=== PATIENT | female | born 1945 | race Caucasian/White ===

== ENCOUNTER 2019-05-01 22:08 | Inpatient (IN) | payer MEDICARE, BC ==
[2019-05-01 23:03] LABS: HEMATOCRIT 36.8 % (36.0-47.0); HEMOGLOBIN 11.8 g/dL (12.0-15.5); MEAN CORPUSCULAR HEMOGLOBIN 27.6 pg (27.0-33.4); MEAN CORPUSCULAR VOLUME 86 fl (80-97); RED BLOOD COUNT 4.27 10^6/uL (3.72-5.28); RED CELL DISTRIBUTION WIDTH 17.4 % (11.5-14.0)
[2019-05-01 23:06] LABS: ALBUMIN 3.7 g/dL (3.5-5.0); ALKALINE PHOSPHATASE 145 U/L (38-126); ASPARTATE AMINO TRANSFERASE 26 U/L (14-36); BILIRUBIN,DIRECT 0.4 mg/dL (0.0-0.4); BILIRUBIN,TOTAL 0.4 mg/dL (0.2-1.3); CALCIUM 9.8 mg/dL (8.4-10.2); GLUCOSE 205 mg/dL (75-110); POTASSIUM 5.2 mmol/L (3.6-5.0); TOTAL PROTEIN 7.2 g/dL (6.3-8.2)
[2019-05-01 23:11] LABS: CHLORIDE 89 mmol/L (98-107)
[2019-05-01 23:14] LABS: APPEARANCE,URINE SLIGHTLY-CLOUDY; BILIRUBIN,URINE NEGATIVE (NEGATIVE); COLOR,URINE YELLOW; GLUCOSE, URINE 50 mg/dL (NEGATIVE); KETONES,URINE TRACE mg/dL (NEGATIVE); LEUKOCYTE ESTERASE,URINE NEGATIVE (NEGATIVE); NITRITE,URINE NEGATIVE (NEGATIVE); PROTEIN,URINE 100 mg/dL (NEGATIVE); URINE SPECIFIC GRAVITY 1.012; UROBILINOGEN,URINE NEGATIVE mg/dL (<2.0)
[2019-05-01 23:21] LABS: ABSOLUTE LYMPHOCYTES# (MANUAL) 1.8 10^3/uL (0.5-4.7); ABSOLUTE MONOCYTES # (MANUAL) 1.8 10^3/uL (0.1-1.4); BAND NEUTROPHILS % (MANUAL) 8 % (3-5); BASOPHILS % (MANUAL) 0 % (0-2); BLOOD UREA NITROGEN 133 mg/dL (7-20); EOSINOPHILS % (MANUAL) 0 % (0-6); LYMPHOCYTES % (MANUAL) 5 % (13-45); MONOCYTES % (MANUAL) 5 % (3-13); SEGMENTED NEUTROPHILS % (MAN) 82 % (42-78); TOTAL CELLS COUNTED 100
[2019-05-01 23:22] LABS: ANION GAP 32 (5-19)
[2019-05-01 23:23] LABS: TOXIC GRANULATION 1+; TOXIC VACUOLATION PRESENT
[2019-05-01 23:24] LABS: ANISOCYTOSIS 1+; PLATELET COMMENT INCREASED; WHITE BLOOD COUNT 36.5 10^3/uL (4.0-10.5)
[2019-05-01 23:25] LABS: CARBON DIOXIDE 8 mmol/L (22-30)
[2019-05-01] MEDS ORDERED: NORMAL SALINE IV PRN (23:43)
[2019-05-02] MEDS ORDERED: PIPERACILLIN/TAZOBACTAM 4.5 GM VIAL IV ONE (00:05)
--- NOTE | 2019-05-02 00:40 | RADIOLOGY REPORT (SQ) ---
EXAM: CT abdomen and pelvis without intravenous contrast CLINICAL DATA: 74-year-old female with right lower quadrant abdominal pain TECHNICAL DATA: Axial CT imaging of the abdomen and pelvis was performed. Sagittal and coronal reconstructed images were then performed. The CT study is performed according to ALARA (as low as reasonably achievable) or ALARA/IMAGE GENTLY, with automatic adjustment of mA and/or kV according to patient size. Performed on: 05/02/2019 at 12:08 AM Comparison: None. FINDINGS: Lung bases: The lung bases are clear. Liver:The liver is normal in size and configuration. No focal hepatic abnormalities are appreciated on this unenhanced scan. Liver attenuation is within normal limits. Spleen:The spleen is normal is size, configuration and attenuation. No focal splenic abnormalities are appreciated on this unenhanced scan. Gallbladder and bile duct: The gallbladder is surgically absent. There is no biliary ductal dilatation. Pancreas: The pancreas is grossly normal in size and configuration. Adrenal Glands:The adrenal glands are normal in size and configuration. Kidneys:The kidneys are normal in size and configuration. There is no evidence of hydronephrosis. There is no evidence of nephrolithiasis. No focal renal abnormalities are identified. Stomach:The stomach is grossly normal. There is no definite hiatal hernia. Bowel:The bowel gas pattern is non specific and non obstructive. There is occasional colonic diverticulosis. Appendix: The appendix is normal. Free air:There is no evidence of free air. Free fluid: There is no evidence of free fluid. Vasculature: The aorta is normal in caliber and contour. The inferior vena cava is grossly unremarkable. Lymphadenopathy: No pathologic lymphadenopathy is identified. Bladder: The bladder is partially distended and smooth in contour. Reproductive: The uterus is retroflexed and there is a calcified fibroid in the fundus and the lower uterine body. Bones: No acute osseous abnormalities are identified. There is mild degenerative disc disease from L3-L4 through L5-S1. Soft tissues: No focal soft tissue abnormalities are identified. IMPRESSION: 1. Normal unenhanced CT scan of the abdomen and pelvis. There is no evidence of urinary tract calcification or urinary tract obstruction. There is no evidence of gallbladder pathology or acute appendicitis. 2. Occasional colonic diverticulosis. 3. Remote cholecystectomy. 4. Retroflexed myomatous uterus.
--- NOTE | 2019-05-02 00:41 | RADIOLOGY REPORT (SQ) ---
CLINICAL HISTORY: Cough COMPARISON: None. 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 There is minimal left basilar opacity. There is no pleural effusion. There is no pneumothorax. There are no acute osseous findings. IMPRESSION: Difficult to completely exclude minimal left basilar pneumonia.
[2019-05-02] MEDS: PIPERACILLIN SODIUM/TAZOBACTAM 4.5 GM in NORMAL SALINE 100 ML IV SCH ×2 (00:50→17:14)
[2019-05-02 01:18] LABS: ARTERIAL BLOOD BASE EXCESS -20.7 mmol/L; ARTERIAL BLOOD FIO2 ROOM AIR; ARTERIAL BLOOD H2CO3 0.65 mmol/L (1.05-1.35); ARTERIAL BLOOD HCO3 6.8 mmol/L (20-24); ARTERIAL BLOOD O2 SATURATION 95.6 % (94-98); ARTERIAL BLOOD PCO2 21.5 mmHg (35-45); ARTERIAL BLOOD PO2 100.4 mmHg (80-100); ARTERIAL BLOOD TOTAL CO2 7.5 mmol/L (21-25)
[2019-05-02 01:19] LABS: ARTERIAL BLOOD PH 7.12 (7.35-7.45)
[2019-05-02] MEDS ORDERED: SODIUM BICARBONATE 8.4% INJ 50 MEQ/50 ML DISP.SYRIN IV ONE ×2 (02:15→02:16)
--- NOTE | 2019-05-02 02:21 | ER Document Report ---
ED Dizziness/Weakness - General Chief Complaint: General Weakness Stated Complaint: WEAKNESS Information source: Patient, Relative - Son Notes: 34-year-old woman presents to the emergency department with family. States that she injured her right foot approximately 2 weeks ago. And over the past 2 days she has had a decrease in her intake, increased weakness and some confusion. Patient has a history of Alzheimer's disease, diabetes type 2, chronic renal failure stage III, hypertension, hyperlipidemia, and thrombocytosis. TRAVEL OUTSIDE OF THE [place] IN LAST 30 DAYS: No - Related Data Allergies/Adverse Reactions: atorvastatin Allergy (Verified 05/01/19 23:58) codeine Allergy (Verified 05/01/19 23:58) lisinopril Allergy (Verified 05/01/19 23:58) meloxicam Allergy (Verified 05/01/19 23:58) metformin Allergy (Verified 05/01/19 23:58) Sulfa (Sulfonamide Antibiotics) Allergy (Verified 05/01/19 23:58) Past Medical History - Social History Smoking Status: Never Smoker Chew tobacco use (# tins/day): No Frequency of alcohol use: None Drug Abuse: None Family History: Reviewed & Not Pertinent Patient has suicidal ideation: No Patient has homicidal ideation: No - Past Medical History Cardiac Medical History: Reports: Hx Atrial Fibrillation Endocrine Medical History: Reports: Hx Diabetes Mellitus Type 2 Renal/ Medical History: Reports: Hx End Stage Renal Disease - stage 3 Review of Systems - Review of Systems Notes: Constitutional: Generalized weakness, negative for fever, HENT: Negative for neck pain or stiffness Eyes: Negative for visual changes. Cardiovascular: Negative for chest pain. Respiratory: Negative for shortness of breath. Gastrointestinal: + Abdominal pain, + nausea, no vomiting or diarrhea. Genitourinary: Negative for dysuria. Musculoskeletal: Negative for back pain. Skin: Negative for rash. Neurological: + Increased confusion 10 point ROS negative except as marked above and in HPI. Physical Exam - Vital signs Vitals: Temp Pulse Resp BP Pulse Ox 97.6 F 97 14 148/55 H 100 05/01/19 22:13 05/01/19 22:13 05/01/19 22:13 05/01/19 22:13 05/01/19 22:13 - Notes Notes: PHYSICAL EXAMINATION: Physical Exam: General: Frail elderly female in no acute distress HEENT: NC/AT, pupils equal round and reactive to light, MM moist,nares clear, eyes are sunken Neck: supple, no adenopathy, no masses. Lungs: clear, no wheezing, no rales no rhonchi CVS: Regular rate and rhythm no murmur gallop or rub Abdomen: Soft, active, + tenderness lower abdominal region, no guarding, no rebound no masses, no hepatosplenomegaly Ext: No edema clubbing or cyanosis. Capillary refill greater than 2 seconds. Neuro: Alert and responsive, moving all 4 extremities on command, cranial nerves intact. Skin: Intact no open lesions, no rash Course - Re-evaluation Re-evalutation: 05/02/19 02:55 The latex foam worker contacted in the ICU, report given of critically ill 74-year-old with significant leukocytosis thrombocytosis, possible sepsis, and acute on chronic renal failure. Severe metabolic acidosis I doubt DKA given her other findings. IV fluids, Moreno catheter, sodium bicarb, blood cultures, IV antibiotics and the need for ICU and intensive scrutiny/care is needed. The latex foam worker will see the patient in the emergency department for further evaluation. - Vital Signs Vital signs: Temp Pulse Resp BP Pulse Ox 97.8 F 88 18 176/69 H 93 05/07/19 02:00 05/07/19 02:00 05/07/19 02:00 05/07/19 06:07 05/07/19 06:07 - Laboratory Result Diagrams: 05/07/19 03:33 05/07/19 03:33 Laboratory results interpreted by me: 05/01/19 05/01/19 05/01/19 21:38 21:38 22:46 WBC 36.5 H* Hgb 11.8 L RDW 17.4 H Plt Count 1387 H* Seg Neuts % (Manual) 82 H Band Neutrophils % 8 H Lymphocytes % (Manual) 5 L Abs Neuts (Manual) 32.9 H Abs Monocytes (Manual) 1.8 H Carbonic Acid ABG pH ABG pCO2 ABG pO2 ABG HCO3 ABG Total CO2 Sodium 128.8 L Potassium 5.2 H Chloride 89 L Carbon Dioxide 8 L* Anion Gap 32 H BUN 133 H Creatinine 5.00 H Est GFR ( Amer) 10 L Est GFR (MDRD) Non-Af 8 L Glucose 205 H POC Glucose 209 H Alkaline Phosphatase 145 H Urine Protein Urine Glucose (UA) Urine Ketones Urine Blood 05/01/19 05/02/19 23:00 01:06 WBC Hgb RDW Plt Count Seg Neuts % (Manual) Band Neutrophils % Lymphocytes % (Manual) Abs Neuts (Manual) Abs Monocytes (Manual) Carbonic Acid 0.65 L ABG pH 7.12 L* ABG pCO2 21.5 L ABG pO2 100.4 H ABG HCO3 6.8 L ABG Total CO2 7.5 L Sodium Potassium Chloride Carbon Dioxide Anion Gap BUN Creatinine Est GFR ( Amer) Est GFR (MDRD) Non-Af Glucose POC Glucose Alkaline Phosphatase Urine Protein 100 H Urine Glucose (UA) 50 H Urine Ketones TRACE H Urine Blood SMALL H I have reviewed laboratory data and used this information for the treatment decisions regarding the patient. - Diagnostic Test Radiology reviewed: Image reviewed, Reports reviewed - Chest x-ray portable: Unable to interpret today completely, no apparent obvious infiltrate. CT abdomen and pelvis: Noncontrast study no acute intra-abdominal findings. Critical Care Note - Critical Care Note Total time excluding time spent on procedures (mins): 60 - Critical care time spent obtaining history from patient or surrogate, discussions with consultants, development of treatment plan with patient or surrogate, evaluation of patient's response to treatment, examination of patient, ordering and performing treatments and interventions, ordering and review of laboratory studies, re- evaluation of patient's condition, ordering and review of radiographic studies and review of old charts Discharge - Discharge Clinical Impression: Metabolic acidosis, Renal failure (ARF), acute on chronic, Thrombocytosis Leukocytosis, unspecified Qualifiers: Leukocytosis type: unspecified Qualified Code(s): D72.829 - Elevated white blood cell count, unspecified Condition: Critical Disposition: ADMITTED INPATIENT Unit Admitted: ICU
[2019-05-02] MEDS ORDERED: OXYCODONE HCL IR 5 MG TABLET PO PRN (04:34)
[2019-05-02] MEDS ORDERED: DEXTROSE 40% GEL 15 GM TUBE PO PRN ×2 (04:51)
[2019-05-02] MEDS ORDERED: DEXTROSE 50%-WATER 25 GM/50 ML DISP.SYRIN IV PRN ×2 (04:51)
[2019-05-02] MEDS ORDERED: GLUCAGON,HUMAN RECOMB 1 MG INJ IM PRN (04:51)
[2019-05-02] MEDS: NORMAL SALINE 1000 ML 1,000 ML IV PRN ×2 (05:03→13:18)
[2019-05-02] MEDS: INSULIN REG, HUMAN 100 UNIT/ML 3 ML VIAL (PYX) SUBCUT SCH ×5 (05:07→19:25)
[2019-05-02] MEDS: HEPARIN SOD (PORCINE) 5,000 UNIT/ML 1 ML VIAL SUBCUT SCH ×3 (05:13→21:05)
[2019-05-02] MEDS ORDERED: INFLUENZA QUAD (6MOS+) 2019-20 VAC 0.5 ML SYR IM ONE (05:39)
[2019-05-02 06:12] LABS: VENOUS BLOOD BASE EXCESS -16.8 mmol/L; VENOUS BLOOD HCO3 10.7 mmol/L (20-32)
[2019-05-02 06:15] LABS: VENOUS BLOOD PH 7.15 (7.30-7.42)
[2019-05-02 06:20] LABS: URINE CREATININE 34.6 mg/dL (15-278)
[2019-05-02] MEDS ORDERED: HYDROMORPHONE HCL INJ/PF 2 MG/ML AMPULE IV ONE (06:24)
[2019-05-02] MEDS ORDERED: HYDROMORPHONE HCL INJ/PF 2 MG/ML AMPULE ONE ×2 (06:35→09:03)
[2019-05-02 06:38] LABS: NT PRO BNP 1640 pg/mL (<450)
[2019-05-02 06:46] LABS: TROPONIN I < 0.012 ng/mL
[2019-05-02] MEDS ORDERED: CLINDAMYCIN HCL 150 MG CAPSULE PO SCH (07:00)
--- NOTE | 2019-05-02 07:43 | EKG REPORT ---
SEVERITY:- ABNORMAL ECG - SINUS RHYTHM CONSIDER LEFT VENTRICULAR HYPERTROPHY BORDERLINE INFERIOR Q WAVES : Confirmed by: Cole Locke MD 02-May-2019 07:43:02
--- NOTE | 2019-05-02 08:24 | CRITICAL CARE ADMISSION REPORT ---
<AZAM WRIGHT - Last Filed: 05/02/19 08:24> HPI Date:: 05/02/19 Time:: 03:30 Reason for ICU Reason:: Metabolic acidosis, hypovolemia, leukocytosis, VALENTIN on CKD, multiple electrolyte abnormalities. HPI: Milli Trammell is a 74-year-old female with a past medical history significant for atrial fibrillation for which she is on ASA denying anticoagulation, type 2 diabetes for which she does not take any medication relying on diet, stage III CKD, HTN, HLD, asthma, and essential thrombocytosis who now presents with several days of decreased oral intake, weakness, and some confusion per the patient's son. Her son reports this all started since her recent injury to her right foot, which was injured while walking and hearing a popping noise approxi mately 2 weeks ago. She has reportedly had multiple x-rays of her right lower extremity demonstrating no fracture or dislocation for which she was diagnosed with a foot sprain. She has also been unable to walk which was her usual state of health prior to the injury, being mostly sedentary the past 2 weeks. She reports her pain is relieved with the oxycodone she has been taking at home, allowing her to actually get some rest. Notable labs from the ED are a leukocytosis of 36.5 with 8% bandemia, thrombocytosis of 1387, afebrile in combination with reports of myalgias and arthralgias over the past couple days. She denies chills or recent exposure to someone ill. She was also noted to have VALENTIN on CKD with a BUN of 133 and creatinine of 5, though non-oliguric. She was also found to have a sodium of 129, chloride of 89, serum bicarb of 8, and an anion gap of 32. Her pH is 7.12 with a base deficit of 21. Blood cultures and urinalysis were performed in the ED for which the UA is negative for UTI. The patient received 30 mL/kg of crystalloid for hydration as well. History obtained from:: Patient's son, ED physician, and medical record - Diagnosis/Plan (1) Metabolic acidosis Is this a current diagnosis for this admission?: Yes Plan: Multifactorial with suspected infection, hypovolemia, and VALENTIN. Repeat BMP and pH after fluid resuscitation. Add Mg+ & PO4 with next lab as wel l. Check lactic acid. (2) Necrotizing soft tissue infection Is this a current diagnosis for this admission?: Yes Plan: Presume NSTI to R foot; obtain non-con CT given VALENTIN. (3) Abscess of nose Is this a current diagnosis for this admission?: Yes Plan: Suspect left nare abscess given erythema, edema, tenderness. May need CT face if no other infectious source identified. (4) Acute kidney injury superimposed on chronic kidney disease Is this a current diagnosis for this admission?: Yes Plan: Trend BMP prn. Continue soriano catheter for Strict I&O in critically ill. Monitor for worsening electrolyte abnormalities. Avoid NSAID's and other nephrotoxic drugs as well as IV contrast as able. (5) Asthma Qualifiers: Asthma severity: unspecified severity Asthma persistence: intermittent Asthma complication type: uncomplicated Qualified Code(s): J45.20 - Mild intermittent asthma, uncomplicated Is this a current diagnosis for this admission?: Yes Plan: Xopenex prn SOB/wheezing and scheduled Symbicort. Zafirlukast not on formulary; clarify auto-sub with daytime clinical pharmD. Montelukast? (6) History of cardiac murmur Plan: Will obtain baseline CK, Troponin, BNP in setting of metabolic acidemia. (7) History of atrial fibrillation Is this a current diagnosis for this admission?: Yes Plan: In NSR during exam. Continue home Toprol for now, telemetry. (8) HTN (hypertension) Qualifiers: Hypertension type: essential hypertension Qualified Code(s): I10 - Essential (primary) hypertension Is this a current diagnosis for this admission?: Yes Plan: Hold Verapimil and Triamterene-HCTZ for now. Resume home Toprol more for Hx of atrial fibrillation; monitor BP/HR. (9) Type 2 DM with CKD and hypertension Is this a current diagnosis for this admission?: Yes Plan: Insulin sliding scale with correctional insulin AC/HS. Anticipate diet later today if no acute need for surgery, hence the AC/HS schedule. (10) Abdominal tenderness, RLQ (right lower quadrant) Qualifiers: Presence of rebound: absent Qualified Code(s): R10.813 - Right lower quadrant abdominal tenderness Is this a current diagnosis for this admission?: Yes Plan: Non-contrasted CT abd/pelvis performed with no acute significant findings explaining acidemia/infection. Continue to follow clinically. (11) Acute pain due to injury Is this a current diagnosis for this admission?: Yes Plan: Right foot pain with recent injury/sprain. Will order home Oxycodone dose that was relieving patient's pain at home. (12) Essential thrombocytosis Is this a current diagnosis for this admission?: Yes Plan: Hold ASA for now 2/2 VALENTIN on CKD. Monitor for further acute organ compromise from thrombocytosis. (13) Alzheimer's dementia without behavioral disturbance Qualifiers: Alzheimer's disease onset: early-onset Qualified Code(s): G30.0 - Alzheimer's disease with early onset; F02.80 - Dementia in other diseases classified elsewhere without behavioral disturbance Is this a current diagnosis for this admission?: Yes Plan: Hold Memantine home med for now given adverse effect possibilities similar to what pt experiencing in weakness, myalgias, arthralgias, intermittent headache. Assess daily for resuming. (14) Right foot sprain Qualifiers: Encounter type: initial encounter Qualified Code(s): S93.601A - Unspecified sprain of right foot, initial encounter Is this a current diagnosis for this admission?: Yes Plan: Obtain non-contrast CT RLE to R/O NSTI. Elevate RLE on pillows to reduce edema. RLE ultrasound to R/O DVT. POCUS performed 05/02/19 demonstrating adequate DP/PT arterial flow in R foot distal to edema combined with brisk capillary refill. Past Medical History Cardiac Medical History: Reports: Atrial Fibrillation, Hyperlipidema, Hypertension, Heart Murmur - Reportedly known since patient was a child. Denies: Congestive Heart Failure, Coronary Artery Disease, DVT, Myocardial Infarction, Peripheral Vascular Disease, Pulmonary Embolism Pulmonary Medical History: Reports: Asthma, Bronchitis, Pneumonia Denies: Chronic Obstructive Pulmonary Disease (COPD), Intubation, Respiratory Failure EENT Medical History: Reports: Cataracts Neurological Medical History: Reports: Other - early Alzheimer's dementia Denies: Hemorrhagic CVA, Ischemic CVA, Migraine Endocrine Medical History: Reports: Diabetes Mellitus Type 2 Denies: Hyperthyroidism, Hypothyroidism Renal/ Medical History: Reports: Other - Stage III chronic kidney disease sec ondary to diabetes per patient report Malignancy Medical History: Reports: Skin Cancer - Post resection from nasal bridge Denies: Bone Cancer, Cervical Cancer, Ovarian Cancer GI Medical History: Reports: Other - Diverticulosis Denies: Cirrhosis, Crohn's Disease, Diverticulitis, Gastroesophageal Reflux Disease Musculoskeltal Medical History: Denies: Arthritis Skin Medical History: Reports: Other - 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 Psychiatric Medical History: Reports: None Traumatic Medical History: Reports: None Past Surgical History Past Surgical History: Reports: Cholecystectomy, Knee Replacement, Other - Carpal tunnel surgery of right wrist Social/Family History - Social History Smoking Status: Never Smoker Frequency of Alcohol Use: None Hx Recreational Drug Use: No - Medication/Allergies Home Medications: Aspirin [Aspirin 325 mg Tablet] 325 mg PO DAILY 05/02/19 Budesonide/Formoterol Fumarate [Symbicort HFA 160-4.5 mcg Inhaler 6 gm] 2 puff IH BID 05/02/19 Calcium Carbonate/Vitamin D3 [Calcium 600-Vit D3 200 Tablet] 1 tab PO DAILY 05/02/19 Cholecalciferol (Vitamin D3) [Vitamin D3] 25 mcg PO DAILY 05/02/19 Ibuprofen [Motrin 800 mg Tablet] 800 mg PO Q8H PRN 05/02/19 Levalbuterol Tartrate [Xopenex Hfa] 2 puff IH Q4H PRN 05/02/19 Memantine HCl 5 mg PO BID 05/02/19 Metoprolol Succinate 100 mg PO DAILY 05/02/19 Sulindac 200 mg PO DAILY 05/02/19 Triamterene/Hydrochlorothiazid [Triamterene-Hctz 37.5-25 mg Cp] 1 tab PO DAILY 05/02/19 Verapamil HCl [Verapamil ER] 240 mg PO DAILY 05/02/19 Zafirlukast 20 mg PO BID 05/02/19 Allergies/Adverse Reactions: atorvastatin Allergy (Verified 05/01/19 23:58) codeine Allergy (Verified 05/01/19 23:58) lisinopril Allergy (Verified 05/01/19 23:58) meloxicam Allergy (Verified 05/01/19 23:58) metformin Allergy (Verified 05/01/19 23:58) Sulfa (Sulfonamide Antibiotics) Allergy (Verified 05/01/19 23:58) Review of Systems Constitutional: PRESENT: headache(s), weakness. ABSENT: chills, fever(s) Eyes: ABSENT: visual disturbances Ears: ABSENT: hearing changes Nose, Mouth, and Throat: ABSENT: mouth pain, sore throat, vertigo Cardiovascular: ABSENT: chest pain, dyspnea on exertion, edema, orthropnea, palpitations Respiratory: ABSENT: cough, dyspnea, hemoptysis, sputum Gastrointestinal: ABSENT: abdominal pain, coffee ground emesis, constipation, diarrhea, dysphagia, heartburn, hematemesis, melena, nausea, vomiting Genitourinary: ABSENT: difficulty urinating, dysuria, hematuria, nocturia Musculoskeletal: PRESENT: joint swelling - Right foot edema, other - Myalgias and arthralgias for a couple days. ABSENT: back pain, deformity Integumentary: PRESENT: erythema - to right foot, wounds - Has a scab to right calf area, which was reportedly a bite that the patient scratched.. ABSENT: diaphoresis, lesions, pruritus, rash Neurological: PRESENT: confusion - per patient's son, weakness. ABSENT: abnormal speech, dizziness, syncope Psychiatric: ABSENT: anxiety, depression, hallucinations, homidical ideation, suicidal ideation Endocrine: ABSENT: cold intolerance, heat intolerance, polydipsia, polyphagia, polyuria Hematologic/Lymphatic: ABSENT: easy bleeding, easy bruising, lymphadenopathy Allergic/Immunologic: PRESENT: other - sinus pressure with congestion and clear discharge which resolved a week before this admission Physical Exam Vital Signs: Temp Pulse Resp BP Pulse Ox 97.6 F 95 15 112/76 98 05/02/19 03:29 05/02/19 03:29 05/02/19 03:29 05/02/19 03:29 05/02/19 03:29 Intake & Output 04/30/19 05/01/19 05/02/19 06:59 06:59 06:59 Intake Total 1900 Balance 1900 Weight 60.9 kg Weight/Height Weight 60.9 kg Height 5 ft General appearance: PRESENT: no acute distress, cooperative, well-nourished. ABSENT: hard of hearing Head exam: PRESENT: atraumatic, normocephalic Eye exam: PRESENT: conjunctiva pink, EOMI, PERRLA. ABSENT: nystagmus, periorbital swelling, scleral icterus Ear exam: PRESENT: normal external ear exam. ABSENT: bleeding, drainage Mouth exam: PRESENT: dry mucosa, neck supple, tongue midline. ABSENT: laceration Teeth exam: ABSENT: poor dentation Throat exam: ABSENT: post pharyngeal erythema, tonsillar erythema, tonsillar exudate Neck exam: PRESENT: full ROM. ABSENT: carotid bruit, JVD, lymphadenopathy, tenderness, tracheal deviation Respiratory exam: PRESENT: clear to auscultation [place], symmetrical, unlabored. ABSENT: accessory muscle use, chest wall tenderness, rales, rhonchi, wheezes Cardiovascular exam: PRESENT: RRR - Normal sinus rhythm on bedside telemetry in ED with HR in 90's, systolic murmur - right 2nd intercostal space/sternal border, Grade III Pulses: PRESENT: normal carotid pulses, normal radial pulses, other - Left dorsalis pedis and posterior tibialis +2. Right posterior tibialis +2. Right dorsalis pedis +1. Capillary refill brisk in all 4 extremities. All ex tremities warm to touch. GI/Abdominal exam: PRESENT: normal bowel sounds, soft, tenderness - Mild tenderness to right lower quadrant. ABSENT: distended, firm, guarding, rigid Rectal exam: ABSENT: deferred Gentrourinary exam: PRESENT: indwelling catheter - Placed today in ED. ABSENT: ecchymosis, erythema, urethral discharge Extremities exam: PRESENT: calf tenderness - Right calf tenderness to palpation, though no edema/erythema/heat to calf noted., full ROM - With exception of right foot/ankle due to pain, joint swelling - Right foot/ankle, pedal edema - Right foot/ankle, tenderness - Right foot/ankle, +2 edema - To right foot/ankle. ABSENT: clubbing Musculoskeletal exam: PRESENT: ambulatory - Ambulatory prior to injury of right foot 2 weeks ago. Has been sedentary since the injury., tenderness - Palpation. ABSENT: deformity, dislocation Neurological exam: PRESENT: alert, awake, oriented to person, oriented to place, oriented to time, oriented to situation, CN II-XII grossly intact Psychiatric exam: PRESENT: appropriate affect. ABSENT: agitated, anxious, depressed, flat affect, homicidal ideation, suicidal ideation Skin exam: PRESENT: dry, normal color - With exception of right foot/ankle, warm. ABSENT: cyanosis, jaundice, mottled, rash Tubes/Lines: PRESENT: Other - Soriano catheter placed today in ED Laboratory/Radiographs Laboratory Results: 05/01/19 21:38 05/01/19 21:38 05/01/19 05/01/19 05/01/19 21:38 21:38 23:00 WBC 36.5 H* RBC 4.27 Hgb 11.8 L Hct 36.8 MCV 86 MCH 27.6 MCHC 32.0 RDW 17.4 H Plt Count 1387 H* Seg Neutrophils % Not Reportable Carbonic Acid HCO3/H2CO3 Ratio ABG pH ABG pCO2 ABG pO2 ABG HCO3 ABG O2 Saturation ABG Base Excess FiO2 Sodium 128.8 L Potassium 5.2 H Chloride 89 L Carbon Dioxide 8 L* Anion Gap 32 H BUN 133 H Creatinine 5.00 H Est GFR ( Amer) 10 L Glucose 205 H Calcium 9.8 Total Bilirubin 0.4 AST 26 Alkaline Phosphatase 145 H Total Protein 7.2 Albumin 3.7 Urine Color YELLOW Urine Appearance SLIGHTLY-CLOUDY Urine pH 5.0 Ur Specific [place] 1.012 Urine Protein 100 H Urine Glucose (UA) 50 H Urine Ketones TRACE H Urine Blood SMALL H Urine Nitrite NEGATIVE Ur Leukocyte Esterase NEGATIVE Urine WBC (Auto) 2 Urine RBC (Auto) 1 05/02/19 01:06 WBC RBC Hgb Hct MCV MCH MCHC RDW Plt Count Seg Neutrophils % Carbonic Acid 0.65 L HCO3/H2CO3 Ratio 10:1 ABG pH 7.12 L* ABG pCO2 21.5 L ABG pO2 100.4 H ABG HCO3 6.8 L ABG O2 Saturation 95.6 ABG Base Excess -20.7 FiO2 ROOM AIR Sodium Potassium Chloride Carbon Dioxide Anion Gap BUN Creatinine Est GFR ( Amer) Glucose Calcium Total Bilirubin AST Alkaline Phosphatase Total Protein Albumin Urine Color Urine Appearance Urine pH Ur Specific [place] Urine Protein Urine Glucose (UA) Urine Ketones Urine Blood Urine Nitrite Ur Leukocyte Esterase Urine WBC (Auto) Urine RBC (Auto) Impressions: Chest X-Ray 05/01/19 23:44 IMPRESSION: Difficult to completely exclude minimal left basilar pneumonia. Abdomen/Pelvis CT 05/01/19 23:49 IMPRESSION: 1. Normal unenhanced CT scan of the abdomen and pelvis. There is no evidence of urinary tract calcification or urinary tract obstruction. There is no evidence of gallbladder pathology or acute appendicitis. 2. Occasional colonic diverticulosis. 3. Remote cholecystectomy. 4. Retroflexed myomatous uterus. All labs, radiographs, diagnostic studies and EKGs were personally reviewed: Yes Critical Time Critical Time (minutes): 70 -: The care of a critically ill patient is dynamic. This note represents a static moment in the admission process. orders and treatments may be given simulataneously and urgentl, and time is not medical center representative of the treatment process. This patient requires Critical Care secondary to life threating organ or limb dysfunction. Without the need for Critical Care services, the patient is at risk for increasid mortality and morbidity. <ALEX MICHAUD - Last Filed: 05/02/19 09:45> HPI - . Plan Summary: Staff Addendum: Agree with above assessment with the following additions/changes. The patient reports an injury to the foot/ankle 2 weeks ago but all examination (x-rays at outside facility?) were reportedly normal per the son/patient. Examination of the right lower extremity reveals an edematous, erythematous/discolored forefoot and and ankle with a fluctuant area overlying the metatarsals. There is capillary refill is present but sluggish compared with the contralateral extremi ty. The foot is exquisitely tender, out of proportion to exam and there is pain with passive motion of the digits. Pulses are palpable using a doppler to locate through the edema but 1+. Review of the laboratory values reveals a LRINEC (Laboratory Risk Indicator for Necrotizing Fasciitis) score of 8 even without a CRP result and likely will be 12 after the return of the CRP. Data behind the score places her at 93.4% risk for an NSTI. This in combination with her CT showing fluid/edema and her worrisome exam necessitates surgical evaluation. Surgery has been consulted and the case discussed with Dr. Salcido who will evaluate her as soon as he is able. Will transition back to renal dose Zosyn IV, Clindamycin IV, aggressive hydration and glucose control while awaiting surgical consult. Alex Michaud, DO Physical Exam Vital Signs: Temp Pulse Resp BP Pulse Ox 97.5 F 92 16 112/39 L 99 05/02/19 08:00 05/02/19 09:21 05/02/19 09:21 05/02/19 08:00 05/02/19 09:21 Intake & Output 05/01/19 05/02/19 05/03/19 06:59 06:59 06:59 Intake Total 2020 Output Total 360 115 Balance 1660 -115 Weight 65.2 kg Weight/Height Weight 65.2 kg Height 5 ft Laboratory/Radiographs Laboratory Results: 05/01/19 05/01/19 05/01/19 21:38 21:38 23:00 WBC 36.5 H* RBC 4.27 Hgb 11.8 L Hct 36.8 MCV 86 MCH 27.6 MCHC 32.0 RDW 17.4 H Plt Count 1387 H* Seg Neutrophils % Not Reportable Carbonic Acid HCO3/H2CO3 Ratio ABG pH ABG pCO2 ABG pO2 ABG HCO3 ABG O2 Saturation ABG Base Excess VBG pH VBG pCO2 VBG HCO3 VBG Base Excess FiO2 Sodium 128.8 L Potassium 5.2 H Chloride 89 L Carbon Dioxide 8 L* Anion Gap 32 H BUN 133 H Creatinine 5.00 H Est GFR ( Amer) 10 L Glucose 205 H Calcium 9.8 Total Bilirubin 0.4 AST 26 Alkaline Phosphatase 145 H Total Protein 7.2 Albumin 3.7 Urine Color YELLOW Urine Appearance SLIGHTLY-CLOUDY Urine pH 5.0 Ur Specific [place] 1.012 Urine Protein 100 H Urine Glucose (UA) 50 H Urine Ketones TRACE H Urine Blood SMALL H Urine Nitrite NEGATIVE Ur Leukocyte Esterase NEGATIVE Urine WBC (Auto) 2 Urine RBC (Auto) 1 05/02/19 05/02/19 01:06 05:57 WBC RBC Hgb Hct MCV MCH MCHC RDW Plt Count Seg Neutrophils % Carbonic Acid 0.65 L HCO3/H2CO3 Ratio 10:1 ABG pH 7.12 L* ABG pCO2 21.5 L ABG pO2 100.4 H ABG HCO3 6.8 L ABG O2 Saturation 95.6 ABG Base Excess -20.7 VBG pH 7.15 L* VBG pCO2 31.0 L VBG HCO3 10.7 L VBG Base Excess -16.8 FiO2 ROOM AIR Sodium Potassium Chloride Carbon Dioxide Anion Gap BUN Creatinine Est GFR ( Amer) Glucose Calcium Total Bilirubin AST Alkaline Phosphatase Total Protein Albumin Urine Color Urine Appearance Urine pH Ur Specific [place] Urine Protein Urine Glucose (UA) Urine Ketones Urine Blood Urine Nitrite Ur Leukocyte Esterase Urine WBC (Auto) Urine RBC (Auto) 05/02/19 05:57 Troponin I < 0.012 NT-Pro-B Natriuret Pep 1640 H Impressions: Chest X-Ray 05/01/19 23:44 IMPRESSION: Difficult to completely exclude minimal left basilar pneumonia. Abdomen/Pelvis CT 05/01/19 23:49 IMPRESSION: 1. Normal unenhanced CT scan of the abdomen and pelvis. There is no evidence of urinary tract calcification or urinary tract obstruction. There is no evidence of gallbladder pathology or acute appendicitis. 2. Occasional colonic diverticulosis. 3. Remote cholecystectomy. 4. Retroflexed myomatous uterus. Lower Extremity CT 05/02/19 00:00 IMPRESSION: Soft tissue edema distally in the lower extremity. It has raises the possibility of cellulitis. No abscess or mass. No bone pathology. Critical Time -: The care of a critically ill patient is dynamic. This note represents a static moment in the admission process. orders and treatments may be given simulataneously and urgentl, and time is not medical center representative of the treatment process. This patient requires Critical Care secondary to life threating organ or limb dysfunction. Without the need for Critical Care services, the patient is at risk for increasid mortality and morbidity.
--- NOTE | 2019-05-02 08:49 | RADIOLOGY REPORT (SQ) ---
EXAM DESCRIPTION: CT RT LOWER EXTREMITY WITHOUT COMPLETED DATE/TIME: 05/02/2019 8:23 am REASON FOR STUDY: erythema/edema, pain out of proportion; R/O NSTI COMPARISON: None. TECHNIQUE: Axial imaging performed through the right leg with reformatted coronal and sagittal imagi ng windowed for bone and soft tissues. Images saved to PACS. 3D IMAGING: Were 3D images as MIP, SSD, or volume rendering performed at the work station? no LIMITATIONS: Knee arthroplasty artifact with associated beam hardening about the knee. Mild motion artifact. FINDINGS: Soft tissues: Mild soft tissue edema about the ankle and extending over the foot. Potent ially cellulitis. No drainable abscess or gross mass suggested. No radiopaque foreign body. Bony structures: No acute fracture. No dislocation. MINERALIZATION: Normal. OTHER: No other significant finding. IMPRESSION: Soft tissue edema distally in the lower extremity. It has raises the possibility of lazara lulitis. No abscess or mass. No bone pathology. TECHNICAL DOCUMENTATION: JOB ID: [id number] Reading location - IP/workstation name: [email or web address]
[2019-05-02] MEDS: HYDROMORPHONE HCL INJ/PF 2 MG/ML AMPULE IV PRN ×2 (09:04→13:15)
[2019-05-02 09:06] LABS: HEMATOCRIT 32.2 % (36.0-47.0); HEMOGLOBIN 10.6 g/dL (12.0-15.5); MEAN CORPUSCULAR HEMOGLOBIN 27.7 pg (27.0-33.4); MEAN CORPUSCULAR HGB CONC 32.9 g/dL (32.0-36.0); MEAN CORPUSCULAR VOLUME 84 fl (80-97); RED BLOOD COUNT 3.83 10^6/uL (3.72-5.28); RED CELL DISTRIBUTION WIDTH 16.4 % (11.5-14.0); WHITE BLOOD COUNT 27.4 10^3/uL (4.0-10.5)
[2019-05-02] MEDS: BUDESONIDE NEB 0.25 MG/2 ML AMPUL NEB SCH ×2 (09:21→19:54)
[2019-05-02 09:24] LABS: INTERNATIONAL RATION (INR) 1.44; PROTHROMBIN TIME 17.7 SEC (11.4-15.4)
[2019-05-02 09:25] LABS: PARTIAL THROMBOPLASTIN TIME 36.5 SEC (23.5-35.8)
[2019-05-02 09:27] LABS: CALCIUM 7.9 mg/dL (8.4-10.2); CHLORIDE 100 mmol/L (98-107); CREATINE KINASE 201 U/L (30-135); GLUCOSE 117 mg/dL (75-110); PHOSPHORUS 9.3 mg/dL (2.5-4.5)
[2019-05-02 09:34] LABS: PLATELET COUNT 1387 10^3/uL (150-450)
[2019-05-02 09:34] LABS: PLATELET COUNT 1147 10^3/uL (150-450)
[2019-05-02 09:39] LABS: ANION GAP 26 (5-19); BLOOD UREA NITROGEN 126 mg/dL (7-20); CARBON DIOXIDE 10 mmol/L (22-30)
[2019-05-02 09:44] LABS: FREE T3 2.5 pg/mL (2.77-5.27); FREE T4 (FREE THYROXINE) 1.67 ng/dL (0.78-2.19)
[2019-05-02 09:56] LABS: POTASSIUM 4.1 mmol/L (3.6-5.0)
[2019-05-02 09:58] LABS: THYROID STIMULATING HORMONE 0.39 uIU/mL (0.47-4.68)
[2019-05-02] MEDS ORDERED: METOPROLOL SUCCINATE 50 MG TAB.SR.24H PO SCH (10:00)
[2019-05-02] MEDS ORDERED: DOCUSATE SODIUM 100 MG CAPSULE PO SCH (10:00)
[2019-05-02] MEDS ORDERED: PIPERACILLIN/TAZOBACTAM 2.25 GM VIAL IV SCH (10:00)
[2019-05-02] MEDS ORDERED: NORMAL SALINE 1000 ML 1,000 ML IV ONE (10:05)
[2019-05-02] MEDS ORDERED: SUCCINYLCHOLINE CHLORIDE INJ 200 MG/10 ML VIAL ONE (10:07)
[2019-05-02] MEDS: CLINDAMYCIN 600 MG/D5W RTU 600 MG/50 ML RTUPB IV SCH ×3 (10:39→21:05)
--- NOTE | 2019-05-02 11:06 | PDOC CONSULTATION ---
Consultation Consult Date: 05/02/19 Attending physician:: OMAYRA ORTIZ Provider Consulted: ANMOL NUNES Consult reason:: Septic right foot History of Present Illness Admission Date/PCP: 05/02/19 03:12 TRISHA SPARKS MD Patient complains of: Pain swelling right foot History of Present Illness: MATTHEW TINAJERO is a 74 year old female Presents to the emergency department via ground rescue yesterday complaining of failure to thrive, mental status changes. Patient lives partial in [place] according to patient's son at bedside this morning. Patient was evaluated and found to be septic, with profound metabolic acidosis and leukocytosis. She was also in acute renal failure. Evaluation including chest x-ray, CT scan of the abdomen pelvis, and right lower extremity CT scan revealed no definitive source of sepsis. On physical exam however the patient had a swollen right foot, which was warm. Over the last several hours the right foot is become discolored, and the customer care assistant is concerned there is undrained infection and has consulted surgery. Patient has been evaluated and felt to require operative debridement soon as possible. Past Medical History Cardiac Medical History: Reports: Atrial Fibrillation, Hyperlipidema, Hypertension, Heart Murmur - Reportedly known since patient was a child. Denies: Congestive Heart Failure, Coronary Artery Disease, DVT, Myocardial Infarction, Peripheral Vascular Disease, Pulmonary Embolism Pulmonary Medical History: Reports: Asthma, Bronchitis, Pneumonia Denies: Chronic Obstructive Pulmonary Disease (COPD), Intubation, Respiratory Failure EENT Medical History: Reports: Cataracts Neurological Medical History: Reports: Other - early Alzheimer's dementia Denies: Hemorrhagic CVA, Ischemic CVA, Migraine Endocrine Medical History: Reports: Diabetes Mellitus Type 2 Denies: Hyperthyroidism, Hypothyroidism Renal/ Medical History: Reports: Chronic Kidney Disease, End Stage Renal Disease - stage 3, Other - Stage III chronic kidney disease secondary to diabetes per patient report Malignancy Medical History: Reports: Skin Cancer - Post resection from nasal bridge Denies: Bone Cancer, Cervical Cancer, Ovarian Cancer GI Medical History: Reports: Other - Diverticulosis Denies: Cirrhosis, Crohn's Disease, Diverticulitis, Gastroesophageal Reflux Disease Musculoskeltal Medical History: Denies: Arthritis Skin Medical History: Reports: Other - 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 Psychiatric Medical History: Reports: None Denies: Depression Traumatic Medical History: Reports: None Past Surgical History Past Surgical History: Reports: Cholecystectomy, Knee Replacement, Other - Carpal tunnel surgery of right wrist Social History Information Source: Relative - History obtained from patient's son at bedside due to altered mentation of the patient secondary to sepsis and pain medication Smoking Status: Never Smoker Electronic Cigarette use?: No Frequency of Alcohol Use: None Hx Recreational Drug Use: No Drugs: None Family History Family History: None Parental Family History Reviewed: No Children Family History Reviewed: No Sibling(s) Family History Reviewed.: No Medication/Allergy Home Medications: Aspirin [Aspirin 325 mg Tablet] 325 mg PO DAILY 05/02/19 Budesonide/Formoterol Fumarate [Symbicort HFA 160-4.5 mcg Inhaler 6 gm] 2 puff IH BID 05/02/19 Calcium Carbonate/Vitamin D3 [Calcium 600-Vit D3 200 Tablet] 1 tab PO DAILY 05/02/19 Cholecalciferol (Vitamin D3) [Vitamin D3] 25 mcg PO DAILY 05/02/19 Ibuprofen [Motrin 800 mg Tablet] 800 mg PO Q8H PRN 05/02/19 Levalbuterol Tartrate [Xopenex Hfa] 2 puff IH Q4H PRN 05/02/19 Memantine HCl 5 mg PO BID 05/02/19 Metoprolol Succinate 100 mg PO DAILY 05/02/19 Sulindac 200 mg PO DAILY 05/02/19 Triamterene/Hydrochlorothiazid [Triamterene-Hctz 37.5-25 mg Cp] 1 tab PO DAILY 05/02/19 Verapamil HCl [Verapamil ER] 240 mg PO DAILY 05/02/19 Zafirlukast 20 mg PO BID 05/02/19 Allergies/Adverse Reactions: atorvastatin Allergy (Verified 05/01/19 23:58) codeine Allergy (Verified 05/01/19 23:58) lisinopril Allergy (Verified 05/01/19 23:58) meloxicam Allergy (Verified 05/01/19 23:58) metformin Allergy (Verified 05/01/19 23:58) Sulfa (Sulfonamide Antibiotics) Allergy (Verified 05/01/19 23:58) Review of Systems ROS unobtainable: Due to mental status - And puffiness unable to obtain due to patient's altered mental status secondary to sepsis and pain medication. According to patient's son, she was in her usual state of acceptable health until 2 weeks ago when she fell and developed right foot pain, swelling, Physical Exam Vital Signs: Temp Pulse Resp BP Pulse Ox 97.1 F 94 11 L 132/56 H 98 05/02/19 10:00 05/02/19 10:00 05/02/19 10:00 05/02/19 10:00 05/02/19 10:00 Intake & Output 05/01/19 05/02/19 05/03/19 06:59 06:59 06:59 Intake Total 2020 Output Total 360 315 Balance 1660 -315 Weight 65.2 kg General appearance: PRESENT: other - In the ICU, upward gaze, follows only simple commands inconsistently Head exam: PRESENT: normocephalic Mouth exam: PRESENT: dry mucosa Neck exam: PRESENT: other - Restricted Respiratory exam: PRESENT: rhonchi Cardiovascular exam: PRESENT: RRR Pulses: PRESENT: normal carotid pulses, normal radial pulses, normal femoral pulses - Patient has bilateral palpable 2 pulses. The right foot is too swollen to palpate pulses, however Doppler detectable GI/Abdominal exam: PRESENT: soft Rectal exam: PRESENT: deferred Musculoskeletal exam: PRESENT: other - evidence of previous right total knee replacement with scar. The right foot is discolored, splotchy erythematous and violaceous areas. Poor hygiene with dirt under the toenails. The foot is tender, with generalized swelling and pain on passive range of motion Psychiatric exam: PRESENT: other - Pharmacologically altered due to medications Skin exam: PRESENT: dry Results Laboratory Results: 05/02/19 08:47 05/02/19 08:47 05/01/19 05/01/19 05/01/19 21:38 21:38 23:00 WBC 36.5 H* RBC 4.27 Hgb 11.8 L Hct 36.8 MCV 86 MCH 27.6 MCHC 32.0 RDW 17.4 H Plt Count 1387 H* Seg Neutrophils % Not Reportable Carbonic Acid HCO3/H2CO3 Ratio ABG pH ABG pCO2 ABG pO2 ABG HCO3 ABG O2 Saturation ABG Base Excess VBG pH VBG pCO2 VBG HCO3 VBG Base Excess FiO2 Sodium 128.8 L Potassium 5.2 H Chloride 89 L Carbon Dioxide 8 L* Anion Gap 32 H BUN 133 H Creatinine 5.00 H Est GFR ( Amer) 10 L Glucose 205 H Lactic Acid Calcium 9.8 Phosphorus Magnesium Total Bilirubin 0.4 AST 26 Alkaline Phosphatase 145 H C-Reactive Protein Total Protein 7.2 Albumin 3.7 TSH Free T4 Free T3 pg/mL Urine Color YELLOW Urine Appearance SLIGHTLY-CLOUDY Urine pH 5.0 Ur Specific [place] 1.012 Urine Protein 100 H Urine Glucose (UA) 50 H Urine Ketones TRACE H Urine Blood SMALL H Urine Nitrite NEGATIVE Ur Leukocyte Esterase NEGATIVE Urine WBC (Auto) 2 Urine RBC (Auto) 1 05/02/19 05/02/19 05/02/19 01:06 05:57 08:47 WBC RBC Hgb Hct MCV MCH MCHC RDW Plt Count Seg Neutrophils % Carbonic Acid 0.65 L HCO3/H2CO3 Ratio 10:1 ABG pH 7.12 L* ABG pCO2 21.5 L ABG pO2 100.4 H ABG HCO3 6.8 L ABG O2 Saturation 95.6 ABG Base Excess -20.7 VBG pH 7.15 L* VBG pCO2 31.0 L VBG HCO3 10.7 L VBG Base Excess -16.8 FiO2 ROOM AIR Sodium 135.5 L Potassium 4.1 D Chloride 100 Carbon Dioxide 10 L* Anion Gap 26 H BUN 126 H Creatinine 4.31 H Est GFR ( Amer) 12 L Glucose 117 H Lactic Acid Calcium 7.9 L Phosphorus 9.3 H Magnesium 2.3 Total Bilirubin AST Alkaline Phosphatase C-Reactive Protein Total Protein Albumin TSH Free T4 Free T3 pg/mL Urine Color Urine Appearance Urine pH Ur Specific [place] Urine Protein Urine Glucose (UA) Urine Ketones Urine Blood Urine Nitrite Ur Leukocyte Esterase Urine WBC (Auto) Urine RBC (Auto) 05/02/19 05/02/19 05/02/19 08:47 08:47 08:47 WBC 27.4 H RBC 3.83 Hgb 10.6 L Hct 32.2 L MCV 84 MCH 27.7 MCHC 32.9 RDW 16.4 H Plt Count 1147 H* Seg Neutrophils % Carbonic Acid HCO3/H2CO3 Ratio ABG pH ABG pCO2 ABG pO2 ABG HCO3 ABG O2 Saturation ABG Base Excess VBG pH VBG pCO2 VBG HCO3 VBG Base Excess FiO2 Sodium Potassium Chloride Carbon Dioxide Anion Gap BUN Creatinine Est GFR ( Amer) Glucose Lactic Acid Calcium Phosphorus Magnesium Total Bilirubin AST Alkaline Phosphatase C-Reactive Protein 348.0 H Total Protein Albumin TSH 0.39 L Free T4 1.67 Free T3 pg/mL 2.50 L Urine Color Urine Appearance Urine pH Ur Specific [place] Urine Protein Urine Glucose (UA) Urine Ketones Urine Blood Urine Nitrite Ur Leukocyte Esterase Urine WBC (Auto) Urine RBC (Auto) 05/02/19 09:11 WBC RBC Hgb Hct MCV MCH MCHC RDW Plt Count Seg Neutrophils % Carbonic Acid HCO3/H2CO3 Ratio ABG pH ABG pCO2 ABG pO2 ABG HCO3 ABG O2 Saturation ABG Base Excess VBG pH VBG pCO2 VBG HCO3 VBG Base Excess FiO2 Sodium Potassium Chloride Carbon Dioxide Anion Gap BUN Creatinine Est GFR ( Amer) Glucose Lactic Acid 1.0 Calcium Phosphorus Magnesium Total Bilirubin AST Alkaline Phosphatase C-Reactive Protein Total Protein Albumin TSH Free T4 Free T3 pg/mL Urine Color Urine Appearance Urine pH Ur Specific [place] Urine Protein Urine Glucose (UA) Urine Ketones Urine Blood Urine Nitrite Ur Leukocyte Esterase Urine WBC (Auto) Urine RBC (Auto) 05/02/19 05/02/19 05:57 08:47 Creatine Kinase 201 H Troponin I < 0.012 NT-Pro-B Natriuret Pep 1640 H Impressions: Chest X-Ray 05/01/19 23:44 IMPRESSION: Difficult to completely exclude minimal left basilar pneumonia. Abdomen/Pelvis CT 05/01/19 23:49 IMPRESSION: 1. Normal unenhanced CT scan of the abdomen and pelvis. There is no evidence of urinary tract calcification or urinary tract obstruction. There is no evidence of gallbladder pathology or acute appendicitis. 2. Occasional colonic diverticulosis. 3. Remote cholecystectomy. 4. Retroflexed myomatous uterus. Lower Extremity CT 05/02/19 00:00 IMPRESSION: Soft tissue edema distally in the lower extremity. It has raises the possibility of cellulitis. No abscess or mass. No bone pathology. Assessment & Plan - Diagnosis (1) Necrotizing soft tissue infection Is this a current diagnosis for this admission?: Yes Plan: Impression: Septic right foot, etiology unclear, with uncontrolled source likely soft tissue, causing profound metabolic acidosis Recommendations: 1. Patient needs to be taken to the operating room as soon as possible to have a right foot filleted open. This was explained to the patient, and her son. I also explained to them that patient may require multiple operations, including right foot amputation. Also explained patient will come back to the intensive care unit, likely intubated, and possibly even sicker than she is now. Patient's life is in jeopardy and this was explained to them as well. 2. We will proceed as planned. Patient is at risk for bleeding, septic shock, cardiovascular collapse and even . Without surgery however, patient will not survive. (2) Acute kidney injury superimposed on chronic kidney disease Is this a current diagnosis for this admission?: Yes (3) Alzheimer's dementia without behavioral disturbance Qualifiers: Alzheimer's disease onset: early-onset Qualified Code(s): G30.0 - Alzheimer's disease with early onset; F02.80 - Dementia in other diseases classified elsewhere without behavioral disturbance Is this a current diagnosis for this admission?: Yes (4) History of atrial fibrillation Is this a current diagnosis for this admission?: Yes (5) Metabolic acidosis Is this a current diagnosis for this admission?: Yes - Time Time Spent: 30 to 50 Minutes Smoking Cessation Education: over 10 minutes Medications reviewed and adjusted accordingly: Yes
[2019-05-02] MEDS ORDERED: MIDAZOLAM 2 MG/2 ML INJ ONE (11:31)
[2019-05-02] MEDS ORDERED: FENTANYL CITRATE INJ/PF 100 MCG/2 ML AMPUL ONE ×2 (11:31→21:33)
[2019-05-02] MEDS ORDERED: PROPOFOL INJ 200 MG/20 ML VIAL IV ONE (11:31)
[2019-05-02] MEDS ORDERED: LIDOCAINE 0.5% INJ-PF (5 MG/ML) 50 ML SDV ONE (11:47)
[2019-05-02] MEDS ORDERED: BUPIVACAINE HCL 0.25 % INJ/PF (2.5 MG/1 ML) 30 ML VIAL ONE (11:47)
[2019-05-02] MEDS ORDERED: CALCIUM GLUCONATE 1000 MG/10 ML INJ IV ONE (12:02)
[2019-05-02] MEDS ORDERED: SODIUM BICARBONATE 8.4% INJ 50 MEQ/50 ML DISP.SYRIN ONE (12:03)
[2019-05-02] MEDS ORDERED: MIDAZOLAM HCL 50 MG/100 ML RTUINJ ONE (12:48)
[2019-05-02] MEDS: MIDAZOLAM HCL 50 MG/100 ML RTUINJ IV PRN ×2 (12:50→21:05)
--- NOTE | 2019-05-02 12:51 | Operative Report ---
Operative Report DATE OF SURGERY: 05/02/19 PREOPERATIVE DIAGNOSIS: 1. Septic foot. 2. Metabolic acidosis POSTOPERATIVE DIAGNOSIS: Same with pus filled right foot covering the dorsum, plantar surface, skin, subcutaneous tissue, fascia OPERATION: Right foot debridement including skin, subcutaneous tissue and fascia, with a total of 6 incisions and placement of 4 loop drains, 3 on the dorsal and lateral aspects, and one on the plantar side, wound irrigation and packing SURGEON: ANMOL NUNES ANESTHESIA: GA TISSUE REMOVED OR ALTERED: Necrotic skin, subcutaneous tissue and fascia COMPLICATIONS: None ESTIMATED BLOOD LOSS: 40 cc INTRAOPERATIVE FINDINGS: See below PROCEDURE: The patient was taken to the operating room where general anesthesia was induced. Right foot was isolated, prepped and draped with Betadine Surgical plan surgical timeout were conducted. There were multiple sites of markedly discolored purple to pink areas of skin the largest on the mid dorsal foot. A full-thickness excision of skin subcutaneous tissue and superficial fascia was removed from the dorsum of the foot approximately 3 and half centimeters in diameter. Tissue sent for Gram stain culture and sensitivity. We immediately got into thick purulent pus. Counterincisions were made on the more proximal foot including the lateral and medial sides of the ankle, just anterior and distal to the medial and lateral malleoli. A minimal amount of pus was encountered on the medial side and virtually no pus on the lateral side. Effie clamps were used to open the subcutaneous tissues between these 2 counterincisions, and large [place] drains were placed into position. They were tied in knots. A fourth incision was made on the distal dorsum of the foot overlying the third metatarsal head. More pus was evacuated and a Cornel loop drain was placed from the target incision to this third counterincision, and tied in a knot. 2 incisions were made on the plantar surface of the foot. 1 distally and 1 more proximally. The proximal incision got into a large pocket of pus. Effie clamp was used as well as the index finger to break up loculations. There was not a definitive communication with the dorsum of the foot, however the clinical situation was certainly suspicious for purulent infection involving the entire proximal section of the midfoot. A fourth Cornel loop drain was placed between these 2 incisions on the plantar surface. We now irrigated all wounds with 4 L of pulse lavage saline. Of note even after all of this vigorous mechanical and debridement, there was still pus rolling out of the stool surface of the foot. We felt this damage control, initial tempted source control was sufficient for today, and wound packed with a gauze, foot wrapped with Kerlix, and elevated. Patient tolerated the procedure reasonably well, and taken to the intensive care unit intubated.
[2019-05-02] MEDS: LINEZOLID 600 MG/300 ML RTUPB IV SCH (13:14)
[2019-05-02] MEDS ORDERED: PHARMACY COMMUNICATION ORDER MC NR (14:30)
--- NOTE | 2019-05-02 15:44 | RADIOLOGY REPORT (SQ) ---
EXAM DESCRIPTION: CHEST SINGLE VIEW COMPLETED DATE/TIME: 05/02/2019 3:15 pm REASON FOR STUDY: verify ETT placement post op COMPARISON: 05/02/2019. FINDINGS: Single-view chest AP portable semi-upright. Endotracheal and nasogastric tubes look appropriate. Low lung volumes. Lungs are clear. Normal cardiomediastinal silhouette. TECHNICAL DOCUMENTATION: JOB ID: [id number] Reading location - IP/workstation name: [email or web address]
[2019-05-02] MEDS: PIPERACILLIN SODIUM/TAZOBACTAM 2.25 GM in NORMAL SALINE 50 ML IV SCH ×2 (17:06→21:05)
[2019-05-02] MEDS: FENTANYL CITRATE/PF 600 MCG/60 ML BAG IV PRN (17:39)
[2019-05-02 20:51] LABS: ARTERIAL BLOOD BASE EXCESS -14.6 mmol/L; ARTERIAL BLOOD H2CO3 0.79 mmol/L (1.05-1.35); ARTERIAL BLOOD HCO3 11.1 mmol/L (20-24); ARTERIAL BLOOD O2 SATURATION 98.2 % (94-98); ARTERIAL BLOOD PCO2 26.1 mmHg (35-45); ARTERIAL BLOOD PH 7.25 (7.35-7.45); ARTERIAL BLOOD PO2 129.3 mmHg (80-100); ARTERIAL BLOOD TOTAL CO2 11.9 mmol/L (21-25)
[2019-05-02 20:56] LABS: ARTERIAL BLOOD FIO2 30%
[2019-05-02] MEDS ORDERED: NORMAL SALINE INJ/PF 0.9% 10 ML SDV IV PRN (22:41)
[2019-05-02 23:01] LABS: GLUCOSE 133 mg/dL (75-110); PHOSPHORUS 8.7 mg/dL (2.5-4.5); POTASSIUM 3.5 mmol/L (3.6-5.0)
--- NOTE | 2019-05-02 23:01 | Operative Report ---
Bedside Procedure - History of Present Illness Indication for Procedure: Difficult IV access for phlebotomy, need for add itional access with meds Provider: AZAM WRIGHT - Central Line Right Internal jugular Consent obtained: Yes Central line pre-insertion: Sterile PPE donned, Chloraprep applied, Sterile drapes applied Central line size (Fr.): 7 Central line lumen type: Triple Anesthetic type: 1% Lidocaine mL's of anesthesia: 3 Ultrasound guided: Yes CM at insertion site: 17 Line secured with sutures: Yes Central line post-insertion: Blood return from lumens, Biopatch applied, Sutured, Sterile dressing applied, Position confirmed w/ CXR Number of attempts: 1 Complications: No Notes: 05/02/19 22:45 Indication: Need for additional IV access to obtain lab work and administer many medications. Airbrush Artist Technical and RN have had very difficult time obtaining labs throughout the day, delaying patient care. Diagnosis: Necrotizing fasciitis, sepsis, hypovolemia After donning sterile PPE, patient was placed in appropriate procedural position followed by prepping and draping in usual sterile fashion. Using ultrasound guidance, the right internal jugular vein was assessed from the angle of the mandible down to the clavicle for which no thrombus was identified. 3 mL of 1% lidocaine was infiltrated into the dermis and subcutaneous tissue to anesthetize for the procedure. Next, a 20-gauge introducer needle was inserted with negative pressure applied to attached syringe visualizing the needle tip going into the right internal jugular vein with brisk return of blood. The syringe was detached noting a slow passive dripping of non-pulsatile blood from the needle and a guide wire was subsequently advanced through the needle into the right internal jugular vein. The needle was then removed over the wire, a small skin stab incision was made and a dilator was passed over the wire to prepare the subcutaneous tissue for the catheter. The dilator was removed and a 7 [place] 20 cm catheter was loaded onto the wire and advanced over the wire into the right internal jugular vein. The wire was removed, again noting a slow dripping of non-pulsatile blood from the distal lumen of the catheter. All lumens aspirated and flushed easily so long as performed slowly. During the procedure it was noted that the patient appears to be hypovolemic with spontaneous collapsibility of the internal jugular vein with respirations as well as aspirating with moderate force the blood was sluggish to return noting vibrations coming from the catheter (indicating the vessel was collapsing around the catheter). The catheter was secured at 17 cm at the skin and sutured into place, Biopatch in place, transparent sterile occlusive dressing applied. Patient tolerated procedure well.
[2019-05-02 23:12] LABS: CARBON DIOXIDE 11 mmol/L (22-30); CHLORIDE 101 mmol/L (98-107)
[2019-05-02 23:25] LABS: ANION GAP 24 (5-19); BLOOD UREA NITROGEN 128 mg/dL (7-20); CALCIUM 7.1 mg/dL (8.4-10.2)
[2019-05-02] MEDS ORDERED: FENTANYL CITRATE INJ/PF 100 MCG/2 ML AMPUL IV ONE (23:30)
--- NOTE | 2019-05-02 23:31 | RADIOLOGY REPORT (SQ) ---
EXAM DESCRIPTION: X-RAY CHEST- One View CLINICAL HISTORY: Evaluate line placement. COMPARISON: May 02, 2019 at 3:10 PM TECHNIQUE: Single view of the chest. Study submitted at 10:41 PM FINDINGS: There are overlying EKG leads. Patient is status post placement of right internal jugular central line with distal tip at the expected location of the cavoatrial junction. Endotracheal tube is located in close proximity to the mayra, with an approximately 6 mm. Retraction is recommended for more optimal placement. Enteric tube is seen coursing below the diaphragm, beyond the imaged portion of the abdomen. There are no discrete air space infiltrates, pneumothoraces or pleural effusions. The pulmonary vascularity is normal. The cardiomediastinal silhouette is normal in size. Osseous structures are stable in appearance. IMPRESSION: 1. Endotracheal tube is located in close proximity to the mayra. Retraction is recommended for more optimal placement. 2. Status post placement of right internal jugular central line with distal tip in the expected location of the cavoatrial junction. Enteric tube is also again noted.
[2019-05-03] MEDS: LINEZOLID 600 MG/300 ML RTUPB IV SCH ×3 (00:15→23:40)
[2019-05-03] MEDS: INSULIN REG, HUMAN 100 UNIT/ML 3 ML VIAL (PYX) SUBCUT SCH ×5 (00:29→23:39)
[2019-05-03] MEDS ORDERED: NORMAL SALINE 1000 ML 1,000 ML IV ONE (00:30)
[2019-05-03] MEDS: NORMAL SALINE 1000 ML 1,000 ML IV PRN ×3 (02:45→22:17)
[2019-05-03 04:36] LABS: ARTERIAL BLOOD BASE EXCESS -16.1 mmol/L; ARTERIAL BLOOD H2CO3 0.69 mmol/L (1.05-1.35); ARTERIAL BLOOD HCO3 9.7 mmol/L (20-24); ARTERIAL BLOOD O2 SATURATION 98.2 % (94-98); ARTERIAL BLOOD PH 7.24 (7.35-7.45); ARTERIAL BLOOD PO2 130.1 mmHg (80-100); ARTERIAL BLOOD TOTAL CO2 10.4 mmol/L (21-25)
[2019-05-03 04:37] LABS: ARTERIAL BLOOD FIO2 30%
[2019-05-03 04:41] LABS: HEMATOCRIT 26.2 % (36.0-47.0); HEMOGLOBIN 8.6 g/dL (12.0-15.5); MEAN CORPUSCULAR HEMOGLOBIN 27.6 pg (27.0-33.4); MEAN CORPUSCULAR HGB CONC 32.8 g/dL (32.0-36.0); MEAN CORPUSCULAR VOLUME 84 fl (80-97); PLATELET COUNT 911 10^3/uL (150-450); RED BLOOD COUNT 3.12 10^6/uL (3.72-5.28); RED CELL DISTRIBUTION WIDTH 16.2 % (11.5-14.0); WHITE BLOOD COUNT 19.1 10^3/uL (4.0-10.5)
[2019-05-03 04:58] LABS: ABSOLUTE LYMPHOCYTES# (MANUAL) 0.4 10^3/uL (0.5-4.7); ABSOLUTE MONOCYTES # (MANUAL) 0.8 10^3/uL (0.1-1.4); ANISOCYTOSIS 1+; BAND NEUTROPHILS % (MANUAL) 9 % (3-5); BASOPHILS % (MANUAL) 0 % (0-2); EOSINOPHILS % (MANUAL) 0 % (0-6); LYMPHOCYTES % (MANUAL) 2 % (13-45); MONOCYTES % (MANUAL) 4 % (3-13); SEGMENTED NEUTROPHILS % (MAN) 85 % (42-78); TOTAL CELLS COUNTED 100
[2019-05-03 04:59] LABS: PLATELET COMMENT INCREASED
[2019-05-03 05:14] LABS: BLOOD UREA NITROGEN 117 mg/dL (7-20); GLUCOSE 147 mg/dL (75-110); POTASSIUM 3.3 mmol/L (3.6-5.0)
[2019-05-03] MEDS: PIPERACILLIN SODIUM/TAZOBACTAM 2.25 GM in NORMAL SALINE 50 ML IV SCH ×3 (05:18→22:03)
[2019-05-03 05:19] LABS: CARBON DIOXIDE 11 mmol/L (22-30); CHLORIDE 105 mmol/L (98-107)
[2019-05-03 05:40] LABS: ANION GAP 21 (5-19)
[2019-05-03] MEDS: HEPARIN SOD (PORCINE) 5,000 UNIT/ML 1 ML VIAL SUBCUT SCH ×3 (05:40→22:02)
[2019-05-03] MEDS: CLINDAMYCIN 600 MG/D5W RTU 600 MG/50 ML RTUPB IV SCH ×3 (05:40→22:02)
[2019-05-03 05:42] LABS: CALCIUM 6.4 mg/dL (8.4-10.2)
[2019-05-03] MEDS ORDERED: POTASSI CL 20 MEQ/50 ML RIDER 20 MEQ/50 ML RTUPB IV ONE (06:00)
[2019-05-03] MEDS: BUDESONIDE NEB 0.25 MG/2 ML AMPUL NEB SCH ×2 (08:38→20:35)
[2019-05-03] MEDS ORDERED: METOPROLOL TARTRATE PF/INJ 5 MG/5 ML SDV IV SCH (08:45)
[2019-05-03] MEDS ORDERED: CALCIUM GLUCONATE 1000 MG/10 ML INJ IV ONE (08:45)
[2019-05-03 09:41] LABS: GLUCOSE 128 mg/dL (75-110); POTASSIUM 3.4 mmol/L (3.6-5.0)
[2019-05-03] MEDS: FENTANYL CITRATE INJ/PF 100 MCG/2 ML AMPUL ONE ×2 (09:50→13:50)
[2019-05-03 09:58] LABS: CARBON DIOXIDE 12 mmol/L (22-30); CHLORIDE 106 mmol/L (98-107)
[2019-05-03 09:59] LABS: ANION GAP 20 (5-19); BLOOD UREA NITROGEN 122 mg/dL (7-20)
[2019-05-03] MEDS ORDERED: CALCIUM GLUCONATE 2,000 MG in DEXTROSE 5%-WATER 100 ML IV ONE (10:00)
[2019-05-03 10:01] LABS: CALCIUM 6.3 mg/dL (8.4-10.2)
[2019-05-03] MEDS ORDERED: SODIUM BICARBONATE 4.2% INJ (2.5 MEQ/5 ML) VIAL ONE (10:34)
[2019-05-03 11:05] LABS: ARTERIAL BLOOD BASE EXCESS -17.2 mmol/L; ARTERIAL BLOOD H2CO3 0.71 mmol/L (1.05-1.35); ARTERIAL BLOOD HCO3 9.1 mmol/L (20-24); ARTERIAL BLOOD O2 SATURATION 97.5 % (94-98); ARTERIAL BLOOD PCO2 23.7 mmHg (35-45); ARTERIAL BLOOD PO2 116.4 mmHg (80-100); ARTERIAL BLOOD TOTAL CO2 9.9 mmol/L (21-25)
[2019-05-03 11:06] LABS: ARTERIAL BLOOD FIO2 30%
[2019-05-03] MEDS ORDERED: SODIUM BICARBONATE 8.4% INJ 50 MEQ/50 ML DISP.SYRIN ONE (11:14)
--- NOTE | 2019-05-03 11:48 | PDOC CRITICAL CARE PROG REPORT ---
General Date:: 05/03/19 ICU Day:: 2 Resuscitation Status: Full Code Reason for ICU Addmission:: Metabolic acidosis, hypovolemia, leukocytosis, VALENTIN on CKD, multiple electrolyte abnormalities. - Medications: Medications reviewed and adjusted accordingly: Yes Physical Exam Vital Signs: Temp Pulse Resp BP Pulse Ox 99.5 F 108 H 22 H 92/69 L 98 05/03/19 10:00 05/03/19 10:00 05/03/19 10:00 05/03/19 10:00 05/03/19 10:00 Intake & Output 05/02/19 05/03/19 05/04/19 06:59 06:59 06:59 Intake Total 2020 4627 Output Total 360 3970 290 Balance 1660 657 -290 Weight 65.2 kg 68.5 kg Weight/Height Weight 68.5 kg Height 5 ft General appearance: PRESENT: well-developed, well-nourished, other - Intubated and sedated Head exam: PRESENT: atraumatic, normocephalic Eye exam: PRESENT: conjunctiva pink, EOMI, PERRLA. ABSENT: scleral icterus Ear exam: PRESENT: normal external ear exam Mouth exam: PRESENT: moist, tongue midline Neck exam: ABSENT: carotid bruit, JVD, lymphadenopathy, thyromegaly Respiratory exam: PRESENT: clear to auscultation edenilson, tachypnea. ABSENT: accessory muscle use, crackles, rales, rhonchi, wheezes Cardiovascular exam: PRESENT: RRR. ABSENT: diastolic murmur, rubs, systolic murmur Pulses: PRESENT: normal dorsalis pedis pul GI/Abdominal exam: PRESENT: normal bowel sounds, soft. ABSENT: ascites, tenderness Rectal exam: PRESENT: deferred Extremities exam: PRESENT: calf tenderness - Tender on right with compression, pedal edema - Right foot edematous and erythematous, other - Right foot wrapped in surgical dressing. Toes dusky and edematous with sluggish cap refill. After dressing removed with surgical team there is still purulence in the wound tracking from deep within the muscle of the forefoot below the fascia.. ABSENT: clubbing Neurological exam: PRESENT: CN II-XII grossly intact, other - Intubated and sedated Skin exam: PRESENT: other - See extremity exam for description of foot. Small scabbing lesion on right upper calf but no other notable skin lesions. Laboratory/Radiographs Laboratory Results: 05/03/19 04:05 05/03/19 09:09 05/02/19 05/02/19 05/02/19 20:10 22:20 22:20 WBC RBC Hgb Hct MCV MCH MCHC RDW Plt Count Seg Neutrophils % Carbonic Acid 0.79 L HCO3/H2CO3 Ratio 14:1 ABG pH 7.25 L ABG pCO2 26.1 L ABG pO2 129.3 H ABG HCO3 11.1 L ABG O2 Saturation 98.2 H ABG Base Excess -14.6 FiO2 30% Sodium 135.7 L Potassium 3.5 L Chloride 101 Carbon Dioxide 11 L Anion Gap 24 H BUN 128 H Creatinine 4.06 H Est GFR ( Amer) 13 L Glucose 133 H Lactic Acid 0.8 Calcium 7.1 L Ionized Calcium Ebony Phosphorus 8.7 H Magnesium 05/03/19 05/03/19 05/03/19 04:05 04:05 04:05 WBC 19.1 H RBC 3.12 L Hgb 8.6 L Hct 26.2 L MCV 84 MCH 27.6 MCHC 32.8 RDW 16.2 H Plt Count 911 H Seg Neutrophils % Not Reportable Carbonic Acid 0.69 L HCO3/H2CO3 Ratio 14:1 ABG pH 7.24 L ABG pCO2 23.0 L ABG pO2 130.1 H ABG HCO3 9.7 L ABG O2 Saturation 98.2 H ABG Base Excess -16.1 FiO2 30% Sodium 136.5 L Potassium 3.3 L Chloride 105 Carbon Dioxide 11 L Anion Gap 21 H BUN 117 H Creatinine 4.20 H Est GFR ( Amer) 12 L Glucose 147 H Lactic Acid Calcium 6.4 L* Ionized Calcium Ebony Phosphorus Magnesium 2.1 05/03/19 05/03/19 05/03/19 09:09 09:09 09:09 WBC RBC Hgb Hct MCV MCH MCHC RDW Plt Count Seg Neutrophils % Carbonic Acid HCO3/H2CO3 Ratio ABG pH ABG pCO2 ABG pO2 ABG HCO3 ABG O2 Saturation ABG Base Excess FiO2 Sodium 137.5 Potassium 3.4 L Chloride 106 Carbon Dioxide 12 L Anion Gap 20 H BUN 122 H Creatinine 4.20 H Est GFR ( Amer) 12 L Glucose 128 H Lactic Acid 0.6 L Calcium 6.3 L* Ionized Calcium Ebony 0.92 L Phosphorus Magnesium 05/03/19 10:56 WBC RBC Hgb Hct MCV MCH MCHC RDW Plt Count Seg Neutrophils % Carbonic Acid 0.71 L HCO3/H2CO3 Ratio 12:1 ABG pH 7.20 L* ABG pCO2 23.7 L ABG pO2 116.4 H ABG HCO3 9.1 L ABG O2 Saturation 97.5 ABG Base Excess -17.2 FiO2 30% Sodium Potassium Chloride Carbon Dioxide Anion Gap BUN Creatinine Est GFR ( Amer) Glucose Lactic Acid Calcium Ionized Calcium Ebony Phosphorus Magnesium 05/02/19 00:35 Blood Blood Culture (PCR) - Final Staphylococcus Aureus 05/02/19 00:58 Blood Blood Culture (PCR) - Final Staphylococcus Aureus 05/02/19 05/02/19 05:57 08:47 Creatine Kinase 201 H Troponin I < 0.012 NT-Pro-B Natriuret Pep 1640 H Impressions: Abdomen/Pelvis CT 05/01/19 23:49 IMPRESSION: 1. Normal unenhanced CT scan of the abdomen and pelvis. There is no evidence of urinary tract calcification or urinary tract obstruction. There is no evidence of gallbladder pathology or acute appendicitis. 2. Occasional colonic diverticulosis. 3. Remote cholecystectomy. 4. Retroflexed myomatous uterus. Chest X-Ray 05/02/19 00:00 IMPRESSION: 1. Endotracheal tube is located in close proximity to the mayra. Retraction is recommended for more optimal placement. 2. Status post placement of right internal jugular central line with distal tip in the expected location of the cavoatrial junction. Enteric tube is also again noted. Lower Extremity CT 05/02/19 00:00 IMPRESSION: Soft tissue edema distally in the lower extremity. It has raises the possibility of cellulitis. No abscess or mass. No bone pathology. All labs, radiographs, diagnostic studies and EKGs were personally reviewed: Yes In addition, reports of radiographic and diagnostic studies were read: Yes Assessment and Plan - Diagnosis (1) Necrotizing soft tissue infection Is this a current diagnosis for this admission?: Yes Plan: Patient has not improved drastically from yesterday. Although her leukocytosis is decreased, she remains acidotic and I fear source control is still an issue. Examination of the foot with surgical team confirmed that the infection is still present. Will go to OR today for guillotine amputation with future washouts prior to formalization. (2) Reactive thrombocytosis Is this a current diagnosis for this admission?: Yes Plan: Improved. As infection is controlled and inflammatory state decreases expect thrombocytosis to resolve. (3) Acute kidney injury superimposed on chronic kidney disease Is this a current diagnosis for this admission?: Yes Plan: Creatinine not drastically improved today despite aggressive hydration and ocoha rgical intervention. Patient making adequate urine but her metabolic acidosis remains. Would benefit from supplemental bicarbonate administration as she has metabolic acidosis superimposed on chronic renal disease. (4) Alzheimer's dementia without behavioral disturbance Qualifiers: Alzheimer's disease onset: early-onset Qualified Code(s): G30.0 - Alzheimer's disease with early onset; F02.80 - Dementia in other diseases clas sified elsewhere without behavioral disturbance Is this a current diagnosis for this admission?: Yes Plan: Resume meds once extubated and taking oral diet (5) Leukocytosis, unspecified Qualifiers: Leukocytosis type: unspecified Is this a current diagnosis for this admission?: Yes Plan: Decreased from 36 to 27 to 19 but left shift higher. Anticipate improvement after amputation today/source control. (6) Metabolic acidosis Is this a current diagnosis for this admission?: Yes Plan: As discussed above. Despite hydration, surgical intervention and hyperventilation the patient still has a moderate to severe metabolic acidosis with respiratory compensation. She has not drastically improved from yesterday and in the setting of chronic renal disease she would likely benefit from sodium bicarbonate administration. (7) Type 2 DM with CKD and hypertension Is this a current diagnosis for this admission?: Yes Plan: Glucose within limits. Continue accuchecks. Critical Time Critical Time (minutes): 90 Level of Care: ICU -: 1. The care of a critical patient is a dynamic process. This note is a financial services sales representative synopsis but static in nature. The timeframe for treatments given in order is not necessary the actual time these treatments may have been done. 2. This patient requires critical care secondary to ongoing requirements for therapy not offered or safe outside the critical care environment. Transfer to a lower level of care with altered life or limb morbidity and mortality. 3. Multidisciplinary rounds completed. 4. ABCDE bundle addressed.
--- NOTE | 2019-05-03 13:03 | Operative Report ---
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 Salcido. Noted to have evidence of severe acidosis due to persistent right foot infection. After informed consent obtained with the son patient brought to the OR from the ICU intubated. The right foot was covered with a sterile wrap and the whole right leg from above the knee down distal to the wrap was then prepped and draped in the usual sterile fashion. Appropriate timeout was then called. A circumferential transverse incision was made just above the ankle and the extended deep to the fascia. There was some bleeders on the subcutaneous area that were clamped and subsequently clipped with hemoclips. The fascia fascia was then divided circumferentially and posterior tibial artery and vein were then identified and isolated clamped on each side and divided between the clamp and suture ligated with 2-0 Vicryl suture on the proximal side on the distal side clipped with hemoclips. The anterior tibial artery was then identified between the tibia and fibula and subsequently clamped on each side and divided between the clamps and again suture ligated with 2-0 Vicryl suture in the proximal and distal and clipped with hemoclips. Next the posterior tibial muscle was then partially divided with the #10 blade and tibial bone isolated with right angle clamp. Anterior periosteum was elevated proximally and subsequently divided transversely with portable saw. Same was done with fibula. The rest of the posterior muscles and tendons were then divided sharply to complete the guillotine amputation. Further hemostasis obtained with cautery and smaller vessels clamped and clipped with hemoclips. There was some bleeding on the surface of the tibia and it was controlled with bone wax. Distal segment of the amputation versus secondary brought out of the table and sent for pathology. The stump was subsequently irrigated with saline solution and after adequate hemostasis noted a single layer of Xeroform gauze was then placed over the stump which appears to be viable and sterile 4 x 4 ABD and wrapped with Kerlix and Jim bandage. Patient tolerated procedure well. Patient brought back to intensive care unit in guarded condition. Patient will eventually need revision and closure of the amputation in the next few days once hemodynamically stable.
[2019-05-03] MEDS: FENTANYL CITRATE/PF 600 MCG/60 ML BAG IV PRN (13:50)
[2019-05-03 18:03] LABS: HEMATOCRIT 22.6 % (36.0-47.0); MEAN CORPUSCULAR HEMOGLOBIN 27.7 pg (27.0-33.4); MEAN CORPUSCULAR HGB CONC 33.3 g/dL (32.0-36.0); MEAN CORPUSCULAR VOLUME 83 fl (80-97); PLATELET COUNT 864 10^3/uL (150-450); RED BLOOD COUNT 2.73 10^6/uL (3.72-5.28); RED CELL DISTRIBUTION WIDTH 16.5 % (11.5-14.0)
[2019-05-03 18:08] LABS: HEMOGLOBIN 7.5 g/dL (12.0-15.5)
[2019-05-03 18:13] LABS: ALKALINE PHOSPHATASE 72 U/L (38-126); ANION GAP 19 (5-19); ASPARTATE AMINO TRANSFERASE 65 U/L (14-36); BILIRUBIN,DIRECT 0.1 mg/dL (0.0-0.4); BILIRUBIN,TOTAL 0.1 mg/dL (0.2-1.3); BLOOD UREA NITROGEN 118 mg/dL (7-20); CARBON DIOXIDE 13 mmol/L (22-30); CHLORIDE 108 mmol/L (98-107); GLUCOSE 112 mg/dL (75-110); TOTAL PROTEIN 4.3 g/dL (6.3-8.2)
[2019-05-03 18:21] LABS: ABSOLUTE LYMPHOCYTES# (MANUAL) 0.8 10^3/uL (0.5-4.7); ABSOLUTE MONOCYTES # (MANUAL) 0.3 10^3/uL (0.1-1.4); BASOPHILS % (MANUAL) 0 % (0-2); EOSINOPHILS % (MANUAL) 0 % (0-6); LYMPHOCYTES % (MANUAL) 5 % (13-45); MONOCYTES % (MANUAL) 2 % (3-13); SEGMENTED NEUTROPHILS % (MAN) 93 % (42-78); TOTAL CELLS COUNTED 100
[2019-05-03 18:22] LABS: ANISOCYTOSIS 1+; OVALOCYTES SLIGHT; PLATELET COMMENT INCREASED; POIKILOCYTOSIS SLIGHT
[2019-05-03 18:28] LABS: POTASSIUM 2.8 mmol/L (3.6-5.0)
[2019-05-03 18:29] LABS: CALCIUM 6.2 mg/dL (8.4-10.2); PHOSPHORUS 6.5 mg/dL (2.5-4.5)
[2019-05-03 20:55] LABS: ARTERIAL BLOOD BASE EXCESS -12.5 mmol/L; ARTERIAL BLOOD H2CO3 0.72 mmol/L (1.05-1.35); ARTERIAL BLOOD HCO3 12.2 mmol/L (20-24); ARTERIAL BLOOD O2 SATURATION 99.5 % (94-98); ARTERIAL BLOOD PCO2 23.8 mmHg (35-45); ARTERIAL BLOOD PH 7.33 (7.35-7.45); ARTERIAL BLOOD PO2 230.5 mmHg (80-100); ARTERIAL BLOOD TOTAL CO2 12.9 mmol/L (21-25)
[2019-05-03 20:56] LABS: ARTERIAL BLOOD FIO2 40%
[2019-05-03] MEDS ORDERED: CALCIUM CHLORIDE 10% PF/INJ 1000 MG/10 ML SDV IV SCH (21:00)
[2019-05-03] MEDS ORDERED: SODIUM BICARBONATE 8.4% INJ 50 MEQ/50 ML DISP.SYRIN IV ONE (21:00)
[2019-05-03] MEDS: POTASSI CL 20 MEQ/50 ML RIDER 20 MEQ/50 ML RTUPB IV SCH ×2 (21:51→23:33)
[2019-05-03] MEDS: MIDAZOLAM HCL 50 MG/100 ML RTUINJ IV PRN (22:16)
[2019-05-04] MEDS: FENTANYL CITRATE/PF 600 MCG/60 ML BAG IV PRN (00:30)
[2019-05-04] MEDS: POTASSI CL 20 MEQ/50 ML RIDER 20 MEQ/50 ML RTUPB IV SCH ×2 (00:53→03:24)
[2019-05-04] MEDS ORDERED: CALCIUM CHLORIDE 10% PF/INJ 1000 MG/10 ML SDV IV ONE (01:00)
[2019-05-04] MEDS ORDERED: CALCIUM GLUCONATE 1000 MG/10 ML INJ IV ONE ×3 (01:30→03:30)
[2019-05-04] MEDS: NORMAL SALINE 1000 ML 1,000 ML IV PRN (03:57)
[2019-05-04] MEDS: HEPARIN SOD (PORCINE) 5,000 UNIT/ML 1 ML VIAL SUBCUT SCH ×3 (05:09→21:09)
[2019-05-04] MEDS: CLINDAMYCIN 600 MG/D5W RTU 600 MG/50 ML RTUPB IV SCH (05:10)
[2019-05-04] MEDS: INSULIN REG, HUMAN 100 UNIT/ML 3 ML VIAL (PYX) SUBCUT SCH ×4 (05:35→23:27)
[2019-05-04 05:40] LABS: ARTERIAL BLOOD BASE EXCESS -9.1 mmol/L; ARTERIAL BLOOD H2CO3 0.79 mmol/L (1.05-1.35); ARTERIAL BLOOD O2 SATURATION 99.1 % (94-98); ARTERIAL BLOOD PCO2 26.2 mmHg (35-45); ARTERIAL BLOOD PH 7.38 (7.35-7.45); ARTERIAL BLOOD PO2 167.8 mmHg (80-100); ARTERIAL BLOOD TOTAL CO2 15.8 mmol/L (21-25)
[2019-05-04 05:41] LABS: ARTERIAL BLOOD FIO2 40%
[2019-05-04 05:49] LABS: ABSOLUTE EOSINOPHILS # (AUTO) 0.1 10^3/uL (0.0-0.6); ABSOLUTE LYMPHOCYTES (AUTO) 0.9 10^3/uL (0.5-4.7); ABSOLUTE MONOCYTES (AUTO) 0.9 10^3/uL (0.1-1.4); BASOPHILS % (AUTO) 0.3 % (0-2); EOSINOPHILS % (AUTO) 0.9 % (0-6); HEMATOCRIT 22.8 % (36.0-47.0); LYMPHOCYTES % (AUTO) 6.3 % (13-45); MEAN CORPUSCULAR HEMOGLOBIN 27.7 pg (27.0-33.4); MEAN CORPUSCULAR HGB CONC 33.6 g/dL (32.0-36.0); MEAN CORPUSCULAR VOLUME 82 fl (80-97); MONOCYTES % (AUTO) 5.8 % (3-13); PLATELET COUNT 886 10^3/uL (150-450); RED BLOOD COUNT 2.77 10^6/uL (3.72-5.28); RED CELL DISTRIBUTION WIDTH 16.4 % (11.5-14.0); SEGMENTED NEUTROPHILS % (AUTO) 86.7 % (42-78); TOTAL CELLS COUNTED % (AUTO) 100 %
[2019-05-04 05:59] LABS: HEMOGLOBIN 7.7 g/dL (12.0-15.5)
[2019-05-04 06:03] LABS: ALBUMIN 2.1 g/dL (3.5-5.0); ALKALINE PHOSPHATASE 80 U/L (38-126); ANION GAP 14 (5-19); ASPARTATE AMINO TRANSFERASE 82 U/L (14-36); BILIRUBIN,DIRECT 0.1 mg/dL (0.0-0.4); BILIRUBIN,TOTAL 0.1 mg/dL (0.2-1.3); BLOOD UREA NITROGEN 109 mg/dL (7-20); CALCIUM 7.8 mg/dL (8.4-10.2); CARBON DIOXIDE 17 mmol/L (22-30); CHLORIDE 113 mmol/L (98-107); GLUCOSE 102 mg/dL (75-110); PHOSPHORUS 4.7 mg/dL (2.5-4.5); TOTAL PROTEIN 4.5 g/dL (6.3-8.2)
[2019-05-04 06:16] LABS: POTASSIUM 3.9 mmol/L (3.6-5.0)
[2019-05-04] MEDS: PIPERACILLIN SODIUM/TAZOBACTAM 2.25 GM in NORMAL SALINE 50 ML IV SCH (06:22)
[2019-05-04] MEDS: METOPROLOL TARTRATE PF/INJ 5 MG/5 ML SDV IV SCH ×4 (06:22→23:28)
[2019-05-04] MEDS: HYDROMORPHONE HCL INJ/PF 2 MG/ML AMPULE IV PRN ×4 (07:33→21:24)
[2019-05-04] MEDS: BUDESONIDE NEB 0.25 MG/2 ML AMPUL NEB SCH ×2 (09:11→19:52)
[2019-05-04] MEDS ORDERED: FAMOTIDINE 20 MG TABLET PO SCH (10:00)
--- NOTE | 2019-05-04 10:05 | PDOC PROGRESS REPORT ---
Subjective Progress Note for:: 05/04/19 Subjective:: Hemodynamically stable overnight; remains on the ventilator. Metabolic acidosis improving. Reason For Visit: METABOLIC ACIDOSIS Physical Exam Vital Signs: Temp Pulse Resp BP Pulse Ox 97.5 F 71 12 117/53 L 100 05/04/19 08:00 05/04/19 09:30 05/04/19 09:30 05/04/19 08:00 05/04/19 09:30 Intake & Output 05/03/19 05/04/19 05/05/19 06:59 06:59 06:59 Intake Total 5027 2814 37 Output Total 3970 1910 225 Balance 1057 904 -188 Weight 68.5 kg 69.4 kg General appearance: PRESENT: no acute distress, other - Patient sedated on fentanyl and Versed Musculoskeletal exam: PRESENT: other - Dressing removed; no foul smell, drainage; skin warm; no pus expressed. Deep tissue viable Results Laboratory Results: 05/04/19 05:20 05/04/19 05:20 05/03/19 05/03/19 05/03/19 09:09 10:56 17:30 WBC 16.0 H RBC 2.73 L Hgb 7.5 L Hct 22.6 L MCV 83 MCH 27.7 MCHC 33.3 RDW 16.5 H Plt Count 864 H Seg Neutrophils % Not Reportable Carbonic Acid 0.71 L HCO3/H2CO3 Ratio 12:1 ABG pH 7.20 L* ABG pCO2 23.7 L ABG pO2 116.4 H ABG HCO3 9.1 L ABG O2 Saturation 97.5 ABG Base Excess -17.2 FiO2 30% Sodium 137.5 Potassium 3.4 L Chloride 106 Carbon Dioxide 12 L Anion Gap 20 H BUN 122 H Creatinine 4.20 H Est GFR ( Amer) 12 L Glucose 128 H Calcium 6.3 L* Ionized Calcium Ebony Phosphorus Magnesium Total Bilirubin AST Alkaline Phosphatase Total Protein Albumin 05/03/19 05/03/19 05/03/19 17:30 17:30 20:40 WBC RBC Hgb Hct MCV MCH MCHC RDW Plt Count Seg Neutrophils % Carbonic Acid 0.72 L HCO3/H2CO3 Ratio 16:1 ABG pH 7.33 L ABG pCO2 23.8 L ABG pO2 230.5 H ABG HCO3 12.2 L ABG O2 Saturation 99.5 H ABG Base Excess -12.5 FiO2 40% Sodium 139.5 Potassium 2.8 L* Chloride 108 H Carbon Dioxide 13 L Anion Gap 19 BUN 118 H Creatinine 4.06 H Est GFR ( Amer) 13 L Glucose 112 H Calcium 6.2 L* Ionized Calcium Ebony 0.92 L Phosphorus 6.5 H D Magnesium 2.1 Total Bilirubin 0.1 L AST 65 H Alkaline Phosphatase 72 Total Protein 4.3 L Albumin 2.0 L 05/04/19 05/04/19 05/04/19 05:20 05:20 05:20 WBC 15.0 H RBC 2.77 L Hgb 7.7 L Hct 22.8 L MCV 82 MCH 27.7 MCHC 33.6 RDW 16.4 H Plt Count 886 H Seg Neutrophils % 86.7 H Carbonic Acid 0.79 L HCO3/H2CO3 Ratio 18:1 ABG pH 7.38 ABG pCO2 26.2 L ABG pO2 167.8 H ABG HCO3 15.0 L ABG O2 Saturation 99.1 H ABG Base Excess -9.1 FiO2 40% Sodium Potassium Chloride Carbon Dioxide Anion Gap BUN Creatinine Est GFR ( Amer) Glucose Calcium Ionized Calcium Ebony 1.08 L Phosphorus Magnesium Total Bilirubin AST Alkaline Phosphatase Total Protein Albumin 05/04/19 05:20 WBC RBC Hgb Hct MCV MCH MCHC RDW Plt Count Seg Neutrophils % Carbonic Acid HCO3/H2CO3 Ratio ABG pH ABG pCO2 ABG pO2 ABG HCO3 ABG O2 Saturation ABG Base Excess FiO2 Sodium 143.7 Potassium 3.9 D Chloride 113 H Carbon Dioxide 17 L Anion Gap 14 BUN 109 H Creatinine 3.54 H Est GFR ( Amer) 15 L Glucose 102 Calcium 7.8 L Ionized Calcium Ebony Phosphorus 4.7 H Magnesium 2.2 Total Bilirubin 0.1 L AST 82 H Alkaline Phosphatase 80 Total Protein 4.5 L Albumin 2.1 L 05/02/19 00:58 Blood Blood Culture (PCR) - Final Staphylococcus Aureus 05/02/19 00:35 Blood Blood Culture (PCR) - Final Staphylococcus Aureus 05/02/19 05/02/19 05:57 08:47 Creatine Kinase 201 H Troponin I < 0.012 NT-Pro-B Natriuret Pep 1640 H Impressions: Abdomen/Pelvis CT 05/01/19 23:49 IMPRESSION: 1. Normal unenhanced CT scan of the abdomen and pelvis. There is no evidence of urinary tract calcification or urinary tract obstruction. There is no evidence of gallbladder pathology or acute appendicitis. 2. Occasional colonic diverticulosis. 3. Remote cholecystectomy. 4. Retroflexed myomatous uterus. Chest X-Ray 05/02/19 00:00 IMPRESSION: 1. Endotracheal tube is located in close proximity to the mayra. Retraction is recommended for more optimal placement. 2. Status post placement of right internal jugular central line with distal tip in the expected location of the cavoatrial junction. Enteric tube is also again noted. Lower Extremity CT 05/02/19 00:00 IMPRESSION: Soft tissue edema distally in the lower extremity. It has raises the possibility of cellulitis. No abscess or mass. No bone pathology. Assessment & Plan - Diagnosis (1) Necrotizing soft tissue infection Is this a current diagnosis for this admission?: Yes Plan: Impression: Sepsis coming under control following guillotine amputation of right foot, with satisfactory appearance of open wound Recommendations 1. Continue aggressive support as the critical care team is doing 2. Follow-up on cultures 3. Change dressing tomorrow; anticipate definitive right below the knee closure in 24 to 48 hours. (2) Acute kidney injury superimposed on chronic kidney disease Is this a current diagnosis for this admission?: Yes (3) Alzheimer's dementia without behavioral disturbance Qualifiers: Alzheimer's disease onset: early-onset Qualified Code(s): G30.0 - Alzheimer's disease with early onset; F02.80 - Dementia in other diseases classified elsewhere without behavioral disturbance Is this a current diagnosis for this admission?: Yes (4) History of atrial fibrillation Is this a current diagnosis for this admission?: Yes (5) Metabolic acidosis Is this a current diagnosis for this admission?: Yes - Time Time Spent with patient: 15-24 minutes Medications reviewed and adjusted accordingly: Yes
--- NOTE | 2019-05-04 11:10 | RADIOLOGY REPORT (SQ) ---
EXAM DESCRIPTION: CHEST SINGLE VIEW COMPLETED DATE/TIME: 05/04/2019 10:25 am REASON FOR STUDY: respiratory failure COMPARISON: 05/02/2019 EXAM PARAMETERS: NUMBER OF VIEWS: One view TECHNIQUE: Single frontal radiograph of the chest. RADIATION DOSE: N/A LIMITATIONS: None. FINDINGS: TEMPORARY SUPPORT DEVICES:ETT in expected location. NG tube courses below the catrachita-diaphr agm in to the stomach. Central venous access catheter tip is in expected location. LUNGS AND PLEURA: Persistent left midzone atelectasis. No effusions. No masses. No pneumothorax. MEDIASTINUM AND HILAR STRUCTURES: No masses. Contour normal. HEART AND VASCULAR STRUCTURES: Heart normal in size. normal vascularity. Aorta normal for age. BONES: No acute findings. OTHER: No other significant finding. IMPRESSION: Persistent left midzone linear atelectasis. SUPPORT DEVICE(S) IN EXPECTED LOCATIONS. TECHNICAL DOCUMENTATION: JOB ID: [id number] [employer]- All Rights Reserved Reading location - IP/workstation name: [email or web address]
[2019-05-04 11:38] LABS: ARTERIAL BLOOD BASE EXCESS -9.2 mmol/L; ARTERIAL BLOOD FIO2 40%; ARTERIAL BLOOD H2CO3 0.88 mmol/L (1.05-1.35); ARTERIAL BLOOD HCO3 15.6 mmol/L (20-24); ARTERIAL BLOOD O2 SATURATION 98.9 % (94-98); ARTERIAL BLOOD PCO2 29.4 mmHg (35-45); ARTERIAL BLOOD PH 7.34 (7.35-7.45); ARTERIAL BLOOD PO2 156.6 mmHg (80-100); ARTERIAL BLOOD TOTAL CO2 16.5 mmol/L (21-25)
[2019-05-04] MEDS ORDERED: SODIUM BICARBONATE 8.4% INJ 50 MEQ/50 ML DISP.SYRIN IV ONE (12:06)
--- NOTE | 2019-05-04 12:59 | PDOC CRITICAL CARE PROG REPORT ---
General Date:: 05/04/19 ICU Day:: 3 Ventilator Day:: 3 Hospital Day:: 3 Resuscitation Status: Full Code Medical Power of Clinical Technician: Son: Dann Bowman Events in the past 12 to 24 Hours:: 05.04.19: Patient's overall clinical status continues to improve with the removal of the right lower leg/foot. Her pH has improved and she was placed on an SBT this morning. 05.02.19: Milli Trammell is a 74-year-old female with a past medical history significant for atrial fibrillation for which she is on ASA denying anticoagulation, type 2 diabetes for which she does not take any medication relying on diet, stage III CKD, HTN, HLD, asthma, and essential thrombocytosis who now presents with several days of decreased oral intake, weakness, and some confusion per the patient's son. Her son reports this all started since her recent injury to her right foot, which was injured while walking and hearing a popping noise approximately 2 weeks ago. She has reportedly had multiple x-rays of her right lower extremity demonstrating no fracture or dislocation for which she was diagnosed with a foot sprain. She has also been unable to walk which was her usual state of health prior to the injury, being mostly sedentary the past 2 weeks. She reports her pain is relieved with the oxycodone she has been taking at home, allowing her to actually get some rest. Notable labs from the ED are a leukocytosis of 36.5 with 8% bandemia, thrombocytosis of 1387, afebrile in combination with reports of myalgias and arthralgias over the past couple days. She denies chills or recent exposure to someone ill. She was also noted to have VALENTIN on CKD with a BUN of 133 and creatinine of 5, though non-oliguric. She was also found to have a sodium of 129, chloride of 89, serum bicarb of 8, and an anion gap of 32. Her pH is 7.12 with a base deficit of 21. Blood cultures and urinalysis were performed in the ED for which the UA is negative for UTI. The patient received 30 mL/kg of crystalloid for hydration as well. Review of systems relevant to events:: We were notified by microbiology regarding persistent bacteremia which is notable for MSSA. She has remained hemodynamically non-labile Reason for ICU Addmission:: Metabolic acidosis, hypovolemia, leukocytosis, VALENTIN on CKD, multiple electrolyte abnormalities. - Medications: Medications reviewed and adjusted accordingly: Yes Vasopressors:: None Sedation:: Versed, Fentanyl Physical Exam Vital Signs: Temp Pulse Resp BP Pulse Ox 97.5 F 78 13 130/46 H 100 05/04/19 08:00 05/04/19 10:00 05/04/19 11:10 05/04/19 11:10 05/04/19 11:10 Intake & Output 05/03/19 05/04/19 05/05/19 06:59 06:59 06:59 Intake Total 5027 2814 762 Output Total 3970 1910 375 Balance 1057 904 387 Weight 68.5 kg 69.4 kg Weight/Height Weight 69.4 kg Height 5 ft General appearance: PRESENT: no acute distress, cooperative, well-developed, well-nourished Exam: Intubated nontoxic ill 74-year-old white female no active distress responsive Head exam: PRESENT: atraumatic, normocephalic Eye exam: PRESENT: conjunctiva pink, PERRLA. ABSENT: conjunctival injection, nystagmus Mouth exam: PRESENT: neck supple Neck exam: PRESENT: other - Right internal jugular central venous catheter clean dry intact no hematoma. ABSENT: carotid bruit, JVD, lymphadenopathy, thyromegaly Respiratory exam: PRESENT: clear to auscultation edenilson, unlabored, other - Ve ntilator mechanics examined at bedside. No excessive secretions. Placed on pressure support CPAP. Adequate tidal volume and minute ventilation. ABSENT: rales, rhonchi, tachypnea, wheezes Cardiovascular exam: PRESENT: RRR. ABSENT: diastolic murmur, rubs, systolic murmur Pulses: ABSENT: normal dorsalis pedis pul Vascular exam: PRESENT: normal capillary refill. ABSENT: pallor GI/Abdominal exam: PRESENT: normal bowel sounds, soft. ABSENT: ascites, distended, guarding, mass, organolmegaly, rebound, tenderness Rectal exam: PRESENT: deferred Gentrourinary exam: PRESENT: indwelling catheter Extremities exam: PRESENT: tenderness - Right BKA., other - Right BKA, resting intact no excessive bleeding. ABSENT: pedal edema Neurological exam: PRESENT: altered - Sedated on Versed. Terra Coma Scale is 1-1T-5 Focused psych exam: ABSENT: psychomotor agitation, restlessness Skin exam: PRESENT: normal color. ABSENT: cyanosis, jaundice, mottled, pallor, petechiae Tubes/Lines: PRESENT: Endotracheal Tube, Central Line, Nasogastic Tube, Other - [place] Laboratory/Radiographs Laboratory Results: 05/04/19 05:20 05/04/19 05:20 05/03/19 05/03/19 05/03/19 17:30 17:30 17:30 WBC 16.0 H RBC 2.73 L Hgb 7.5 L Hct 22.6 L MCV 83 MCH 27.7 MCHC 33.3 RDW 16.5 H Plt Count 864 H Seg Neutrophils % Not Reportable Carbonic Acid HCO3/H2CO3 Ratio ABG pH ABG pCO2 ABG pO2 ABG HCO3 ABG O2 Saturation ABG Base Excess FiO2 Sodium 139.5 Potassium 2.8 L* Chloride 108 H Carbon Dioxide 13 L Anion Gap 19 BUN 118 H Creatinine 4.06 H Est GFR ( Amer) 13 L Glucose 112 H Calcium 6.2 L* Ionized Calcium Ebony 0.92 L Phosphorus 6.5 H D Magnesium 2.1 Total Bilirubin 0.1 L AST 65 H Alkaline Phosphatase 72 Total Protein 4.3 L Albumin 2.0 L 05/03/19 05/04/19 05/04/19 20:40 05:20 05:20 WBC RBC Hgb Hct MCV MCH MCHC RDW Plt Count Seg Neutrophils % Carbonic Acid 0.72 L 0.79 L HCO3/H2CO3 Ratio 16:1 18:1 ABG pH 7.33 L 7.38 ABG pCO2 23.8 L 26.2 L ABG pO2 230.5 H 167.8 H ABG HCO3 12.2 L 15.0 L ABG O2 Saturation 99.5 H 99.1 H ABG Base Excess -12.5 -9.1 FiO2 40% 40% Sodium Potassium Chloride Carbon Dioxide Anion Gap BUN Creatinine Est GFR ( Amer) Glucose Calcium Ionized Calcium Ebony 1.08 L Phosphorus Magnesium Total Bilirubin AST Alkaline Phosphatase Total Protein Albumin 05/04/19 05/04/19 05/04/19 05:20 05:20 11:30 WBC 15.0 H RBC 2.77 L Hgb 7.7 L Hct 22.8 L MCV 82 MCH 27.7 MCHC 33.6 RDW 16.4 H Plt Count 886 H Seg Neutrophils % 86.7 H Carbonic Acid 0.88 L HCO3/H2CO3 Ratio 17:1 ABG pH 7.34 L ABG pCO2 29.4 L ABG pO2 156.6 H ABG HCO3 15.6 L ABG O2 Saturation 98.9 H ABG Base Excess -9.2 FiO2 40% Sodium 143.7 Potassium 3.9 D Chloride 113 H Carbon Dioxide 17 L Anion Gap 14 BUN 109 H Creatinine 3.54 H Est GFR ( Amer) 15 L Glucose 102 Calcium 7.8 L Ionized Calcium Ebony Phosphorus 4.7 H Magnesium 2.2 Total Bilirubin 0.1 L AST 82 H Alkaline Phosphatase 80 Total Protein 4.5 L Albumin 2.1 L 05/02/19 00:58 Blood Blood Culture (PCR) - Final Staphylococcus Aureus 05/02/19 00:58 Blood Blood Culture - Final Staphylococcus Aureus 05/02/19 00:35 Blood Blood Culture (PCR) - Final Staphylococcus Aureus 05/02/19 00:35 Blood Blood Culture - Final Staphylococcus Aureus 05/02/19 05/02/19 05:57 08:47 Creatine Kinase 201 H Troponin I < 0.012 NT-Pro-B Natriuret Pep 1640 H Impressions: Abdomen/Pelvis CT 05/01/19 23:49 IMPRESSION: 1. Normal unenhanced CT scan of the abdomen and pelvis. There is no evidence of urinary tract calcification or urinary tract obstruction. There is no evidence of gallbladder pathology or acute appendicitis. 2. Occasional colonic diverticulosis. 3. Remote cholecystectomy. 4. Retroflexed myomatous uterus. Lower Extremity CT 05/02/19 00:00 IMPRESSION: Soft tissue edema distally in the lower extremity. It has raises the possibility of cellulitis. No abscess or mass. No bone pathology. Chest X-Ray 05/04/19 00:00 IMPRESSION: Persistent left midzone linear atelectasis. SUPPORT DEVICE(S) IN EXPECTED LOCATIONS. All labs, radiographs, diagnostic studies and EKGs were personally reviewed: Yes In addition, reports of radiographic and diagnostic studies were read: Yes Assessment and Plan - Diagnosis (1) Shock, septic Is this a current diagnosis for this admission?: Yes Plan: Resolving (2) Necrotizing soft tissue infection Is this a current diagnosis for this admission?: Yes Plan: 05.04.19: Patient has improved since removal of the source. Continue supportive care and follow wound. : Patient has not improved drastically from yesterday. Although her leukocytosis is decreased, she remains acidotic and I fear source control is still an issue. Examination of the foot with surgical team confirmed that the infection is still present. Will go to OR today for guillotine amputation with future washouts prior to formalization. (3) Bacteremia due to methicillin susceptible Staphylococcus aureus (MSSA) Is this a current diagnosis for this admission?: Yes Plan: Johnston-sensitive. Change to Nafcillin. ID consult (4) Acute kidney injury superimposed on chronic kidney disease Is this a current diagnosis for this admission?: Yes Plan: Was on NSAIDS prior to admission (5) Necrotizing fasciitis of ankle and foot Is this a current diagnosis for this admission?: Yes (6) Metabolic acidosis Is this a current diagnosis for this admission?: Yes Plan: Improved. Suspect RTA. 2 amps of bicarbonate ordered (7) History of atrial fibrillation Is this a current diagnosis for this admission?: Yes Plan: Will need to discuss anticoagulation with family and risks. Currently in NSR (8) Essential thrombocytosis Is this a current diagnosis for this admission?: Yes Plan: Will need Hematology. Start ASA. Check for Gene JAK2 Plan Summary: 05.04.19: Patient's overall clinical condition is improving. Begun ventilator weaning protocol. Awaiting awakening from her Versed drip. Versed drip has been discontinued. Her ABG shows a pH of 7.34 which is improved. Because she has an RTA with renal failure I have added 100 mEq of bicarb which is indicated in this situation. Patient has MSSA bacteremia. We feel that the source was her foot and this bacteremia should clear now that the etiology has been removed. That being said a transthoracic echocardiogram has been ordered. If vegetation is seen this will require longer antibiotic time. Have also asked infectious disease to factor in as well given the improved mortality when infectious disease specialists are involved. Have transitioned her to nafcillin and have discontinued clindamycin, linezolid, and Zosyn. Even her overall improvement have discontinued every 6 hours laboratory. She is still quite ill and will need to continue to monitor her in the ICU especially during the ventilator weaning phase. Patient has acute on chronic renal failure and appeared to have been on NSAID therapy prior to admission. Continue to monitor her response to therapy. She has gained approximately 4 to 5 kg since admission. She does have edema peripherally and have discontinued IV fluids. She does have essential thrombocytosis has improved from her initial evaluation. Standard treatment for this if severely elevated it is often cytoreduction therapy (hydroxyurea) of course aspirin. According to the surgeons her infected foot did not appear to be ischemic related. There is no bleeding or excessive bleeding after her surgery. Will speak with son to determine if she has been evaluated by hematology. Have sent perfunctory JAK2 and VWF studies. Critical Time Critical Time (minutes): 60 Level of Care: ICU Anticipated discharge: Acute Rehab Within: within 48 hours -: 1. The care of a critical patient is a dynamic process. This note is a r epresentative synopsis but static in nature. The timeframe for treatments given in order is not necessary the actual time these treatments may have been done. 2. This patient requires critical care secondary to ongoing requirements for therapy not offered or safe outside the critical care environment. Transfer to a lower level of care with altered life or limb morbidity and mortality. 3. Multidisciplinary rounds completed. 4. ABCDE bundle addressed.
[2019-05-04 13:59] LABS: PATH REVIEW PATHOLOGIST REVIEWED
[2019-05-04] MEDS: ASPIRIN 81 MG TABLET, CHEWABLE PO SCH (14:16)
[2019-05-04] MEDS: NAFCILLIN SODIUM 2 GM in DEXTROSE 5%-WATER 100 ML IV SCH ×3 (14:17→21:09)
[2019-05-04] MEDS ORDERED: ZAFIRLUKAST 20 MG PO SCH (18:00)
--- NOTE | 2019-05-04 21:15 | XCELERA REPORT ---
[address] [address] Transthoracic Echocardiogram Report Name: MATTHEW TINAJERO Age: 74 yrs Gender: Female : 1945 Patient Status: Inpatient Patient Location: ICU^601^A Study Date: 05/04/2019 02:49 PM Height: 60 in Weight: 153 lb BSA: 1.7 m2 Procedure: A two-dimensional transthoracic echocardiogram with color flow and Doppler was performed. The study was technically difficult with many images being suboptimal in quality. Study Quality: Technically suboptimal. Reason For Study: MSSA bacteremia History: MSSA bacteremia / Endocarditis. Ordering Physician: NEGRO POLLARD Performed By: Sandy Estevez Interpretation Summary The left ventricle is normal in size. There is normal left ventricular wall thickness. LV EF is 70% Left ventricular systolic function is normal. Doppler measurements suggest impaired left ventricular relaxation, which is associated with grade I/IV or mild diastolic dysfunction The left ventricular wall motion is normal. There is no thrombus. Probably no ASD ,VSD,or PFO seen. The right ventricle is normal in size and function. The right ventricle is not well visualized secondary to technical limitations The right atrium is normal. The left atrial size is normal. There is no evidence of mitral valve prolapse. There is no vegetation seen on the mitral valve. There is no mitral valve stenosis. There is no mitral regurgitation noted. There is no aortic valvular vegetation. There is mild aortic stenosis There is a peak gradient of 15 mm of Hg. No hemodynamically significant valvular aortic stenosis. There is no LVOT obstruction. No aortic regurgitation is present. There is no tricuspid valve vegetation. There is no tricuspid stenosis. There is a trace amount of tricuspid regurgitation There is mild pulmonary hypertension by echo RVSP id 38 to 43 mm of Hg , with RA mean of 10 to 15. There is no pulmonic valvular stenosis. There is no pulmonic valvular regurgitation. The aortic root is normal size. The inferior vena cava appeared normal and decreased < 50% with respiration (RAP 10-15 mmHg) There is no pericardial effusion. MMode/2D Measurements & Calculations RVDd: 3.0 cm LVIDd: 4.0 cm FS: 40.4 % Ao root diam: 2.8 cm IVSd: 1.0 cm LVIDs: 2.4 cm EDV(Teich): 68.9 ml Ao root area: 6.2 cm2 LVPWd: 0.92 cm ESV(Teich): 19.5 ml EF(Teich): 71.8 % Doppler Measurements & Calculations MV E max amina: MV dec slope: Ao V2 max: LV V1 max P.1 cm/sec 594.9 cm/sec2 197.4 cm/sec 6.8 mmHg MV A max amina: MV dec time: 0.18 secAo max PG: LV V1 max: 137.2 cm/sec 15.6 mmHg 130.3 cm/sec MV E/A: 0.79 PA V2 max: TR max amina: 117.9 cm/sec 262.4 cm/sec PA max P.6 mmHg TR max P.5 mmHg Left Ventricle The left ventricle is normal in size. There is normal left ventricular wall thickness. LV EF is 70%. Left ventricular systolic function is normal. Doppler measurements suggest impaired left ventricular relaxation, which is associated with grade I/IV or mild diastolic dysfunction. The left ventricular wall motion is normal. There is no thrombus. Probably no ASD ,VSD,or PFO seen. Right Ventricle The right ventricle is normal in size and function. The right ventricle is not well visualized secondary to technical limitations. Atria The right atrium is normal. The left atrial size is normal. Mitral Valve There is no evidence of mitral valve prolapse. There is no vegetation seen on the mitral valve. There is no mitral valve stenosis. There is no mitral regurgitation noted. Aortic Valve There is no aortic valvular vegetation. There is mild aortic stenosis. There is a peak gradient of 15 mm of Hg. No hemodynamically significant valvular aortic stenosis. There is no LVOT obstruction. No aortic regurgitation is present. Tricuspid Valve There is no tricuspid valve vegetation. There is no tricuspid stenosis. There is a trace amount of tricuspid regurgitation. There is mild pulmonary hypertension by echo. RVSP id 38 to 43 mm of Hg , with RA mean of 10 to 15. Pulmonic Valve There is no pulmonic valvular stenosis. There is no pulmonic valvular regurgitation. Great Vessels The aortic root is normal size. The inferior vena cava appeared normal and decreased < 50% with respiration (RAP 10-15 mmHg). Effusions There is no pericardial effusion. : NEGRO POLLARD Lakshmi
[2019-05-04] MEDS ORDERED: DEXMEDETOMIDINE IN 0.9 % NACL 400 MCG/100 ML RTUPB IV ONE (23:12)
[2019-05-04] MEDS: DEXMEDETOMIDINE IN 0.9 % NACL 400 MCG/100 ML RTUPB IV PRN (23:14)
[2019-05-05] MEDS: NAFCILLIN SODIUM 2 GM in DEXTROSE 5%-WATER 100 ML IV SCH ×3 (01:09→12:32)
[2019-05-05 03:51] LABS: ARTERIAL BLOOD BASE EXCESS -4.3 mmol/L; ARTERIAL BLOOD H2CO3 1.01 mmol/L (1.05-1.35); ARTERIAL BLOOD HCO3 20.1 mmol/L (20-24); ARTERIAL BLOOD O2 SATURATION 98.6 % (94-98); ARTERIAL BLOOD PCO2 33.7 mmHg (35-45); ARTERIAL BLOOD PH 7.39 (7.35-7.45); ARTERIAL BLOOD TOTAL CO2 21.1 mmol/L (21-25)
[2019-05-05 03:52] LABS: ARTERIAL BLOOD FIO2 35%
[2019-05-05 04:08] LABS: HEMATOCRIT 22.6 % (36.0-47.0); MEAN CORPUSCULAR HGB CONC 34.1 g/dL (32.0-36.0); MEAN CORPUSCULAR VOLUME 82 fl (80-97); PLATELET COUNT 831 10^3/uL (150-450); RED BLOOD COUNT 2.76 10^6/uL (3.72-5.28); RED CELL DISTRIBUTION WIDTH 16.3 % (11.5-14.0); WHITE BLOOD COUNT 10.5 10^3/uL (4.0-10.5)
[2019-05-05 04:15] LABS: ANION GAP 14 (5-19); BLOOD UREA NITROGEN 100 mg/dL (7-20); CALCIUM 7.1 mg/dL (8.4-10.2); CARBON DIOXIDE 21 mmol/L (22-30); CHLORIDE 114 mmol/L (98-107); GLUCOSE 164 mg/dL (75-110); PHOSPHORUS 4.4 mg/dL (2.5-4.5)
[2019-05-05 04:22] LABS: POTASSIUM 2.9 mmol/L (3.6-5.0)
[2019-05-05 04:48] LABS: HEMOGLOBIN 7.7 g/dL (12.0-15.5)
[2019-05-05 04:54] LABS: ABSOLUTE LYMPHOCYTES# (MANUAL) 1.6 10^3/uL (0.5-4.7); ABSOLUTE MONOCYTES # (MANUAL) 0.5 10^3/uL (0.1-1.4); BASOPHILS % (MANUAL) 0 % (0-2); EOSINOPHILS % (MANUAL) 0 % (0-6); LYMPHOCYTES % (MANUAL) 15 % (13-45); MONOCYTES % (MANUAL) 5 % (3-13); SEGMENTED NEUTROPHILS % (MAN) 80 % (42-78); TOTAL CELLS COUNTED 100
[2019-05-05 05:00] LABS: PLATELET COMMENT INCREASED
[2019-05-05 05:04] LABS: TEAR DROP CELLS SLIGHT
[2019-05-05 05:05] LABS: OVALOCYTES 1+
[2019-05-05] MEDS: INSULIN REG, HUMAN 100 UNIT/ML 3 ML VIAL (PYX) SUBCUT SCH ×3 (05:19→18:19)
[2019-05-05] MEDS: METOPROLOL TARTRATE PF/INJ 5 MG/5 ML SDV IV SCH ×3 (05:20→18:41)
[2019-05-05] MEDS: HEPARIN SOD (PORCINE) 5,000 UNIT/ML 1 ML VIAL SUBCUT SCH ×3 (05:20→21:57)
[2019-05-05] MEDS: POTASSI CL 20 MEQ/50 ML RIDER 20 MEQ/50 ML RTUPB IV SCH ×4 (05:22→21:56)
--- NOTE | 2019-05-05 05:23 | RADIOLOGY REPORT (SQ) ---
EXAM DESCRIPTION: CT MAXILLOFACIAL WITHOUT IV CONTRAST COMPLETED DATE/TME: 05/05/2019 00:00 CLINICAL HISTORY: 74 years Female, Nasal swelling, bacteremia Comparison: None. Technique: No contrast. Coronal and sagittal reformat. This exam was performed according to our departmental dose-optimization program, which includes automated exposure control, adjustment of the mA and/or kV according to patient size and/or use of iterative reconstruction technique.[facility]: Dose Right [facility]: CareDose [facility]: Dose Right [facility]: Teradose 4D [facility]: [employer] LIMITATIONS: No contrast. Findings: 2.8 x 1.3 x 2.1 cm lesion of the subcutaneous left paracentral nasal tissues may indicate a phlegmon or chronic hematoma. Differential etiologies include infectious, inflammatory, and neoplastic processes. Endotracheal and enteric tubes partially imaged. Likely right central line partially imaged. Mild cerebral volume loss. Facial bones including orbits, nasal bone, paranasal sinuses, and pterygoid plates appear otherwise intact. Unremarkable partially visualized inferior cranium, temporal bone, and upper neck. IMPRESSION: 2.8 -cm lesion of the subcutaneous left paracentral nasal tissues may indicate a phlegmon or chronic hematoma. Differential etiologies include infectious, inflammatory, and neoplastic processes.
[2019-05-05] MEDS: LEVALBUTEROL HCL NEB 0.63 MG/3 ML AMPUL NEB PRN (08:18)
[2019-05-05] MEDS: BUDESONIDE NEB 0.25 MG/2 ML AMPUL NEB SCH ×2 (08:18→21:02)
--- NOTE | 2019-05-05 08:28 | RADIOLOGY REPORT (SQ) ---
EXAM DESCRIPTION: CHEST SINGLE VIEW COMPLETED DATE/TIME: 05/05/2019 6:18 am REASON FOR STUDY: respiratory failure COMPARISON: 05/04/2019 NUMBER OF VIEWS: One view. TECHNIQUE: Single frontal radiographic image of the chest acquired. LIMITATIONS: None. FINDINGS: LUNGS AND PLEURA: Stable appearance. MEDIASTINUM AND HILAR STRUCTURES: Stable heart size and mediastinal structures. HEART AND VASCULAR STRUCTURES: Stable appearance. SUPPORT DEVICES: Appropriate location without change. BONES: No acute findings. OTHER: No other significant finding. IMPRESSION: STABLE APPEARANCE OF THE CHEST. SUPPORT DEVICES UNCHANGED. TECHNICAL DOCUMENTATION: JOB ID: [id number] [employer]- All Rights Reserved Reading location - IP/workstation name: [email or web address]
[2019-05-05] MEDS ORDERED: CLINDAMYCIN PHOSPHATE 600 MG in DEXTROSE 5%-WATER 100 ML IV SCH (09:00)
--- NOTE | 2019-05-05 09:21 | PDOC CONSULTATION ---
Consultation Consult Date: 05/05/19 Provider Consulted: ZAINA MENON Consult reason:: Hematology/Oncology consultation was requested for thrombocytosis. History of Present Illness Admission Date/PCP: 05/02/19 03:12 TRISHA SPARKS MD History of Present Illness: MATTHEW TINAJERO is a 74 year old female with a past medical history significant for atrial fibrillation for which she is on ASA denying anticoagulation, type 2 diabetes for which she does not take any medication relying on diet, stage III CKD, HTN, HLD, asthma, and essential thrombocytosis who now presents with several days of decreased oral intake, weakness, and some confusion per the patient's son. Her son reported this all started since her recent injury to her right foot, which was injured while walking and hearing a popping noise approximately 2 weeks ago. She had reportedly had multiple x-rays of her right lower extremity demonstrating no fracture or dislocation for which she was diagnosed with a foot sprain. She had also been unable to walk which was her usual state of health prior to the injury, being mostly sedentary the past 2 weeks. 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 Today, patient remains sedated, on ventilator in ICU. She is able to hear me and shakes her head Y-N appropriately to questions. She is not known to our practice, and I have no record of her baseline CBC prior to this admission. She reports no dyspnea. No hunger. She does not answer when I ask her if she is having pain. Past Medical History Past Medical History: Was provided by prior medical record. Patient unable to answer. Cardiac Medical History: Reports: Atrial Fibrillation, Hyperlipidema, Hypertension, Heart Murmur - Reportedly known since patient was a child. Denies: Congestive Heart Failure, Coronary Artery Disease, DVT, Myocardial Infarction, Peripheral Vascular Disease, Pulmonary Embolism Pulmonary Medical History: Reports: Asthma, Bronchitis, Pneumonia Denies: Chronic Obstructive Pulmonary Disease (COPD), Intubation, Respiratory Failure EENT Medical History: Reports: Cataracts Neurological Medical History: Reports: Other - early Alzheimer's dementia Denies: Hemorrhagic CVA, Ischemic CVA, Migraine Endocrine Medical History: Reports: Diabetes Mellitus Type 2 Denies: Hyperthyroidism, Hypothyroidism Renal/ Medical History: Reports: Chronic Kidney Disease, End Stage Renal Disease - stage 3, Other - Stage III chronic kidney disease secondary to diabetes per patient report Malignancy Medical History: Reports: Skin Cancer - Post resection from nasal bridge Denies: Bone Cancer, Cervical Cancer, Ovarian Cancer GI Medical History: Reports: Other - Diverticulosis Denies: Cirrhosis, Crohn's Disease, Diverticulitis, Gastroesophageal Reflux Disease Musculoskeltal Medical History: Denies: Arthritis Skin Medical History: Reports: Other - 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 This is per medical records. - Advance Directive Resuscitation Status: Full Code Family History Family History: None Family History: Unable to determine family history at this time. Parental Family History Reviewed: No Children Family History Reviewed: No Sibling(s) Family History Reviewed.: No Medication/Allergy Home Medications: Budesonide [Pulmicort 180 mcg Flexhaler] 1 puff IH Q12 05/03/19 Budesonide/Formoterol Fumarate [Symbicort HFA 160-4.5 mcg Inhaler 6 gm] 2 puff IH Q12 05/03/19 Donepezil HCl 10 mg PO DAILY 05/03/19 Ibuprofen [Ibu] 800 mg PO TID 05/03/19 Metoprolol Succinate 100 mg PO DAILY 05/03/19 Sulindac 200 mg PO DAILY 05/03/19 Verapamil HCl [Verapamil ER] 240 mg PO DAILY 05/03/19 Zafirlukast [Accolate 20 mg Tablet] 20 mg PO BID 05/03/19 Allergies/Adverse Reactions: atorvastatin Allergy (Verified 05/01/19 23:58) codeine Allergy (Verified 05/01/19 23:58) lisinopril Allergy (Verified 05/01/19 23:58) meloxicam Allergy (Verified 05/01/19 23:58) metformin Allergy (Verified 05/01/19 23:58) Sulfa (Sulfonamide Antibiotics) Allergy (Verified 05/01/19 23:58) Review of Systems ROS unobtainable: Due to endotracheal tube Physical Exam Vital Signs: Temp Pulse Resp BP Pulse Ox 99.0 F 85 14 100/79 99 05/05/19 08:00 05/05/19 08:24 05/05/19 08:24 05/05/19 08:00 05/05/19 08:24 Intake & Output 05/04/19 05/05/19 05/06/19 06:59 06:59 06:59 Intake Total 2814 839 Output Total 1241 4008 300 Balance 901 -1894 -300 Weight 69.4 kg 70.5 kg General appearance: PRESENT: no acute distress, obese Head exam: PRESENT: normocephalic Mouth exam: PRESENT: moist Throat exam: PRESENT: other - ET tube in place. Neck exam: ABSENT: lymphadenopathy, tenderness Respiratory exam: PRESENT: clear to auscultation edenilson Cardiovascular exam: PRESENT: other - Heart sound obscured. GI/Abdominal exam: PRESENT: soft. ABSENT: tenderness Extremities exam: PRESENT: other - Right BKA, area bandaged. Musculoskeletal exam: PRESENT: other - Moves all 4 extremities. Neurological exam: PRESENT: other - As per HPI Focused psych exam: PRESENT: restlessness Skin exam: PRESENT: normal color Results Laboratory Results: 05/05/19 03:39 05/05/19 03:39 05/04/19 05/05/19 05/05/19 11:30 03:39 03:39 WBC RBC Hgb Hct MCV MCH MCHC RDW Plt Count Seg Neutrophils % Carbonic Acid 0.88 L 1.01 L HCO3/H2CO3 Ratio 17:1 19:1 ABG pH 7.34 L 7.39 ABG pCO2 29.4 L 33.7 L ABG pO2 156.6 H 130.0 H ABG HCO3 15.6 L 20.1 ABG O2 Saturation 98.9 H 98.6 H ABG Base Excess -9.2 -4.3 FiO2 40% 35% Sodium Potassium Chloride Carbon Dioxide Anion Gap BUN Creatinine Est GFR ( Amer) Glucose Calcium Phosphorus Magnesium Ammonia < 8.7 L 05/05/19 05/05/19 03:39 03:39 WBC 10.5 RBC 2.76 L Hgb 7.7 L Hct 22.6 L MCV 82 MCH 28.0 MCHC 34.1 RDW 16.3 H Plt Count 831 H Seg Neutrophils % Not Reportable Carbonic Acid HCO3/H2CO3 Ratio ABG pH ABG pCO2 ABG pO2 ABG HCO3 ABG O2 Saturation ABG Base Excess FiO2 Sodium 148.5 H Potassium 2.9 L* D Chloride 114 H Carbon Dioxide 21 L Anion Gap 14 BUN 100 H Creatinine 2.36 H Est GFR ( Amer) 24 L Glucose 164 H Calcium 7.1 L Phosphorus 4.4 Magnesium 2.5 H Ammonia 05/02/19 12:09 Foot - Right Gram Stain - Final 05/02/19 12:09 Foot - Right Wound Culture - Final Staphylococcus Aureus No Anaerobic Organisms 05/02/19 00:58 Blood Blood Culture (PCR) - Final Staphylococcus Aureus 05/02/19 00:58 Blood Blood Culture - Final Staphylococcus Aureus 05/02/19 00:35 Blood Blood Culture (PCR) - Final Staphylococcus Aureus 05/02/19 00:35 Blood Blood Culture - Final Staphylococcus Aureus 05/02/19 05/02/19 05:57 08:47 Creatine Kinase 201 H Troponin I < 0.012 NT-Pro-B Natriuret Pep 1640 H Impressions: Abdomen/Pelvis CT 05/01/19 23:49 IMPRESSION: 1. Normal unenhanced CT scan of the abdomen and pelvis. There is no evidence of urinary tract calcification or urinary tract obstruction. There is no evidence of gallbladder pathology or acute appendicitis. 2. Occasional colonic diverticulosis. 3. Remote cholecystectomy. 4. Retroflexed myomatous uterus. Lower Extremity CT 05/02/19 00:00 IMPRESSION: Soft tissue edema distally in the lower extremity. It has raises the possibility of cellulitis. No abscess or mass. No bone pathology. Facial Bones CT 05/05/19 00:00 IMPRESSION: 2.8 -cm lesion of the subcutaneous left paracentral nasal tissues may indicate a phlegmon or chronic hematoma. Differential etiologies include infectious, inflammatory, and neoplastic processes. Chest X-Ray 05/05/19 06:00 IMPRESSION: STABLE APPEARANCE OF THE CHEST. SUPPORT DEVICES UNCHANGED. Status: Image reviewed by me Assessment & Plan - Diagnosis (1) Leukocytosis, unspecified Qualifiers: Leukocytosis type: unspecified Qualified Code(s): D72.829 - Elevated white blood cell count, unspecified Is this a current diagnosis for this admission?: Yes Plan: Most likely reactive to underlying inflammatory process. This has been improving and should continue to improve after BKA. (2) Reactive thrombocytosis Is this a current diagnosis for this admission?: Yes Plan: I am unclear if she has a true history of essential thrombocythemia. This is most likely reactive. PLT has been decreasing over the past few days. This may be due to underlying inflammatory process. Iron deficiency can also give a similar picture. I will check iron studies. Agree with the baby aspirin, however, some studies also indicate increased risk of bleeding in this situation. Therefore, will also watch for bleeding. (3) Anemia Qualifiers: Other causes of anemia: chronic disease, other Is this a current diagnosis for this admission?: Yes Plan: Her anemia has been progressive during this admission and is most likely multifactoral. I will check anemia studies. Consider blood transfusion, as HGB is < 8. - Plan Summary Plan Summary: Patient was discussed with primary ICU attending. I will be happy to continue to follow her with you. Please call with any other concerns.
[2019-05-05 10:29] LABS: ABSOLUTE RETICS # 0.028 10^6/uL (0.028-0.122); RETICULOCYTE COUNT (AUTO) 1.04 % (0.66-2.85)
[2019-05-05 10:59] LABS: IRON(TIBC) 80.8 ug/dL (37-170)
[2019-05-05 12:16] LABS: FOLATE 8.43 ng/mL (>2.76)
[2019-05-05] MEDS: CLINDAMYCIN 600 MG/D5W RTU 600 MG/50 ML RTUPB IV SCH ×2 (12:32→18:07)
[2019-05-05] MEDS: ASPIRIN 81 MG TABLET, CHEWABLE PO SCH (13:53)
[2019-05-05] MEDS: MONTELUKAST SODIUM 10 MG TABLET PO SCH (13:53)
[2019-05-05] MEDS: RINGERS SOLUTION,LACTATED 1,000 ML IV PRN (13:54)
[2019-05-05] MEDS ORDERED: CEFAZOLIN SODIUM 1 GM in DEXTROSE 5%-WATER 100 ML IV SCH (15:00)
[2019-05-05] MEDS: DEXMEDETOMIDINE IN 0.9 % NACL 400 MCG/100 ML RTUPB IV PRN (15:03)
[2019-05-05 15:09] LABS: ANION GAP 13 (5-19); BLOOD UREA NITROGEN 90 mg/dL (7-20); CALCIUM 7.7 mg/dL (8.4-10.2); CARBON DIOXIDE 21 mmol/L (22-30); CHLORIDE 116 mmol/L (98-107); GLUCOSE 157 mg/dL (75-110); POTASSIUM 3.2 mmol/L (3.6-5.0)
[2019-05-05] MEDS ORDERED: FENTANYL CITRATE INJ/PF 100 MCG/2 ML AMPUL IV ONE (15:17)
[2019-05-05] MEDS ORDERED: FENTANYL CITRATE INJ/PF 100 MCG/2 ML AMPUL ONE (15:18)
--- NOTE | 2019-05-05 16:10 | RADIOLOGY REPORT (SQ) ---
EXAM DESCRIPTION: VENOUS BILATERAL LOWER COMPLETED DATE/TIME: 05/05/2019 3:52 pm REASON FOR STUDY: swelling with thrombocytosis COMPARISON: None. TECHNIQUE: Dynamic and static meadows scale and color images acquired of both lower extremity venous sy stems. Selected spectral images acquired with additional compression and augmentation maneuvers. Imag es stored on PACS. LIMITATIONS: None. FINDINGS: RIGHT LEG COMMON FEMORAL AND FEMORAL: Normal phasicity, compression and augmentation. No visualized echogenic m aterial on meadows scale. No defects on color images. POPLITEAL: Normal compression and augmentation. No visualized echogenic material on meadows scale. No de fects on color images. CALF VESSELS: Prior below the knee amputation. LEFT LEG COMMON FEMORAL AND FEMORAL: Normal phasicity, compression and augmentation. No visualized echogenic m aterial on meadows scale. No defects on color images. POPLITEAL: Normal compression and augmentation. No visualized echogenic material on meadows scale. No de fects on color images. CALF VESSELS: Normal compression and augmentation. No visualized echogenic material on meadows scale. No defects on color images. GSV AND SSV: Normal compression. No visualized echogenic material on meadows scale. No defects on color images. ANY DEEP VENOUS INSUFFICIENCY: Not evaluated. ANY EVIDENCE POPLITEAL CYST: No. OTHER: No other significant finding. IMPRESSION: NO EVIDENCE DVT OR SVT IN EITHER LEG. TECHNICAL DOCUMENTATION: JOB ID: [id number] [employer]- All Rights Reserved Reading location - IP/workstation name: [email or web address]
--- NOTE | 2019-05-05 16:27 | PDOC PROGRESS REPORT ---
Subjective Progress Note for:: 05/05/19 Subjective:: Postop day #2 post guillotine amputation right ankle level done for persistent infection of the right foot with starting multiorgan failure. Today she appears to be turning around for the better with decrease in the white count and improving in her kidney function tests. For possible extubation today. Tentative definitive amputation below knee in the next 48 hours. Reason For Visit: METABOLIC ACIDOSIS Physical Exam Vital Signs: Temp Pulse Resp BP Pulse Ox 99.0 F 85 16 145/55 H 92 05/05/19 12:00 05/05/19 14:00 05/05/19 15:31 05/05/19 15:31 05/05/19 15:31 Intake & Output 05/04/19 05/05/19 05/06/19 06:59 06:59 06:59 Intake Total 2814 839 55 Output Total 3550 4575 1120 Balance 681 -1843 -4432 Weight 69.4 kg 70.5 kg Exam: Rt BKA Guillotine amp stump dressing intact and dry Results Laboratory Results: 05/05/19 03:39 05/05/19 14:45 05/05/19 05/05/19 05/05/19 03:39 03:39 03:39 WBC RBC Hgb Hct MCV MCH MCHC RDW Plt Count Seg Neutrophils % Retic Count (auto) Carbonic Acid 1.01 L HCO3/H2CO3 Ratio 19:1 ABG pH 7.39 ABG pCO2 33.7 L ABG pO2 130.0 H ABG HCO3 20.1 ABG O2 Saturation 98.6 H ABG Base Excess -4.3 FiO2 35% Sodium 148.5 H Potassium 2.9 L* D Chloride 114 H Carbon Dioxide 21 L Anion Gap 14 BUN 100 H Creatinine 2.36 H Est GFR ( Amer) 24 L Glucose 164 H Calcium 7.1 L Phosphorus 4.4 Magnesium 2.5 H Iron TIBC % Saturation Ferritin Ammonia < 8.7 L Vitamin B12 Folate 05/05/19 05/05/19 05/05/19 03:39 03:39 03:39 WBC 10.5 RBC 2.76 L Hgb 7.7 L Hct 22.6 L MCV 82 MCH 28.0 MCHC 34.1 RDW 16.3 H Plt Count 831 H Seg Neutrophils % Not Reportable Retic Count (auto) 1.04 Carbonic Acid HCO3/H2CO3 Ratio ABG pH ABG pCO2 ABG pO2 ABG HCO3 ABG O2 Saturation ABG Base Excess FiO2 Sodium Potassium Chloride Carbon Dioxide Anion Gap BUN Creatinine Est GFR ( Amer) Glucose Calcium Phosphorus Magnesium Iron 80.8 TIBC 155 L % Saturation 52 Ferritin 235.00 Ammonia Vitamin B12 882.0 Folate 8.43 05/05/19 14:45 WBC RBC Hgb Hct MCV MCH MCHC RDW Plt Count Seg Neutrophils % Retic Count (auto) Carbonic Acid HCO3/H2CO3 Ratio ABG pH ABG pCO2 ABG pO2 ABG HCO3 ABG O2 Saturation ABG Base Excess FiO2 Sodium 149.8 H Potassium 3.2 L Chloride 116 H Carbon Dioxide 21 L Anion Gap 13 BUN 90 H Creatinine 1.79 H Est GFR ( Amer) 33 L Glucose 157 H Calcium 7.7 L Phosphorus Magnesium Iron TIBC % Saturation Ferritin Ammonia Vitamin B12 Folate 05/02/19 12:09 Foot - Right Gram Stain - Final 05/02/19 12:09 Foot - Right Wound Culture - Final Staphylococcus Aureus No Anaerobic Organisms 05/02/19 00:58 Blood Blood Culture (PCR) - Final Staphylococcus Aureus 05/02/19 00:58 Blood Blood Culture - Final Staphylococcus Aureus 05/02/19 00:35 Blood Blood Culture (PCR) - Final Staphylococcus Aureus 05/02/19 00:35 Blood Blood Culture - Final Staphylococcus Aureus 05/02/19 05/02/19 05:57 08:47 Creatine Kinase 201 H Troponin I < 0.012 NT-Pro-B Natriuret Pep 1640 H Impressions: Abdomen/Pelvis CT 05/01/19 23:49 IMPRESSION: 1. Normal unenhanced CT scan of the abdomen and pelvis. There is no evidence of urinary tract calcification or urinary tract obstruction. There is no evidence of gallbladder pathology or acute appendicitis. 2. Occasional colonic diverticulosis. 3. Remote cholecystectomy. 4. Retroflexed myomatous uterus. Lower Extremity CT 05/02/19 00:00 IMPRESSION: Soft tissue edema distally in the lower extremity. It has raises the possibility of cellulitis. No abscess or mass. No bone pathology. Facial Bones CT 05/05/19 00:00 IMPRESSION: 2.8 -cm lesion of the subcutaneous left paracentral nasal tissues may indicate a phlegmon or chronic hematoma. Differential etiologies include infectious, inflammatory, and neoplastic processes. Venous Doppler Study 05/05/19 00:00 IMPRESSION: NO EVIDENCE DVT OR SVT IN EITHER LEG. Chest X-Ray 05/05/19 06:00 IMPRESSION: STABLE APPEARANCE OF THE CHEST. SUPPORT DEVICES UNCHANGED. Assessment & Plan - Diagnosis (1) Necrotizing fasciitis of ankle and foot Is this a current diagnosis for this admission?: Yes (2) Shock, septic Is this a current diagnosis for this admission?: Yes (3) Type 2 DM with CKD and hypertension Is this a current diagnosis for this admission?: Yes - Time Time Spent with patient: 15-24 minutes - Inpatient Certification Medical Necessity: Need Close Monitoring Due to Risk of Patient Decompensation, Need For Continuous Telemetry Monitoring, Need for IV Antibiotics - Plan Summary Plan Summary: Tentative formal Rt BKA in 48 hrs
[2019-05-05] MEDS: PIPERACILLIN SODIUM/TAZOBACTAM 2.25 GM in NORMAL SALINE 50 ML IV SCH (18:41)
--- NOTE | 2019-05-05 18:42 | PDOC CRITICAL CARE PROG REPORT ---
General Date:: 05/05/19 ICU Day:: 4 Ventilator Day:: 3 Hospital Day:: 4 Resuscitation Status: Full Code Medical Power of Dado Operator: Son: Dann Bowman Events in the past 12 to 24 Hours:: 05.05.19: Patient has continued to wean and is currently on SBT. No hypotension overnight. Had CT of soft-tissues of face showing subcutaneous swelling without abscess. 05.04.19 Patient's overall clinical status continues to improve with the removal of the right lower leg/foot. Her pH has improved and she was placed on an SBT this morning. 05.02.19: Milli Trammell is a 74-year-old female with a past medical history significant for atrial fibrillation for which she is on ASA denying anticoagulation, type 2 diabetes for which she does not take any medication relying on diet, stage III CKD, HTN, HLD, asthma, and essential thrombocytosis who now presents with several days of decreased oral intake, weakness, and some confusion per the patient's son. Her son reports this all started since her recent injury to her right foot, which was injured while walking and hearing a popping noise approximately 2 weeks ago. She has reportedly had multiple x-rays of her right lower extremity demonstrating no fracture or dislocation for which she was diagnosed with a foot sprain. She has also been unable to walk which was her usual state of health prior to the injury, being mostly sedentary the past 2 weeks. She reports her pain is relieved with the oxycodone she has been taking at home, allowing her to actually get some rest. Notable labs from the ED are a leukocytosis of 36.5 with 8% bandemia, thrombocytosis of 1387, afebrile in combination with reports of myalgias and arthralgias over the past couple days. She denies chills or recent exposure to someone ill. She was also noted to have VALNETIN on CKD with a BUN of 133 and creatinine of 5, though non-oliguric. She was also found to have a sodium of 129, chloride of 89, serum bicarb of 8, and an anion gap of 32. Her pH is 7.12 with a base deficit of 21. Blood cultures and urinalysis were performed in the ED for which the UA is negative for UTI. The patient received 30 mL/kg of crystalloid for hydration as well. Review of systems relevant to events:: Started on Precedex for ventilator agitation. No bleeding or thrombotic events. Hematology evaluation for Essential thrombocytosis. Reason for ICU Addmission:: Metabolic acidosis, hypovolemia, leukocytosis, VALENTIN on CKD, multiple electrolyte abnormalities. - Medications: Medications reviewed and adjusted accordingly: Yes Vasopressors:: Precedex Sedation:: Versed, Fentanyl Physical Exam Vital Signs: Temp Pulse Resp BP Pulse Ox 99.0 F 85 14 100/79 99 05/05/19 08:00 05/05/19 08:24 05/05/19 08:24 05/05/19 08:00 05/05/19 08:24 Intake & Output 05/04/19 05/05/19 05/06/19 06:59 06:59 06:59 Intake Total 2814 839 Output Total 1910 4835 300 Balance 904 -1436 -300 Weight 69.4 kg 70.5 kg Weight/Height Weight 70.5 kg Height 5 ft General appearance: PRESENT: no acute distress, obese, well-developed, well- nourished Exam: Intubated, non-toxic, ill, obese, nad. Responsive to voice and following commands. Eye exam: PRESENT: conjunctiva pink, PERRLA. ABSENT: conjunctival injection, nystagmus, scleral icterus Mouth exam: PRESENT: moist, neck supple Neck exam: PRESENT: other - Right IJ CVC clean, dry and intact. ABSENT: carotid bruit, JVD, lymphadenopathy, thyromegaly Respiratory exam: PRESENT: clear to auscultation edenilson, unlabored. ABSENT: accessory muscle use, rales, rhonchi, tachypnea, wheezes Cardiovascular exam: PRESENT: RRR, +S1, +S2. ABSENT: irregular rhythm Pulses: PRESENT: +1 pedal pulses bilateral Vascular exam: PRESENT: normal capillary refill. ABSENT: pallor GI/Abdominal exam: PRESENT: normal bowel sounds, soft. ABSENT: ascites, distended, guarding, mass, organolmegaly, rebound, tenderness Gentrourinary exam: PRESENT: indwelling catheter Extremities exam: PRESENT: other - Right BKA. ABSENT: pedal edema Musculoskeletal exam: PRESENT: deformity - R BKA Neurological exam: PRESENT: altered - Responsive. Follows commands. No focal motor deficits. Psychiatric exam: PRESENT: appropriate affect. ABSENT: agitated Focused psych exam: ABSENT: psychomotor agitation, restlessness Skin exam: PRESENT: dry, intact, warm. ABSENT: cyanosis, rash Tubes/Lines: PRESENT: Endotracheal Tube, Central Line, Other - Moreno catheter Laboratory/Radiographs Laboratory Results: 05/05/19 03:39 05/05/19 03:39 05/04/19 05/05/19 05/05/19 11:30 03:39 03:39 WBC RBC Hgb Hct MCV MCH MCHC RDW Plt Count Seg Neutrophils % Carbonic Acid 0.88 L 1.01 L HCO3/H2CO3 Ratio 17:1 19:1 ABG pH 7.34 L 7.39 ABG pCO2 29.4 L 33.7 L ABG pO2 156.6 H 130.0 H ABG HCO3 15.6 L 20.1 ABG O2 Saturation 98.9 H 98.6 H ABG Base Excess -9.2 -4.3 FiO2 40% 35% Sodium Potassium Chloride Carbon Dioxide Anion Gap BUN Creatinine Est GFR ( Amer) Glucose Calcium Phosphorus Magnesium Ammonia < 8.7 L 05/05/19 05/05/19 03:39 03:39 WBC 10.5 RBC 2.76 L Hgb 7.7 L Hct 22.6 L MCV 82 MCH 28.0 MCHC 34.1 RDW 16.3 H Plt Count 831 H Seg Neutrophils % Not Reportable Carbonic Acid HCO3/H2CO3 Ratio ABG pH ABG pCO2 ABG pO2 ABG HCO3 ABG O2 Saturation ABG Base Excess FiO2 Sodium 148.5 H Potassium 2.9 L* D Chloride 114 H Carbon Dioxide 21 L Anion Gap 14 BUN 100 H Creatinine 2.36 H Est GFR ( Amer) 24 L Glucose 164 H Calcium 7.1 L Phosphorus 4.4 Magnesium 2.5 H Ammonia 05/02/19 12:09 Foot - Right Gram Stain - Final 05/02/19 12:09 Foot - Right Wound Culture - Final Staphylococcus Aureus No Anaerobic Organisms 05/02/19 00:58 Blood Blood Culture (PCR) - Final Staphylococcus Aureus 05/02/19 00:58 Blood Blood Culture - Final Staphylococcus Aureus 05/02/19 00:35 Blood Blood Culture (PCR) - Final Staphylococcus Aureus 05/02/19 00:35 Blood Blood Culture - Final Staphylococcus Aureus 05/02/19 05/02/19 05:57 08:47 Creatine Kinase 201 H Troponin I < 0.012 NT-Pro-B Natriuret Pep 1640 H Impressions: Abdomen/Pelvis CT 12/13/19 23:49 IMPRESSION: 1. Normal unenhanced CT scan of the abdomen and pelvis. There is no evidence of urinary tract calcification or urinary tract obstruction. There is no evidence of gallbladder pathology or acute appendicitis. 2. Occasional colonic diverticulosis. 3. Remote cholecystectomy. 4. Retroflexed myomatous uterus. Lower Extremity CT 05/02/19 00:00 IMPRESSION: Soft tissue edema distally in the lower extremity. It has raises the possibility of cellulitis. No abscess or mass. No bone pathology. Facial Bones CT 05/05/19 00:00 IMPRESSION: 2.8 -cm lesion of the subcutaneous left paracentral nasal tissues may indicate a phlegmon or chronic hematoma. Differential etiologies include infectious, inflammatory, and neoplastic processes. Chest X-Ray 05/05/19 06:00 IMPRESSION: STABLE APPEARANCE OF THE CHEST. SUPPORT DEVICES UNCHANGED. All labs, radiographs, diagnostic studies and EKGs were personally reviewed: Yes In addition, reports of radiographic and diagnostic studies were read: Yes Assessment and Plan - Diagnosis (1) Shock, septic Is this a current diagnosis for this admission?: Yes Plan: Resolved (2) Necrotizing soft tissue infection Is this a current diagnosis for this admission?: Yes Plan: 05.05.19: Continues to improve. Resolved septic crisis 05.04.19: Patient has improved since removal of the source. Continue supportive care and follow wound. 05.02-: Patient has not improved drastically from yesterday. Although her leukocytosis is decreased, she remains acidotic and I fear source control is still an issue. Examination of the foot with surgical team confirmed that the infection is still present. Will go to OR today for guillotine amputation with future washouts prior to formalization. (3) Bacteremia due to methicillin susceptible Staphylococcus aureus (MSSA) Is this a current diagnosis for this admission?: Yes Plan: 05.05.19: Q48 hour blood culture. Echo negative 05.04.19:Johnston-sensitive. Change to Nafcillin. ID consult (4) Acute kidney injury superimposed on chronic kidney disease Is this a current diagnosis for this admission?: Yes Plan: Was on NSAIDS prior to admission. Improving. Continue supportive care (5) Necrotizing fasciitis of ankle and foot Is this a current diagnosis for this admission?: Yes (6) Metabolic acidosis Is this a current diagnosis for this admission?: Yes Plan: Improving. Had 2 amps of bicarbonate 05.04.19 (7) History of atrial fibrillation Is this a current diagnosis for this admission?: Yes Plan: Discussed anticoagulation with family. She has only been on heparin (8) Essential thrombocytosis Is this a current diagnosis for this admission?: Yes Plan: Appreciate Hematology assistance. May not need ASA. Awaiting vWf and JAK2 studies (9) Soft tissue infection Is this a current diagnosis for this admission?: Yes Plan: Of left aspect of nose. Will obtain ENT consult. Plan Summary: 05.05.19: Patient has tolerated SBT and was successfully liberated from the ventilator t fernanda without difficulty. Had mild encephalopathy related to medication but not significant. Had lengthy discussion with ENT regarding patient's nasal changes. We are concerned about abscess. She underwent an incision and drainage and was found to have a large exudative process requiring I&D and placement of drain. We will follow blood cultures to determine if bacteremia is persistent. Have placed her on broad-spectrum antibiotics until the abscess cultures have returned. I am concerned that the nasal infection may represent a deeper process and will evaluate neuro status to determine if there is an infectious SPINDLE SETTER process given her encephalopathy. Continue supportive care. Plan for closure of the right BKA in 2 to 3 days. Renal failure continues to improve and will prudent to watch for post failure diuresis. She has persistent hypokalemia and currently being replaced and followed. Spoke with infectious disease who are in agreement with our plan. She originally was to be placed on Ancef however given the nasal abscess we have changed her to Zosyn. Once cultures have returned we will adjust and de- escalate medications. Clindamycin has been added for antitoxin treatment. We appreciate the assistance of the hematology service. We have maintained the patient on aspirin given her atrial fibrillation which has been accessible and certainly not active in the last 2 days. Balance between bleeding associated with essential thrombocytosis and thrombosis associated with atrial fibrillation with high platelet count is adjudicated. 05.04.19: Patient's overall clinical condition is improving. Begun ventilator weaning protocol. Awaiting awakening from her Versed drip. Versed drip has been discontinued. Her ABG shows a pH of 7.34 which is improved. Because she has an RTA with renal failure I have added 100 mEq of bicarb which is indicated in this situation. Patient has MSSA bacteremia. We feel that the source was her foot and this bacteremia should clear now that the etiology has been removed. That being said a transthoracic echocardiogram has been ordered. If vegetation is seen this will require longer antibiotic time. Have also asked infectious disease to factor in as well given the improved mortality when infectious disease specialists are involved. Have transitioned her to nafcillin and have discontinued clindamycin, linezolid, and Zosyn. Even her overall improvement have discontinued every 6 hours laboratory. She is still quite ill and will need to continue to monitor her in the ICU especially during the ventilator weaning phase. Patient has acute on chronic renal failure and appeared to have been on NSAID therapy prior to admission. Continue to monitor her response to therapy. She has gained approximately 4 to 5 kg since admission. She does have edema peripherally and have discontinued IV fluids. She does have essential thrombocytosis has improved from her initial evaluation. Standard treatment for this if severely elevated it is often cytoreduction therapy (hydroxyurea) of course aspirin. According to the surgeons her infected foot did not appear to be ischemic related. There is no bleeding or excessive bleeding after her surgery. Will speak with son to determine if she has been evaluated by hematology. Have sent perfunctory JAK2 and VWF studies. Critical Time Critical Time (minutes): 52 Level of Care: ICU Anticipated discharge: Acute Rehab -: 1. The care of a critical patient is a dynamic process. This note is a lead customer service representative synopsis but static in nature. The timeframe for treatments gi beena in order is not necessary the actual time these treatments may have been done. 2. This patient requires critical care secondary to ongoing requirements for therapy not offered or safe outside the critical care environment. Transfer to a lower level of care with altered life or limb morbidity and mortality. 3. Multidisciplinary rounds completed. 4. ABCDE bundle addressed.
[2019-05-05] MEDS: HYDROMORPHONE HCL INJ/PF 2 MG/ML AMPULE IV PRN (20:50)
[2019-05-06] MEDS: PIPERACILLIN SODIUM/TAZOBACTAM 2.25 GM in NORMAL SALINE 50 ML IV SCH ×4 (00:30→17:23)
[2019-05-06] MEDS: METOPROLOL TARTRATE PF/INJ 5 MG/5 ML SDV IV SCH ×4 (00:34→17:23)
[2019-05-06] MEDS: INSULIN REG, HUMAN 100 UNIT/ML 3 ML VIAL (PYX) SUBCUT SCH ×4 (00:48→20:30)
[2019-05-06] MEDS: HYDROMORPHONE HCL INJ/PF 2 MG/ML AMPULE IV PRN ×5 (01:44→20:32)
[2019-05-06] MEDS: CLINDAMYCIN 600 MG/D5W RTU 600 MG/50 ML RTUPB IV SCH ×3 (02:45→17:23)
[2019-05-06] MEDS: HEPARIN SOD (PORCINE) 5,000 UNIT/ML 1 ML VIAL SUBCUT SCH ×3 (06:13→22:30)
[2019-05-06 06:20] LABS: HEMOGLOBIN 8.1 g/dL (12.0-15.5); MEAN CORPUSCULAR HEMOGLOBIN 28.1 pg (27.0-33.4); MEAN CORPUSCULAR HGB CONC 33.8 g/dL (32.0-36.0); MEAN CORPUSCULAR VOLUME 83 fl (80-97); RED BLOOD COUNT 2.89 10^6/uL (3.72-5.28); RED CELL DISTRIBUTION WIDTH 16.8 % (11.5-14.0); WHITE BLOOD COUNT 14.6 10^3/uL (4.0-10.5)
[2019-05-06 06:40] LABS: ANION GAP 12 (5-19); BLOOD UREA NITROGEN 73 mg/dL (7-20); CALCIUM 7.9 mg/dL (8.4-10.2); CARBON DIOXIDE 22 mmol/L (22-30); CHLORIDE 121 mmol/L (98-107); GLUCOSE 154 mg/dL (75-110); PHOSPHORUS 3.7 mg/dL (2.5-4.5); POTASSIUM 3.1 mmol/L (3.6-5.0)
[2019-05-06 06:43] LABS: ABSOLUTE LYMPHOCYTES# (MANUAL) 1.3 10^3/uL (0.5-4.7); BAND NEUTROPHILS % (MANUAL) 1 % (3-5); BASOPHILS % (MANUAL) 0 % (0-2); EOSINOPHILS % (MANUAL) 1 % (0-6); LYMPHOCYTES % (MANUAL) 9 % (13-45); MONOCYTES % (MANUAL) 7 % (3-13); SEGMENTED NEUTROPHILS % (MAN) 82 % (42-78); TOTAL CELLS COUNTED 100
[2019-05-06 06:45] LABS: ANISOCYTOSIS 1+; OVALOCYTES 1+; PLATELET COMMENT INCREASED; POIKILOCYTOSIS 1+; POLYCHROMASIA SLIGHT; TARGET CELLS SLIGHT
[2019-05-06 06:47] LABS: PLATELET COUNT 1057 10^3/uL (150-450)
--- NOTE | 2019-05-06 07:29 | Progress Note ---
Provider Note Provider Note: [facility] Telephone Advice Chart reviewed and discussed with ICU attending. Patient is a 74-year-old woman with atrial fibrillation on aspirin, DM2 controlled with diet, CKD 3, hypertension, hypercholesterolemia, asthma and essential thrombocytosis who was admitted to the hospital on 05/02 due to altered mental status and decreased appetite. She also complained of right foot pain and swelling. Her foot pain started 2 weeks prior to admission when she sustained an injury while walking. Since then, she was not able to walk, multiple x rays didn't show a fracture nor dislocation. She continued getting ill, no appetite, and started to become confused. In the ED she was found septic with WBC 36k with 8% bands, platelets above 1 million, creatinine of 5, sodium of 129, severe metabolic acidosis. Blood cultures with both sets positive for MSSA, TTE negative for vegetations, CT scan of the foot suggestive of cellulitis. Surgery service was consulted and patient was taken to the OR for source control. She was found with necrotizing fasciitis. Extensive amount of pus was observed during the surgery. Next day on 05/03 she had amputation of the foot at the level of the ankle for better source control. There was improvement in WBC and acidosis, renal function as well. Antibiotic therapy was narrowed to nafcillin. Patient was found with an abscess in the nose for which clindamycin was started to cover for MRSA awaiting for nasal swab/PCR. She had a CT scan that demonstrated a lesion measuring 2.8 cm that could represent a hematoma or phlegmon. She continues clinically improving. BKA expected in the next day or so. ENT consult pending. New blood cultures from 05/05 are in process. She still has a CVL. PMH: A fib Hypertension ET DM2 CKD3 Asthma Allergies atorvastatin Allergy (Verified 05/01/19 23:58) codeine Allergy (Verified 05/01/19 23:58) lisinopril Allergy (Verified 05/01/19 23:58) meloxicam Allergy (Verified 05/01/19 23:58) metformin Allergy (Verified 05/01/19 23:58) Sulfa (Sulfonamide Antibiotics) Allergy (Verified 05/01/19 23:58) Medications: Budesonide [Pulmicort 180 mcg Flexhaler] 1 puff IH Q12 05/03/19 Budesonide/Formoterol Fumarate [Symbicort HFA 160-4.5 mcg Inhaler 6 gm] 2 puff IH Q12 05/03/19 Donepezil HCl 10 mg PO DAILY 05/03/19 Ibuprofen [Ibu] 800 mg PO TID 05/03/19 Metoprolol Succinate 100 mg PO DAILY 05/03/19 Sulindac 200 mg PO DAILY 05/03/19 Verapamil HCl [Verapamil ER] 240 mg PO DAILY 05/03/19 Zafirlukast [Accolate 20 mg Tablet] 20 mg PO BID 05/03/19 Vital Signs: Temp Pulse Resp BP Pulse Ox 98.6 F 76 14 145/65 H 94 05/06/19 06:00 05/06/19 06:00 05/06/19 06:00 05/06/19 06:00 05/06/19 06:00 Intake & Output 05/05/19 05/06/19 05/07/19 06:59 06:59 06:59 Intake Total 839 365 Output Total 2275 8400 Balance -1436 -2925 Weight 70.5 kg 68.1 kg Weight/Height Weight 68.1 kg Height 5 ft Laboratories: 05/06/19 06:00 05/06/19 06:00 MCV 83 fl (80-97) 05/06/19 06:00 MCH 28.1 pg (27.0-33.4) 05/06/19 06:00 MCHC 33.8 g/dL (32.0-36.0) 05/06/19 06:00 RDW 16.8 % (11.5-14.0) H 05/06/19 06:00 Seg Neutrophils % Not Reportable 05/06/19 06:00 Retic Count (auto) 1.04 % (0.66-2.85) 05/05/19 03:39 Carbonic Acid 1.01 mmol/L (1.05-1.35) L 05/05/19 03:39 HCO3/H2CO3 Ratio 19:1 05/05/19 03:39 ABG pH 7.39 (7.35-7.45) 05/05/19 03:39 ABG pCO2 33.7 mmHg (35-45) L 05/05/19 03:39 ABG pO2 130.0 mmHg (80-100) H 05/05/19 03:39 ABG HCO3 20.1 mmol/L (20-24) 05/05/19 03:39 ABG O2 Saturation 98.6 % (94-98) H 05/05/19 03:39 ABG Base Excess -4.3 mmol/L 05/05/19 03:39 VBG pH 7.15 (7.30-7.42) L* 05/02/19 05:57 VBG pCO2 31.0 mmHg (35-63) L 05/02/19 05:57 VBG HCO3 10.7 mmol/L (20-32) L 05/02/19 05:57 VBG Base Excess -16.8 mmol/L 05/02/19 05:57 FiO2 35% 05/05/19 03:39 Chloride 121 mmol/L (98-107) H 05/06/19 06:00 Carbon Dioxide 22 mmol/L (22-30) 05/06/19 06:00 Anion Gap 12 (5-19) 05/06/19 06:00 Est GFR ( Amer) 44 (>60) L 05/06/19 06:00 Glucose 154 mg/dL (75-110) H 05/06/19 06:00 Lactic Acid 0.6 mmol/L (0.7-2.1) L 05/03/19 09:09 Calcium 7.9 mg/dL (8.4-10.2) L 05/06/19 06:00 Ionized Calcium Ebony 1.08 mmol/L (1.14-1.30) L 05/04/19 05:20 Phosphorus 3.7 mg/dL (2.5-4.5) 05/06/19 06:00 Magnesium 2.6 mg/dL (1.6-2.3) H 05/06/19 06:00 Iron 80.8 ug/dL (37-170) 05/05/19 03:39 TIBC 155 ug/dL (250-450) L 05/05/19 03:39 % Saturation 52 % 05/05/19 03:39 Ferritin 235.00 ng/mL (11.1-264.0) 05/05/19 03:39 Total Bilirubin 0.1 mg/dL (0.2-1.3) L 05/04/19 05:20 AST 82 U/L (14-36) H 05/04/19 05:20 Alkaline Phosphatase 80 U/L (38-126) 05/04/19 05:20 Ammonia < 8.7 umol/L (9-33) L 05/05/19 03:39 C-Reactive Protein 348.0 mg/L (<10.0) H 05/02/19 08:47 Total Protein 4.5 g/dL (6.3-8.2) L 05/04/19 05:20 Albumin 2.1 g/dL (3.5-5.0) L 05/04/19 05:20 Vitamin B12 882.0 pg/mL (239-931) 05/05/19 03:39 Folate 8.43 ng/mL (>2.76) 05/05/19 03:39 TSH 0.39 uIU/mL (0.47-4.68) L 05/02/19 08:47 Free T4 1.67 ng/dL (0.78-2.19) 05/02/19 08:47 Free T3 pg/mL 2.50 pg/mL (2.77-5.27) L 05/02/19 08:47 Urine Color YELLOW 05/01/19 23:00 Urine Appearance SLIGHTLY-CLOUDY 05/01/19 23:00 Urine pH 5.0 (5.0-9.0) 05/01/19 23:00 Ur Specific Mullens 1.012 05/01/19 23:00 Urine Protein 100 mg/dL (NEGATIVE) H 05/01/19 23:00 Urine Glucose (UA) 50 mg/dL (NEGATIVE) H 05/01/19 23:00 Urine Ketones TRACE mg/dL (NEGATIVE) H 05/01/19 23:00 Urine Blood SMALL (NEGATIVE) H 05/01/19 23:00 Urine Nitrite NEGATIVE (NEGATIVE) 05/01/19 23:00 Ur Leukocyte Esterase NEGATIVE (NEGATIVE) 05/01/19 23:00 Urine WBC (Auto) 2 /HPF 05/01/19 23:00 Urine RBC (Auto) 1 /HPF 05/01/19 23:00 05/02/19 12:09 Foot - Right Gram Stain - Final 05/02/19 12:09 Foot - Right Wound Culture - Final Staphylococcus Aureus No Anaerobic Organisms 05/02/19 Blood - MRSA 05/05/19 Blood - In process 05/05 Nares - Pending 05/02/19 05/02/19 05:57 08:47 Creatine Kinase 201 H Troponin I < 0.012 NT-Pro-B Natriuret Pep 1640 H Radiology: Abdomen/Pelvis CT 05/01/19 23:49 IMPRESSION: 1. Normal unenhanced CT scan of the abdomen and pelvis. There is no evidence of urinary tract calcification or urinary tract obstruction. There is no evidence of gallbladder pathology or acute appendicitis. 2. Occasional colonic diverticulosis. 3. Remote cholecystectomy. 4. Retroflexed myomatous uterus. Lower Extremity CT 05/02/19 00:00 IMPRESSION: Soft tissue edema distally in the lower extremity. It has raises the possibility of cellulitis. No abscess or mass. No bone pathology. Facial Bones CT 05/05/19 00:00 IMPRESSION: 2.8 -cm lesion of the subcutaneous left paracentral nasal tissues may indicate a phlegmon or chronic hematoma. Differential etiologies include infectious, inflammatory, and neoplastic processes. Venous Doppler Study 05/05/19 00:00 IMPRESSION: NO EVIDENCE DVT OR SVT IN EITHER LEG. Chest X-Ray 05/05/19 06:00 IMPRESSION: STABLE APPEARANCE OF THE CHEST. SUPPORT DEVICES UNCHANGED. Assessment and Recommendations: Patient evaluated for complicated MSSA bacteremia from right foot necrotizing fasciitis. She has clinically improved after source control/amputation. WBC improved, renal function and acidosis as well. She will still get bKA later this week when more stable. There is a CVL that was placed while she was bacteremic, consider to discontinue when feasible. Antibiotic therapy recommended: cefazolin 2g laura 8 hr, GFR continues to improve. Nafcillin is also first line, but higher risk of interstitial nephritis. The benefit of clindamycin for toxin inhibition is usually for 72 hr, it is reasonable to continue if suspecting nasal abscess can be MRSA. She has had source control in terms of the foot and blood cultures in process. No other organisms have been isolated to date. Duration of therapy will probably be 4 weeks as this was a a complicated MSSA bacteremia, even after good source control. Please call if updates or questions. Radha Trent MD [facility] Infectious Disease [phone]
[2019-05-06] MEDS: BUDESONIDE NEB 0.25 MG/2 ML AMPUL NEB SCH ×2 (08:27→19:59)
--- NOTE | 2019-05-06 09:30 | PDOC CONSULTATION ---
Consultation Consult Date: 05/05/19 Provider Consulted: OMAR GUZMAN Consult reason:: Possible nasal abscess History of Present Illness Admission Date/PCP: 05/02/19 03:12 TRISHA SPARKS MD History of Present Illness: MATTHEW TINAJERO is a 74 year old female who is currently in the intensive care u [facility]. This patient had a necrotizing fasciitis which required a partial amputation of the lower extremity. The patient had a CT scan of the face which revealed a possible abscess of the dorsum of the nose. ENT was consulted for further evaluation. We did speak with patient's sons who stated that they noted that the left side of her nasal dorsum was red for the past several days but had decreased in intensity. Past Medical History Cardiac Medical History: Reports: Atrial Fibrillation, Hyperlipidema, Hypertension, Heart Murmur - Reportedly known since patient was a child. Denies: Congestive Heart Failure, Coronary Artery Disease, DVT, Myocardial Infarction, Peripheral Vascular Disease, Pulmonary Embolism Pulmonary Medical History: Reports: Asthma, Bronchitis, Pneumonia Denies: Chronic Obstructive Pulmonary Disease (COPD), Intubation, Respiratory Failure EENT Medical History: Reports: Cataracts Neurological Medical History: Reports: Other - early Alzheimer's dementia Denies: Hemorrhagic CVA, Ischemic CVA, Migraine Endocrine Medical History: Reports: Diabetes Mellitus Type 2 Denies: Hyperthyroidism, Hypothyroidism Renal/ Medical History: Reports: Chronic Kidney Disease, End Stage Renal Disease - stage 3, Other - Stage III chronic kidney disease secondary to diabetes per patient report Malignancy Medical History: Reports: Skin Cancer - Post resection from nasal bridge Denies: Bone Cancer, Cervical Cancer, Ovarian Cancer GI Medical History: Reports: Other - Diverticulosis Denies: Cirrhosis, Crohn's Disease, Diverticulitis, Gastroesophageal Reflux Disease Musculoskeltal Medical History: Denies: Arthritis Skin Medical History: Reports: Other - 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 Psychiatric Medical History: Reports: None Denies: Depression Traumatic Medical History: Reports: None Past Surgical History Past Surgical History: Reports: Cholecystectomy, Knee Replacement, Other - Carpal tunnel surgery of right wrist Social History Smoking Status: Never Smoker Electronic Cigarette use?: No Frequency of Alcohol Use: None Hx Recreational Drug Use: No Drugs: None - Advance Directive Resuscitation Status: Full Code Family History Family History: None Parental Family History Reviewed: Yes Children Family History Reviewed: Yes Sibling(s) Family History Reviewed.: Yes Medication/Allergy Home Medications: Budesonide [Pulmicort 180 mcg Flexhaler] 1 puff IH Q12 05/03/19 Budesonide/Formoterol Fumarate [Symbicort HFA 160-4.5 mcg Inhaler 6 gm] 2 puff IH Q12 05/03/19 Donepezil HCl 10 mg PO DAILY 05/03/19 Ibuprofen [Ibu] 800 mg PO TID 05/03/19 Metoprolol Succinate 100 mg PO DAILY 05/03/19 Sulindac 200 mg PO DAILY 05/03/19 Verapamil HCl [Verapamil ER] 240 mg PO DAILY 05/03/19 Zafirlukast [Accolate 20 mg Tablet] 20 mg PO BID 05/03/19 Allergies/Adverse Reactions: atorvastatin Allergy (Verified 05/01/19 23:58) codeine Allergy (Verified 05/01/19 23:58) lisinopril Allergy (Verified 05/01/19 23:58) meloxicam Allergy (Verified 05/01/19 23:58) metformin Allergy (Verified 05/01/19 23:58) Sulfa (Sulfonamide Antibiotics) Allergy (Verified 05/01/19 23:58) Review of Systems Constitutional: PRESENT: as per HPI Eyes: PRESENT: as per HPI Ears: PRESENT: as per HPI Nose, Mouth, and Throat: PRESENT: as per HPI Breasts: PRESENT: as per HPI Cardiovascular: PRESENT: as per HPI Respiratory: PRESENT: as per HPI, other - Recently extubated and tolerating room air. Physical Exam Vital Signs: Temp Pulse Resp BP Pulse Ox 97.9 F 67 15 173/66 H 100 05/06/19 08:00 05/06/19 08:34 05/06/19 08:34 05/06/19 08:00 05/06/19 08:34 Intake & Output 05/05/19 05/06/19 05/07/19 06:59 06:59 06:59 Intake Total 839 365 Output Total 3526 6745 012 [facility] -[id number] [id number] -225 Weight 70.5 kg 68.1 kg General appearance: PRESENT: other - Patient not oriented and responds only to painful stimuli. Patient is noncommunicative Head exam: PRESENT: atraumatic, normocephalic Ear exam: PRESENT: normal external ear exam Mouth exam: PRESENT: moist, tongue midline Throat exam: PRESENT: other - Nasal exam: Ballotable area is palpated over lying the left lateral nasal sidewall located over the upper lateral cartilages and lateral nasal bones. Nasal exam reveals erythema and edema in the intercartilaginous area of the left nostril. Septum appears midline without evidence of abscess or hematoma. Procedure: After receiving informed consent from the patient's children, the left intercartilaginous area was infiltrated with 2% lidocaine with 100,000 epinephrine. A 15 blade was used to make an incision in the intercartilaginous area. Copious amounts of purulent material was expressed from this incision. Blunt dissection was then carried over the upper lateral cartilage and bony dorsum to fully explore the abscess cavity. The purulent material was sent for culture and sensitivity. The area was then irrigated with normal saline. Half-inch iodoform gauze packing was placed into the abscess cavity. The patient tolerated the procedure well. Neck exam: PRESENT: other - A right internal jugular central line is in place Respiratory exam: PRESENT: clear to auscultation edenilson. ABSENT: rales, rhonchi, wheezes Cardiovascular exam: PRESENT: RRR. ABSENT: diastolic murmur, rubs, systolic murmur Results Laboratory Results: 05/06/19 06:00 05/06/19 06:00 05/05/19 05/05/19 05/05/19 03:39 03:39 14:45 WBC RBC Hgb Hct MCV MCH MCHC RDW Plt Count Seg Neutrophils % Retic Count (auto) 1.04 Sodium 149.8 H Potassium 3.2 L Chloride 116 H Carbon Dioxide 21 L Anion Gap 13 BUN 90 H Creatinine 1.79 H Est GFR ( Amer) 33 L Glucose 157 H Calcium 7.7 L Phosphorus Magnesium Iron 80.8 TIBC 155 L % Saturation 52 Ferritin 235.00 Vitamin B12 882.0 Folate 8.43 05/06/19 05/06/19 06:00 06:00 WBC 14.6 H RBC 2.89 L Hgb 8.1 L Hct 24.0 L MCV 83 MCH 28.1 MCHC 33.8 RDW 16.8 H Plt Count 1057 H* Seg Neutrophils % Not Reportable Retic Count (auto) Sodium 154.8 H Potassium 3.1 L Chloride 121 H Carbon Dioxide 22 Anion Gap 12 BUN 73 H Creatinine 1.41 H Est GFR ( Amer) 44 L Glucose 154 H Calcium 7.9 L Phosphorus 3.7 Magnesium 2.6 H Iron TIBC % Saturation Ferritin Vitamin B12 Folate 05/02/19 12:09 Foot - Right Gram Stain - Final 05/02/19 12:09 Foot - Right Wound Culture - Final Staphylococcus Aureus No Anaerobic Organisms 05/02/19 05/02/19 05:57 08:47 Creatine Kinase 201 H Troponin I < 0.012 NT-Pro-B Natriuret Pep 1640 H Impressions: Abdomen/Pelvis CT 05/01/19 23:49 IMPRESSION: 1. Normal unenhanced CT scan of the abdomen and pelvis. There is no evidence of urinary tract calcification or urinary tract obstruction. There is no evidence of gallbladder pathology or acute appendicitis. 2. Occasional colonic diverticulosis. 3. Remote cholecystectomy. 4. Retroflexed myomatous uterus. Lower Extremity CT 05/02/19 00:00 IMPRESSION: Soft tissue edema distally in the lower extremity. It has raises the possibility of cellulitis. No abscess or mass. No bone pathology. Facial Bones CT 05/05/19 00:00 IMPRESSION: 2.8 -cm lesion of the subcutaneous left paracentral nasal tissues may indicate a phlegmon or chronic hematoma. Differential etiologies include infectious, inflammatory, and neoplastic processes. Venous Doppler Study 05/05/19 00:00 IMPRESSION: NO EVIDENCE DVT OR SVT IN EITHER LEG. Chest X-Ray 05/05/19 06:00 IMPRESSION: STABLE APPEARANCE OF THE CHEST. SUPPORT DEVICES UNCHANGED. CT scan of the face: The CT scan is personally reviewed by myself. The scan reveals a abscess involving the left side of the dorsum of the nose. Assessment & Plan - Diagnosis (1) Abscess of nose Plan: 1. The diagnosis and treatment were discussed with Dr. Maurice, ICU attending. 2. Recommend increasing antibiotic coverage to include gram negatives, gram positives and anaerobes. 3. We will slowly withdraw the packing over the next several days. We will continue to follow in the ICU. - Plan Summary Plan Summary: 1. The diagnosis and treatment plan was discussed with Dr. Bennett who is the ICU attending. 2. Recommend increasing antibiotic coverage to broad spectrum coverage to include gram-negative's, gram-positive and anaerobes. 3. Will slowly withdraw the packing over the next several days. 4. We will follow while in the ICU.
[2019-05-06] MEDS ORDERED: ZINC SULF/CUSO4 P-HYD/MANG/CR INJ 1 ML SDV IV SCH (10:00)
[2019-05-06 10:15] LABS: PATH REVIEW PATHOLOGIST REVIEWED
[2019-05-06] MEDS: ASPIRIN 81 MG TABLET, CHEWABLE PO SCH (11:53)
[2019-05-06] MEDS: POTASSIUM CHLORIDE 20 MEQ/50 ML RTU IV SCH ×2 (11:56→13:49)
[2019-05-06] MEDS: MONTELUKAST SODIUM 10 MG TABLET PO SCH (11:56)
[2019-05-06] MEDS: RINGERS SOLUTION,LACTATED 1,000 ML IV PRN ×2 (12:04→15:42)
[2019-05-06] MEDS: METHOCARBAMOL 500 MG in DEXTROSE 5%-WATER 50 ML IV SCH ×2 (13:48→20:33)
--- NOTE | 2019-05-06 15:47 | PDOC CRITICAL CARE PROG REPORT ---
General Date:: 05/06/19 ICU Day:: 5 Hospital Day:: 5 Resuscitation Status: Full Code Medical Power of Water Tanker Driver: Son: Dann Bowman Events in the past 12 to 24 Hours:: 05.05.19: The patient was successfully extubated yesterday and has had no respiratory difficulty since then. She was seen by ENT and had I&D of abscess. He has become more awake but agitated secondary to pain. Afebrile 05.04.19 Patient's overall clinical status continues to improve with the removal of the right lower leg/foot. Her pH has improved and she was placed on an SBT this morning. 05.02.19: Milli Trammell is a 74-year-old female with a past medical history significant for atrial fibrillation for which she is on ASA denying anticoagulation, type 2 diabetes for which she does not take any medication relying on diet, stage III CKD, HTN, HLD, asthma, and essential thrombocytosis who now presents with several days of decreased oral intake, weakness, and some confusion per the patient's son. Her son reports this all started since her recent injury to her right foot, which was injured while walking and hearing a popping noise approximately 2 weeks ago. She has reportedly had multiple x-rays of her right lower extremity demonstrating no fracture or dislocation for which she was diagnosed with a foot sprain. She has also been unable to walk which was her usual state of health prior to the injury, being mostly sedentary the past 2 we eks. She reports her pain is relieved with the oxycodone she has been taking at home, allowing her to actually get some rest. Notable labs from the ED are a leukocytosis of 36.5 with 8% bandemia, thrombocytosis of 1387, afebrile in combination with reports of myalgias and arthralgias over the past couple days. She denies chills or recent exposure to someone ill. She was also noted to have VALENTIN on CKD with a BUN of 133 and creatinine of 5, though non-oliguric. She was also found to have a sodium of 129, chloride of 89, serum bicarb of 8, and an anion gap of 32. Her pH is 7.12 with a base deficit of 21. Blood cultures and urinalysis were performed in the ED for which the UA is negative for UTI. The patient received 30 mL/kg of crystalloid for hydration as well. Review of systems relevant to events:: Gram stain of abscess is showing gram-positive organisms. Pressure has been elevated and reintroduction of antihypertensives will be done today. No bleeding noted. Reason for ICU Addmission:: Metabolic acidosis, hypovolemia, leukocytosis, VALENTIN on CKD, multiple electrolyte abnormalities. - Medications: Vasopressors:: None Sedation:: none Physical Exam Vital Signs: Temp Pulse Resp BP Pulse Ox 98.1 F 83 24 H 185/80 H 95 05/06/19 12:00 05/06/19 14:00 05/06/19 14:00 05/06/19 14:00 05/06/19 14:00 Intake & Output 05/05/19 05/06/19 05/07/19 06:59 06:59 06:59 Intake Total 197 351 6844 Output Total 2275 3290 725 Balance -1436 -2925 322 Weight 70.5 kg 68.1 kg Weight/Height Weight 68.1 kg Height 5 ft General appearance: PRESENT: obese Exam: Extubated nontoxic ill appearing 74-year-old female no respiratory distress answers questions but lethargic Head exam: PRESENT: atraumatic, normocephalic Eye exam: PRESENT: conjunctiva pink, EOMI, PERRLA. ABSENT: conjunctival injection, nystagmus, scleral icterus Ear exam: PRESENT: normal external ear exam Mouth exam: PRESENT: moist, neck supple, other - Nose: Packing had been removed by patient. Erythema is much improved no discharge Neck exam: ABSENT: carotid bruit, JVD, lymphadenopathy, thyromegaly Respiratory exam: PRESENT: clear to auscultation [place], unlabored. ABSENT: accessory muscle use, rales, rhonchi, tachypnea, wheezes Cardiovascular exam: PRESENT: RRR, +S1, +S2 Pulses: PRESENT: other - Pulse in left foot strong 2/2/ GI/Abdominal exam: PRESENT: normal bowel sounds, soft. ABSENT: distended, guarding, mass, organolmegaly, rebound, tenderness Rectal exam: PRESENT: deferred Gentrourinary exam: PRESENT: indwelling catheter Extremities exam: PRESENT: tenderness - Right BKA. No active bleeding. ABSENT: pedal edema Musculoskeletal exam: PRESENT: deformity - Right BKA Neurological exam: PRESENT: altered, awake, oriented to person, CN II-XII grossly intact. ABSENT: oriented to time, oriented to situation, motor sensory deficit Psychiatric exam: PRESENT: agitated Focused psych exam: PRESENT: restlessness Skin exam: PRESENT: intact, normal color. ABSENT: erythema, jaundice, mottled Tubes/Lines: PRESENT: Central Line, Other - soriano. Laboratory/Radiographs Laboratory Results: 05/06/19 06:00 05/06/19 06:00 05/06/19 05/06/19 06:00 06:00 WBC 14.6 H RBC 2.89 L Hgb 8.1 L Hct 24.0 L MCV 83 MCH 28.1 MCHC 33.8 RDW 16.8 H Plt Count 1057 H* Seg Neutrophils % Not Reportable Sodium 154.8 H Potassium 3.1 L Chloride 121 H Carbon Dioxide 22 Anion Gap 12 BUN 73 H Creatinine 1.41 H Est GFR ( Amer) 44 L Glucose 154 H Calcium 7.9 L Phosphorus 3.7 Magnesium 2.6 H 05/02/19 05/02/19 05:57 08:47 Creatine Kinase 201 H Troponin I < 0.012 NT-Pro-B Natriuret Pep 1640 H Impressions: Abdomen/Pelvis CT 05/01/19 23:49 IMPRESSION: 1. Normal unenhanced CT scan of the abdomen and pelvis. There is no evidence of urinary tract calcification or urinary tract obstruction. There is no evidence of gallbladder pathology or acute appendicitis. 2. Occasional colonic diverticulosis. 3. Remote cholecystectomy. 4. Retroflexed myomatous uterus. Lower Extremity CT 05/02/19 00:00 IMPRESSION: Soft tissue edema distally in the lower extremity. It has raises the possibility of cellulitis. No abscess or mass. No bone pathology. Facial Bones CT 05/05/19 00:00 IMPRESSION: 2.8 -cm lesion of the subcutaneous left paracentral nasal tissues may indicate a phlegmon or chronic hematoma. Differential etiologies include infectious, inflammatory, and neoplastic processes. Venous Doppler Study 05/05/19 00:00 IMPRESSION: NO EVIDENCE DVT OR SVT IN EITHER LEG. Chest X-Ray 05/05/19 06:00 IMPRESSION: STABLE APPEARANCE OF THE CHEST. SUPPORT DEVICES UNCHANGED. All labs, radiographs, diagnostic studies and EKGs were personally reviewed: Yes In addition, reports of radiographic and diagnostic studies were read: Yes Assessment and Plan - Diagnosis (1) Shock, septic Is this a current diagnosis for this admission?: Yes Plan: Resolved. Supportive care (2) Necrotizing soft tissue infection Is this a current diagnosis for this admission?: Yes Plan: 05.06.19: Will need closure of BKA. Spoke with surgery--plan for today or tomorrow 05.05.19: Continues to improve. Resolved septic crisis 05.04.19: Patient has improved since removal of the source. Continue supportive care and follow wound. 05.02-: Patient has not improved drastically from yesterday. Although her leukocytosis is decreased, she remains acidotic and I fear source control is still an issue. Examination of the foot with surgical team confirmed that the infection is still present. Will go to OR today for guillotine amputation with future washouts prior to formalization. (3) Bacteremia due to methicillin susceptible Staphylococcus aureus (MSSA) Is this a current diagnosis for this admission?: Yes Plan: 05.06.19: Cultures remain negative 05.05.19: Q48 hour blood culture. Echo negative 05.04.19:[place]ston-sensitive. Change to Nafcillin. ID consult (4) Encephalopathy due to metabolic factor or toxin Is this a current diagnosis for this admission?: Yes (5) Acute kidney injury superimposed on chronic kidney disease Is this a current diagnosis for this admission?: Yes Plan: Much improved. Was on NSAIDS prior to admission. Improving. Continue supportive care (6) Necrotizing fasciitis of ankle and foot Is this a current diagnosis for this admission?: Yes (7) Metabolic acidosis Is this a current diagnosis for this admission?: Yes Plan: Improved. (8) History of atrial fibrillation Is this a current diagnosis for this admission?: Yes Plan: No active issues. Sinus rhythm Discussed anticoagulation with family. She has only been on heparin (9) Essential thrombocytosis Is this a current diagnosis for this admission?: Yes Plan: Appreciate Hematology assistance. Continue ASA. Awaiting vWf and JAK2 studies (10) Soft tissue infection Is this a current diagnosis for this admission?: Yes Plan: 05.06.19: S/P I&D. Improved. Packing removed by patient. Preliminary gram stain G+ bacteria 05.05.19:Of left aspect of nose. Will obtain ENT consult. Plan Summary: 05.06.19: Patient's overall status has improved however she is encephalopathic. This has improved and does not appear to be related to infection. We are assuming this is from sedation and narcotic pain medications required because of her BKA and nasal I&D The plan is for closure of the right BKA. Patient pulled out her own wick from the nose I&D. We will continue to monitor and follow this. This does not appear to be an infectious etiology for encephalopathy however should her situation worsen will need definitive study including but not limited to LP and or MRI. Her blood pressures are now more elevated and it is difficult to know whether this is pain, essential hypertension or synergistic addition of both. To control both without compromising her mental status. Her renal failure has remarkably improved and we will continue supportive care. Will adjust medications as her GFR improves. She was changed to Zosyn until her culture from nose is completed. Once completed we will discuss with ID whether they would prefer Ancef or nafcillin in the face of a markedly improving GFR. Had a lengthy discussion with infectious disease yesterday and they preferred Ancef over the nafcillin because of her reduced GFR. We will attempt speech and swallow eval and monitor her neurologic encephalopathic state. Is moving all extremities there does not appear to be any motor deficits. 19: Patient has tolerated SBT and was successfully liberated from the ventilator today without difficulty. Had mild encephalopathy related to medication but not significant. Had lengthy discussion with ENT regarding patient's nasal changes. We are concerned about abscess. She underwent an incision and drainage and was found to have a large exudative process requiring I&D and placement of drain. We will follow blood cultures to determine if bacteremia is persistent. Have placed her on broad-spectrum antibiotics until the abscess cultures have returned. I am concerned that the nasal infection may represent a deeper process and will evaluate neuro status to determine if there is an infectious VENEER STACKER process given her encephalopathy. Continue supportive care. Plan for closure of the right BKA in 2 to 3 days. Renal failure continues to improve and will prudent to watch for post failure diuresis. She has persistent hypokalemia and currently being replaced and fol lowed. Spoke with infectious disease who are in agreement with our plan. She originally was to be placed on Ancef however given the nasal abscess we have changed her to Zosyn. Once cultures have returned we will adjust and de- escalate medications. Clindamycin has been added for antitoxin treatment. We appreciate the assistance of the hematology service. We have maintained the patient on aspirin given her atrial fibrillation which has been accessible and certainly not active in the last 2 days. Balance between bleeding associated with essential thrombocytosis and thrombosis associated with atrial fibrillation with high platelet count is adjudicated. 19: Patient's overall clinical condition is improving. Begun ventilator weaning protocol. Awaiting awakening from her Versed drip. Versed drip has been discontinued. Her ABG shows a pH of 7.34 which is improved. Because she has an RTA with renal failure I have added 100 mEq of bicarb which is indicated in this situation. Patient has MSSA bacteremia. We feel that the source was her foot and this ba cteremia should clear now that the etiology has been removed. That being said a transthoracic echocardiogram has been ordered. If vegetation is seen this will require longer antibiotic time. Have also asked infectious disease to factor in as well given the improved mortality when infectious disease specialists are involved. Have transitioned her to nafcillin and have discontinued clindamycin, linezolid, and Zosyn. Even her overall improvement have discontinued every 6 hours laboratory. She is still quite ill and will need to continue to monitor her in the ICU especially during the ventilator weaning phase. Patient has acute on chronic renal failure and appeared to have been on NSAID therapy prior to admission. Continue to monitor her response to therapy. She has gained approximately 4 to 5 kg since admission. She does have edema peripherally and have discontinued IV fluids. She does have essential thrombocytosis has improved from her initial evaluation. Standard treatment for this if severely elevated it is often cytoreduction therapy (hydroxyurea) of course aspirin. According to the surgeons her infected foot did not appear to be ischemic related. There is no bleeding or excessive bleeding after her surgery. Will speak with son to determine if she has been evaluated by hematology. Have sent perfunctory JAK2 and VWF studies. Critical Time Critical Time (minutes): 42 Level of Care: ICU -: 1. The care of a critical patient is a dynamic process. This note is a event representative synopsis but static in nature. The timeframe for treatments given in order is not necessary the actual time these treatments may have been done. 2. This patient requires critical care secondary to ongoing requirements for therapy not offered or safe outside the critical care environment. Transfer to a lower level of care with altered life or limb morbidity and mortality. 3. Multidisciplinary rounds completed. 4. ABCDE bundle addressed.
--- NOTE | 2019-05-06 16:05 | PDOC PROGRESS REPORT ---
Subjective Progress Note for:: 05/06/19 Subjective:: Apparently the patient pulled the nasal packing this morning. Patient is on broad-spectrum antibiotics. Reason For Visit: Nasal abscess Physical Exam Vital Signs: Temp Pulse Resp BP Pulse Ox 98.1 F 83 13 178/81 H 94 05/06/19 12:00 05/06/19 14:00 05/06/19 15:00 05/06/19 15:23 05/06/19 15:23 Intake & Output 05/05/19 05/06/19 05/07/19 06:59 06:59 06:59 Intake Total 002 652 8796 Output Total 2275 3290 725 Balance -1436 -2925 504 Weight 70.5 kg 68.1 kg Mouth exam: PRESENT: other - Nose: External nose appears much better. Lateral nasal wall is flat. No accumulation of fluid. No erythema. Very minimal tenderness. Overall much much improved. Throat exam: PRESENT: other Results Laboratory Results: 05/06/19 06:00 05/06/19 06:00 05/06/19 05/06/19 06:00 06:00 WBC 14.6 H RBC 2.89 L Hgb 8.1 L Hct 24.0 L MCV 83 MCH 28.1 MCHC 33.8 RDW 16.8 H Plt Count 1057 H* Seg Neutrophils % Not Reportable Sodium 154.8 H Potassium 3.1 L Chloride 121 H Carbon Dioxide 22 Anion Gap 12 BUN 73 H Creatinine 1.41 H Est GFR ( Amer) 44 L Glucose 154 H Calcium 7.9 L Phosphorus 3.7 Magnesium 2.6 H 05/02/19 05/02/19 05:57 08:47 Creatine Kinase 201 H Troponin I < 0.012 NT-Pro-B Natriuret Pep 1640 H Impressions: Abdomen/Pelvis CT 05/01/19 23:49 IMPRESSION: 1. Normal unenhanced CT scan of the abdomen and pelvis. There is no evidence of urinary tract calcification or urinary tract obstruction. There is no evidence of gallbladder pathology or acute appendicitis. 2. Occasional colonic diverticulosis. 3. Remote cholecystectomy. 4. Retroflexed myomatous uterus. Lower Extremity CT 05/02/19 00:00 IMPRESSION: Soft tissue edema distally in the lower extremity. It has raises the possibility of cellulitis. No abscess or mass. No bone pathology. Facial Bones CT 05/05/19 00:00 IMPRESSION: 2.8 -cm lesion of the subcutaneous left paracentral nasal tissues may indicate a phlegmon or chronic hematoma. Differential etiologies include infectious, inflammatory, and neoplastic processes. Venous Doppler Study 05/05/19 00:00 IMPRESSION: NO EVIDENCE DVT OR SVT IN EITHER LEG. Chest X-Ray 05/05/19 06:00 IMPRESSION: STABLE APPEARANCE OF THE CHEST. SUPPORT DEVICES UNCHANGED. Assessment & Plan - Diagnosis (1) Abscess of nose Is this a current diagnosis for this admission?: Yes - Time Time Spent with patient: 15-24 minutes Level of Care: ICU Medications reviewed and adjusted accordingly: No - Plan Summary Plan Summary: 1. The diagnosis and treatment plan were discussed with the ICU staff. 2. Since the patient is exam is greatly improved, no need to repeat place the packing. 3. Continue with IV antibiotics.
[2019-05-06] MEDS ORDERED: HYDRALAZINE HCL INJ/PF 20 MG/1 ML SDV IV PRN (18:58)
[2019-05-06] MEDS: LEVALBUTEROL HCL NEB 0.63 MG/3 ML AMPUL NEB PRN (19:59)
[2019-05-06] MEDS: AMLODIPINE BESYLATE 5 MG TABLET PO SCH (20:37)
[2019-05-06 23:41] LABS: ANION GAP 9 (5-19); BLOOD UREA NITROGEN 58 mg/dL (7-20); CALCIUM 8.5 mg/dL (8.4-10.2); CARBON DIOXIDE 23 mmol/L (22-30); CHLORIDE 123 mmol/L (98-107); GLUCOSE 155 mg/dL (75-110); POTASSIUM 3.1 mmol/L (3.6-5.0)
--- NOTE | 2019-05-07 00:10 | PDOC PROGRESS REPORT ---
Subjective Progress Note for:: 05/07/19 Reason For Visit: METABOLIC ACIDOSIS Physical Exam Vital Signs: Temp Pulse Resp BP Pulse Ox 97.4 F 68 18 168/60 H 100 05/06/19 20:00 05/06/19 20:00 05/06/19 19:59 05/06/19 22:27 05/06/19 22:00 Intake & Output 05/05/19 05/06/19 05/07/19 06:59 06:59 06:59 Intake Total 784 101 4293 Output Total 2275 0280 1700 Balance -0226 -1635 -171 Weight 70.5 kg 68.1 kg Results Laboratory Results: 05/06/19 06:00 05/06/19 05/06/19 06:00 06:00 WBC 14.6 H RBC 2.89 L Hgb 8.1 L Hct 24.0 L MCV 83 MCH 28.1 MCHC 33.8 RDW 16.8 H Plt Count 1057 H* Seg Neutrophils % Not Reportable Sodium 154.8 H Potassium 3.1 L Chloride 121 H Carbon Dioxide 22 Anion Gap 12 BUN 73 H Creatinine 1.41 H Est GFR ( Amer) 44 L Glucose 154 H Calcium 7.9 L Phosphorus 3.7 Magnesium 2.6 H 05/02/19 05/02/19 05:57 08:47 Creatine Kinase 201 H Troponin I < 0.012 NT-Pro-B Natriuret Pep 1640 H Impressions: Abdomen/Pelvis CT 05/01/19 23:49 IMPRESSION: 1. Normal unenhanced CT scan of the abdomen and pelvis. There is no evidence of urinary tract calcification or urinary tract obstruction. There is no evidence of gallbladder pathology or acute appendicitis. 2. Occasional colonic diverticulosis. 3. Remote cholecystectomy. 4. Retroflexed myomatous uterus. Lower Extremity CT 05/02/19 00:00 IMPRESSION: Soft tissue edema distally in the lower extremity. It has raises the possibility of cellulitis. No abscess or mass. No bone pathology. Facial Bones CT 05/05/19 00:00 IMPRESSION: 2.8 -cm lesion of the subcutaneous left paracentral nasal tissues may indicate a phlegmon or chronic hematoma. Differential etiologies include infectious, inflammatory, and neoplastic processes. Venous Doppler Study 05/05/19 00:00 IMPRESSION: NO EVIDENCE DVT OR SVT IN EITHER LEG. Chest X-Ray 05/05/19 06:00 IMPRESSION: STABLE APPEARANCE OF THE CHEST. SUPPORT DEVICES UNCHANGED. Assessment & Plan - Time Time Spent with patient: Less than 15 minutes - Plan Summary Plan Summary: This is a 74-year-old female status post guillotine amputation of the foot, as source control for her sepsis. 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 I have discussed the case with Dr. Bennett today. He is confident that the patient is ready to undergo surgery. She is extubated and breathing without difficulty. Plan for formalization of BKA tomorrow.
[2019-05-07] MEDS: METOPROLOL TARTRATE PF/INJ 5 MG/5 ML SDV IV SCH ×5 (00:52→18:00)
[2019-05-07] MEDS: METHOCARBAMOL 500 MG in DEXTROSE 5%-WATER 50 ML IV SCH ×3 (00:53→11:37)
[2019-05-07] MEDS: PIPERACILLIN SODIUM/TAZOBACTAM 2.25 GM in NORMAL SALINE 50 ML IV SCH ×2 (00:53→06:40)
[2019-05-07] MEDS: INSULIN REG, HUMAN 100 UNIT/ML 3 ML VIAL (PYX) SUBCUT SCH ×4 (01:06→18:00)
[2019-05-07] MEDS: POTASSIUM CHLORIDE 20 MEQ/50 ML RTU IV SCH ×2 (01:26→03:30)
[2019-05-07] MEDS: CLINDAMYCIN 600 MG/D5W RTU 600 MG/50 ML RTUPB IV SCH ×3 (01:27→18:00)
[2019-05-07] MEDS: HYDROMORPHONE HCL INJ/PF 2 MG/ML AMPULE IV PRN ×5 (03:15→19:22)
[2019-05-07 04:53] LABS: HEMATOCRIT 24.9 % (36.0-47.0); HEMOGLOBIN 8.4 g/dL (12.0-15.5); MEAN CORPUSCULAR HEMOGLOBIN 28.2 pg (27.0-33.4); MEAN CORPUSCULAR HGB CONC 33.8 g/dL (32.0-36.0); MEAN CORPUSCULAR VOLUME 83 fl (80-97); RED BLOOD COUNT 2.99 10^6/uL (3.72-5.28); RED CELL DISTRIBUTION WIDTH 17.2 % (11.5-14.0); WHITE BLOOD COUNT 21.9 10^3/uL (4.0-10.5)
[2019-05-07 05:11] LABS: ANION GAP 9 (5-19); BLOOD UREA NITROGEN 52 mg/dL (7-20); CALCIUM 8.5 mg/dL (8.4-10.2); CARBON DIOXIDE 24 mmol/L (22-30); CHLORIDE 125 mmol/L (98-107); GLUCOSE 146 mg/dL (75-110); PHOSPHORUS 2.7 mg/dL (2.5-4.5); POTASSIUM 3.4 mmol/L (3.6-5.0)
[2019-05-07 05:13] LABS: ABSOLUTE MONOCYTES # (MANUAL) 1.3 10^3/uL (0.1-1.4); BAND NEUTROPHILS % (MANUAL) 4 % (3-5); BASOPHILS % (MANUAL) 0 % (0-2); EOSINOPHILS % (MANUAL) 1 % (0-6); LYMPHOCYTES % (MANUAL) 9 % (13-45); METAMYELOCYTES % (MANUAL) 1 % (0-1); MONOCYTES % (MANUAL) 6 % (3-13); SEGMENTED NEUTROPHILS % (MAN) 79 % (42-78); TOTAL CELLS COUNTED 100
[2019-05-07 05:14] LABS: TOXIC GRANULATION SLIGHT; TOXIC VACUOLATION PRESENT
[2019-05-07 05:15] LABS: ANISOCYTOSIS 1+; OVALOCYTES SLIGHT; PLATELET COMMENT INCREASED; POIKILOCYTOSIS SLIGHT; POLYCHROMASIA SLIGHT
[2019-05-07 05:18] LABS: PLATELET COUNT 1086 10^3/uL (150-450)
[2019-05-07] MEDS: HEPARIN SOD (PORCINE) 5,000 UNIT/ML 1 ML VIAL SUBCUT SCH (06:36)
[2019-05-07 06:37] LABS: VON WILLEBRAND FACTOR ACTIVITY 271 % (50-200)
[2019-05-07 06:59] LABS: VON WILLEBRAND FACTOR ANTIGEN 425 % (50-200)
--- NOTE | 2019-05-07 07:46 | PDOC PROGRESS REPORT ---
Subjective Progress Note for:: 05/07/19 Subjective:: Patient awake and moaning, but does not speak. Surgeons state that she will go back for further surgery today. Nurses report no new issues. No active bleeding. Reason For Visit: METABOLIC ACIDOSIS Physical Exam Vital Signs: Temp Pulse Resp BP Pulse Ox 97.8 F 88 18 176/69 H 93 05/07/19 02:00 05/07/19 02:00 05/07/19 02:00 05/07/19 06:07 05/07/19 06:07 Intake & Output 05/06/19 05/07/19 05/08/19 06:59 06:59 06:59 Intake Total 365 1629 Output Total 3290 2700 Balance -4429 -3975 Weight 68.1 kg 66.8 kg General appearance: PRESENT: well-developed, well-nourished Head exam: PRESENT: normocephalic Respiratory exam: PRESENT: clear to auscultation edenilson, unlabored Cardiovascular exam: PRESENT: RRR, tachycardia Neurological exam: PRESENT: alert, awake. ABSENT: oriented to person, oriented to place, oriented to time, oriented to situation Skin exam: PRESENT: normal color Results Laboratory Results: 05/07/19 03:33 05/07/19 03:33 05/06/19 05/07/19 05/07/19 22:40 03:33 03:33 WBC 21.9 H RBC 2.99 L Hgb 8.4 L Hct 24.9 L MCV 83 MCH 28.2 MCHC 33.8 RDW 17.2 H Plt Count 1086 H* Seg Neutrophils % Not Reportable Sodium 155.2 H 158.1 H Potassium 3.1 L 3.4 L Chloride 123 H 125 H Carbon Dioxide 23 24 Anion Gap 9 9 BUN 58 H 52 H Creatinine 1.16 1.06 Est GFR ( Amer) 55 L > 60 Glucose 155 H 146 H Calcium 8.5 8.5 Phosphorus 2.7 Magnesium 2.3 05/02/19 05/02/19 05:57 08:47 Creatine Kinase 201 H Troponin I < 0.012 NT-Pro-B Natriuret Pep 1640 H Impressions: Abdomen/Pelvis CT 05/01/19 23:49 IMPRESSION: 1. Normal unenhanced CT scan of the abdomen and pelvis. There is no evidence of urinary tract calcification or urinary tract obstruction. There is no evidence of gallbladder pathology or acute appendicitis. 2. Occasional colonic diverticulosis. 3. Remote cholecystectomy. 4. Retroflexed myomatous uterus. Lower Extremity CT 05/02/19 00:00 IMPRESSION: Soft tissue edema distally in the lower extremity. It has raises the possibility of cellulitis. No abscess or mass. No bone pathology. Facial Bones CT 05/05/19 00:00 IMPRESSION: 2.8 -cm lesion of the subcutaneous left paracentral nasal tissues may indicate a phlegmon or chronic hematoma. Differential etiologies include infectious, inflammatory, and neoplastic processes. Venous Doppler Study 05/05/19 00:00 IMPRESSION: NO EVIDENCE DVT OR SVT IN EITHER LEG. Chest X-Ray 05/05/19 06:00 IMPRESSION: STABLE APPEARANCE OF THE CHEST. SUPPORT DEVICES UNCHANGED. Assessment & Plan - Diagnosis (1) Leukocytosis, unspecified Qualifiers: Leukocytosis type: unspecified Qualified Code(s): D72.829 - Elevated white blood cell count, unspecified Is this a current diagnosis for this admission?: Yes Plan: Most likely reactive. Await further surgery and continued antibiotics to clear underlying infection. (2) Reactive thrombocytosis Is this a current diagnosis for this admission?: Yes Plan: Again increasing, and most likely reactive. Continue Heparin prophylaxis. No ASA due to upcoming surgeries. Equal risk, I believe of bleeding and thrombosis in this situation. Hydrea is contraindicated due to anemia, but may be cons idered in the future. (3) Anemia Qualifiers: Other causes of anemia: chronic disease, other Is this a current diagnosis for this admission?: Yes Plan: This appears stable. She has not yet required blood transfusion, but may consider this. - Time Time Spent with patient: 15-24 minutes - Plan Summary Plan Summary: I will continue to follow. Please call with any concerns.
[2019-05-07] MEDS: BUDESONIDE NEB 0.25 MG/2 ML AMPUL NEB SCH ×2 (08:03→19:59)
[2019-05-07] MEDS ORDERED: DEXTROSE 5%-WATER 1000 ML 1,000 ML IV PRN (08:13)
[2019-05-07] MEDS ORDERED: DEXTROSE 5%-WATER 1000 ML 500 ML IV ONE (08:13)
--- NOTE | 2019-05-07 08:45 | PDOC CRITICAL CARE PROG REPORT ---
General Date:: 05/07/19 ICU Day:: 6 Hospital Day:: 6 Resuscitation Status: Full Code Medical Power of Check Grader: Son: Dann Bowman Events in the past 12 to 24 Hours:: 05.07.19: The patient's blood pressure has improved with antihypertensives. She is still confused at times taking off her oxygen has not shown any signs of hypoxia. 05.05.19: The patient was successfully extubated yesterday and has had no respiratory difficulty since then. She was seen by ENT and had I&D of abscess. He has become more awake but agitated secondary to pain. Afebrile 05.04.19 Patient's overall clinical status continues to improve with the removal of the right lower leg/foot. Her pH has improved and she was placed on an SBT this morning. 05.02.19: Milli Trammell is a 74-year-old female with a past medical history significant for atrial fibrillation for which she is on ASA denying anticoagulation, type 2 diabetes for which she does not take any medication relying on diet, stage III CKD, HTN, HLD, asthma, and essential thrombocytosis who now presents with several days of decreased oral intake, weakness, and some confusion per the patient's son. Her son reports this all started since her recent injury to her right foot, which was injured while walking and hearing a popping noise approximately 2 weeks ago. She has reportedly had multiple x-rays of her right lower extremity demonstrating no fracture or dislocation for which she was diagnosed with a foot sprain. She has also been unable to walk which was her usual state of health prior to the injury, being mostly sedentary the past 2 weeks. She reports her pain is relieved with the oxycodone she has been taking at home, allowing her to actually get some rest. Notable labs from the ED are a leukocytosis of 36.5 with 8% bandemia, thrombocytosis of 1387, afebrile in combination with reports of myalgias and arthralgias over the past couple days. She denies chills or recent exposure to someone ill. She was also noted to have VALENTIN on CKD with a BUN of 133 and creatinine of 5, though non-oliguric. She was also found to have a sodium of 129, chloride of 89, serum bicarb of 8, and an anion gap of 32. Her pH is 7.12 with a base deficit of 21. Blood cultures and urinalysis were performed in the ED for which the UA is negative for UTI. The patient received 30 mL/kg of crystalloid for hydration as well. Review of systems relevant to events:: Patient is scheduled for the OR today for completion and closure of her BKA. Her sodium levels have risen and she has been started on D5 and a bolus has been given. Her white count is elevated as well. Her hemoglobin is at 8 this morning. Reason for ICU Addmission:: Metabolic acidosis, hypovolemia, leukocytosis, VALENTIN on CKD, multiple electrolyte abnormalities. Physical Exam Vital Signs: Temp Pulse Resp BP Pulse Ox 98.7 F 88 18 179/82 H 93 05/07/19 08:00 05/07/19 08:06 05/07/19 08:06 05/07/19 08:00 05/07/19 08:06 Intake & Output 05/06/19 05/07/19 05/08/19 06:59 06:59 06:59 Intake Total 365 1629 100 Output Total 3290 2700 580 Balance -2925 -1071 -480 Weight 68.1 kg 66.8 kg Weight/Height Weight 66.8 kg Height 5 ft General appearance: PRESENT: disheveled, obese Exam: Elderly, agitated nontoxic but ill-appearing 74-year-old female, moderate distress from pain Head exam: PRESENT: atraumatic, normocephalic Eye exam: PRESENT: conjunctiva pink, PERRLA. ABSENT: conjunctival injection, nystagmus Mouth exam: PRESENT: dry mucosa, neck supple Teeth exam: PRESENT: poor dentation Neck exam: ABSENT: carotid bruit, JVD, lymphadenopathy, meningismus, thyromegaly Respiratory exam: PRESENT: clear to auscultation edenilson. ABSENT: accessory muscle use, rales, rhonchi, wheezes Cardiovascular exam: PRESENT: RRR, +S1, +S2 Vascular exam: PRESENT: normal capillary refill. ABSENT: pallor GI/Abdominal exam: PRESENT: normal bowel sounds, soft. ABSENT: ascites, distended, guarding, mass, organolmegaly, rebound, tenderness Gentrourinary exam: PRESENT: indwelling catheter Extremities exam: PRESENT: tenderness - Right bka Musculoskeletal exam: PRESENT: deformity - Right BKA, tenderness Neurological exam: PRESENT: altered, awake, other - Answers questions but confused. Psychiatric exam: PRESENT: agitated Focused psych exam: PRESENT: psychomotor agitation, restlessness Skin exam: PRESENT: dry, intact, warm. ABSENT: cyanosis, mottled, rash Tubes/Lines: PRESENT: Other - [place] Laboratory/Radiographs Laboratory Results: 05/07/19 03:33 05/07/19 03:33 05/06/19 05/07/19 05/07/19 22:40 03:33 03:33 WBC 21.9 H RBC 2.99 L Hgb 8.4 L Hct 24.9 L MCV 83 MCH 28.2 MCHC 33.8 RDW 17.2 H Plt Count 1086 H* Seg Neutrophils % Not Reportable Sodium 155.2 H 158.1 H Potassium 3.1 L 3.4 L Chloride 123 H 125 H Carbon Dioxide 23 24 Anion Gap 9 9 BUN 58 H 52 H Creatinine 1.16 1.06 Est GFR ( Amer) 55 L > 60 Glucose 155 H 146 H Calcium 8.5 8.5 Phosphorus 2.7 Magnesium 2.3 05/05/19 13:45 Nasal Wound - Abscess Gram Stain - Final 05/05/19 13:45 Nasal Wound - Abscess Wound Culture - Final Staphylococcus Aureus 05/02/19 05/02/19 05:57 08:47 Creatine Kinase 201 H Troponin I < 0.012 NT-Pro-B Natriuret Pep 1640 H Impressions: Abdomen/Pelvis CT 05/01/19 23:49 IMPRESSION: 1. Normal unenhanced CT scan of the abdomen and pelvis. There is no evidence of urinary tract calcification or urinary tract obstruction. There is no evidence of gallbladder pathology or acute appendicitis. 2. Occasional colonic diverticulosis. 3. Remote cholecystectomy. 4. Retroflexed myomatous uterus. Lower Extremity CT 05/02/19 00:00 IMPRESSION: Soft tissue edema distally in the lower extremity. It has raises the possibility of cellulitis. No abscess or mass. No bone pathology. Facial Bones CT 05/05/19 00:00 IMPRESSION: 2.8 -cm lesion of the subcutaneous left paracentral nasal tissues may indicate a phlegmon or chronic hematoma. Differential etiologies include infectious, inflammatory, and neoplastic processes. Venous Doppler Study 05/05/19 00:00 IMPRESSION: NO EVIDENCE DVT OR SVT IN EITHER LEG. Chest X-Ray 05/05/19 06:00 IMPRESSION: STABLE APPEARANCE OF THE CHEST. SUPPORT DEVICES UNCHANGED. All labs, radiographs, diagnostic studies and EKGs were personally reviewed: Yes In addition, reports of radiographic and diagnostic studies were read: Yes Assessment and Plan - Diagnosis (1) Shock, septic Is this a current diagnosis for this admission?: Yes Plan: White blood cell count slightly elevated may represent volume depletion; continue to monitor; no active shock (2) Necrotizing soft tissue infection Is this a current diagnosis for this admission?: Yes Plan: 05.07.19: Closure scheduled for today. I have asked surgery to evaluate the wound deeply to assure that no active infection exist. 05.06.19: Will need closure of BKA. Spoke with surgery--plan for today or tomorrow 05.05.19: Continues to improve. Resolved septic crisis 05.04.19: Patient has improved since removal of the source. Continue supportive care and follow wound. 05.02-: Patient has not improved drastically from yesterday. Although her leukocytosis is decreased, she remains acidotic and I fear source control is still an issue. Examination of the foot with surgical team confirmed that the infection is still present. Will go to OR today for guillotine amputation with future washouts prior to formalization. (3) Bacteremia due to methicillin susceptible Staphylococcus aureus (MSSA) Is this a current diagnosis for this admission?: Yes Plan: 05.07.19: Cultures negative for blood. 05.06.19: Cultures remain negative 05.05.19: Q48 hour blood culture. Echo negative 05.04.19:[place]-sensitive. Change to Nafcillin. ID consult (4) Encephalopathy due to metabolic factor or toxin Is this a current diagnosis for this admission?: Yes (5) Acute kidney injury superimposed on chronic kidney disease Is this a current diagnosis for this admission?: Yes Plan: Much improved. I am suspicious for post ATN diuresis given her elevation in sodium. Placing free water deficits and monitoring urine output. I's and O's were evaluated and she is in a fluid deficit Was on NSAIDS prior to admission. Improving. Continue supportive care (6) Necrotizing fasciitis of ankle and foot Is this a current diagnosis for this admission?: Yes (7) Acute hypernatremia Is this a current diagnosis for this admission?: Yes (8) Acute metabolic encephalopathy Is this a current diagnosis for this admission?: Yes (9) Metabolic acidosis Is this a current diagnosis for this admission?: Yes Plan: Resolved (10) Soft tissue infection Is this a current diagnosis for this admission?: Yes Plan: 05.07.19: Nasal I&D culture shows MSSA 05.06.19: S/P I&D. Improved. Packing removed by patient. Preliminary gram stain G+ bacteria 05.05.19:Of left aspect of nose. Will obtain ENT consult. (11) Essential thrombocytosis Is this a current diagnosis for this admission?: Yes Plan: Counts still elevated and may represent dehydration. Continue ASA. Awaiting vWf and JAK2 studies (12) History of atrial fibrillation Is this a current diagnosis for this admission?: Yes Plan: Quiescent. No active issues. Sinus rhythm Discussed anticoagulation with family. She has only been on Aspirin Plan Summary: We will begin to replace free water deficits this morning. Follow frequent BMPs . Sodium increase may be a combination of post ATN diuresis with dehydration and possibly Zosyn Patient is extremely agitated this morning and in pain in the right BKA region. He is scheduled to go to the OR today for formal revision and completion. I have asked surgery to evaluate the deep tissues to assure that no infection exist. Her white count is elevated as well her platelets and this may be a reflection of dehydration. On examination she has dry mucous membranes also suggestive clinically of dehydration. Hypernatremia may contribute to her agitation encephalopathy as well and will correct this. She is required pain medications and has a history of dementia and has been on sedation. We are vigilant to assure that this encephalopathy is related to metabolic and toxic effects of her condition and not a [employer] OPERATOR infection. She has no evidence of meningitis at this point and she does follow commands and discloses and endorses leg pain. Will need to be prudent about control of pain and reduction of delirium. Continue to monitor closely in the ICU. Hold heparin in anticipation for surgery. Critical Time Critical Time (minutes): 60 Level of Care: ICU Anticipated discharge: Acute Rehab Within: within 72 hours -: 1. The care of a critical patient is a dynamic process. This note is a marketing representative synopsis but static in nature. The timeframe for treatments given in order is not necessary the actual time these treatments may have been done. 2. This patient requires critical care secondary to ongoing requirements for therapy not offered or safe outside the critical care environment. Transfer to a lower level of care with altered life or limb morbidity and mortality. 3. Multidisciplinary rounds completed. 4. ABCDE bundle addressed.
[2019-05-07] MEDS ORDERED: ROCURONIUM BROMIDE INJ 50 MG/5 ML VIAL IV ONE (09:03)
[2019-05-07] MEDS: DEXTROSE 5%-WATER 1000 ML 1,000 ML IV PRN ×2 (10:15→15:18)
[2019-05-07] MEDS ORDERED: NORMAL SALINE 250 ML IV PRN ×4 (10:42→12:48)
[2019-05-07] MEDS: AMLODIPINE BESYLATE 5 MG TABLET PO SCH (11:24)
[2019-05-07] MEDS: ASPIRIN 81 MG TABLET, CHEWABLE PO SCH (11:24)
[2019-05-07] MEDS: MONTELUKAST SODIUM 10 MG TABLET PO SCH (11:25)
[2019-05-07 11:35] LABS: ANION GAP 9 (5-19); BLOOD UREA NITROGEN 45 mg/dL (7-20); CALCIUM 8.7 mg/dL (8.4-10.2); CARBON DIOXIDE 25 mmol/L (22-30); CHLORIDE 123 mmol/L (98-107); GLUCOSE 196 mg/dL (75-110); POTASSIUM 3.4 mmol/L (3.6-5.0)
[2019-05-07 11:45] LABS: APPEARANCE,URINE CLEAR; BILIRUBIN,URINE NEGATIVE (NEGATIVE); COLOR,URINE STRAW; GLUCOSE, URINE 150 mg/dL (NEGATIVE); KETONES,URINE NEGATIVE (NEGATIVE); LEUKOCYTE ESTERASE,URINE NEGATIVE (NEGATIVE); NITRITE,URINE NEGATIVE (NEGATIVE); PROTEIN,URINE NEGATIVE (NEGATIVE); URINE SPECIFIC GRAVITY 1.014; UROBILINOGEN,URINE NEGATIVE mg/dL (<2.0)
[2019-05-07] MEDS ORDERED: CEFAZOLIN 1 GM/D5W RTU 1 GM/50 ML RTUPB IV SCH (14:00)
[2019-05-07] MEDS: CEFAZOLIN SODIUM 1 GM in DEXTROSE 5%-WATER 50 ML IV SCH ×2 (15:18→22:12)
[2019-05-07] MEDS ORDERED: MIDAZOLAM 2 MG/2 ML INJ ONE (16:36)
[2019-05-07] MEDS ORDERED: PROPOFOL INJ 200 MG/20 ML VIAL IV ONE (16:36)
[2019-05-07] MEDS ORDERED: FENTANYL CITRATE INJ/PF 100 MCG/2 ML AMPUL ONE (16:36)
[2019-05-07] MEDS: DEXMEDETOMIDINE IN 0.9 % NACL 400 MCG/100 ML RTUPB IV PRN (19:25)
--- NOTE | 2019-05-07 20:54 | RADIOLOGY REPORT (SQ) ---
EXAM DESCRIPTION: XR CHEST 1 VIEW COMPLETED DATE/TME: 05/07/2019 00:00 CLINICAL HISTORY: 74 years, Female, intubation COMPARISON: Prior study from 05/05/2019 NUMBER OF VIEWS: One TECHNIQUE: Single frontal view of the chest was obtained portably LIMITATIONS: None. FINDINGS: Endotracheal tube tip is located within the trachea, approximately 3.8 cm above the mayra. Right IJ approach central venous catheter tip is located within the SVC. Cardiac and mediastinal contours are stable. Patchy multifocal bilateral airspace disease appears new from the previous examination dated 05/05/2019. This is most confluent within the right upper lung zone. No pneumothorax or large pleural effusion. IMPRESSION: Interval development in multifocal bilateral airspace disease. Considerations include developing multifocal pneumonia and/or edema. copyright 2010 [employer]- All Rights Reserved
--- NOTE | 2019-05-07 21:40 | Operative Report ---
Operative Report DATE OF SURGERY: 05/07/19 PREOPERATIVE DIAGNOSIS: Post guillotine amputation right below-knee POSTOPERATIVE DIAGNOSIS: Same OPERATION: Right below-knee amputation with closure SURGEON: ALISA ISSA ANESTHESIA: GA TISSUE REMOVED OR ALTERED: Distal right lower leg COMPLICATIONS: None ESTIMATED BLOOD LOSS: 50 cc QUANTITATIVE BLOOD LOSS: 50 INTRAOPERATIVE FINDINGS: Viable tissues were right below-knee with no gross evidence of infection PROCEDURE: After adequate general anesthesia the patient was placed in supine position and the right leg prepped and draped in the usual sterile fashion. Appropriate timeout was then called. Next a anterior circumferential incision made about 10 cm below the right anterior tubercle extending from the medial side to the lateral side just below the fibula. Posterior incision to the skin was made from both sides and tapering in the middle about 15 cm from the transverse incision. The incision was then deepened through the subcu with the use of cautery. Fascia also divided anteriorly and towards the periosteum of the tibia. The anterior compartment muscles between the tibia and fibula were then transected with the use of cautery. The anterior tibial artery and vein were then identified, isolated and clamp on each side with a hemostat and divided between the hemostats. The proximal end was then suture ligated with 2-0 Vicryl suture on the distal and clipped with hemoclips. Part of the medial muscle from the tibia was then divided also transversely. Posterior tibial artery and vein also identified and subsequently clamp divided and suture ligated with 2-0 Vicryl suture proximally and distal and clipped with hemoclips. The anterior tibia was bone was then divided with saw in a transverse fashion and anterior part also partially divided anteriorly and the edges were filed to smoothness to palpation. Next attention was then directed to the fibula which was then divided about 1 cm above the tibia with the use of a saw. The posterior muscles were then shaved just underneath the tibia and fibula up to the end of the distal skin incisions. Hemostasis was controlled with cautery and and clamping with a hemostat and ligation with 3-0 Vicryl ties. The muscle was further trimmed in preparation for closure. The operative site was then irrigated with saline solution and further hemostasis obtained with cautery and also further clamping and ligating again with 3-0 Vicryl ties. The fascia of the gastrocnemius was then was sutured to the fascia just above the tibia with interrupted 2-0 Vicryl ties. This was serially's closed with the 2-0 Vicryl suture interrupted manner all through the anterior part of the incision approximating the gastrocnemius muscle primarily to the anterior fascia. No drain was placed since there appeared to be good hemostasis. The skin was then reapproximated with osman. A posterior splint with plaster was used to place underneath the knee keeping the knee in straight position and this was then wrapped with Kerlix and Jim bandage. A layer of Xeroform gauze was placed on top of the incision and also layered with sterile 4 x 4 and ABD pad. Patient tolerated procedure well and brought back to the intensive care unit still intubated.
[2019-05-07 21:59] LABS: ARTERIAL BLOOD BASE EXCESS 0.4 mmol/L; ARTERIAL BLOOD H2CO3 1.05 mmol/L (1.05-1.35); ARTERIAL BLOOD HCO3 24.2 mmol/L (20-24); ARTERIAL BLOOD O2 SATURATION 92.5 % (94-98); ARTERIAL BLOOD PCO2 34.8 mmHg (35-45); ARTERIAL BLOOD PH 7.46 (7.35-7.45); ARTERIAL BLOOD PO2 60.1 mmHg (80-100); ARTERIAL BLOOD TOTAL CO2 25.3 mmol/L (21-25)
[2019-05-07 22:00] LABS: ARTERIAL BLOOD FIO2 40%
[2019-05-07 22:17] LABS: ANION GAP 6 (5-19); BLOOD UREA NITROGEN 36 mg/dL (7-20); CALCIUM 7.9 mg/dL (8.4-10.2); CARBON DIOXIDE 27 mmol/L (22-30); CHLORIDE 122 mmol/L (98-107); GLUCOSE 141 mg/dL (75-110); POTASSIUM 3.1 mmol/L (3.6-5.0)
[2019-05-07] MEDS ORDERED: POTASSI CL 20 MEQ/50 ML RIDER 20 MEQ/50 ML RTUPB IV ONE (23:52)
[2019-05-08] MEDS: DEXTROSE 5%-WATER 1000 ML 1,000 ML IV PRN ×2 (00:42→07:30)
[2019-05-08] MEDS: METOPROLOL TARTRATE PF/INJ 5 MG/5 ML SDV IV SCH ×4 (00:59→18:22)
[2019-05-08] MEDS: INSULIN REG, HUMAN 100 UNIT/ML 3 ML VIAL (PYX) SUBCUT SCH ×4 (01:05→17:23)
[2019-05-08] MEDS: DEXMEDETOMIDINE IN 0.9 % NACL 400 MCG/100 ML RTUPB IV PRN ×5 (02:01→22:46)
[2019-05-08] MEDS: CLINDAMYCIN 600 MG/D5W RTU 600 MG/50 ML RTUPB IV SCH (03:40)
[2019-05-08] MEDS: CEFAZOLIN SODIUM 1 GM in DEXTROSE 5%-WATER 50 ML IV SCH ×3 (06:35→21:28)
--- NOTE | 2019-05-08 06:53 | PDOC PROGRESS REPORT ---
Subjective Progress Note for:: 05/08/19 Subjective:: Still intubated Reason For Visit: METABOLIC ACIDOSIS Physical Exam Vital Signs: Temp Pulse Resp BP Pulse Ox 96.8 F L 71 18 140/56 H 98 05/07/19 16:00 05/07/19 20:00 05/07/19 19:59 05/08/19 03:58 05/08/19 05:38 Intake & Output 05/06/19 05/07/19 05/08/19 06:59 06:59 06:59 Intake Total 365 1679 2075 Output Total 3290 1268 6853 Balance -2925 -1021 -260 Weight 68.1 kg 66.8 kg 66.8 kg Exam: Patient uncooperative and restless last night and therefore not extubated. This morning appears calmer. Dressing along the right BKA stump looks dry. Results Laboratory Results: 05/07/19 03:33 05/07/19 21:30 05/07/19 05/07/19 05/07/19 08:39 10:58 11:16 Carbonic Acid HCO3/H2CO3 Ratio ABG pH ABG pCO2 ABG pO2 ABG HCO3 ABG O2 Saturation ABG Base Excess FiO2 Sodium 157.4 H Potassium 3.6 3.4 L Chloride 123 H Carbon Dioxide 25 Anion Gap 9 BUN 45 H Creatinine 1.01 Est GFR ( Amer) > 60 Glucose 196 H Calcium 8.7 Phosphorus Urine Color STRAW Urine Appearance CLEAR Urine pH 5.0 Ur Specific [place] 1.014 Urine Protein NEGATIVE Urine Glucose (UA) 150 H Urine Ketones NEGATIVE Urine Blood SMALL H Urine Nitrite NEGATIVE Ur Leukocyte Esterase NEGATIVE Urine WBC (Auto) 4 Urine RBC (Auto) 8 Blood Type Antibody Screen 05/07/19 05/07/19 05/07/19 11:27 21:30 21:30 Carbonic Acid 1.05 HCO3/H2CO3 Ratio 23:1 ABG pH 7.46 H ABG pCO2 34.8 L ABG pO2 60.1 L ABG HCO3 24.2 H ABG O2 Saturation 92.5 L ABG Base Excess 0.4 FiO2 40% Sodium 154.6 H Potassium 3.1 L Chloride 122 H Carbon Dioxide 27 Anion Gap 6 BUN 36 H Creatinine 1.07 Est GFR ( Amer) > 60 Glucose 141 H Calcium 7.9 L Phosphorus 3.0 Urine Color Urine Appearance Urine pH Ur Specific [place] Urine Protein Urine Glucose (UA) Urine Ketones Urine Blood Urine Nitrite Ur Leukocyte Esterase Urine WBC (Auto) Urine RBC (Auto) Blood Type A POSITIVE Antibody Screen NEGATIVE 05/05/19 13:45 Nasal Wound - Abscess Gram Stain - Final 05/05/19 13:45 Nasal Wound - Abscess Wound Culture - Final Staphylococcus Aureus 05/02/19 05/02/19 05:57 08:47 Creatine Kinase 201 H Troponin I < 0.012 NT-Pro-B Natriuret Pep 1640 H Impressions: Abdomen/Pelvis CT 05/01/19 23:49 IMPRESSION: 1. Normal unenhanced CT scan of the abdomen and pelvis. There is no evidence of urinary tract calcification or urinary tract obstruction. There is no evidence of gallbladder pathology or acute appendicitis. 2. Occasional colonic diverticulosis. 3. Remote cholecystectomy. 4. Retroflexed myomatous uterus. Lower Extremity CT 05/02/19 00:00 IMPRESSION: Soft tissue edema distally in the lower extremity. It has raises the possibility of cellulitis. No abscess or mass. No bone pathology. Facial Bones CT 05/05/19 00:00 IMPRESSION: 2.8 -cm lesion of the subcutaneous left paracentral nasal tissues may indicate a phlegmon or chronic hematoma. Differential etiologies include infectious, inflammatory, and neoplastic processes. Venous Doppler Study 05/05/19 00:00 IMPRESSION: NO EVIDENCE DVT OR SVT IN EITHER LEG. Chest X-Ray 05/07/19 00:00 IMPRESSION: Interval development in multifocal bilateral airspace disease. Considerations include developing multifocal pneumonia and/or edema. copyright 2010 [employer]- All Rights Reserved Assessment & Plan - Diagnosis (1) Necrotizing fasciitis of ankle and foot Is this a current diagnosis for this admission?: Yes (2) Shock, septic Is this a current diagnosis for this admission?: Yes (3) Type 2 DM with CKD and hypertension Is this a current diagnosis for this admission?: Yes - Time Time Spent with patient: 15-24 minutes - Inpatient Certification Medical Necessity: Need Close Monitoring Due to Risk of Patient Decompensation, Need For IV Fluids, Need for IV Antibiotics - Plan Summary Plan Summary: Postop day #1 post formal right below-knee amputation. Plans: For possible extubation today Continue IV antibiotics For change of dressing tomorrow and examination of stump
[2019-05-08 07:52] LABS: HEMATOCRIT 19.3 % (36.0-47.0); MEAN CORPUSCULAR HEMOGLOBIN 27.5 pg (27.0-33.4); MEAN CORPUSCULAR HGB CONC 32.6 g/dL (32.0-36.0); MEAN CORPUSCULAR VOLUME 85 fl (80-97); PLATELET COUNT 540 10^3/uL (150-450); RED BLOOD COUNT 2.28 10^6/uL (3.72-5.28); RED CELL DISTRIBUTION WIDTH 16.9 % (11.5-14.0); WHITE BLOOD COUNT 13.2 10^3/uL (4.0-10.5)
[2019-05-08 07:59] LABS: HEMOGLOBIN 6.3 g/dL (12.0-15.5)
[2019-05-08] MEDS: LEVALBUTEROL HCL NEB 0.63 MG/3 ML AMPUL NEB PRN (08:09)
[2019-05-08] MEDS: BUDESONIDE NEB 0.25 MG/2 ML AMPUL NEB SCH ×2 (08:10→20:11)
[2019-05-08 08:19] LABS: ABSOLUTE LYMPHOCYTES# (MANUAL) 1.6 10^3/uL (0.5-4.7); ABSOLUTE MONOCYTES # (MANUAL) 0.9 10^3/uL (0.1-1.4); ANISOCYTOSIS 1+; BAND NEUTROPHILS % (MANUAL) 1 % (3-5); BASOPHILS % (MANUAL) 0 % (0-2); EOSINOPHILS % (MANUAL) 1 % (0-6); HYPOCHROMASIA 1+; LYMPHOCYTES % (MANUAL) 12 % (13-45); METAMYELOCYTES % (MANUAL) 1 % (0-1); MONOCYTES % (MANUAL) 7 % (3-13); PLATELET COMMENT INCREASED; SEGMENTED NEUTROPHILS % (MAN) 78 % (42-78); TOTAL CELLS COUNTED 100
--- NOTE | 2019-05-08 08:30 | RADIOLOGY REPORT (SQ) ---
EXAM DESCRIPTION: CHEST SINGLE VIEW COMPLETED DATE/TIME: 05/08/2019 8:15 am REASON FOR STUDY: Hypoxia COMPARISON: Chest films 05/02/2019, 05/05/2019 EXAM PARAMETERS: NUMBER OF VIEWS: One view. TECHNIQUE: Single frontal radiographic view of the chest acquired. RADIATION DOSE: NA LIMITATIONS: None. FINDINGS: LUNGS AND PLEURA: Bilateral airspace disease seen 05/07/2019, 1957 hours has near complete ly cleared. No pleural effusion. No pneumothorax. No significant pulmonary vascular congestion MEDIASTINUM AND HILAR STRUCTURES: No masses. Contour normal. HEART AND VASCULAR STRUCTURES: No cardiomegaly BONES: No acute findings. HARDWARE: Endotracheal tube tip 4 cm above the mayra. Right jugular central line tip superior vena cava OTHER: No other significant finding. IMPRESSION: Endotracheal tube, right jugular line in good positioning. Bilateral airspace disease seen 05/07/20191957 hours has near completely cleared TECHNICAL DOCUMENTATION: JOB ID: [id number] [employer]- All Rights Reserved Reading location - IP/workstation name: [email or web address]
[2019-05-08 08:33] LABS: ARTERIAL BLOOD BASE EXCESS -0.5 mmol/L; ARTERIAL BLOOD H2CO3 0.82 mmol/L (1.05-1.35); ARTERIAL BLOOD HCO3 21.8 mmol/L (20-24); ARTERIAL BLOOD O2 SATURATION 99.2 % (94-98); ARTERIAL BLOOD PCO2 27.4 mmHg (35-45); ARTERIAL BLOOD PH 7.52 (7.35-7.45); ARTERIAL BLOOD PO2 150.1 mmHg (80-100); ARTERIAL BLOOD TOTAL CO2 22.6 mmol/L (21-25)
[2019-05-08 08:34] LABS: ARTERIAL BLOOD FIO2 40%
--- NOTE | 2019-05-08 09:41 | PDOC PROGRESS REPORT ---
Subjective Progress Note for:: 05/08/19 Subjective:: Patient underwent definitive amputation of her right leg yesterday. No complications found. Today, she is sedated, on vent, but is able to shake head that she can hear me. However, does not answer any further questions. Nurses report no active bleeding. Not able to wean from vent last night, but will try again today. Reason For Visit: METABOLIC ACIDOSIS Physical Exam Vital Signs: Temp Pulse Resp BP Pulse Ox 98.6 F 56 L 18 152/56 H 100 05/08/19 08:00 05/08/19 08:00 05/07/19 19:59 05/08/19 08:00 05/08/19 08:00 Intake & Output 05/07/19 05/08/19 05/09/19 06:59 06:59 06:59 Intake Total 1679 2174 3 Output Total 2700 0765 10 Balance -1021 -311 -7 Weight 66.8 kg 67.9 kg General appearance: PRESENT: no acute distress, well-developed, well-nourished Head exam: PRESENT: normocephalic Mouth exam: PRESENT: other - ET tube in place. Respiratory exam: PRESENT: clear to auscultation edenilson, unlabored Cardiovascular exam: PRESENT: RRR GI/Abdominal exam: PRESENT: soft. ABSENT: tenderness Extremities exam: PRESENT: other - Right BKA with VIOLETTE bandage. Neurological exam: PRESENT: other - sedated on vent. Skin exam: PRESENT: normal color Results Laboratory Results: 05/08/19 07:38 05/07/19 21:30 05/07/19 05/07/19 05/07/19 10:58 11:16 11:27 WBC RBC Hgb Hct MCV MCH MCHC RDW Plt Count Seg Neutrophils % Carbonic Acid HCO3/H2CO3 Ratio ABG pH ABG pCO2 ABG pO2 ABG HCO3 ABG O2 Saturation ABG Base Excess FiO2 Sodium 157.4 H Potassium 3.4 L Chloride 123 H Carbon Dioxide 25 Anion Gap 9 BUN 45 H Creatinine 1.01 Est GFR ( Amer) > 60 Glucose 196 H Calcium 8.7 Phosphorus Urine Color STRAW Urine Appearance CLEAR Urine pH 5.0 Ur Specific [place] 1.014 Urine Protein NEGATIVE Urine Glucose (UA) 150 H Urine Ketones NEGATIVE Urine Blood SMALL H Urine Nitrite NEGATIVE Ur Leukocyte Esterase NEGATIVE Urine WBC (Auto) 4 Urine RBC (Auto) 8 Blood Type A POSITIVE Antibody Screen NEGATIVE 05/07/19 05/07/19 05/08/19 21:30 21:30 07:38 WBC 13.2 H RBC 2.28 L Hgb 6.3 L D Hct 19.3 L MCV 85 MCH 27.5 MCHC 32.6 RDW 16.9 H Plt Count 540 H Seg Neutrophils % Not Reportable Carbonic Acid 1.05 HCO3/H2CO3 Ratio 23:1 ABG pH 7.46 H ABG pCO2 34.8 L ABG pO2 60.1 L ABG HCO3 24.2 H ABG O2 Saturation 92.5 L ABG Base Excess 0.4 FiO2 40% Sodium 154.6 H Potassium 3.1 L Chloride 122 H Carbon Dioxide 27 Anion Gap 6 BUN 36 H Creatinine 1.07 Est GFR ( Amer) > 60 Glucose 141 H Calcium 7.9 L Phosphorus 3.0 Urine Color Urine Appearance Urine pH Ur Specific [place] Urine Protein Urine Glucose (UA) Urine Ketones Urine Blood Urine Nitrite Ur Leukocyte Esterase Urine WBC (Auto) Urine RBC (Auto) Blood Type Antibody Screen 05/08/19 08:20 WBC RBC Hgb Hct MCV MCH MCHC RDW Plt Count Seg Neutrophils % Carbonic Acid 0.82 L HCO3/H2CO3 Ratio 26:1 ABG pH 7.52 H ABG pCO2 27.4 L ABG pO2 150.1 H ABG HCO3 21.8 ABG O2 Saturation 99.2 H ABG Base Excess -0.5 FiO2 40% Sodium Potassium Chloride Carbon Dioxide Anion Gap BUN Creatinine Est GFR ( Amer) Glucose Calcium Phosphorus Urine Color Urine Appearance Urine pH Ur Specific [place] Urine Protein Urine Glucose (UA) Urine Ketones Urine Blood Urine Nitrite Ur Leukocyte Esterase Urine WBC (Auto) Urine RBC (Auto) Blood Type Antibody Screen 05/05/19 13:45 Nasal Wound - Abscess Gram Stain - Final 05/05/19 13:45 Nasal Wound - Abscess Wound Culture - Final Staphylococcus Aureus 05/02/19 05/02/19 05:57 08:47 Creatine Kinase 201 H Troponin I < 0.012 NT-Pro-B Natriuret Pep 1640 H Impressions: Abdomen/Pelvis CT 05/01/19 23:49 IMPRESSION: 1. Normal unenhanced CT scan of the abdomen and pelvis. There is no evidence of urinary tract calcification or urinary tract obstruction. There is no evidence of gallbladder pathology or acute appendicitis. 2. Occasional colonic diverticulosis. 3. Remote cholecystectomy. 4. Retroflexed myomatous uterus. Lower Extremity CT 05/02/19 00:00 IMPRESSION: Soft tissue edema distally in the lower extremity. It has raises the possibility of cellulitis. No abscess or mass. No bone pathology. Facial Bones CT 05/05/19 00:00 IMPRESSION: 2.8 -cm lesion of the subcutaneous left paracentral nasal tissues may indicate a phlegmon or chronic hematoma. Differential etiologies include infectious, inflammatory, and neoplastic processes. Venous Doppler Study 05/05/19 00:00 IMPRESSION: NO EVIDENCE DVT OR SVT IN EITHER LEG. Chest X-Ray 05/08/19 00:00 IMPRESSION: Endotracheal tube, right jugular line in good positioning. Bilateral airspace disease seen 05/07/2019 1958 hours has near completely cleared Assessment & Plan - Diagnosis (1) Leukocytosis, unspecified Qualifiers: Leukocytosis type: unspecified Qualified Code(s): D72.829 - Elevated white blood cell count, unspecified Is this a current diagnosis for this admission?: Yes Plan: All 3 cell lines on CBC today are much lower. I suspect this is dilutional. Hopefully, surgery will greatly improve the overall situation. (2) Reactive thrombocytosis Is this a current diagnosis for this admission?: Yes Plan: Currently with no evidence of bleeding. I would continue regular DVT prophylaxis, as appropriate. Long-term ASA if this continues. (3) Anemia Qualifiers: Other causes of anemia: chronic disease, other Is this a current diagnosis for this admission?: Yes Plan: I will repeat CBC today, but if HGB remains <8, then transfuse pRBCs. - Time Time Spent with patient: 15-24 minutes - Plan Summary Plan Summary: Dr. Capone will be available by phone over the weekend and will see patient again on Saturday. Please call with any concerns.
[2019-05-08] MEDS: ASPIRIN 81 MG TABLET, CHEWABLE PO SCH (10:46)
[2019-05-08] MEDS: AMLODIPINE BESYLATE 5 MG TABLET PO SCH (10:46)
[2019-05-08] MEDS: MONTELUKAST SODIUM 10 MG TABLET PO SCH (10:46)
[2019-05-08 10:59] LABS: HEMATOCRIT 20.4 % (36.0-47.0); MEAN CORPUSCULAR HEMOGLOBIN 27.5 pg (27.0-33.4); MEAN CORPUSCULAR HGB CONC 32.3 g/dL (32.0-36.0); MEAN CORPUSCULAR VOLUME 85 fl (80-97); PLATELET COUNT 544 10^3/uL (150-450); RED BLOOD COUNT 2.41 10^6/uL (3.72-5.28); RED CELL DISTRIBUTION WIDTH 17.3 % (11.5-14.0); WHITE BLOOD COUNT 14.8 10^3/uL (4.0-10.5)
[2019-05-08 11:07] LABS: HEMOGLOBIN 6.6 g/dL (12.0-15.5)
[2019-05-08] MEDS ORDERED: NORMAL SALINE 250 ML IV PRN ×2 (11:46)
[2019-05-08] MEDS: ACETAMINOPHEN 1,000 MG/100 ML RTUPB IV SCH ×2 (11:56→17:22)
--- NOTE | 2019-05-08 12:37 | PDOC PROGRESS REPORT ---
Subjective Progress Note for:: 05/08/19 Reason For Visit: METABOLIC ACIDOSIS Physical Exam Vital Signs: Temp Pulse Resp BP Pulse Ox 98.6 F 69 20 154/54 H 100 05/08/19 08:00 05/08/19 11:15 05/08/19 11:15 05/08/19 11:15 05/08/19 11:15 Intake & Output 05/07/19 05/08/19 05/09/19 06:59 06:59 06:59 Intake Total 1679 2174 1079 Output Total 2700 2485 85 Balance -1021 -311 994 Weight 66.8 kg 67.9 kg General appearance: PRESENT: no acute distress Eye exam: PRESENT: EOMI Ear exam: PRESENT: normal external ear exam Mouth exam: PRESENT: moist Neck exam: PRESENT: full ROM Respiratory exam: PRESENT: clear to auscultation edenilson Cardiovascular exam: PRESENT: RRR Pulses: PRESENT: normal femoral pulses GI/Abdominal exam: PRESENT: soft Rectal exam: PRESENT: deferred Extremities exam: PRESENT: full ROM, other - s/p right bka, dressing dry, intact . Skin exam: PRESENT: dry Results Laboratory Results: 05/08/19 10:27 05/07/19 05/07/19 05/07/19 11:27 21:30 21:30 WBC RBC Hgb Hct MCV MCH MCHC RDW Plt Count Seg Neutrophils % Carbonic Acid 1.05 HCO3/H2CO3 Ratio 23:1 ABG pH 7.46 H ABG pCO2 34.8 L ABG pO2 60.1 L ABG HCO3 24.2 H ABG O2 Saturation 92.5 L ABG Base Excess 0.4 FiO2 40% Sodium 154.6 H Potassium 3.1 L Chloride 122 H Carbon Dioxide 27 Anion Gap 6 BUN 36 H Creatinine 1.07 Est GFR ( Amer) > 60 Glucose 141 H Calcium 7.9 L Phosphorus 3.0 Blood Type A POSITIVE Antibody Screen NEGATIVE 05/08/19 05/08/19 05/08/19 07:38 08:20 10:27 WBC 13.2 H 14.8 H RBC 2.28 L 2.41 L Hgb 6.3 L D 6.6 L Hct 19.3 L 20.4 L MCV 85 85 MCH 27.5 27.5 MCHC 32.6 32.3 RDW 16.9 H 17.3 H Plt Count 540 H 544 H Seg Neutrophils % Not Reportable Carbonic Acid 0.82 L HCO3/H2CO3 Ratio 26:1 ABG pH 7.52 H ABG pCO2 27.4 L ABG pO2 150.1 H ABG HCO3 21.8 ABG O2 Saturation 99.2 H ABG Base Excess -0.5 FiO2 40% Sodium Potassium Chloride Carbon Dioxide Anion Gap BUN Creatinine Est GFR ( Amer) Glucose Calcium Phosphorus Blood Type Antibody Screen 05/05/19 13:45 Nasal Wound - Abscess Gram Stain - Final 05/05/19 13:45 Nasal Wound - Abscess Wound Culture - Final Staphylococcus Aureus 05/02/19 05/02/19 05:57 08:47 Creatine Kinase 201 H Troponin I < 0.012 NT-Pro-B Natriuret Pep 1640 H Impressions: Abdomen/Pelvis CT 05/01/19 23:49 IMPRESSION: 1. Normal unenhanced CT scan of the abdomen and pelvis. There is no evidence of urinary tract calcification or urinary tract obstruction. There is no evidence of gallbladder pathology or acute appendicitis. 2. Occasional colonic diverticulosis. 3. Remote cholecystectomy. 4. Retroflexed myomatous uterus. Lower Extremity CT 05/02/19 00:00 IMPRESSION: Soft tissue edema distally in the lower extremity. It has raises the possibility of cellulitis. No abscess or mass. No bone pathology. Facial Bones CT 05/05/19 00:00 IMPRESSION: 2.8 -cm lesion of the subcutaneous left paracentral nasal tissues may indicate a phlegmon or chronic hematoma. Differential etiologies include infectious, inflammatory, and neoplastic processes. Venous Doppler Study 05/05/19 00:00 IMPRESSION: NO EVIDENCE DVT OR SVT IN EITHER LEG. Chest X-Ray 05/08/19 00:00 IMPRESSION: Endotracheal tube, right jugular line in good positioning. Bilateral airspace disease seen 05/07/2019 1958 hours has near completely cleared Assessment & Plan - Time Time Spent with patient: 15-24 minutes - Plan Summary Plan Summary: s/p rt bka for necrotizing fasitis dresing change tomorrow
[2019-05-08 12:46] LABS: ABSOLUTE RETICS # 0.025 10^6/uL (0.028-0.122); RETICULOCYTE COUNT (AUTO) 1.06 % (0.66-2.85)
[2019-05-08 12:58] LABS: ANION GAP 8 (5-19); BLOOD UREA NITROGEN 29 mg/dL (7-20); CALCIUM 7.7 mg/dL (8.4-10.2); CARBON DIOXIDE 25 mmol/L (22-30); CHLORIDE 116 mmol/L (98-107); GLUCOSE 144 mg/dL (75-110); POTASSIUM 3.3 mmol/L (3.6-5.0)
--- NOTE | 2019-05-08 14:53 | PDOC CRITICAL CARE PROG REPORT ---
General Date:: 05/08/19 ICU Day:: 7 Ventilator Day:: 2 Hospital Day:: 7 Resuscitation Status: Full Code Medical Power of Transmission Inspector: Son: Dann Bowman Events in the past 12 to 24 Hours:: Patient had revision and closure of right BKA. No intra-operative issues. Attempts to wean were thwarted by hypoxia and pain control. CXR is clear. Secretions have not been an issue Review of systems relevant to events:: Patient was unable to be liberated from the ventilator post surgery. Hemoglobin and hematocrit are noted to be lower in a repeat specimen drawn peripherally is being done Reason for ICU Addmission:: Metabolic acidosis, hypovolemia, leukocytosis, VALENTIN on CKD, multiple electrolyte abnormalities. - Medications: Vasopressors:: None Sedation:: Precedex Physical Exam Vital Signs: Temp Pulse Resp BP Pulse Ox 98.6 F 56 L 18 152/56 H 100 05/08/19 08:00 05/08/19 08:00 05/07/19 19:59 05/08/19 08:00 05/08/19 08:00 Intake & Output 05/07/19 05/08/19 05/09/19 06:59 06:59 06:59 Intake Total 1679 2174 3 Output Total 2700 2485 10 Balance -1021 -311 -7 Weight 66.8 kg 67.9 kg Weight/Height Weight 67.9 kg Height 5 ft General appearance: PRESENT: no acute distress, obese, well-developed, well- nourished Exam: Intubated elderly ill appearing but nontoxic 74-year-old female no active distress moves in response to voice and stimulus Eye exam: PRESENT: conjunctiva pink, PERRLA. ABSENT: conjunctival injection, nystagmus, scleral icterus Mouth exam: PRESENT: dry mucosa, neck supple Neck exam: PRESENT: other - Nose shows no erythema swelling is significantly reduced there is no nares swelling.. ABSENT: carotid bruit, JVD, ly mphadenopathy, thyromegaly Respiratory exam: PRESENT: clear to auscultation [place], unlabored. ABSENT: accessory muscle use, rales, rhonchi, tachypnea, wheezes Cardiovascular exam: PRESENT: RRR. ABSENT: diastolic murmur, rubs, systolic murmur Pulses: PRESENT: other - Dorsalis pedis pulse 1+/2+ Vascular exam: PRESENT: normal capillary refill. ABSENT: pallor GI/Abdominal exam: PRESENT: normal bowel sounds, soft. ABSENT: ascites, distended, guarding, mass, organolmegaly, rebound, tenderness Gentrourinary exam: PRESENT: indwelling catheter Extremities exam: PRESENT: tenderness - At right BKA region. Dressing clean dry and intact.. ABSENT: pedal edema Musculoskeletal exam: PRESENT: deformity - Right BKA Neurological exam: PRESENT: altered Psychiatric exam: PRESENT: agitated Focused psych exam: PRESENT: restlessness Skin exam: PRESENT: dry, intact, warm. ABSENT: cyanosis, rash Tubes/Lines: PRESENT: Endotracheal Tube, Central Line, Arterial Catheter, Other - [place] Laboratory/Radiographs Laboratory Results: 05/08/19 07:38 05/07/19 21:30 05/07/19 05/07/19 05/07/19 08:39 10:58 11:16 WBC RBC Hgb Hct MCV MCH MCHC RDW Plt Count Seg Neutrophils % Carbonic Acid HCO3/H2CO3 Ratio ABG pH ABG pCO2 ABG pO2 ABG HCO3 ABG O2 Saturation ABG Base Excess FiO2 Sodium 157.4 H Potassium 3.6 3.4 L Chloride 123 H Carbon Dioxide 25 Anion Gap 9 BUN 45 H Creatinine 1.01 Est GFR ( Amer) > 60 Glucose 196 H Calcium 8.7 Phosphorus Urine Color STRAW Urine Appearance CLEAR Urine pH 5.0 Ur Specific [place] 1.014 Urine Protein NEGATIVE Urine Glucose (UA) 150 H Urine Ketones NEGATIVE Urine Blood SMALL H Urine Nitrite NEGATIVE Ur Leukocyte Esterase NEGATIVE Urine WBC (Auto) 4 Urine RBC (Auto) 8 Blood Type Antibody Screen 05/07/19 05/07/19 05/07/19 11:27 21:30 21:30 WBC RBC Hgb Hct MCV MCH MCHC RDW Plt Count Seg Neutrophils % Carbonic Acid 1.05 HCO3/H2CO3 Ratio 23:1 ABG pH 7.46 H ABG pCO2 34.8 L ABG pO2 60.1 L ABG HCO3 24.2 H ABG O2 Saturation 92.5 L ABG Base Excess 0.4 FiO2 40% Sodium 154.6 H Potassium 3.1 L Chloride 122 H Carbon Dioxide 27 Anion Gap 6 BUN 36 H Creatinine 1.07 Est GFR ( Amer) > 60 Glucose 141 H Calcium 7.9 L Phosphorus 3.0 Urine Color Urine Appearance Urine pH Ur Specific [place] Urine Protein Urine Glucose (UA) Urine Ketones Urine Blood Urine Nitrite Ur Leukocyte Esterase Urine WBC (Auto) Urine RBC (Auto) Blood Type A POSITIVE Antibody Screen NEGATIVE 05/08/19 07:38 WBC 13.2 H RBC 2.28 L Hgb 6.3 L D Hct 19.3 L MCV 85 MCH 27.5 MCHC 32.6 RDW 16.9 H Plt Count 540 H Seg Neutrophils % Not Reportable Carbonic Acid HCO3/H2CO3 Ratio ABG pH ABG pCO2 ABG pO2 ABG HCO3 ABG O2 Saturation ABG Base Excess FiO2 Sodium Potassium Chloride Carbon Dioxide Anion Gap BUN Creatinine Est GFR ( Amer) Glucose Calcium Phosphorus Urine Color Urine Appearance Urine pH Ur Specific [place] Urine Protein Urine Glucose (UA) Urine Ketones Urine Blood Urine Nitrite Ur Leukocyte Esterase Urine WBC (Auto) Urine RBC (Auto) Blood Type Antibody Screen 05/05/19 13:45 Nasal Wound - Abscess Gram Stain - Final 05/05/19 13:45 Nasal Wound - Abscess Wound Culture - Final Staphylococcus Aureus 05/02/19 05/02/19 05:57 08:47 Creatine Kinase 201 H Troponin I < 0.012 NT-Pro-B Natriuret Pep 1640 H Impressions: Abdomen/Pelvis CT 05/01/19 23:49 IMPRESSION: 1. Normal unenhanced CT scan of the abdomen and pelvis. There is no evidence of urinary tract calcification or urinary tract obstruction. There is no evidence of gallbladder pathology or acute appendicitis. 2. Occasional colonic diverticulosis. 3. Remote cholecystectomy. 4. Retroflexed myomatous uterus. Lower Extremity CT 05/02/19 00:00 IMPRESSION: Soft tissue edema distally in the lower extremity. It has raises the possibility of cellulitis. No abscess or mass. No bone pathology. Facial Bones CT 05/05/19 00:00 IMPRESSION: 2.8 -cm lesion of the subcutaneous left paracentral nasal tissues may indicate a phlegmon or chronic hematoma. Differential etiologies include infectious, inflammatory, and neoplastic processes. Venous Doppler Study 05/05/19 00:00 IMPRESSION: NO EVIDENCE DVT OR SVT IN EITHER LEG. Chest X-Ray 05/01/19 23:44 IMPRESSION: Difficult to completely exclude minimal left basilar pneumonia. Abdomen/Pelvis CT 05/01/19 23:49 IMPRESSION: 1. Normal unenhanced CT scan of the abdomen and pelvis. There is no evidence of urinary tract calcification or urinary tract obstruction. There is no evidence of gallbladder pathology or acute appendicitis. 2. Occasional colonic diverticulosis. 3. Remote cholecystectomy. 4. Retroflexed myomatous uterus. Chest X-Ray 05/02/19 00:00 IMPRESSION: 1. Endotracheal tube is located in close proximity to the mayra. Retraction is recommended for more optimal placement. 2. Status post placement of right internal jugular central line with distal tip in the expected location of the cavoatrial junction. Enteric tube is also again noted. Lower Extremity CT 05/02/19 00:00 IMPRESSION: Soft tissue edema distally in the lower extremity. It has raises the possibility of cellulitis. No abscess or mass. No bone pathology. Chest X-Ray 05/04/19 00:00 IMPRESSION: Persistent left midzone linear atelectasis. SUPPORT DEVICE(S) IN EXPECTED LOCATIONS. Facial Bones CT 05/05/19 00:00 IMPRESSION: 2.8 -cm lesion of the subcutaneous left paracentral nasal tissues may indicate a phlegmon or chronic hematoma. Differential etiologies include infectious, inflammatory, and neoplastic processes. Venous Doppler Study 05/05/19 00:00 IMPRESSION: NO EVIDENCE DVT OR SVT IN EITHER LEG. Chest X-Ray 05/05/19 06:00 IMPRESSION: STABLE APPEARANCE OF THE CHEST. SUPPORT DEVICES UNCHANGED. Chest X-Ray 05/07/19 00:00 IMPRESSION: Interval development in multifocal bilateral airspace disease. Considerations include developing multifocal pneumonia and/or edema. copyright 2010 [employer]- All Rights Reserved Chest X-Ray 05/08/19 00:00 IMPRESSION: Endotracheal tube, right jugular line in good positioning. Bilateral airspace disease seen 05/07/2019 1958 hours has near completely cleared All labs, radiographs, diagnostic studies and EKGs were personally reviewed: Yes In addition, reports of radiographic and diagnostic studies were read: Yes Assessment and Plan - Diagnosis (1) Shock, septic Is this a current diagnosis for this admission?: Yes Plan: White blood cell count higher this morning. May represent post-operative state. If this does not improve, will need to look for other sources (2) Necrotizing soft tissue infection Is this a current diagnosis for this admission?: Yes Plan: 05.08.19: Revision and closure of Right bka completed. Surgery relates that tissue was healthy and no further signs of infection 05.07.19: Closure scheduled for today. I have asked surgery to evaluate the wound deeply to assure that no active infection exist. 05.06.19: Will need closure of BKA. Spoke with surgery--plan for today or tomorrow 05.05.19: Continues to improve. Resolved septic crisis 05.04.19: Patient has improved since removal of the source. Continue supportive care and follow wound. 05.02-: Patient has not improved drastically from yesterday. Although her leukocytosis is decreased, she remains acidotic and I fear source control is still an issue. Examination of the foot with surgical team confirmed that the infection is still present. Will go to OR today for guillotine amputation with future washouts prior to formalization. (3) Bacteremia due to methicillin susceptible Staphylococcus aureus (MSSA) Is this a current diagnosis for this admission?: Yes Plan: 05.08.19: Repeat cultures pending. Changed antibiotics to Ancef. D/C clindamycin today. 05.07.19: Cultures negative for blood. 05.06.19: Cultures remain negative 05.05.19: Q48 hour blood culture. Echo negative 05.04.19:[place]-sensitive. Change to Nafcillin. ID consult (4) Encephalopathy due to metabolic factor or toxin Is this a current diagnosis for this admission?: Yes (5) Acute kidney injury superimposed on chronic kidney disease Is this a current diagnosis for this admission?: Yes Plan: 05.08.19:Continues to improve. Replace electrolytes and will continue IV fluids to lower sodium. Unable to place NGT secondary to recent infection 05.07.19:Much improved. I am suspicious for post ATN diuresis given her elevation in sodium. Placing free water deficits and monitoring urine output. I's and O's were evaluated and she is in a fluid deficit Was on NSAIDS prior to admission. Improving. Continue supportive care (6) Necrotizing fasciitis of ankle and foot Is this a current diagnosis for this admission?: Yes (7) Acute hypernatremia Is this a current diagnosis for this admission?: Yes Plan: 05.08.19: Improving. continue IV fluids (8) Acute metabolic encephalopathy Is this a current diagnosis for this admission?: Yes (9) Metabolic acidosis Is this a current diagnosis for this admission?: Yes Plan: Resolved (10) Soft tissue infection Is this a current diagnosis for this admission?: Yes Plan: 05.08.19: Improving. No NGT for now. Changed to Ancef for MSSA 05.07.19: Nasal I&D culture shows MSSA 05.06.19: S/P I&D. Improved. Packing removed by patient. Preliminary gram stain G+ bacteria 05.05.19:Of left aspect of nose. Will obtain ENT consult. (11) Essential thrombocytosis Is this a current diagnosis for this admission?: Yes Plan: 05.08.19: Still elevated. On ASA, no bleeding. May need to consider Hydroxyurea? vWF and JAK2 still pending 05.07.20:Counts still elevated and may represent dehydration. Continue ASA. Aw aiting vWf and JAK2 studies (12) History of atrial fibrillation Is this a current diagnosis for this admission?: Yes Plan: Remains Quiescent. No active issues. Sinus rhythm Discussed anticoagulation with family. She has only been on Aspirin Plan Summary: 05.08.19: Patient has remained on the ventilator and we will begin SBT to liberate this morning. Her hemoglobin was unexpectedly low and have sent repeat from peripheral blood. We will has thrombocytosis will speak with hematology about the possible need for hydroxyurea. Her white count is still elevated and this may represent postsurgical changes however will need to be prudent to watch for other sources of infection. Fortunately I do not have procalcitonin available to determine degree of improvement or worsening. Will order CRP as an indirect measurement. White count remains elevated will need to continue to search for alternative areas of infection. She did have a TTE but she may require a NATALIYA. Repeat blood cultures have been sent. Central lines all appear clean dry there is no erythema and were recently placed. Wait repeat blood cultures to determine clearance. Have DC'd clindamycin 05.07.19: We will begin to replace free water deficits this morning. Follow frequent BMPs. Sodium increase may be a combination of post ATN diuresis with dehydration and possibly Zosyn Patient is extremely agitated this morning and in pain in the right BKA region. He is scheduled to go to the OR today for formal revision and completion. I have asked surgery to evaluate the deep tissues to assure that no infection exist. Her white count is elevated as well her platelets and this may be a reflection of dehydration. On examination she has dry mucous membranes also suggestive clinically of dehydration. Hypernatremia may contribute to her agitation encephalopathy as well and will correct this. She is required pain medications and has a history of dementia and has been on sedation. We are vigilant to assure that this encephalopathy is related to metabolic and toxic effects of her condition and not a [employer] infection. She has no evidence of meningitis at this point and she does follow commands and discloses and endorses leg pain. Will need to be prudent about control of pain and reduction of delirium. Continue to monitor closely in the ICU. Hold heparin in anticipation for surgery. Critical Time Critical Time (minutes): 60 Level of Care: ICU -: 1. The care of a critical patient is a dynamic process. This note is a field representatives director synopsis but static in nature. The timeframe for treatments given in order is not necessary the actual time these treatments may have been done. 2. This patient requires critical care secondary to ongoing requirements for therapy not offered or safe outside the critical care environment. Transfer to a lower level of care will result in altered life or limb morbidity and mortality. 3. Multidisciplinary rounds completed. 4. ABCDE bundle addressed.
[2019-05-08] MEDS: HEPARIN SOD (PORCINE) 5,000 UNIT/ML 1 ML VIAL SUBCUT SCH ×2 (17:23→21:28)
[2019-05-08 18:10] LABS: HEMATOCRIT 23.7 % (36.0-47.0); MEAN CORPUSCULAR HEMOGLOBIN 27.8 pg (27.0-33.4); MEAN CORPUSCULAR HGB CONC 33.1 g/dL (32.0-36.0); MEAN CORPUSCULAR VOLUME 84 fl (80-97); PLATELET COUNT 482 10^3/uL (150-450); RED BLOOD COUNT 2.82 10^6/uL (3.72-5.28); RED CELL DISTRIBUTION WIDTH 16.5 % (11.5-14.0); WHITE BLOOD COUNT 15.7 10^3/uL (4.0-10.5)
[2019-05-08 18:12] LABS: HEMOGLOBIN 7.8 g/dL (12.0-15.5)
[2019-05-08 18:19] LABS: ANION GAP 6 (5-19); BLOOD UREA NITROGEN 26 mg/dL (7-20); CALCIUM 7.5 mg/dL (8.4-10.2); CARBON DIOXIDE 24 mmol/L (22-30); CHLORIDE 115 mmol/L (98-107); GLUCOSE 161 mg/dL (75-110); POTASSIUM 3.1 mmol/L (3.6-5.0)
[2019-05-08] MEDS: HYDROMORPHONE HCL INJ/PF 2 MG/ML AMPULE IV PRN (18:30)
[2019-05-08] MEDS: PREGABALIN 50 MG CAPSULE PO SCH (19:24)
[2019-05-08] MEDS ORDERED: DEXTROSE 5%-WATER 1000 ML 1,000 ML IV PRN (20:07)
[2019-05-08] MEDS ORDERED: POTASSIUM CHLORIDE 20 MEQ/50 ML RTU IV SCH (20:45)
[2019-05-08] MEDS: POTASSIUM CHLORIDE 10 MEQ TABLET.ER PO SCH (21:28)
[2019-05-08] MEDS ORDERED: HYDROMORPHONE HCL INJ/PF 2 MG/ML AMPULE IV ONE (22:15)
[2019-05-08 22:57] LABS: ANION GAP 8 (5-19); BLOOD UREA NITROGEN 25 mg/dL (7-20); CALCIUM 7.3 mg/dL (8.4-10.2); CARBON DIOXIDE 24 mmol/L (22-30); CHLORIDE 109 mmol/L (98-107); GLUCOSE 171 mg/dL (75-110)
[2019-05-08 23:03] LABS: POTASSIUM 2.8 mmol/L (3.6-5.0)
[2019-05-08] MEDS ORDERED: MAGNESIUM SULFATE 4 GM/100 ML RTUPB IV ONE (23:50)
[2019-05-09] MEDS: METOPROLOL TARTRATE PF/INJ 5 MG/5 ML SDV IV SCH ×2 (00:41→06:08)
[2019-05-09] MEDS: INSULIN REG, HUMAN 100 UNIT/ML 3 ML VIAL (PYX) SUBCUT SCH ×2 (00:50→06:07)
[2019-05-09] MEDS ORDERED: MAGNESIUM SULFATE 4 GM/100 ML RTUPB IV ONE (00:58)
[2019-05-09 03:29] LABS: ANION GAP 5 (5-19); BLOOD UREA NITROGEN 22 mg/dL (7-20); CALCIUM 7.3 mg/dL (8.4-10.2); CARBON DIOXIDE 25 mmol/L (22-30); CHLORIDE 115 mmol/L (98-107); GLUCOSE 127 mg/dL (75-110); POTASSIUM 3.3 mmol/L (3.6-5.0)
[2019-05-09] MEDS: POTASSIUM CHLORIDE 10 MEQ TABLET.ER PO SCH (03:33)
[2019-05-09 05:30] LABS: ARTERIAL BLOOD BASE EXCESS 0.2 mmol/L; ARTERIAL BLOOD H2CO3 0.95 mmol/L (1.05-1.35); ARTERIAL BLOOD HCO3 23.3 mmol/L (20-24); ARTERIAL BLOOD O2 SATURATION 94.4 % (94-98); ARTERIAL BLOOD PCO2 31.6 mmHg (35-45); ARTERIAL BLOOD PH 7.49 (7.35-7.45); ARTERIAL BLOOD PO2 64.9 mmHg (80-100); ARTERIAL BLOOD TOTAL CO2 24.3 mmol/L (21-25)
[2019-05-09 05:37] LABS: ARTERIAL BLOOD FIO2 ROOM
[2019-05-09] MEDS: DEXMEDETOMIDINE IN 0.9 % NACL 400 MCG/100 ML RTUPB IV PRN (06:02)
[2019-05-09 06:05] LABS: HEMATOCRIT 23.6 % (36.0-47.0); MEAN CORPUSCULAR HEMOGLOBIN 28.1 pg (27.0-33.4); MEAN CORPUSCULAR HGB CONC 33.1 g/dL (32.0-36.0); MEAN CORPUSCULAR VOLUME 85 fl (80-97); PLATELET COUNT 440 10^3/uL (150-450); RED BLOOD COUNT 2.78 10^6/uL (3.72-5.28); RED CELL DISTRIBUTION WIDTH 16.6 % (11.5-14.0); WHITE BLOOD COUNT 15.3 10^3/uL (4.0-10.5)
[2019-05-09] MEDS: CEFAZOLIN SODIUM 1 GM in DEXTROSE 5%-WATER 50 ML IV SCH ×3 (06:07→23:26)
[2019-05-09] MEDS: HEPARIN SOD (PORCINE) 5,000 UNIT/ML 1 ML VIAL SUBCUT SCH ×3 (06:08→22:31)
[2019-05-09 06:25] LABS: ANION GAP 7 (5-19); BLOOD UREA NITROGEN 21 mg/dL (7-20); CALCIUM 7.6 mg/dL (8.4-10.2); CARBON DIOXIDE 25 mmol/L (22-30); CHLORIDE 113 mmol/L (98-107); GLUCOSE 129 mg/dL (75-110); POTASSIUM 3.4 mmol/L (3.6-5.0)
[2019-05-09 07:02] LABS: HEMOGLOBIN 7.8 g/dL (12.0-15.5)
[2019-05-09 07:06] LABS: ABSOLUTE MONOCYTES # (MANUAL) 0.3 10^3/uL (0.1-1.4); BASOPHILS % (MANUAL) 0 % (0-2); EOSINOPHILS % (MANUAL) 3 % (0-6); LYMPHOCYTES % (MANUAL) 11 % (13-45); METAMYELOCYTES % (MANUAL) 1 % (0-1); MONOCYTES % (MANUAL) 2 % (3-13); SEGMENTED NEUTROPHILS % (MAN) 81 % (42-78); TOTAL CELLS COUNTED 100
[2019-05-09 07:09] LABS: ANISOCYTOSIS 1+; BURR CELLS SLIGHT; OVALOCYTES 2+; PLATELET COMMENT ADEQUATE; POIKILOCYTOSIS 1+; TEAR DROP CELLS 1+; TOXIC GRANULATION 1+
[2019-05-09] MEDS: BUDESONIDE NEB 0.25 MG/2 ML AMPUL NEB SCH (08:23)
[2019-05-09] MEDS: HYDROMORPHONE HCL INJ/PF 2 MG/ML AMPULE IV PRN ×3 (08:29→14:51)
--- NOTE | 2019-05-09 09:13 | PDOC CRITICAL CARE PROG REPORT ---
General Date:: 05/09/19 ICU Day:: 8 Hospital Day:: 8 Resuscitation Status: Full Code Medical Power of [employer] Agent: Son: Dann Bowman Events in the past 12 to 24 Hours:: 05.09.19: Patient's mental status has improved and she is now more aware. We have discussed the loss of her right foot and part of her leg. At night her pain and confusion appear to be slightly worse and she had to be restarted on Precedex. We also started her on Lyrica for stump pain. She has remained hemodynamically non-labile. 05.08.19:Patient had revision and closure of right BKA. No intra-operative issues. Attempts to wean were thwarted by hypoxia and pain control. CXR is clear. Secretions have not been an issue Review of systems relevant to events:: 05.09.19: Patient was successfully liberated from the ventilator yesterday without any respiratory compromise. Sodium levels have decreased appropriately except for 1 which may be a spurious finding. She was able to swallow and is taking p.o. now. Her pain is better controlled and endorsed by the patient. 05.08.19: Patient was unable to be liberated from the ventilator post surgery. Hemoglobin and hematocrit are noted to be lower in a repeat specimen drawn peripherally is being done Reason for ICU Addmission:: Metabolic acidosis, hypovolemia, leukocytosis, VALENTIN on CKD, multiple electrolyte abnormalities. - Medications: Medications reviewed and adjusted accordingly: Yes Vasopressors:: None Sedation:: Precedex and lyrica Physical Exam Vital Signs: Temp Pulse Resp BP Pulse Ox 98.6 F 67 18 140/56 H 97 05/09/19 03:42 05/09/19 08:25 05/09/19 08:25 05/09/19 06:00 05/09/19 08:25 Intake & Output 05/08/19 05/09/19 05/10/19 06:59 06:59 06:59 Intake Total 2174 3030 Output Total 2485 1355 Balance -311 1675 Weight 67.9 kg 73.4 kg Weight/Height Weight 73.4 kg Height 5 ft General appearance: PRESENT: no acute distress, cooperative, obese, well- developed, well-nourished Eye exam: PRESENT: conjunctiva pink, EOMI, PERRLA. ABSENT: scleral icterus Mouth exam: PRESENT: moist, neck supple Neck exam: PRESENT: other - Right internal jugular central venous catheter clean dry and intact. ABSENT: carotid bruit, JVD, lymphadenopathy, thyromegaly Respiratory exam: PRESENT: clear to auscultation edenilson, unlabored. ABSENT: accessory muscle use, rales, rhonchi, tachypnea, wheezes Cardiovascular exam: PRESENT: RRR. ABSENT: diastolic murmur, irregular rhythm, rubs, systolic murmur Pulses: PRESENT: other - left dorsalis pedis 1+/2+ Vascular exam: PRESENT: normal capillary refill. ABSENT: pallor GI/Abdominal exam: PRESENT: normal bowel sounds, soft. ABSENT: ascites, distended, guarding, mass, organolmegaly, rebound, tenderness Rectal exam: PRESENT: deferred Gentrourinary exam: PRESENT: indwelling catheter Extremities exam: PRESENT: tenderness - Over right bka stump.. ABSENT: pedal edema Musculoskeletal exam: PRESENT: deformity - Right BKA. No bleeding. Neurological exam: PRESENT: awake, oriented to person, oriented to situation, CN II-XII grossly intact. ABSENT: oriented to time, motor sensory deficit Psychiatric exam: PRESENT: appropriate affect Focused psych exam: ABSENT: pressured speech, psychomotor agitation, restlessness Skin exam: PRESENT: dry, intact, warm. ABSENT: cyanosis, mottled, rash Tubes/Lines: PRESENT: Central Line, Other - More[place] Laboratory/Radiographs Laboratory Results: 05/09/19 05:55 05/09/19 05:55 05/07/19 05/08/19 05/08/19 11:27 10:27 12:10 WBC 14.8 H RBC 2.41 L Hgb 6.6 L Hct 20.4 L MCV 85 MCH 27.5 MCHC 32.3 RDW 17.3 H Plt Count 544 H Seg Neutrophils % Retic Count (auto) Carbonic Acid HCO3/H2CO3 Ratio ABG pH ABG pCO2 ABG pO2 ABG HCO3 ABG O2 Saturation ABG Base Excess FiO2 Sodium 148.9 H Potassium 3.3 L Chloride 116 H Carbon Dioxide 25 Anion Gap 8 BUN 29 H Creatinine 0.93 Est GFR ( Amer) > 60 Glucose 144 H Calcium 7.7 L Magnesium Blood Type A POSITIVE Antibody Screen NEGATIVE 05/08/19 05/08/19 05/08/19 12:10 17:44 17:44 WBC 15.7 H RBC 2.82 L Hgb 7.8 L Hct 23.7 L MCV 84 MCH 27.8 MCHC 33.1 RDW 16.5 H Plt Count 482 H Seg Neutrophils % Retic Count (auto) 1.06 Carbonic Acid HCO3/H2CO3 Ratio ABG pH ABG pCO2 ABG pO2 ABG HCO3 ABG O2 Saturation ABG Base Excess FiO2 Sodium 145.3 H Potassium 3.1 L Chloride 115 H Carbon Dioxide 24 Anion Gap 6 BUN 26 H Creatinine 0.89 Est GFR ( Amer) > 60 Glucose 161 H Calcium 7.5 L Magnesium Blood Type Antibody Screen 05/08/19 05/09/19 05/09/19 22:08 02:23 05:03 WBC RBC Hgb Hct MCV MCH MCHC RDW Plt Count Seg Neutrophils % Retic Count (auto) Carbonic Acid 0.95 L HCO3/H2CO3 Ratio 24:1 ABG pH 7.49 H ABG pCO2 31.6 L ABG pO2 64.9 L ABG HCO3 23.3 ABG O2 Saturation 94.4 ABG Base Excess 0.2 FiO2 ROOM Sodium 141.2 144.9 Potassium 2.8 L* 3.3 L Chloride 109 H 115 H Carbon Dioxide 24 25 Anion Gap 8 5 BUN 25 H 22 H Creatinine 0.94 0.91 Est GFR ( Amer) > 60 > 60 Glucose 171 H 127 H Calcium 7.3 L 7.3 L Magnesium 1.5 L Blood Type Antibody Screen 05/09/19 05/09/19 05:55 05:55 WBC 15.3 H RBC 2.78 L Hgb 7.8 L Hct 23.6 L MCV 85 MCH 28.1 MCHC 33.1 RDW 16.6 H Plt Count 440 Seg Neutrophils % Not Reportable Retic Count (auto) Carbonic Acid HCO3/H2CO3 Ratio ABG pH ABG pCO2 ABG pO2 ABG HCO3 ABG O2 Saturation ABG Base Excess FiO2 Sodium 144.9 Potassium 3.4 L Chloride 113 H Carbon Dioxide 25 Anion Gap 7 BUN 21 H Creatinine 0.89 Est GFR ( Amer) > 60 Glucose 129 H Calcium 7.6 L Magnesium Blood Type Antibody Screen 05/02/19 05/02/19 05:57 08:47 Creatine Kinase 201 H Troponin I < 0.012 NT-Pro-B Natriuret Pep 1640 H Impressions: Abdomen/Pelvis CT 05/01/19 23:49 IMPRESSION: 1. Normal unenhanced CT scan of the abdomen and pelvis. There is no evidence of urinary tract calcification or urinary tract obstruction. There is no evidence of gallbladder pathology or acute appendicitis. 2. Occasional colonic diverticulosis. 3. Remote cholecystectomy. 4. Retroflexed myomatous uterus. Lower Extremity CT 05/02/19 00:00 IMPRESSION: Soft tissue edema distally in the lower extremity. It has raises the possibility of cellulitis. No abscess or mass. No bone pathology. Facial Bones CT 05/05/19 00:00 IMPRESSION: 2.8 -cm lesion of the subcutaneous left paracentral nasal tissues may indicate a phlegmon or chronic hematoma. Differential etiologies include infectious, inflammatory, and neoplastic processes. Venous Doppler Study 05/05/19 00:00 IMPRESSION: NO EVIDENCE DVT OR SVT IN EITHER LEG. Chest X-Ray 05/08/19 00:00 IMPRESSION: Endotracheal tube, right jugular line in good positioning. Bilateral airspace disease seen 05/07/2019 1958 hours has near completely clear ed All labs, radiographs, diagnostic studies and EKGs were personally reviewed: Yes In addition, reports of radiographic and diagnostic studies were read: Yes Assessment and Plan - Diagnosis (1) Shock, septic Is this a current diagnosis for this admission?: Yes Plan: White blood cell count lower and improved this morning. Continue to monitor (2) Necrotizing soft tissue infection Is this a current diagnosis for this admission?: Yes Plan: 05.09.19: Will evaluate stump today with surgeon. Infection resolved at site 05.08.19: Revision and closure of Right bka completed. Surgery relates that tissue was healthy and no further signs of infection 05.07.19: Closure scheduled for today. I have asked surgery to evaluate the wound deeply to assure that no active infection exist. 19: Will need closure of BKA. Spoke with surgery--plan for today or tomorrow 19: Continues to improve. Resolved septic crisis 05.04.19: Patient has improved since removal of the source. Continue supportive care and follow wound. 05.02-19: Patient has not improved drastically from yesterday. Although her leukocytosis is decreased, she remains acidotic and I fear source control is still an issue. Examination of the foot with surgical team confirmed that the infection is still present. Will go to OR today for guillotine amputation with future washouts prior to formalization. (3) Bacteremia due to methicillin susceptible Staphylococcus aureus (MSSA) Is this a current diagnosis for this admission?: Yes Plan: 05.09.19: Cultures negative X 2 (blood). Repeat only if recent cultures are negative 05.08.19: Repeat cultures pending. Changed antibiotics to Ancef. D/C clindamycin today. 05.07.19: Cultures negative for blood. 05.06.19: Cultures remain negative 05.05.19: Q48 hour blood culture. Echo negative 05.04.19:[place]ston-sensitive. Change to Nafcillin. ID consult (4) Encephalopathy due to metabolic factor or toxin Is this a current diagnosis for this admission?: Yes Plan: Improving. Has delerium at night and suspect related to baseline dementia and "owning". (5) Acute kidney injury superimposed on chronic kidney disease Is this a current diagnosis for this admission?: Yes Plan: Resolved. Has post-ATN diuresis. Na improved 05.08.19:Continues to improve. Replace electrolytes and will continue IV fluids to lower sodium. Unable to place NGT secondary to recent infection 05.07.19:Much improved. I am suspicious for post ATN diuresis given her elev ation in sodium. Placing free water deficits and monitoring urine output. I's and O's were evaluated and she is in a fluid deficit Was on NSAIDS prior to admission. Improving. Continue supportive care (6) Necrotizing fasciitis of ankle and foot Is this a current diagnosis for this admission?: Yes (7) Acute hypernatremia Is this a current diagnosis for this admission?: Yes Plan: 05.09.19: continues to improve. Will d/c IVF, encourage po intake 05.08.19: Improving. continue IV fluids (8) Acute metabolic encephalopathy Is this a current diagnosis for this admission?: Yes (9) Metabolic acidosis Is this a current diagnosis for this admission?: Yes Plan: Resolved (10) Soft tissue infection Is this a current diagnosis for this admission?: Yes Plan: 05.09.19: Nose is much improved. On ancef for bacteremia and MSSA abscess of nose. Supportive care 05.08.19: Improving. No NGT for now. Changed to Ancef for MSSA 05.07.19: Nasal I&D culture shows MSSA 05.06.19: S/P I&D. Improved. Packing removed by patient. Preliminary gram stain G+ bacteria 05.05.19:Of left aspect of nose. Will obtain ENT consult. (11) Essential thrombocytosis Is this a current diagnosis for this admission?: Yes Plan: 05.09.19: Much improved. vWf level and antigen are elevated but were drawn during acute phase. Will need to follow. Continue ASA and prophylactic heparin. 05.08.19: Still elevated. On ASA, no bleeding. May need to consider Hydroxyurea? vWF and JAK2 still pending 05.07.20:Counts still elevated and may represent dehydration. Continue ASA. Awaiting vWf and JAK2 studies (12) History of atrial fibrillation Is this a current diagnosis for this admission?: Yes Plan: 05.09.19: Remains Quiescent. No active issues. Sinus rhythm (13) Anemia Qualifiers: Anemia type: other cause Other causes of anemia: other cause, not classified Qualified Code(s): D64.89 - Other specified anemias Is this a current diagnosis for this admission?: Yes Plan: Suspect critical illness and dilutional effect. Stable (14) Hypokalemia due to excessive renal loss of potassium Is this a current diagnosis for this admission?: Yes Plan: Replacement on-going. Will add daily supplementation Plan Summary: 05.09.19: Patient continues to show continued improvement. Have started Lyrica for stump pain and potential phantom pain. Has significant sundowning at night and we will need to be vigilant for this process when she is transferred from the ICU. Her hypernatremia and leukocytosis have dramatically improved. In addition her thrombocytopenia has improved dramatically. Will encourage oral p.o. intake, discontinue IVs, discontinue Moreno and central line. Continue physical therapy and Occupational Therapy. Patient suitable for downgrade. Will transition to oral antihypertensive medications. She had been on verapamil but has done quite well with just beta-akbar. Will hold verapamil at this point. 05.08.19: Patient has remained on the ventilator and we will begin SBT to liberate this morning. Her hemoglobin was unexpectedly low and have sent repeat from peripheral blood. We will has thrombocytosis will speak with hematology about the possible need for hydroxyurea. Her white count is still elevated and this may represent postsurgical changes however will need to be prudent to watch for other sources of infection. Fortunately I do not have procalcitonin available to determine degree of improvement or worsening. Will order CRP as an indirect measurement. White count remains elevated will need to continue to search for alternative areas of infection. She did have a TTE but she may require a NATALIYA. Repeat blood cultures have been sent. Central lines all appear clean dry there is no erythema and were recently placed. Wait repeat blood cultures to determine clearance. Have DC'd clindamycin 19: We will begin to replace free water deficits this morning. Follow frequent BMPs. Sodium increase may be a combination of post ATN diuresis with dehydration and possibly Zosyn Patient is extremely agitated this morning and in pain in the right BKA region. He is scheduled to go to the OR today for formal revision and completion. I have asked surgery to evaluate the deep tissues to assure that no infection exist. Her white count is elevated as well her platelets and this may be a reflection of dehydration. On examination she has dry mucous membranes also suggestive clinically of dehydration. Hypernatremia may contribute to her agitation encephalopathy as well and will correct this. She is required pain medications and has a history of dementia and has been on s edation. We are vigilant to assure that this encephalopathy is related to metabolic and toxic effects of her condition and not a AUTOM[employer]BILE APPR[employer]ISER infection. She has no evidence of meningitis at this point and she does follow commands and discloses and endorses leg pain. Will need to be prudent about control of pain and reduction of delirium. Continue to monitor closely in the ICU. Hold heparin in anticipation for surgery. Critical Time Critical Time (minutes): 0 - [id number] Level of Care: MEDICAL Anticipated discharge: Acute Rehab Within: within 48 hours -: 1. The care of a critical patient is a dynamic process. This note is a human resources hr representative synopsis but static in nature. The timeframe for treatments given in order is not necessarily the actual time these treatments may have been done. 2. This patient requires critical care secondary to ongoing requirements for therapy not offered or safe outside the critical care environment. Transfer to a lower level of care will result in altered life or limb morbidity and mortality. 3. Multidisciplinary rounds completed. 4. ABCDE bundle addressed.
[2019-05-09] MEDS: AMLODIPINE BESYLATE 5 MG TABLET PO SCH (10:17)
[2019-05-09] MEDS: MONTELUKAST SODIUM 10 MG TABLET PO SCH (10:17)
[2019-05-09] MEDS: METOPROLOL TARTRATE 50 MG TABLET PO SCH ×2 (10:17→22:30)
[2019-05-09] MEDS: OXYCODONE-ACETAMINOPHEN 5-325 MG TABLET PO PRN ×3 (10:17→20:02)
[2019-05-09] MEDS: PREGABALIN 50 MG CAPSULE PO SCH (10:18)
[2019-05-09 11:13] LABS: ANION GAP 6 (5-19); BLOOD UREA NITROGEN 20 mg/dL (7-20); CALCIUM 8.1 mg/dL (8.4-10.2); CARBON DIOXIDE 23 mmol/L (22-30); CHLORIDE 114 mmol/L (98-107); GLUCOSE 165 mg/dL (75-110); POTASSIUM 3.9 mmol/L (3.6-5.0)
[2019-05-09] MEDS: FLUTICASONE/VILANTEROL 200-25 MCG/DOSE IH SCH (17:50)
--- NOTE | 2019-05-09 20:28 | PDOC PROGRESS REPORT ---
Subjective Progress Note for:: 05/09/19 Reason For Visit: METABOLIC ACIDOSIS Physical Exam Vital Signs: Temp Pulse Resp BP Pulse Ox 98.6 F 67 18 147/59 H 77 L 05/09/19 03:42 05/09/19 08:25 05/09/19 08:25 05/09/19 11:59 05/09/19 14:02 Intake & Output 05/08/19 05/09/19 05/10/19 06:59 06:59 06:59 Intake Total 2174 3080 150 Output Total 2485 1355 140 Balance -311 1725 10 Weight 67.9 kg 73.4 kg 73.4 kg Results Laboratory Results: 05/09/19 05:55 05/09/19 10:27 05/08/19 05/09/19 05/09/19 22:08 02:23 05:03 WBC RBC Hgb Hct MCV MCH MCHC RDW Plt Count Seg Neutrophils % Carbonic Acid 0.95 L HCO3/H2CO3 Ratio 24:1 ABG pH 7.49 H ABG pCO2 31.6 L ABG pO2 64.9 L ABG HCO3 23.3 ABG O2 Saturation 94.4 ABG Base Excess 0.2 FiO2 ROOM Sodium 141.2 144.9 Potassium 2.8 L* 3.3 L Chloride 109 H 115 H Carbon Dioxide 24 25 Anion Gap 8 5 BUN 25 H 22 H Creatinine 0.94 0.91 Est GFR ( Amer) > 60 > 60 Glucose 171 H 127 H Calcium 7.3 L 7.3 L Magnesium 1.5 L 05/09/19 05/09/19 05/09/19 05:55 05:55 10:27 WBC 15.3 H RBC 2.78 L Hgb 7.8 L Hct 23.6 L MCV 85 MCH 28.1 MCHC 33.1 RDW 16.6 H Plt Count 440 Seg Neutrophils % Not Reportable Carbonic Acid HCO3/H2CO3 Ratio ABG pH ABG pCO2 ABG pO2 ABG HCO3 ABG O2 Saturation ABG Base Excess FiO2 Sodium 144.9 143.3 Potassium 3.4 L 3.9 Chloride 113 H 114 H Carbon Dioxide 25 23 Anion Gap 7 6 BUN 21 H 20 Creatinine 0.89 0.91 Est GFR ( Amer) > 60 > 60 Glucose 129 H 165 H Calcium 7.6 L 8.1 L Magnesium 05/02/19 05/02/19 05:57 08:47 Creatine Kinase 201 H Troponin I < 0.012 NT-Pro-B Natriuret Pep 1640 H Impressions: Abdomen/Pelvis CT 05/01/19 23:49 IMPRESSION: 1. Normal unenhanced CT scan of the abdomen and pelvis. There is no evidence of urinary tract calcification or urinary tract obstruction. There is no evidence of gallbladder pathology or acute appendicitis. 2. Occasional colonic diverticulosis. 3. Remote cholecystectomy. 4. Retroflexed myomatous uterus. Lower Extremity CT 05/02/19 00:00 IMPRESSION: Soft tissue edema distally in the lower extremity. It has raises the possibility of cellulitis. No abscess or mass. No bone pathology. Facial Bones CT 05/05/19 00:00 IMPRESSION: 2.8 -cm lesion of the subcutaneous left paracentral nasal tissues may indicate a phlegmon or chronic hematoma. Differential etiologies include infectious, inflammatory, and neoplastic processes. Venous Doppler Study 05/05/19 00:00 IMPRESSION: NO EVIDENCE DVT OR SVT IN EITHER LEG. Chest X-Ray 05/08/19 00:00 IMPRESSION: Endotracheal tube, right jugular line in good positioning. Bilateral airspace disease seen 05/07/2019 1958 hours has near completely cleared Assessment & Plan - Diagnosis (1) Necrotizing fasciitis of ankle and foot Is this a current diagnosis for this admission?: Yes - Time Time Spent with patient: Less than 15 minutes - Plan Summary Plan Summary: This is a 74-year-old female with a severe right foot infection, requiring below-knee amputation. I have removed her dressing today. Her amputation site looks good. There is no sign of hematoma, erythema, induration, or ongoing infection. I have removed her hard splint. I have wrapped the amputation stump and an Jim bandage, and placed a soft knee immobilizer. The patient may begin working with physical therapy. Will follow.
[2019-05-09] MEDS ORDERED: CEFAZOLIN 1 GM/D5W RTU 2 GM/100 ML RTUPB IV ONE (23:01)
[2019-05-10] MEDS: HYDROMORPHONE HCL INJ/PF 2 MG/ML AMPULE IV PRN (01:03)
[2019-05-10] MEDS: OXYCODONE-ACETAMINOPHEN 5-325 MG TABLET PO PRN ×3 (04:52→17:11)
[2019-05-10] MEDS: CEFAZOLIN SODIUM 1 GM in DEXTROSE 5%-WATER 50 ML IV SCH ×3 (05:34→22:31)
[2019-05-10] MEDS: HEPARIN SOD (PORCINE) 5,000 UNIT/ML 1 ML VIAL SUBCUT SCH ×3 (05:34→22:25)
[2019-05-10] MEDS: METOPROLOL TARTRATE 50 MG TABLET PO SCH ×2 (09:12→22:25)
[2019-05-10] MEDS: AMLODIPINE BESYLATE 5 MG TABLET PO SCH (09:12)
[2019-05-10] MEDS: PREGABALIN 50 MG CAPSULE PO SCH (09:12)
[2019-05-10] MEDS: MONTELUKAST SODIUM 10 MG TABLET PO SCH (09:12)
--- NOTE | 2019-05-10 10:15 | PDOC PROGRESS REPORT ---
Subjective Progress Note for:: 05/10/19 Reason For Visit: METABOLIC ACIDOSIS Physical Exam Vital Signs: Temp Pulse Resp BP Pulse Ox 98.7 F 76 18 181/73 H 98 05/10/19 08:00 05/10/19 08:00 05/10/19 08:00 05/10/19 08:00 05/10/19 08:00 Intake & Output 05/09/19 05/10/19 05/11/19 06:59 06:59 06:59 Intake Total 3080 460 Output Total 1355 1140 Balance 1725 -680 Weight 73.4 kg 73.4 kg Results Laboratory Results: 05/09/19 05:55 05/09/19 10:27 05/09/19 10:27 Sodium 143.3 Potassium 3.9 Chloride 114 H Carbon Dioxide 23 Anion Gap 6 BUN 20 Creatinine 0.91 Est GFR ( Amer) > 60 Glucose 165 H Calcium 8.1 L 05/02/19 05/02/19 05:57 08:47 Creatine Kinase 201 H Troponin I < 0.012 NT-Pro-B Natriuret Pep 1640 H Impressions: Abdomen/Pelvis CT 05/01/19 23:49 IMPRESSION: 1. Normal unenhanced CT scan of the abdomen and pelvis. There is no evidence of urinary tract calcification or urinary tract obstruction. There is no evidence of gallbladder pathology or acute appendicitis. 2. Occasional colonic diverticulosis. 3. Remote cholecystectomy. 4. Retroflexed myomatous uterus. Lower Extremity CT 05/02/19 00:00 IMPRESSION: Soft tissue edema distally in the lower extremity. It has raises the possibility of cellulitis. No abscess or mass. No bone pathology. Facial Bones CT 05/05/19 00:00 IMPRESSION: 2.8 -cm lesion of the subcutaneous left paracentral nasal tissues may indicate a phlegmon or chronic hematoma. Differential etiologies include infectious, inflammatory, and neoplastic processes. Venous Doppler Study 05/05/19 00:00 IMPRESSION: NO EVIDENCE DVT OR SVT IN EITHER LEG. Chest X-Ray 05/08/19 00:00 IMPRESSION: Endotracheal tube, right jugular line in good positioning. Bilateral airspace disease seen 05/07/2019 1958 hours has near completely cleared Assessment & Plan - Diagnosis (1) Necrotizing fasciitis of ankle and foot Is this a current diagnosis for this admission?: Yes - Time Time Spent with patient: Less than 15 minutes - Plan Summary Plan Summary: This is a 74-year-old female with a severe right foot infection, requiring below-knee amputation. Her amputation site looks good. The Jim wrap is intact. She is wearing her knee immobilizer. The patient may begin working with physical therapy. Will follow.
[2019-05-10] MEDS ORDERED: HYDRALAZINE HCL INJ/PF 20 MG/1 ML SDV IV PRN (11:08)
[2019-05-10] MEDS ORDERED: ONDANSETRON HCL INJ/PF 4 MG/2 ML SDV IV PRN (13:32)
[2019-05-10 14:50] LABS: HEMATOCRIT 30.8 % (36.0-47.0); MEAN CORPUSCULAR HGB CONC 33.1 g/dL (32.0-36.0); MEAN CORPUSCULAR VOLUME 85 fl (80-97); RED BLOOD COUNT 3.64 10^6/uL (3.72-5.28); RED CELL DISTRIBUTION WIDTH 16.6 % (11.5-14.0); WHITE BLOOD COUNT 21.9 10^3/uL (4.0-10.5)
[2019-05-10 15:14] LABS: HEMOGLOBIN 10.2 g/dL (12.0-15.5); PLATELET COUNT 411 10^3/uL (150-450)
--- NOTE | 2019-05-10 15:28 | PDOC PROGRESS REPORT ---
Subjective Progress Note for:: 05/10/19 Subjective:: No adverse events overnight. No new complaints. She has been breathing well since she was extubated. Her appetite is good. She still little depressed about losing her leg but she knows that she would have if she had not had it surgically removed. Her central line was removed today. Reason For Visit: METABOLIC ACIDOSIS Physical Exam Vital Signs: Temp Pulse Resp BP Pulse Ox 98.7 F 70 16 186/84 H 98 05/10/19 11:15 05/10/19 14:29 05/10/19 14:29 05/10/19 11:15 05/10/19 14:29 Intake & Output 05/09/19 05/10/19 05/11/19 06:59 06:59 06:59 Intake Total 3080 460 170 Output Total 1355 1140 500 Balance 1725 -680 -330 Weight 73.4 kg 73.4 kg General appearance: PRESENT: no acute distress, cooperative, disheveled Respiratory exam: PRESENT: clear to auscultation edenilson, symmetrical, unlabored. ABSENT: accessory muscle use, chest wall tenderness, crackles, prolonged expiratory phas, rhonchi, tachypnea, wheezes Cardiovascular exam: PRESENT: RRR, +S1, +S2 Pulses: PRESENT: normal carotid pulses Vascular exam: PRESENT: normal capillary refill GI/Abdominal exam: PRESENT: normal bowel sounds, soft. 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 with an Jim bandage Neurological exam: PRESENT: alert, awake, oriented to person, oriented to place, oriented to situation Psychiatric exam: PRESENT: appropriate affect, normal mood Skin exam: PRESENT: dry, warm Results Laboratory Results: 05/10/19 14:20 05/10/19 14:20 05/10/19 05/10/19 14:20 14:20 WBC 21.9 H RBC 3.64 L Hgb 10.2 L D Hct 30.8 L MCV 85 MCH 28.0 MCHC 33.1 RDW 16.6 H Plt Count 411 Sodium Cancelled Potassium Cancelled Chloride Cancelled Carbon Dioxide Cancelled Anion Gap Cancelled BUN Cancelled Creatinine Cancelled Est GFR ( Amer) Cancelled Est GFR (Non-Af Amer) Cancelled Glucose Cancelled Calcium Cancelled 05/05/19 15:00 Blood Blood Culture - Final NO GROWTH IN 5 DAYS 05/05/19 14:34 Blood Blood Culture - Final NO GROWTH IN 5 DAYS 05/02/19 05/02/19 05:57 08:47 Creatine Kinase 201 H Troponin I < 0.012 NT-Pro-B Natriuret Pep 1640 H Impressions: Abdomen/Pelvis CT 05/01/19 23:49 IMPRESSION: 1. Normal unenhanced CT scan of the abdomen and pelvis. There is no evidence of urinary tract calcification or urinary tract obstruction. There is no evidence of gallbladder pathology or acute appendicitis. 2. Occasional colonic diverticulosis. 3. Remote cholecystectomy. 4. Retroflexed myomatous uterus. Lower Extremity CT 05/02/19 00:00 IMPRESSION: Soft tissue edema distally in the lower extremity. It has raises the possibility of cellulitis. No abscess or mass. No bone pathology. Facial Bones CT 05/05/19 00:00 IMPRESSION: 2.8 -cm lesion of the subcutaneous left paracentral nasal tissues may indicate a phlegmon or chronic hematoma. Differential etiologies include infectious, inflammatory, and neoplastic processes. Venous Doppler Study 05/05/19 00:00 IMPRESSION: NO EVIDENCE DVT OR SVT IN EITHER LEG. Chest X-Ray 05/08/19 00:00 IMPRESSION: Endotracheal tube, right jugular line in good positioning. Bilateral airspace disease seen 05/07/2019 1958 hours has near completely cleared Assessment and Plan - Diagnosis (1) Acute hypernatremia Is this a current diagnosis for this admission?: Yes Plan: Resolved (2) Acute kidney injury superimposed on chronic kidney disease Is this a current diagnosis for this admission?: Yes Plan: Resolved (3) Acute metabolic encephalopathy Is this a current diagnosis for this admission?: Yes Plan: Resolved (4) Bacteremia due to methicillin susceptible Staphylococcus aureus (MSSA) Is this a current diagnosis for this admission?: Yes Plan: Last set of blood cultures drawn on the was negative. Another set is due to be drawn tomorrow. Plan is for 2 weeks of IV antibiotics from the last negative set of blood cultures. She has an MSSA and is on Ancef. (5) Essential thrombocytosis Is this a current diagnosis for this admission?: Yes Plan: Resolved (6) Necrotizing fasciitis of ankle and foot Is this a current diagnosis for this admission?: Yes Plan: Antibiotics as above, wound care recommendations per surgery. She is been cleared to start physical therapy. (7) Shock, septic Is this a current diagnosis for this admission?: Yes Plan: Resolved - Time Time Spent with patient: 15-24 minutes
[2019-05-10 16:19] LABS: ANION GAP 5 (5-19); BLOOD UREA NITROGEN 14 mg/dL (7-20); CALCIUM 8.4 mg/dL (8.4-10.2); CARBON DIOXIDE 27 mmol/L (22-30); CHLORIDE 110 mmol/L (98-107); GLUCOSE 125 mg/dL (75-110); POTASSIUM 3.4 mmol/L (3.6-5.0)
[2019-05-10] MEDS ORDERED: FLUTICASONE/VILANTEROL 200-25 MCG/DOSE IH ONE (17:04)
[2019-05-10] MEDS: FLUTICASONE/VILANTEROL 200-25 MCG/DOSE IH SCH (17:10)
[2019-05-11] MEDS: OXYCODONE-ACETAMINOPHEN 5-325 MG TABLET PO PRN (03:07)
[2019-05-11] MEDS: HEPARIN SOD (PORCINE) 5,000 UNIT/ML 1 ML VIAL SUBCUT SCH ×3 (05:47→23:30)
[2019-05-11] MEDS: CEFAZOLIN SODIUM 1 GM in DEXTROSE 5%-WATER 50 ML IV SCH ×3 (05:48→23:30)
[2019-05-11] MEDS: MONTELUKAST SODIUM 10 MG TABLET PO SCH (09:42)
[2019-05-11] MEDS: METOPROLOL SUCCINATE 50 MG TAB.SR.24H PO SCH (09:42)
[2019-05-11] MEDS: PREGABALIN 50 MG CAPSULE PO SCH (09:43)
[2019-05-11] MEDS: AMLODIPINE BESYLATE 5 MG TABLET PO SCH (09:43)
[2019-05-11] MEDS: DONEPEZIL HCL 5 MG TABLET PO SCH (09:43)
[2019-05-11] MEDS: FLUTICASONE/VILANTEROL 200-25 MCG/DOSE IH SCH (09:44)
[2019-05-11] MEDS: VERAPAMIL HCL 240 MG TABLET.SA PO SCH (09:50)
--- NOTE | 2019-05-11 09:57 | PDOC PROGRESS REPORT ---
Subjective Progress Note for:: 05/11/19 Subjective:: 24-year-old female admitted with sepsis, necrotizing fasciitis, metabolic encephalopathy, acute on chronic kidney injury which was resolved presently on IV cefazolin. She pulled out the central line pulled out the peripheral line waiting for PICC line placement plan is to discuss with the family members discharge plan with presented to the rehab back to home with home health. It is not sure what she wants to do. She has a low-grade fever 99.3 today WBC count w ent up to 22,000. Repeat blood cultures are pending. Blood cultures and tracheal aspirate indicates MSSA. Reason For Visit: METABOLIC ACIDOSIS Physical Exam Vital Signs: Temp Pulse Resp BP Pulse Ox 98.6 F 80 16 199/78 H 97 05/11/19 08:00 05/11/19 09:04 05/11/19 09:04 05/11/19 08:00 05/11/19 09:04 Intake & Output 05/10/19 05/11/19 05/12/19 06:59 06:59 06:59 Intake Total 460 500 Output Total 1140 2250 Balance -680 -1750 Weight 73.4 kg 69 kg General appearance: PRESENT: no acute distress, cooperative, obese Head exam: PRESENT: atraumatic Eye exam: PRESENT: PERRLA Mouth exam: PRESENT: moist, tongue midline Neck exam: ABSENT: carotid bruit, JVD, lymphadenopathy, thyromegaly Respiratory exam: PRESENT: clear to auscultation edenilson. ABSENT: rales, rhonchi, wheezes Cardiovascular exam: PRESENT: RRR. ABSENT: diastolic murmur, rubs, systolic murmur GI/Abdominal exam: PRESENT: normal bowel sounds, soft. ABSENT: distended, guarding, mass, organolmegaly, rebound, tenderness Rectal exam: PRESENT: deferred Extremities exam: PRESENT: other - Patient has a right BKA present. Neurological exam: PRESENT: alert, awake, oriented to person, oriented to place, oriented to time, oriented to situation, CN II-XII grossly intact. ABSENT: motor sensory deficit Psychiatric exam: PRESENT: appropriate affect, normal mood. ABSENT: homicidal ideation, suicidal ideation Results Laboratory Results: 05/10/19 14:20 05/10/19 15:55 12/22/19 12/22/19 12/22/19 14:20 14:20 15:55 WBC 21.9 H RBC 3.64 L Hgb 10.2 L D Hct 30.8 L MCV 85 MCH 28.0 MCHC 33.1 RDW 16.6 H Plt Count 411 Sodium Cancelled 142.1 Potassium Cancelled 3.4 L Chloride Cancelled 110 H Carbon Dioxide Cancelled 27 Anion Gap Cancelled 5 BUN Cancelled 14 Creatinine Cancelled 0.78 Est GFR ( Amer) Cancelled > 60 Est GFR (Non-Af Amer) Cancelled Glucose Cancelled 125 H Calcium Cancelled 8.4 05/07/19 21:30 Tracheal Aspirate Gram Stain - Final 05/07/19 21:30 Tracheal Aspirate Sputum Culture - Final Staphylococcus Aureus Normal Rocío Absent 05/05/19 15:00 Blood Blood Culture - Final NO GROWTH IN 5 DAYS 05/05/19 14:34 Blood Blood Culture - Final NO GROWTH IN 5 DAYS 05/02/19 05/02/19 05:57 08:47 Creatine Kinase 201 H Troponin I < 0.012 NT-Pro-B Natriuret Pep 1640 H Impressions: Abdomen/Pelvis CT 05/01/19 23:49 IMPRESSION: 1. Normal unenhanced CT scan of the abdomen and pelvis. There is no evidence of urinary tract calcification or urinary tract obstruction. There is no evidence of gallbladder pathology or acute appendicitis. 2. Occasional colonic diverticulosis. 3. Remote cholecystectomy. 4. Retroflexed myomatous uterus. Lower Extremity CT 05/02/19 00:00 IMPRESSION: Soft tissue edema distally in the lower extremity. It has raises the possibility of cellulitis. No abscess or mass. No bone pathology. Facial Bones CT 05/05/19 00:00 IMPRESSION: 2.8 -cm lesion of the subcutaneous left paracentral nasal tissues may indicate a phlegmon or chronic hematoma. Differential etiologies include infectious, inflammatory, and neoplastic processes. Venous Doppler Study 05/05/19 00:00 IMPRESSION: NO EVIDENCE DVT OR SVT IN EITHER LEG. Chest X-Ray 05/08/19 00:00 IMPRESSION: Endotracheal tube, right jugular line in good positioning. Bilateral airspace disease seen 05/07/2019 1958 hours has near completely cleared Assessment and Plan - Diagnosis (1) Shock, septic Is this a current diagnosis for this admission?: Yes Plan: Resolved 05/11/2019-patient is initially admitted to intensive care for septic shock transferred to medical floor vital signs are stable. Patient is presently on IV cefazolin. Waiting for a PICC line placement today. (2) Acute kidney injury superimposed on chronic kidney disease Is this a current diagnosis for this admission?: Yes Plan: Resolved. Has post-ATN diuresis. Na improved .:Continues to improve. Replace electrolytes and will continue IV fluids to lower sodium. Unable to place NGT secondary to recent infection 05.07.19:Much improved. I am suspicious for post ATN diuresis given her elevati on in sodium. Placing free water deficits and monitoring urine output. I's and O's were evaluated and she is in a fluid deficit Was on NSAIDS prior to admission. Improving. Continue supportive care 05/11/2019-patient admitted with acute kidney injury most likely secondary to sepsis which was resolved latest serum creatinine is 0.78. Currently not on IV fluids. (3) Acute metabolic encephalopathy Is this a current diagnosis for this admission?: Yes Plan: Resolved 2018-patient admitted for metabolic encephalopathy most likely secondary to sepsis and necrotizing fasciitis metabolic encephalopathy is resolved. (4) Acute hypernatremia Is this a current diagnosis for this admission?: Yes Plan: Resolved ALT 2018-serum sodium is 142 today hyponatremia resolved. (5) Essential thrombocytosis Is this a current diagnosis for this admission?: Yes Plan: Resolved (6) Metabolic acidosis Is this a current diagnosis for this admission?: Yes Plan: As discussed above. Despite hydration, surgical intervention and hype rventilation the patient still has a moderate to severe metabolic acidosis with respiratory compensation. She has not drastically improved from yesterday and in the setting of chronic renal disease she would likely benefit from sodium bicarbonate administration. 09/09/2018-with IV hydration, surgical intervention and hyperventilation severe metabolic acidosis is resolved. Latest serum bicarb is 27. (7) Necrotizing fasciitis of ankle and foot Is this a current diagnosis for this admission?: Yes Plan: Antibiotics as above, wound care recommendations per surgery. She is been cleared to start physical therapy. 09/09/2018-patient admitted for necrotizing fasciitis of her ankle and fascia surgical intervention was done she was cleared for physical therapy. Still receiving IV cefazolin plan is to give a 2 weeks course of antibiotics.
[2019-05-11] MEDS ORDERED: (PENDING PHARMACY ID) (Donepezil Hcl [Donepezil Hcl] 10 MG) PO SCH (10:00)
[2019-05-11] MEDS ORDERED: (PENDING PHARMACY ID) (Budesonide [Pulmicort 180 Mcg Flexhaler] 1 PUFF) IH SCH (10:00)
[2019-05-11] MEDS ORDERED: (PENDING PHARMACY ID) (Metoprolol Succinate [Metoprolol Succinate] 100 MG) PO SCH (10:00)
[2019-05-11 11:26] LABS: HEMATOCRIT 28.1 % (36.0-47.0); HEMOGLOBIN 9.3 g/dL (12.0-15.5); MEAN CORPUSCULAR HEMOGLOBIN 28.2 pg (27.0-33.4); MEAN CORPUSCULAR VOLUME 85 fl (80-97); PLATELET COUNT 522 10^3/uL (150-450); RED BLOOD COUNT 3.29 10^6/uL (3.72-5.28); RED CELL DISTRIBUTION WIDTH 16.7 % (11.5-14.0); WHITE BLOOD COUNT 21.1 10^3/uL (4.0-10.5)
[2019-05-11 11:48] LABS: ALBUMIN 2.9 g/dL (3.5-5.0); ALKALINE PHOSPHATASE 123 U/L (38-126); ANION GAP 10 (5-19); ASPARTATE AMINO TRANSFERASE 60 U/L (14-36); BILIRUBIN,DIRECT 0.2 mg/dL (0.0-0.4); BILIRUBIN,TOTAL 0.4 mg/dL (0.2-1.3); BLOOD UREA NITROGEN 12 mg/dL (7-20); CALCIUM 8.4 mg/dL (8.4-10.2); CARBON DIOXIDE 27 mmol/L (22-30); CHLORIDE 105 mmol/L (98-107); GLUCOSE 138 mg/dL (75-110); POTASSIUM 3.4 mmol/L (3.6-5.0); TOTAL PROTEIN 5.8 g/dL (6.3-8.2)
--- NOTE | 2019-05-11 12:07 | RADIOLOGY REPORT (SQ) ---
EXAM DESCRIPTION: PICC INSERTION; FLUORO/CV PLACEMENT; U/S GUIDE FOR VASCULAR ACCESS COMPLETED DATE/TIME: 05/11/2019 11:44 am REASON FOR STUDY: Need for IV access; IV ABX COMPARISON: AP chest 05/08/2019 FLUOROSCOPY TIME: 23 seconds 1 ultrasound and 1 fluoroscopic digital radiographic images saved to PACS. TECHNIQUE: Fluoroscopic and ultrasound guided PICC placement. LIMITATIONS: None. PROCEDURE: After written consent and assessment were obtained, the patient was brought into the fluo roscopy room and placed supine on the table. Ultrasound evaluation of potential access sites were per formed. After successfully identifying a patent left basilic vein, the left arm was prepped and drape d in a sterile fashion along with the ultrasound probe. The entry site was anesthetized with 1% lidoc laura. A 21 gauge 7 cm needle was advanced through the skin and into the basilic vein under live ultra sound guidance. An ultrasound image was saved to PACS confirming access site. A .018 guide wire was then inserted through the needle and into the venous system. The needle was then removed and an 11 b lade scalpel was used to make a 1cm skin incision. A 5 fr peel-away sheath was advanced over the wir e and into the venous system. A measurement was then made using the existing wire and live fluoroscop ic guidance. The wire was then removed and trimmed. The PICC was advanced through the peel-away sheat h and into the venous system. The peel-away sheath was removed and the catheter was adhered to the pa tients arm with a stat lock. The catheter was then aspirated and flushed and a sterile bandage was pl aced over the access site. A fluoroscopic spot image was saved to PACS confirming the catheter tip w ithin the superior vena cava. IMPRESSION: SUCCESSFUL PLACEMENT OF A 5 FR DUAL LUMEN 40 CM PICC IN THE LEFT BASILIC VEIN. COMMENT: Patient medication list reviewed: Yes- Quality ID# 130:Eligible professional attests to doc umenting in the medical record they obtained, updated, or reviewed the patient's current medications. . Quality ID 145: Final reports for procedures using fluoroscopy that document radiation exposure andrew leigh, or exposure time and number of fluorographic images (if radiation exposure indices are not avail able) Quality ID #76: The patient was prepped and draped using maximum sterile barrier technique including cap, mask, sterile gown, sterile gloves, a large sterile sheet, hand hygiene, and 2% Chlorhexidine fo r cutaneous antisepsis. When ultrasound is used, sterile ultrasound techniques are followed requiring sterile gel and sterile probes. TECHNICAL DOCUMENTATION: JOB ID: [id number] [employer]- All Rights Reserved rev-10/04 Reading location - IP[facility]workstation name: [email or web address]
[2019-05-11 12:28] LABS: ABSOLUTE LYMPHOCYTES# (MANUAL) 2.3 10^3/uL (0.5-4.7); ABSOLUTE MONOCYTES # (MANUAL) 2.1 10^3/uL (0.1-1.4); BASOPHILS % (MANUAL) 0 % (0-2); EOSINOPHILS % (MANUAL) 2 % (0-6); LYMPHOCYTES % (MANUAL) 11 % (13-45); METAMYELOCYTES % (MANUAL) 1 % (0-1); MONOCYTES % (MANUAL) 10 % (3-13); SEGMENTED NEUTROPHILS % (MAN) 76 % (42-78); TOTAL CELLS COUNTED 100
[2019-05-11 12:34] LABS: ANISOCYTOSIS 1+; OVALOCYTES SLIGHT; PLATELET COMMENT INCREASED; POLYCHROMASIA SLIGHT
--- NOTE | 2019-05-11 15:12 | PDOC PROGRESS REPORT ---
Subjective Progress Note for:: 05/11/19 Subjective:: Patient comfortable, she appears to be confused about place and situation Reason For Visit: METABOLIC ACIDOSIS Physical Exam Vital Signs: Temp Pulse Resp BP Pulse Ox 98.6 F 80 16 199/78 H 97 05/11/19 08:00 05/11/19 09:04 05/11/19 09:04 05/11/19 08:00 05/11/19 09:04 Intake & Output 05/10/19 05/11/19 05/12/19 06:59 06:59 06:59 Intake Total 460 500 120 Output Total 1140 2250 Balance -680 -1750 120 Weight 73.4 kg 69 kg General appearance: PRESENT: no acute distress Extremities exam: PRESENT: other - Right BKA site = dressings in place, clean, dry, and intact Results Laboratory Results: 05/11/19 10:52 05/11/19 10:52 05/10/19 05/10/19 05/11/19 14:20 15:55 10:52 WBC 21.9 H 21.1 H RBC 3.64 L 3.29 L Hgb 10.2 L D 9.3 L Hct 30.8 L 28.1 L MCV 85 85 MCH 28.0 28.2 MCHC 33.1 33.0 RDW 16.6 H 16.7 H Plt Count 411 522 H Seg Neutrophils % Not Reportable Sodium 142.1 Potassium 3.4 L Chloride 110 H Carbon Dioxide 27 Anion Gap 5 BUN 14 Creatinine 0.78 Est GFR ( Amer) > 60 Glucose 125 H Calcium 8.4 Magnesium Total Bilirubin AST Alkaline Phosphatase Total Protein Albumin 05/11/19 10:52 WBC RBC Hgb Hct MCV MCH MCHC RDW Plt Count Seg Neutrophils % Sodium 141.6 Potassium 3.4 L Chloride 105 Carbon Dioxide 27 Anion Gap 10 BUN 12 Creatinine 0.84 Est GFR ( Amer) > 60 Glucose 138 H Calcium 8.4 Magnesium 1.5 L Total Bilirubin 0.4 AST 60 H Alkaline Phosphatase 123 Total Protein 5.8 L Albumin 2.9 L 05/07/19 21:30 Tracheal Aspirate Gram Stain - Final 05/07/19 21:30 Tracheal Aspirate Sputum Culture - Final Staphylococcus Aureus Normal Rocío Absent 05/05/19 15:00 Blood Blood Culture - Final NO GROWTH IN 5 DAYS 05/05/19 14:34 Blood Blood Culture - Final NO GROWTH IN 5 DAYS 05/02/19 05/02/19 05:57 08:47 Creatine Kinase 201 H Troponin I < 0.012 NT-Pro-B Natriuret Pep 1640 H Impressions: Abdomen/Pelvis CT 05/01/19 23:49 IMPRESSION: 1. Normal unenhanced CT scan of the abdomen and pelvis. There is no evidence of urinary tract calcification or urinary tract obstruction. There is no evidence of gallbladder pathology or acute appendicitis. 2. Occasional colonic diverticulosis. 3. Remote cholecystectomy. 4. Retroflexed myomatous uterus. Lower Extremity CT 05/02/19 00:00 IMPRESSION: Soft tissue edema distally in the lower extremity. It has raises the possibility of cellulitis. No abscess or mass. No bone pathology. Facial Bones CT 05/05/19 00:00 IMPRESSION: 2.8 -cm lesion of the subcutaneous left paracentral nasal tissues may indicate a phlegmon or chronic hematoma. Differential etiologies include infectious, inflammatory, and neoplastic processes. Venous Doppler Study 05/05/19 00:00 IMPRESSION: NO EVIDENCE DVT OR SVT IN EITHER LEG. Chest X-Ray 05/08/19 00:00 IMPRESSION: Endotracheal tube, right jugular line in good positioning. Bilateral airspace disease seen 05/07/2019 1958 hours has near completely cleared Guidance Fluoroscopy 05/11/19 00:00 IMPRESSION: SUCCESSFUL PLACEMENT OF A 5 FR DUAL LUMEN 40 CM PICC IN THE LEFT BASILIC VEIN. Interventional Vascular Procedure 05/11/19 00:00 IMPRESSION: SUCCESSFUL PLACEMENT OF A 5 FR DUAL LUMEN 40 CM PICC IN THE LEFT BASILIC VEIN. PICC Line Insertion 05/11/19 00:00 IMPRESSION: SUCCESSFUL PLACEMENT OF A 5 FR DUAL LUMEN 40 CM PICC IN THE LEFT BASILIC VEIN. Assessment & Plan - Diagnosis (1) Necrotizing fasciitis of ankle and foot Is this a current diagnosis for this admission?: Yes (2) Necrotizing soft tissue infection Is this a current diagnosis for this admission?: Yes - Time Time Spent with patient: 15-24 minutes - Plan Summary Plan Summary: Assessment: Postoperative day #4 following right BKA Staple line intact with dressings clean, dry, and intact Line: Physical therapy to continue range of motion exercises of the right BKA Patient can be discharged to home or other facility anytime by the general surgery service viewpoint Patient to return to the office of Dr. Willingham in 3 weeks for wound check Sponge bath only Keep stump clean, dry, no pressure
[2019-05-11] MEDS: HYDROMORPHONE HCL INJ/PF 2 MG/ML AMPULE IV PRN (21:54)
[2019-05-11] MEDS: NORMAL SALINE 10 ML SDV (SCHEDULED) IV SCH (23:47)
[2019-05-12] MEDS: OXYCODONE-ACETAMINOPHEN 5-325 MG TABLET PO PRN ×2 (03:15→18:14)
[2019-05-12] MEDS ORDERED: NORMAL SALINE 10 ML SDV (AFTER EACH USE) IV PRN (04:00)
[2019-05-12] MEDS: HEPARIN SOD (PORCINE) 5,000 UNIT/ML 1 ML VIAL SUBCUT SCH ×3 (05:25→21:39)
[2019-05-12] MEDS: CEFAZOLIN SODIUM 1 GM in DEXTROSE 5%-WATER 50 ML IV SCH ×3 (05:27→21:38)
[2019-05-12] MEDS: NORMAL SALINE 10 ML SDV (AFTER EACH USE) IV PRN ×2 (05:46→21:41)
[2019-05-12] MEDS: DONEPEZIL HCL 5 MG TABLET PO SCH (10:05)
[2019-05-12] MEDS: VERAPAMIL HCL 240 MG TABLET.SA PO SCH (10:05)
[2019-05-12] MEDS: PREGABALIN 50 MG CAPSULE PO SCH (10:05)
[2019-05-12] MEDS: AMLODIPINE BESYLATE 5 MG TABLET PO SCH (10:05)
[2019-05-12] MEDS: MONTELUKAST SODIUM 10 MG TABLET PO SCH (10:05)
[2019-05-12] MEDS: METOPROLOL SUCCINATE 50 MG TAB.SR.24H PO SCH (10:05)
[2019-05-12] MEDS: FLUTICASONE/VILANTEROL 200-25 MCG/DOSE IH SCH (10:05)
[2019-05-12] MEDS: NORMAL SALINE 10 ML SDV (SCHEDULED) IV SCH ×4 (10:06→22:05)
--- NOTE | 2019-05-12 13:58 | PDOC PROGRESS REPORT ---
Subjective Progress Note for:: 05/12/19 Subjective:: 74-year-old female admitted with sepsis, necrotizing fasciitis, metabolic encephalopathy, acute on chronic kidney injury presently on IV cefazolin. 05/12/2018. No acute events overnight. 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 Reason For Visit: METABOLIC ACIDOSIS Physical Exam Vital Signs: Temp Pulse Resp BP Pulse Ox 98.1 F 73 16 157/68 H 96 05/12/19 12:00 05/12/19 12:00 05/12/19 12:00 05/12/19 12:00 05/12/19 12:00 Intake & Output 05/11/19 05/12/19 05/13/19 06:59 06:59 06:59 Intake Total 500 460 50 Output Total 2250 Balance -1750 460 50 Weight 69 kg 64.4 kg General appearance: PRESENT: no acute distress, well-developed, well-nourished Head exam: PRESENT: atraumatic, normocephalic Respiratory exam: PRESENT: clear to auscultation edenilson. ABSENT: rales, rhonchi, wheezes Cardiovascular exam: PRESENT: RRR. ABSENT: diastolic murmur, rubs, systolic murmur Extremities exam: PRESENT: full ROM, other - Right BKA. Dressing intact. No sign of discharge. Neurovascularly intact.. ABSENT: calf tenderness, clubbing, pedal edema Neurological exam: PRESENT: alert, awake, oriented to person, CN II-XII grossly intact. ABSENT: motor sensory deficit Results Laboratory Results: 05/11/19 10:52 05/11/19 10:52 05/07/19 11:27 Blood Blood Culture - Final NO GROWTH IN 5 DAYS 05/07/19 10:00 Blood Blood Culture - Final NO GROWTH IN 5 DAYS 05/02/19 05/02/19 05:57 08:47 Creatine Kinase 201 H Troponin I < 0.012 NT-Pro-B Natriuret Pep 1640 H Impressions: Abdomen/Pelvis CT 05/01/19 23:49 IMPRESSION: 1. Normal unenhanced CT scan of the abdomen and pelvis. There is no evidence of urinary tract calcification or urinary tract obstruction. There is no evidence of gallbladder pathology or acute appendicitis. 2. Occasional colonic diverticulosis. 3. Remote cholecystectomy. 4. Retroflexed myomatous uterus. Lower Extremity CT 05/02/19 00:00 IMPRESSION: Soft tissue edema distally in the lower extremity. It has raises the possibility of cellulitis. No abscess or mass. No bone pathology. Facial Bones CT 05/05/19 00:00 IMPRESSION: 2.8 -cm lesion of the subcutaneous left paracentral nasal tissues may indicate a phlegmon or chronic hematoma. Differential etiologies include infectious, inflammatory, and neoplastic processes. Venous Doppler Study 05/05/19 00:00 IMPRESSION: NO EVIDENCE DVT OR SVT IN EITHER LEG. Chest X-Ray 05/08/19 00:00 IMPRESSION: Endotracheal tube, right jugular line in good positioning. Bilateral airspace disease seen 05/07/2019 1958 hours has near completely cleared Guidance Fluoroscopy 05/11/19 00:00 IMPRESSION: SUCCESSFUL PLACEMENT OF A 5 FR DUAL LUMEN 40 CM PICC IN THE LEFT BASILIC VEIN. Interventional Vascular Procedure 05/11/19 00:00 IMPRESSION: SUCCESSFUL PLACEMENT OF A 5 FR DUAL LUMEN 40 CM PICC IN THE LEFT BASILIC VEIN. PICC Line Insertion 05/11/19 00:00 IMPRESSION: SUCCESSFUL PLACEMENT OF A 5 FR DUAL LUMEN 40 CM PICC IN THE LEFT BASILIC VEIN. Assessment and Plan - Diagnosis (1) Necrotizing fasciitis of ankle and foot Is this a current diagnosis for this admission?: Yes Plan: Day 5 status post DKA. Wound culture growing MSSA. Day 6/20 days IV cefazolin. Continue IV antibiotics, continue wound care, monitor vitals. Surgery on board. Recommendations noted. (2) Abscess of nose Is this a current diagnosis for this admission?: Yes Plan: ENT was consulted. Nasal packaging placed however cannot remove it. Repeat nasal packaging was not required as per ENT note. Tissue from nasal abscess growing MSSA. Plan as per #1. (3) Acute hypernatremia Is this a current diagnosis for this admission?: Yes Plan: Resolved. (4) Acute kidney injury superimposed on chronic kidney disease Is this a current diagnosis for this admission?: Yes Plan: Resolved Presented with creatinine of 5.0. This was most likely due to septic shock. (5) Acute metabolic encephalopathy Is this a current diagnosis for this admission?: Yes Plan: Resolved. Back to baseline. At baseline patient is alert and oriented x1. (6) Alzheimer's dementia without behavioral disturbance Qualifiers: Alzheimer's disease onset: early-onset Qualified Code(s): G30.0 - Alzheimer's disease with early onset; F02.80 - Dementia in other diseases classified elsewhere without behavioral disturbance Is this a current diagnosis for this admission?: Yes Plan: Continue current meds. Supportive measures. Fall precautions. (7) Essential thrombocytosis Is this a current diagnosis for this admission?: Yes Plan: Resolved (8) HTN (hypertension) Qualifiers: Hypertension type: essential hypertension Qualified Code(s): I10 - Essential (primary) hypertension Is this a current diagnosis for this admission?: Yes Plan: Euvolemic. Normotensive. Continue current meds. Adjust meds as needed. (9) Shock, septic Is this a current diagnosis for this admission?: Yes Plan: Resolved
[2019-05-13] MEDS: OXYCODONE-ACETAMINOPHEN 5-325 MG TABLET PO PRN ×2 (00:18→15:15)
[2019-05-13] MEDS: CEFAZOLIN SODIUM 1 GM in DEXTROSE 5%-WATER 50 ML IV SCH ×3 (05:09→23:43)
[2019-05-13 05:49] LABS: ABSOLUTE BASOPHILS # (AUTO) 0.1 10^3/uL (0.0-0.2); ABSOLUTE EOSINOPHILS # (AUTO) 0.3 10^3/uL (0.0-0.6); ABSOLUTE LYMPHOCYTES (AUTO) 2.3 10^3/uL (0.5-4.7); ABSOLUTE MONOCYTES (AUTO) 1.2 10^3/uL (0.1-1.4); BASOPHILS % (AUTO) 0.7 % (0-2); HEMATOCRIT 23.1 % (36.0-47.0); LYMPHOCYTES % (AUTO) 15.5 % (13-45); MEAN CORPUSCULAR HEMOGLOBIN 28.3 pg (27.0-33.4); MEAN CORPUSCULAR HGB CONC 32.9 g/dL (32.0-36.0); MEAN CORPUSCULAR VOLUME 86 fl (80-97); PLATELET COUNT 398 10^3/uL (150-450); RED BLOOD COUNT 2.68 10^6/uL (3.72-5.28); RED CELL DISTRIBUTION WIDTH 16.5 % (11.5-14.0); SEGMENTED NEUTROPHILS % (AUTO) 73.8 % (42-78); TOTAL CELLS COUNTED % (AUTO) 100 %; WHITE BLOOD COUNT 14.8 10^3/uL (4.0-10.5)
[2019-05-13 05:52] LABS: HEMOGLOBIN 7.6 g/dL (12.0-15.5)
[2019-05-13 06:04] LABS: ALBUMIN 2.4 g/dL (3.5-5.0); ALKALINE PHOSPHATASE 92 U/L (38-126); ANION GAP 5 (5-19); ASPARTATE AMINO TRANSFERASE 46 U/L (14-36); BILIRUBIN,DIRECT 0.1 mg/dL (0.0-0.4); BILIRUBIN,TOTAL 0.3 mg/dL (0.2-1.3); BLOOD UREA NITROGEN 15 mg/dL (7-20); CALCIUM 7.6 mg/dL (8.4-10.2); CARBON DIOXIDE 30 mmol/L (22-30); CHLORIDE 107 mmol/L (98-107); GLUCOSE 106 mg/dL (75-110); POTASSIUM 3.3 mmol/L (3.6-5.0)
[2019-05-13] MEDS: HEPARIN SOD (PORCINE) 5,000 UNIT/ML 1 ML VIAL SUBCUT SCH ×3 (07:38→23:44)
[2019-05-13] MEDS ORDERED: POTASSIUM CHLORIDE 10 MEQ TABLET.ER PO ONE (08:12)
[2019-05-13] MEDS: DONEPEZIL HCL 5 MG TABLET PO SCH (09:00)
[2019-05-13] MEDS: AMLODIPINE BESYLATE 5 MG TABLET PO SCH (09:00)
[2019-05-13] MEDS: METOPROLOL SUCCINATE 50 MG TAB.SR.24H PO SCH (09:01)
[2019-05-13] MEDS: VERAPAMIL HCL 240 MG TABLET.SA PO SCH (09:01)
[2019-05-13] MEDS: MONTELUKAST SODIUM 10 MG TABLET PO SCH (09:02)
[2019-05-13] MEDS: PREGABALIN 50 MG CAPSULE PO SCH (09:02)
[2019-05-13] MEDS: FLUTICASONE/VILANTEROL 200-25 MCG/DOSE IH SCH (09:03)
[2019-05-13] MEDS: NORMAL SALINE 10 ML SDV (SCHEDULED) IV SCH ×4 (09:05→23:47)
--- NOTE | 2019-05-13 11:41 | PDOC PROGRESS REPORT ---
Subjective Progress Note for:: 05/13/19 Subjective:: 74-year-old female admitted with sepsis, necrotizing fasciitis, metabolic encephalopathy, acute on chronic kidney injury presently on IV cefazolin. 05/12/2018. No acute events overnight. 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 05/13/2018. No acute events overnight. Patient is comfortably resting in bed in no apparent distress, very pleasant and cooperative with physical examination. 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 Reason For Visit: METABOLIC ACIDOSIS Physical Exam Vital Signs: Temp Pulse Resp BP Pulse Ox 98.2 F 76 16 133/88 H 96 05/13/19 08:07 05/13/19 08:07 05/13/19 08:07 05/13/19 08:07 05/13/19 08:07 Intake & Output 05/12/19 05/13/19 05/14/19 06:59 06:59 06:59 Intake Total 460 818 Balance 460 818 Weight 64.4 kg 66 kg General appearance: PRESENT: no acute distress, obese, well-developed, well- nourished Respiratory exam: PRESENT: clear to auscultation edenilson. ABSENT: rales, rhonchi, wheezes Cardiovascular exam: PRESENT: RRR. ABSENT: diastolic murmur, rubs, systolic mu rmur GI/Abdominal exam: PRESENT: normal bowel sounds, soft. ABSENT: distended, guarding, mass, organolmegaly, rebound, tenderness Neurological exam: PRESENT: alert, awake, oriented to person, CN II-XII grossly intact. ABSENT: motor sensory deficit Results Laboratory Results: 05/13/19 05:20 05/13/19 05:20 05/13/19 05/13/19 05:20 05:20 WBC 14.8 H RBC 2.68 L Hgb 7.6 L Hct 23.1 L MCV 86 MCH 28.3 MCHC 32.9 RDW 16.5 H Plt Count 398 Seg Neutrophils % 73.8 Sodium 141.7 Potassium 3.3 L Chloride 107 Carbon Dioxide 30 Anion Gap 5 BUN 15 Creatinine 0.86 Est GFR ( Amer) > 60 Glucose 106 Calcium 7.6 L Magnesium 1.6 Total Bilirubin 0.3 AST 46 H Alkaline Phosphatase 92 Total Protein 5.0 L Albumin 2.4 L 05/07/19 11:27 Blood Blood Culture - Final NO GROWTH IN 5 DAYS 05/07/19 10:00 Blood Blood Culture - Final NO GROWTH IN 5 DAYS 05/02/19 05/02/19 05:57 08:47 Creatine Kinase 201 H Troponin I < 0.012 NT-Pro-B Natriuret Pep 1640 H Impressions: Abdomen/Pelvis CT 05/01/19 23:49 IMPRESSION: 1. Normal unenhanced CT scan of the abdomen and pelvis. There is no evidence of urinary tract calcification or urinary tract obstruction. There is no evidence of gallbladder pathology or acute appendicitis. 2. Occasional colonic diverticulosis. 3. Remote cholecystectomy. 4. Retroflexed myomatous uterus. Lower Extremity CT 05/02/19 00:00 IMPRESSION: Soft tissue edema distally in the lower extremity. It has raises the possibility of cellulitis. No abscess or mass. No bone pathology. Facial Bones CT 05/05/19 00:00 IMPRESSION: 2.8 -cm lesion of the subcutaneous left paracentral nasal tissues may indicate a phlegmon or chronic hematoma. Differential etiologies include infectious, inflammatory, and neoplastic processes. Venous Doppler Study 05/05/19 00:00 IMPRESSION: NO EVIDENCE DVT OR SVT IN EITHER LEG. Chest X-Ray 05/08/19 00:00 IMPRESSION: Endotracheal tube, right jugular line in good positioning. Bilateral airspace disease seen 05/07/2019 1958 hours has near completely cleared Guidance Fluoroscopy 05/11/19 00:00 IMPRESSION: SUCCESSFUL PLACEMENT OF A 5 FR DUAL LUMEN 40 CM PICC IN THE LEFT BA SILIC VEIN. Interventional Vascular Procedure 05/11/19 00:00 IMPRESSION: SUCCESSFUL PLACEMENT OF A 5 FR DUAL LUMEN 40 CM PICC IN THE LEFT BASILIC VEIN. PICC Line Insertion 05/11/19 00:00 IMPRESSION: SUCCESSFUL PLACEMENT OF A 5 FR DUAL LUMEN 40 CM PICC IN THE LEFT BASILIC VEIN. Assessment and Plan - Diagnosis (1) Necrotizing fasciitis of ankle and foot Is this a current diagnosis for this admission?: Yes Plan: Day 6 status post DKA. Wound culture growing MSSA. Day 7/20 days IV cefazolin. Continue IV antibiotics, continue wound care, monitor vitals. Surgery on board. Recommendations noted. (2) Abscess of nose Is this a current diagnosis for this admission?: Yes Plan: ENT was consulted. Nasal packaging placed however cannot remove it. Repeat nasal packaging was not required as per ENT note. Tissue from nasal abscess growing MSSA. Plan as per #1. (3) Acute hypernatremia Is this a current diagnosis for this admission?: Yes Plan: Resolved. (4) Acute kidney injury superimposed on chronic kidney disease Is this a current diagnosis for this admission?: Yes Plan: Resolved Presented with creatinine of 5.0. This was most likely due to septic shock. (5) Acute metabolic encephalopathy Is this a current diagnosis for this admission?: Yes Plan: Resolved. Back to baseline. At baseline patient is alert and oriented x1. (6) Alzheimer's dementia without behavioral disturbance Qualifiers: Alzheimer's disease onset: early-onset Qualified Code(s): G30.0 - Alzheime r's disease with early onset; F02.80 - Dementia in other diseases classified elsewhere without behavioral disturbance Is this a current diagnosis for this admission?: Yes Plan: Continue current meds. Supportive measures. Fall precautions. (7) Essential thrombocytosis Is this a current diagnosis for this admission?: Yes Plan: Resolved (8) HTN (hypertension) Qualifiers: Hypertension type: essential hypertension Qualified Code(s): I10 - Essential (primary) hypertension Is this a current diagnosis for this admission?: Yes Plan: Euvolemic. Normotensive. Continue current meds. Adjust meds as needed. (9) Shock, septic Is this a current diagnosis for this admission?: Yes Plan: Resolved
[2019-05-14] MEDS: OXYCODONE-ACETAMINOPHEN 5-325 MG TABLET PO PRN ×3 (01:49→15:41)
[2019-05-14 05:42] LABS: ABSOLUTE BASOPHILS # (AUTO) 0.1 10^3/uL (0.0-0.2); ABSOLUTE EOSINOPHILS # (AUTO) 0.2 10^3/uL (0.0-0.6); ABSOLUTE LYMPHOCYTES (AUTO) 1.7 10^3/uL (0.5-4.7); ABSOLUTE NEUT (AUTO) 9.5 10^3/uL (1.7-8.2); BASOPHILS % (AUTO) 0.8 % (0-2); EOSINOPHILS % (AUTO) 1.7 % (0-6); HEMATOCRIT 21.3 % (36.0-47.0); LYMPHOCYTES % (AUTO) 13.7 % (13-45); MEAN CORPUSCULAR HEMOGLOBIN 28.1 pg (27.0-33.4); MEAN CORPUSCULAR HGB CONC 32.4 g/dL (32.0-36.0); MEAN CORPUSCULAR VOLUME 87 fl (80-97); MONOCYTES % (AUTO) 7.6 % (3-13); PLATELET COUNT 386 10^3/uL (150-450); RED BLOOD COUNT 2.46 10^6/uL (3.72-5.28); RED CELL DISTRIBUTION WIDTH 17.3 % (11.5-14.0); SEGMENTED NEUTROPHILS % (AUTO) 76.2 % (42-78); TOTAL CELLS COUNTED % (AUTO) 100 %; WHITE BLOOD COUNT 12.5 10^3/uL (4.0-10.5)
[2019-05-14 05:54] LABS: HEMOGLOBIN 6.9 g/dL (12.0-15.5)
[2019-05-14 06:07] LABS: ALBUMIN 2.5 g/dL (3.5-5.0); ALKALINE PHOSPHATASE 90 U/L (38-126); ANION GAP 5 (5-19); ASPARTATE AMINO TRANSFERASE 41 U/L (14-36); BILIRUBIN,DIRECT 0.1 mg/dL (0.0-0.4); BILIRUBIN,TOTAL 0.3 mg/dL (0.2-1.3); BLOOD UREA NITROGEN 16 mg/dL (7-20); CALCIUM 8.1 mg/dL (8.4-10.2); CARBON DIOXIDE 30 mmol/L (22-30); CHLORIDE 106 mmol/L (98-107); GLUCOSE 114 mg/dL (75-110); POTASSIUM 3.8 mmol/L (3.6-5.0)
[2019-05-14] MEDS: CEFAZOLIN SODIUM 1 GM in DEXTROSE 5%-WATER 50 ML IV SCH (06:12)
[2019-05-14] MEDS: HEPARIN SOD (PORCINE) 5,000 UNIT/ML 1 ML VIAL SUBCUT SCH ×3 (06:13→21:39)
[2019-05-14] MEDS ORDERED: NORMAL SALINE 250 ML IV PRN ×4 (07:38→07:40)
[2019-05-14] MEDS ORDERED: ACETAMINOPHEN 325 MG TABLET PO PRN (07:40)
[2019-05-14] MEDS ORDERED: FUROSEMIDE 20 MG TABLET PO PRN (07:40)
[2019-05-14] MEDS ORDERED: DIPHENHYDRAMINE HCL 25 MG CAPSULE PO PRN (07:40)
--- NOTE | 2019-05-14 09:29 | PDOC PROGRESS REPORT ---
Subjective Progress Note for:: 05/14/19 Subjective:: 74-year-old female admitted with sepsis, necrotizing fasciitis, metabolic encephalopathy, acute on chronic kidney injury presently on IV cefazolin. 05/12/2018. No acute events overnight. 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 05/13/2018. No acute events overnight. Patient is comfortably resting in bed in no apparent distress, very pleasant and cooperative with physical examination. 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 05/14/2019. No acute events overnight. Yesterday afternoon patient slipped off the bed,did not sustain any trauma, did not sustain any bruising, mental status at baseline. This morning patient comfortably sitting in bed in no apparent distress, complaining of right lower extremity pain otherwise denies any fever, chills, nausea, vomiting, diarrhea, constipation or any urinary symptoms. Reason For Visit: METABOLIC ACIDOSIS Physical Exam Vital Signs: Temp Pulse Resp BP Pulse Ox 98.6 F 75 18 140/54 H 95 05/14/19 08:00 05/14/19 08:00 05/14/19 08:00 05/14/19 08:00 05/14/19 08:00 Intake & Output 05/13/19 05/14/19 05/15/19 06:59 06:59 06:59 Intake Total 818 1040 Output Total 250 Balance 818 790 Weight 66 kg 69 kg General appearance: PRESENT: no acute distress, well-developed, well-nourished Head exam: PRESENT: atraumatic, normocephalic Respiratory exam: PRESENT: clear to auscultation edenilson. ABSENT: rales, rhonchi, wheezes Cardiovascular exam: PRESENT: RRR. ABSENT: diastolic murmur, rubs, systolic murmur GI/Abdominal exam: PRESENT: normal bowel sounds, soft. ABSENT: distended, guarding, mass, organolmegaly, rebound, tenderness Musculoskeletal exam: PRESENT: tenderness, other - Right lower extremity status post AKA, wound looks clean, no erythema, mild tenderness, osman intact, no sign of discharge. Results Laboratory Results: 05/14/19 05:25 05/14/19 05:25 05/14/19 05/14/19 05/14/19 05:25 05:25 08:00 WBC 12.5 H RBC 2.46 L Hgb 6.9 L Hct 21.3 L MCV 87 MCH 28.1 MCHC 32.4 RDW 17.3 H Plt Count 386 Seg Neutrophils % 76.2 Sodium 140.9 Potassium 3.8 Chloride 106 Carbon Dioxide 30 Anion Gap 5 BUN 16 Creatinine 1.07 Est GFR ( Amer) > 60 Glucose 114 H Calcium 8.1 L Magnesium 1.5 L Total Bilirubin 0.3 AST 41 H Alkaline Phosphatase 90 Total Protein 5.0 L Albumin 2.5 L Blood Type A POSITIVE Antibody Screen NEGATIVE 05/02/19 05/02/19 05:57 08:47 Creatine Kinase 201 H Troponin I < 0.012 NT-Pro-B Natriuret Pep 1640 H Impressions: Abdomen/Pelvis CT 05/01/19 23:49 IMPRESSION: 1. Normal unenhanced CT scan of the abdomen and pelvis. There is no evidence of urinary tract calcification or urinary tract obstruction. There is no evidence of gallbladder pathology or acute appendicitis. 2. Occasional colonic diverticulosis. 3. Remote cholecystectomy. 4. Retroflexed myomatous uterus. Lower Extremity CT 05/02/19 00:00 IMPRESSION: Soft tissue edema distally in the lower extremity. It has raises the possibility of cellulitis. No abscess or mass. No bone pathology. Facial Bones CT 05/05/19 00:00 IMPRESSION: 2.8 -cm lesion of the subcutaneous left paracentral nasal tissues may indicate a phlegmon or chronic hematoma. Differential etiologies include infectious, inflammatory, and neoplastic processes. Venous Doppler Study 05/05/19 00:00 IMPRESSION: NO EVIDENCE DVT OR SVT IN EITHER LEG. Chest X-Ray 05/08/19 00:00 IMPRESSION: Endotracheal tube, right jugular line in good positioning. Bilateral airspace disease seen 05/07/2019 1958 hours has near completely cleared Guidance Fluoroscopy 05/11/19 00:00 IMPRESSION: SUCCESSFUL PLACEMENT OF A 5 FR DUAL LUMEN 40 CM PICC IN THE LEFT BASILIC VEIN. Interventional Vascular Procedure 05/11/19 00:00 IMPRESSION: SUCCESSFUL PLACEMENT OF A 5 FR DUAL LUMEN 40 CM PICC IN THE LEFT BASILIC VEIN. PICC Line Insertion 05/11/19 00:00 IMPRESSION: SUCCESSFUL PLACEMENT OF A 5 FR DUAL LUMEN 40 CM PICC IN THE LEFT BASILIC VEIN. Assessment and Plan - Diagnosis (1) Anemia Qualifiers: Other causes of anemia: chronic disease, other Is this a current diagnosis for this admission?: Yes Plan: Microcytic anemia. Worsening. No apparent sign of bleeding the first recent AKA. Serum iron 80.8, TIBC 155, saturation 52, ferritin 235, B12 882, folate 8.43. Haptoglobin pending. Transfuse 2 units today. Monitor H&H. Obtain stool guaiac. (2) Necrotizing fasciitis of ankle and foot Is this a current diagnosis for this admission?: Yes Plan: Day 7 status post DKA. Wound culture growing MSSA. Day 8/20 days IV cefazolin. Continue IV antibiotics, continue wound care, monitor vitals. Surgery on board. Recommendations noted. (3) Abscess of nose Is this a current diagnosis for this admission?: Yes Plan: ENT was consulted. Nasal packaging placed however cannot remove it. Repeat nasal packaging was not required as per ENT note. Tissue from nasal abscess growing MSSA. Plan as per #1. (4) Acute hypernatremia Is this a current diagnosis for this admission?: Yes Plan: Resolved. (5) Acute kidney injury superimposed on chronic kidney disease Is this a current diagnosis for this admission?: Yes Plan: Resolved Presented with creatinine of 5.0. This was most likely due to septic shock. (6) Acute metabolic encephalopathy Is this a current diagnosis for this admission?: Yes Plan: Resolved. Back to baseline. At baseline patient is alert and oriented x1. (7) Alzheimer's dementia without behavioral disturbance Qualifiers: Alzheimer's disease onset: early-onset Qualified Code(s): G30.0 - Alzheimer's disease with early onset; F02.80 - Dementia in other diseases classified elsewhere without behavioral disturbance Is this a current diagnosis for this admission?: Yes Plan: Continue current meds. Supportive measures. Fall precautions. (8) Essential thrombocytosis Is this a current diagnosis for this admission?: Yes Plan: Resolved (9) HTN (hypertension) Qualifiers: Hypertension type: essential hypertension Qualified Code(s): I10 - Essential (primary) hypertension Is this a current diagnosis for this admission?: Yes Plan: Euvolemic. Normotensive. Continue current meds. Adjust meds as needed. (10) Shock, septic Is this a current diagnosis for this admission?: Yes Plan: Resolved
[2019-05-14] MEDS: MONTELUKAST SODIUM 10 MG TABLET PO SCH (09:33)
[2019-05-14] MEDS: PREGABALIN 50 MG CAPSULE PO SCH (09:33)
[2019-05-14] MEDS: METOPROLOL SUCCINATE 50 MG TAB.SR.24H PO SCH (09:33)
[2019-05-14] MEDS: AMLODIPINE BESYLATE 5 MG TABLET PO SCH (09:33)
[2019-05-14] MEDS: DONEPEZIL HCL 5 MG TABLET PO SCH (09:34)
[2019-05-14] MEDS: VERAPAMIL HCL 240 MG TABLET.SA PO SCH (09:34)
[2019-05-14] MEDS: FLUTICASONE/VILANTEROL 200-25 MCG/DOSE IH SCH (09:34)
[2019-05-14] MEDS: NORMAL SALINE 10 ML SDV (SCHEDULED) IV SCH ×4 (09:37→21:39)
[2019-05-14 22:16] LABS: ABSOLUTE BASOPHILS # (AUTO) 0.1 10^3/uL (0.0-0.2); ABSOLUTE EOSINOPHILS # (AUTO) 0.2 10^3/uL (0.0-0.6); ABSOLUTE LYMPHOCYTES (AUTO) 1.8 10^3/uL (0.5-4.7); ABSOLUTE MONOCYTES (AUTO) 1.4 10^3/uL (0.1-1.4); ABSOLUTE NEUT (AUTO) 10.9 10^3/uL (1.7-8.2); BASOPHILS % (AUTO) 0.6 % (0-2); EOSINOPHILS % (AUTO) 1.5 % (0-6); HEMATOCRIT 31.7 % (36.0-47.0); LYMPHOCYTES % (AUTO) 12.7 % (13-45); MEAN CORPUSCULAR HGB CONC 32.8 g/dL (32.0-36.0); MEAN CORPUSCULAR VOLUME 85 fl (80-97); MONOCYTES % (AUTO) 9.8 % (3-13); PLATELET COUNT 394 10^3/uL (150-450); RED BLOOD COUNT 3.72 10^6/uL (3.72-5.28); RED CELL DISTRIBUTION WIDTH 16.8 % (11.5-14.0); SEGMENTED NEUTROPHILS % (AUTO) 75.4 % (42-78); TOTAL CELLS COUNTED % (AUTO) 100 %; WHITE BLOOD COUNT 14.4 10^3/uL (4.0-10.5)
[2019-05-14 22:24] LABS: HEMOGLOBIN 10.4 g/dL (12.0-15.5)
[2019-05-15] MEDS: OXYCODONE-ACETAMINOPHEN 5-325 MG TABLET PO PRN ×3 (04:03→17:25)
[2019-05-15] MEDS: HEPARIN SOD (PORCINE) 5,000 UNIT/ML 1 ML VIAL SUBCUT SCH ×3 (05:12→22:13)
[2019-05-15 05:26] LABS: ABSOLUTE BASOPHILS # (AUTO) 0.1 10^3/uL (0.0-0.2); ABSOLUTE EOSINOPHILS # (AUTO) 0.2 10^3/uL (0.0-0.6); ABSOLUTE LYMPHOCYTES (AUTO) 1.3 10^3/uL (0.5-4.7); ABSOLUTE MONOCYTES (AUTO) 1.2 10^3/uL (0.1-1.4); ABSOLUTE NEUT (AUTO) 9.8 10^3/uL (1.7-8.2); BASOPHILS % (AUTO) 0.7 % (0-2); EOSINOPHILS % (AUTO) 1.5 % (0-6); HEMOGLOBIN 10.8 g/dL (12.0-15.5); LYMPHOCYTES % (AUTO) 10.5 % (13-45); MEAN CORPUSCULAR HEMOGLOBIN 28.3 pg (27.0-33.4); MEAN CORPUSCULAR HGB CONC 33.8 g/dL (32.0-36.0); MEAN CORPUSCULAR VOLUME 84 fl (80-97); MONOCYTES % (AUTO) 9.6 % (3-13); PLATELET COUNT 377 10^3/uL (150-450); RED BLOOD COUNT 3.82 10^6/uL (3.72-5.28); RED CELL DISTRIBUTION WIDTH 16.7 % (11.5-14.0); SEGMENTED NEUTROPHILS % (AUTO) 77.7 % (42-78); TOTAL CELLS COUNTED % (AUTO) 100 %; WHITE BLOOD COUNT 12.6 10^3/uL (4.0-10.5)
[2019-05-15 05:44] LABS: ALKALINE PHOSPHATASE 107 U/L (38-126); ANION GAP 9 (5-19); ASPARTATE AMINO TRANSFERASE 49 U/L (14-36); BILIRUBIN,DIRECT 0.2 mg/dL (0.0-0.4); BILIRUBIN,TOTAL 0.4 mg/dL (0.2-1.3); BLOOD UREA NITROGEN 15 mg/dL (7-20); CALCIUM 8.7 mg/dL (8.4-10.2); CARBON DIOXIDE 28 mmol/L (22-30); CHLORIDE 101 mmol/L (98-107); GLUCOSE 171 mg/dL (75-110); POTASSIUM 4.1 mmol/L (3.6-5.0); TOTAL PROTEIN 5.9 g/dL (6.3-8.2)
[2019-05-15] MEDS ORDERED: DEXTROSE 40% GEL 15 GM TUBE PO PRN ×2 (07:29)
[2019-05-15] MEDS ORDERED: GLUCAGON,HUMAN RECOMB 1 MG INJ IM PRN (07:29)
[2019-05-15] MEDS ORDERED: DEXTROSE 50%-WATER 25 GM/50 ML DISP.SYRIN IV PRN ×2 (07:29)
[2019-05-15] MEDS: INSULIN LISPRO 100 UNIT/ML 3 ML VIAL SUBCUT SCH ×4 (07:50→22:07)
[2019-05-15] MEDS ORDERED: MAGNESIUM SULFATE/D5W 1 GM/100 ML RTUPB IV ONE (08:30)
[2019-05-15] MEDS: DONEPEZIL HCL 5 MG TABLET PO SCH (09:19)
[2019-05-15] MEDS: AMLODIPINE BESYLATE 5 MG TABLET PO SCH (09:19)
[2019-05-15] MEDS: METOPROLOL SUCCINATE 50 MG TAB.SR.24H PO SCH (09:19)
[2019-05-15] MEDS: VERAPAMIL HCL 240 MG TABLET.SA PO SCH (09:19)
[2019-05-15] MEDS: PREGABALIN 50 MG CAPSULE PO SCH (09:19)
[2019-05-15] MEDS: FLUTICASONE/VILANTEROL 200-25 MCG/DOSE IH SCH (09:19)
[2019-05-15] MEDS: MONTELUKAST SODIUM 10 MG TABLET PO SCH (09:19)
[2019-05-15] MEDS: NORMAL SALINE 10 ML SDV (SCHEDULED) IV SCH ×6 (09:20→22:17)
[2019-05-15] MEDS: LOSARTAN POTASSIUM 25 MG TABLET PO SCH (11:12)
[2019-05-15] MEDS: CEFAZOLIN SODIUM 1 GM in DEXTROSE 5%-WATER 50 ML IV SCH ×2 (11:12→17:24)
--- NOTE | 2019-05-15 18:01 | PDOC PROGRESS REPORT ---
Subjective Progress Note for:: 05/15/19 Subjective:: 74-year-old female admitted with sepsis, necrotizing fasciitis, metabolic encephalopathy, acute on chronic kidney injury presently on IV cefazolin. 05/12/2018. No acute events overnight. 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 05/13/2018. No acute events overnight. Patient is comfortably resting in bed in no apparent distress, very pleasant and cooperative with physical examination. 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 05/14/2019. No acute events overnight. Yesterday afternoon patient slipped off the bed,did not sustain any trauma, did not sustain any bruising, mental status at baseline. This morning patient comfortably sitting in bed in no apparent distress, complaining of right lower extremity pain otherwise denies any fever, chills, nausea, vomiting, diarrhea, constipation or any urinary symptoms. 05/15/2018. No acute events overnight. Patient removed her PICC line overnight. Denies any fever, chills, nausea, vomiting, diarrhea, constipation or any other symptoms. Pending placement. Reason For Visit: METABOLIC ACIDOSIS Physical Exam Vital Signs: Temp Pulse Resp BP Pulse Ox 98.8 F 71 19 151/65 H 98 05/15/19 12:00 05/15/19 12:00 05/15/19 12:00 05/15/19 12:00 05/15/19 12:00 Intake & Output 05/14/19 05/15/19 05/16/19 06:59 06:59 06:59 Intake Total 1040 2580 210 Output Total 250 2 Balance 790 2578 210 Weight 69 kg 68.5 kg General appearance: PRESENT: no acute distress, well-developed, well-nourished Head exam: PRESENT: atraumatic, normocephalic Respiratory exam: PRESENT: clear to auscultation edenilson. ABSENT: rales, rhonchi, wheezes Cardiovascular exam: PRESENT: RRR. ABSENT: diastolic murmur, rubs, systolic murmur GI/Abdominal exam: PRESENT: normal bowel sounds, soft. ABSENT: distended, guarding, mass, organolmegaly, rebound, tenderness Neurological exam: PRESENT: alert, awake, oriented to person, oriented to place, oriented to time, oriented to situation, CN II-XII grossly intact. ABSENT: motor sensory deficit Results Laboratory Results: 05/15/19 04:47 05/15/19 04:47 05/14/19 05/15/19 05/15/19 21:30 04:47 04:47 WBC 14.4 H 12.6 H RBC 3.72 3.82 Hgb 10.4 L D 10.8 L Hct 31.7 L 32.0 L MCV 85 84 MCH 28.0 28.3 MCHC 32.8 33.8 RDW 16.8 H 16.7 H Plt Count 394 377 Seg Neutrophils % 75.4 77.7 Sodium 138.4 Potassium 4.1 Chloride 101 Carbon Dioxide 28 Anion Gap 9 BUN 15 Creatinine 0.93 Est GFR ( Amer) > 60 Glucose 171 H Calcium 8.7 Magnesium 1.5 L Total Bilirubin 0.4 AST 49 H Alkaline Phosphatase 107 Total Protein 5.9 L Albumin 3.0 L 05/02/19 05/02/19 05:57 08:47 Creatine Kinase 201 H Troponin I < 0.012 NT-Pro-B Natriuret Pep 1640 H Impressions: Abdomen/Pelvis CT 05/01/19 23:49 IMPRESSION: 1. Normal unenhanced CT scan of the abdomen and pelvis. There is no evidence of urinary tract calcification or urinary tract obstruction. There is no evidence of gallbladder pathology or acute appendicitis. 2. Occasional colonic diverticulosis. 3. Remote cholecystectomy. 4. Retroflexed myomatous uterus. Lower Extremity CT 05/02/19 00:00 IMPRESSION: Soft tissue edema distally in the lower extremity. It has raises the possibility of cellulitis. No abscess or mass. No bone pathology. Facial Bones CT 05/05/19 00:00 IMPRESSION: 2.8 -cm lesion of the subcutaneous left paracentral nasal tissues may indicate a phlegmon or chronic hematoma. Differential etiologies include infectious, inflammatory, and neoplastic processes. Venous Doppler Study 05/05/19 00:00 IMPRESSION: NO EVIDENCE DVT OR SVT IN EITHER LEG. Chest X-Ray 05/08/19 00:00 IMPRESSION: Endotracheal tube, right jugular line in good positioning. Bilateral airspace disease seen 05/07/2019 1958 hours has near completely cleared Guidance Fluoroscopy 05/11/19 00:00 IMPRESSION: SUCCESSFUL PLACEMENT OF A 5 FR DUAL LUMEN 40 CM PICC IN THE LEFT BASILIC VEIN. Interventional Vascular Procedure 05/11/19 00:00 IMPRESSION: SUCCESSFUL PLACEMENT OF A 5 FR DUAL LUMEN 40 CM PICC IN THE LEFT BASILIC VEIN. PICC Line Insertion 05/11/19 00:00 IMPRESSION: SUCCESSFUL PLACEMENT OF A 5 FR DUAL LUMEN 40 CM PICC IN THE LEFT BASILIC VEIN. Assessment and Plan - Diagnosis (1) Anemia Qualifiers: Other causes of anemia: chronic disease, other Is this a current diagnosis for this admission?: Yes Plan: Microcytic anemia. Stable. No apparent sign of bleeding the first recent AKA. Serum iron 80.8, TIBC 155, saturation 52, ferritin 235, B12 882, folate 8.43. Haptoglobin pending. Status post 2 PRBC transfusion on 05/13/2019. Monitor H&H. Obtain stool guaiac. (2) Necrotizing fasciitis of ankle and foot Is this a current diagnosis for this admission?: Yes Plan: Day 7 status post DKA. Wound culture growing MSSA. Day / days IV cefazolin. Continue IV antibiotics, continue wound care, monitor vitals. Surgery on board. Recommendations noted. (3) Abscess of nose Is this a current diagnosis for this admission?: Yes Plan: ENT was consulted. Nasal packaging placed however cannot remove it. Repeat nasal packaging was not required as per ENT note. Tissue from nasal abscess growing MSSA. Plan as per #1. (4) Acute hypernatremia Is this a current diagnosis for this admission?: Yes Plan: Resolved. (5) Acute kidney injury superimposed on chronic kidney disease Is this a current diagnosis for this admission?: Yes Plan: Resolved Presented with creatinine of 5.0. This was most likely due to septic shock. (6) Acute metabolic encephalopathy Is this a current diagnosis for this admission?: Yes Plan: Resolved. Back to baseline. At baseline patient is alert and oriented x1. (7) Alzheimer's dementia without behavioral disturbance Qualifiers: Alzheimer's disease onset: early-onset Qualified Code(s): G30.0 - Alzheimer's disease with early onset; F02.80 - Dementia in other diseases classified elsewhere without behavioral disturbance Is this a current diagnosis for this admission?: Yes Plan: Continue current meds. Supportive measures. Fall precautions. (8) Essential thrombocytosis Is this a current diagnosis for this admission?: Yes Plan: Resolved (9) HTN (hypertension) Qualifiers: Hypertension type: essential hypertension Qualified Code(s): I10 - Essential (primary) hypertension Is this a current diagnosis for this admission?: Yes Plan: Euvolemic. Normotensive. Continue current meds. Adjust meds as needed. (10) Shock, septic Is this a current diagnosis for this admission?: Yes Plan: Resolved
[2019-05-16] MEDS: HEPARIN SOD (PORCINE) 5,000 UNIT/ML 1 ML VIAL SUBCUT SCH ×3 (05:03→21:32)
[2019-05-16] MEDS: CEFAZOLIN SODIUM 1 GM in DEXTROSE 5%-WATER 50 ML IV SCH ×3 (05:03→17:07)
[2019-05-16 05:12] LABS: ABSOLUTE BASOPHILS # (AUTO) 0.1 10^3/uL (0.0-0.2); ABSOLUTE EOSINOPHILS # (AUTO) 0.2 10^3/uL (0.0-0.6); ABSOLUTE LYMPHOCYTES (AUTO) 1.1 10^3/uL (0.5-4.7); ABSOLUTE NEUT (AUTO) 6.2 10^3/uL (1.7-8.2); BASOPHILS % (AUTO) 1.1 % (0-2); HEMATOCRIT 31.6 % (36.0-47.0); HEMOGLOBIN 10.6 g/dL (12.0-15.5); MEAN CORPUSCULAR HEMOGLOBIN 28.5 pg (27.0-33.4); MEAN CORPUSCULAR HGB CONC 33.6 g/dL (32.0-36.0); MEAN CORPUSCULAR VOLUME 85 fl (80-97); PLATELET COUNT 394 10^3/uL (150-450); RED BLOOD COUNT 3.72 10^6/uL (3.72-5.28); RED CELL DISTRIBUTION WIDTH 17.3 % (11.5-14.0); SEGMENTED NEUTROPHILS % (AUTO) 71.9 % (42-78); TOTAL CELLS COUNTED % (AUTO) 100 %; WHITE BLOOD COUNT 8.7 10^3/uL (4.0-10.5)
[2019-05-16] MEDS: OXYCODONE-ACETAMINOPHEN 5-325 MG TABLET PO PRN (05:48)
[2019-05-16] MEDS: INSULIN LISPRO 100 UNIT/ML 3 ML VIAL SUBCUT SCH ×4 (07:28→21:28)
--- NOTE | 2019-05-16 08:45 | Progress Note ---
Provider Note Provider Note: [facility] Telephone Advice Consultation Chart reviewed. Patient initially evaluated on 05/06 due to MSSA bacteremia. Source was the foot as she was found with necrotizing fasciitis. She required BKA for source control. She also developed an abscess in her nose, probably hematogenous seeding, positive for MSSA as well. Her TTE was negative for endocarditis. Her blood cultures cleared on 05/05 and remained negative on 05/07 and 05/11. She has been doing well overall per chart review, her thrombocytosis has resolved, VALENTIN resolved as well. The only unresolved issue is the encephalopathy, which she remains oriented to self only. Otherwise she is doing well. No acute events lately per notes. Vital Signs: Temp Pulse Resp BP Pulse Ox 98.9 F 67 16 145/61 H 94 05/16/19 08:00 05/16/19 08:00 05/16/19 08:00 05/16/19 08:00 05/16/19 08:00 Intake & Output 05/15/19 05/16/19 05/17/19 06:59 06:59 06:59 Intake Total 2580 415 Output Total 2 Balance 2578 415 Weight 68.5 kg 64.9 kg Weight/Height Weight 64.9 kg Height 5 ft Laboratories: 05/16/19 04:33 05/15/19 04:47 MCV 85 fl (80-97) 05/16/19 04:33 MCH 28.5 pg (27.0-33.4) 05/16/19 04:33 MCHC 33.6 g/dL (32.0-36.0) 05/16/19 04:33 RDW 17.3 % (11.5-14.0) H 05/16/19 04:33 Seg Neutrophils % 71.9 % (42-78) 05/16/19 04:33 Retic Count (auto) 1.06 % (0.66-2.85) 05/08/19 12:10 Carbonic Acid 0.95 mmol/L (1.05-1.35) L 05/09/19 05:03 HCO3/H2CO3 Ratio 24:1 05/09/19 05:03 ABG pH 7.49 (7.35-7.45) H 05/09/19 05:03 ABG pCO2 31.6 mmHg (35-45) L 05/09/19 05:03 ABG pO2 64.9 mmHg (80-100) L 05/09/19 05:03 ABG HCO3 23.3 mmol/L (20-24) 05/09/19 05:03 ABG O2 Saturation 94.4 % (94-98) 05/09/19 05:03 ABG Base Excess 0.2 mmol/L 05/09/19 05:03 VBG pH 7.15 (7.30-7.42) L* 05/02/19 05:57 VBG pCO2 31.0 mmHg (35-63) L 05/02/19 05:57 VBG HCO3 10.7 mmol/L (20-32) L 05/02/19 05:57 VBG Base Excess -16.8 mmol/L 05/02/19 05:57 FiO2 ROOM 05/09/19 05:03 Chloride 101 mmol/L (98-107) 05/15/19 04:47 Carbon Dioxide 28 mmol/L (22-30) 05/15/19 04:47 Anion Gap 9 (5-19) 05/15/19 04:47 Est GFR ( Amer) > 60 (>60) 05/15/19 04:47 Est GFR (Non-Af Amer) Cancelled 05/10/19 14:20 Glucose 171 mg/dL (75-110) H 05/15/19 04:47 Lactic Acid 0.6 mmol/L (0.7-2.1) L 05/03/19 09:09 Calcium 8.7 mg/dL (8.4-10.2) 05/15/19 04:47 Ionized Calcium Eb[place] 1.08 mmol/L (1.14-1.30) L 05/04/19 05:20 Phosphorus 3.0 mg/dL (2.5-4.5) 05/07/19 21:30 Magnesium 1.5 mg/dL (1.6-2.3) L 05/15/19 04:47 Iron 80.8 ug/dL (37-170) 05/05/19 03:39 TIBC 155 ug/dL (250-450) L 05/05/19 03:39 % Saturation 52 % 05/05/19 03:39 Ferritin 235.00 ng/mL (11.1-264.0) 05/05/19 03:39 Total Bilirubin 0.4 mg/dL (0.2-1.3) 05/15/19 04:47 AST 49 U/L (14-36) H 05/15/19 04:47 Alkaline Phosphatase 107 U/L (38-126) 05/15/19 04:47 Ammonia < 8.7 umol/L (9-33) L 05/05/19 03:39 C-Reactive Protein 348.0 mg/L (<10.0) H 05/02/19 08:47 Total Protein 5.9 g/dL (6.3-8.2) L 05/15/19 04:47 Albumin 3.0 g/dL (3.5-5.0) L 05/15/19 04:47 Vitamin B12 882.0 pg/mL (239-931) 05/05/19 03:39 Folate 8.43 ng/mL (>2.76) 05/05/19 03:39 TSH 0.39 uIU/mL (0.47-4.68) L 05/02/19 08:47 Free T4 1.67 ng/dL (0.78-2.19) 05/02/19 08:47 Free T3 pg/mL 2.50 pg/mL (2.77-5.27) L 05/02/19 08:47 Urine Color STRAW 05/07/19 11:16 Urine Appearance CLEAR 05/07/19 11:16 Urine pH 5.0 (5.0-9.0) 05/07/19 11:16 Ur Specific [place] 1.014 05/07/19 11:16 Urine Protein NEGATIVE mg/dL (NEGATIVE) 05/07/19 11:16 Urine Glucose (UA) 150 mg/dL (NEGATIVE) H 05/07/19 11:16 Urine Ketones NEGATIVE mg/dL (NEGATIVE) 05/07/19 11:16 Urine Blood SMALL (NEGATIVE) H 05/07/19 11:16 Urine Nitrite NEGATIVE (NEGATIVE) 05/07/19 11:16 Ur Leukocyte Esterase NEGATIVE (NEGATIVE) 05/07/19 11:16 Urine WBC (Auto) 4 /HPF 05/07/19 11:16 Urine RBC (Auto) 8 /HPF 05/07/19 11:16 Blood Type A POSITIVE 05/14/19 08:00 Antibody Screen NEGATIVE 05/14/19 08:00 05/02/19 05/02/19 05:57 08:47 Creatine Kinase 201 H Troponin I < 0.012 NT-Pro-B Natriuret Pep 1640 H Microbiology: Blood cultures: 05/02 MSSA 05/05 NGTD 05/07 NGTD 05/11 NGTD Nasa Culture 05/05 MSSA Trach Aspirate 04/30/19 MSSA Radiology: Abdomen/Pelvis CT 05/01/19 23:49 IMPRESSION: 1. Normal unenhanced CT scan of the abdomen and pelvis. There is no evidence of urinary tract calcification or urinary tract obstruction. There is no evidence of gallbladder pathology or acute appendicitis. 2. Occasional colonic diverticulosis. 3. Remote cholecystectomy. 4. Retroflexed myomatous uterus. Lower Extremity CT 05/02/19 00:00 IMPRESSION: Soft tissue edema distally in the lower extremity. It has raises the possibility of cellulitis. No abscess or mass. No bone pathology. Facial Bones CT 05/05/19 00:00 IMPRESSION: 2.8 -cm lesion of the subcutaneous left paracentral nasal tissues may indicate a phlegmon or chronic hematoma. Differential etiologies include infectious, inflammatory, and neoplastic processes. Venous Doppler Study 05/05/19 00:00 IMPRESSION: NO EVIDENCE DVT OR SVT IN EITHER LEG. Chest X-Ray 05/08/19 00:00 IMPRESSION: Endotracheal tube, right jugular line in good positioning. Bilateral airspace disease seen 05/07/2019 1958 hours has near completely cleared Guidance Fluoroscopy 05/11/19 00:00 IMPRESSION: SUCCESSFUL PLACEMENT OF A 5 FR DUAL LUMEN 40 CM PICC IN THE LEFT BASILIC VEIN. Interventional Vascular Procedure 05/11/19 00:00 IMPRESSION: SUCCESSFUL PLACEMENT OF A 5 FR DUAL LUMEN 40 CM PICC IN THE LEFT BASILIC VEIN. PICC Line Insertion 05/11/19 00:00 IMPRESSION: SUCCESSFUL PLACEMENT OF A 5 FR DUAL LUMEN 40 CM PICC IN THE LEFT BASILIC VEIN. Assessment and Recommendations: Patient with MSSA bacteremia from right foot necrotizing fasciitis s/p BKA, MSSA pneumonia and nasal abscess with MSSA as well. No evidence of endovascular complication/endocarditis ruled out. Source control has been achieved. A total of 4 weeks from negative blood cultures is recommended. For Staphylococcus aureus, no oral regimen has shown to be effective./safe for the duration needed. Cefazolin 2g IV every 8 hr is recommended (now that GFR has improved). EOT will be 06/02/2019. She has temporarily lost IV access. Can consider linezolid 600 mg bid while she gets a new PICC line only. Once IV access is available, continue cefazolin until 06/02/19. Please call back if any questions. Radha Trent MD [facility] [phone]
[2019-05-16] MEDS: AMLODIPINE BESYLATE 5 MG TABLET PO SCH (09:50)
[2019-05-16] MEDS: LOSARTAN POTASSIUM 25 MG TABLET PO SCH (09:50)
[2019-05-16] MEDS: METOPROLOL SUCCINATE 50 MG TAB.SR.24H PO SCH (09:50)
[2019-05-16] MEDS: MONTELUKAST SODIUM 10 MG TABLET PO SCH (09:50)
[2019-05-16] MEDS: PREGABALIN 50 MG CAPSULE PO SCH (09:50)
[2019-05-16] MEDS: FLUTICASONE/VILANTEROL 200-25 MCG/DOSE IH SCH (10:23)
[2019-05-16] MEDS: VERAPAMIL HCL 240 MG TABLET.SA PO SCH (10:23)
[2019-05-16] MEDS: DONEPEZIL HCL 5 MG TABLET PO SCH (10:23)
[2019-05-16] MEDS: NORMAL SALINE 10 ML SDV (SCHEDULED) IV SCH ×4 (10:24→21:28)
--- NOTE | 2019-05-16 11:00 | PDOC PROGRESS REPORT ---
Subjective Progress Note for:: 05/16/19 Subjective:: 74-year-old female admitted with sepsis, necrotizing fasciitis, metabolic encephalopathy, acute on chronic kidney injury presently on IV cefazolin. 05/12/2018. No acute events overnight. 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 05/13/2018. No acute events overnight. Patient is comfortably resting in bed in no apparent distress, very pleasant and cooperative with physical examination. 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 05/14/2019. No acute events overnight. Yesterday afternoon patient slipped off the bed,did not sustain any trauma, did not sustain any bruising, mental status at baseline. This morning patient comfortably sitting in bed in no apparent distress, complaining of right lower extremity pain otherwise denies any fever, chills, nausea, vomiting, diarrhea, constipation or any urinary symptoms. 05/15/2018. No acute events overnight. Patient removed her PICC line overnight. Denies any fever, chills, nausea, vomiting, diarrhea, constipation or any other symptoms. Pending placement. 05/16/2019. No acute events overnight. Denies any fever, chills, nausea, vomiting, diarrhea, constipation or any urinary symptoms. Reason For Visit: METABOLIC ACIDOSIS Physical Exam Vital Signs: Temp Pulse Resp BP Pulse Ox 98.9 F 67 16 145/61 H 94 05/16/19 08:00 05/16/19 08:00 05/16/19 08:00 05/16/19 08:00 05/16/19 08:00 Intake & Output 05/15/19 05/16/19 05/17/19 06:59 06:59 06:59 Intake Total 2580 415 Output Total 2 Balance 2578 415 Weight 68.5 kg 64.9 kg General appearance: PRESENT: no acute distress, well-developed, well-nourished Head exam: PRESENT: atraumatic, normocephalic Respiratory exam: PRESENT: clear to auscultation edenilson. ABSENT: rales, rhonchi, wheezes Cardiovascular exam: PRESENT: RRR. ABSENT: diastolic murmur, rubs, systolic murmur GI/Abdominal exam: PRESENT: normal bowel sounds, soft. ABSENT: distended, guarding, mass, organolmegaly, rebound, tenderness Extremities exam: PRESENT: full ROM. ABSENT: calf tenderness, clubbing, pedal edema Musculoskeletal exam: PRESENT: other - Status post right BKA. Neurological exam: PRESENT: alert, awake, oriented to person, CN II-XII grossly intact. ABSENT: motor sensory deficit Results Laboratory Results: 05/16/19 04:33 05/15/19 04:47 05/16/19 04:33 WBC 8.7 RBC 3.72 Hgb 10.6 L Hct 31.6 L MCV 85 MCH 28.5 MCHC 33.6 RDW 17.3 H Plt Count 394 Seg Neutrophils % 71.9 05/02/19 05/02/19 05:57 08:47 Creatine Kinase 201 H Troponin I < 0.012 NT-Pro-B Natriuret Pep 1640 H Impressions: Abdomen/Pelvis CT 05/01/19 23:49 IMPRESSION: 1. Normal unenhanced CT scan of the abdomen and pelvis. There is no evidence of urinary tract calcification or urinary tract obstruction. There is no evidence of gallbladder pathology or acute appendicitis. 2. Occasional colonic diverticulosis. 3. Remote cholecystectomy. 4. Retroflexed myomatous uterus. Lower Extremity CT 05/02/19 00:00 IMPRESSION: Soft tissue edema distally in the lower extremity. It has raises the possibility of cellulitis. No abscess or mass. No bone pathology. Facial Bones CT 05/05/19 00:00 IMPRESSION: 2.8 -cm lesion of the subcutaneous left paracentral nasal tissues may indicate a phlegmon or chronic hematoma. Differential etiologies include infectious, inflammatory, and neoplastic processes. Venous Doppler Study 05/05/19 00:00 IMPRESSION: NO EVIDENCE DVT OR SVT IN EITHER LEG. Chest X-Ray 05/08/19 00:00 IMPRESSION: Endotracheal tube, right jugular line in good positioning. Bilateral airspace disease seen 05/07/2019 1958 hours has near completely cleared Guidance Fluoroscopy 05/11/19 00:00 IMPRESSION: SUCCESSFUL PLACEMENT OF A 5 FR DUAL LUMEN 40 CM PICC IN THE LEFT BASILIC VEIN. Interventional Vascular Procedure 05/11/19 00:00 IMPRESSION: SUCCESSFUL PLACEMENT OF A 5 FR DUAL LUMEN 40 CM PICC IN THE LEFT BASILIC VEIN. PICC Line Insertion 05/11/19 00:00 IMPRESSION: SUCCESSFUL PLACEMENT OF A 5 FR DUAL LUMEN 40 CM PICC IN THE LEFT BASILIC VEIN. Assessment and Plan - Diagnosis (1) Bacteremia due to methicillin susceptible Staphylococcus aureus (MSSA) Is this a current diagnosis for this admission?: Yes Plan: Likely source right lower extremity nasal abscess. Patient is status post right BKA. Day 10/20 days IV cefazolin. Last day of antibiotics 06/08/2018. Patient into remove her IV access. Had a PICC line which she removed. Reconsult infectious disease if there was any p.o. alternative. As per ID recommendation patient needs IV cefazolin last day 06/08/2018. Please refer to note. (2) Anemia Qualifiers: Other causes of anemia: chronic disease, other Is this a current diagnosis for this admission?: Yes Plan: Microcytic anemia. Stable. No apparent sign of bleeding the first recent AKA. Serum iron 80.8, TIBC 155, saturation 52, ferritin 235, B12 882, folate 8.43. Haptoglobin pending. Status post 2 PRBC transfusion on 05/13/2019. Monitor H&H. Obtain stool guaiac. (3) Necrotizing fasciitis of ankle and foot Is this a current diagnosis for this admission?: Yes Plan: Day 8 status post DKA. Wound culture growing MSSA. Day 10/20 days IV cefazolin. Last day of antibiotics 06/08/2018. Continue IV antibiotics, continue wound care, monitor vitals. Surgery on board. Recommendations noted. (4) Abscess of nose Is this a current diagnosis for this admission?: Yes Plan: ENT was consulted. Nasal packaging placed however cannot remove it. Repeat nasal packaging was not required as per ENT note. Tissue from nasal abscess growing MSSA. Plan as per #1. (5) Acute hypernatremia Is this a current diagnosis for this admission?: Yes Plan: Resolved. (6) Acute kidney injury superimposed on chronic kidney disease Is this a current diagnosis for this admission?: Yes Plan: Resolved Presented with creatinine of 5.0. This was most likely due to septic shock. (7) Acute metabolic encephalopathy Is this a current diagnosis for this admission?: Yes Plan: Resolved. Back to baseline. At baseline patient is alert and oriented x1. (8) Alzheimer's dementia without behavioral disturbance Qualifiers: Alzheimer's disease onset: early-onset Qualified Code(s): G30.0 - Alzheimer's disease with early onset; F02.80 - Dementia in other diseases classified elsewhere without behavioral disturbance Is this a current diagnosis for this admission?: Yes Plan: Continue current meds. Supportive measures. Fall precautions. (9) Essential thrombocytosis Is this a current diagnosis for this admission?: Yes Plan: Resolved (10) HTN (hypertension) Qualifiers: Hypertension type: essential hypertension Qualified Code(s): I10 - Essential (primary) hypertension Is this a current diagnosis for this admission?: Yes Plan: Euvolemic. Normotensive. Continue current meds. Adjust meds as needed. (11) Shock, septic Is this a current diagnosis for this admission?: Yes Plan: Resolved
[2019-05-17] MEDS: HEPARIN SOD (PORCINE) 5,000 UNIT/ML 1 ML VIAL SUBCUT SCH ×3 (05:45→22:38)
[2019-05-17] MEDS: CEFAZOLIN SODIUM 1 GM in DEXTROSE 5%-WATER 50 ML IV SCH ×3 (05:45→17:12)
[2019-05-17 06:31] LABS: ABSOLUTE BASOPHILS # (AUTO) 0.1 10^3/uL (0.0-0.2); ABSOLUTE EOSINOPHILS # (AUTO) 0.2 10^3/uL (0.0-0.6); ABSOLUTE LYMPHOCYTES (AUTO) 1.1 10^3/uL (0.5-4.7); ABSOLUTE MONOCYTES (AUTO) 0.9 10^3/uL (0.1-1.4); BASOPHILS % (AUTO) 1.3 % (0-2); EOSINOPHILS % (AUTO) 2.3 % (0-6); HEMATOCRIT 31.3 % (36.0-47.0); HEMOGLOBIN 10.6 g/dL (12.0-15.5); LYMPHOCYTES % (AUTO) 14.9 % (13-45); MEAN CORPUSCULAR HEMOGLOBIN 28.7 pg (27.0-33.4); MEAN CORPUSCULAR HGB CONC 33.7 g/dL (32.0-36.0); MEAN CORPUSCULAR VOLUME 85 fl (80-97); MONOCYTES % (AUTO) 12.2 % (3-13); PLATELET COUNT 373 10^3/uL (150-450); RED BLOOD COUNT 3.68 10^6/uL (3.72-5.28); RED CELL DISTRIBUTION WIDTH 17.8 % (11.5-14.0); SEGMENTED NEUTROPHILS % (AUTO) 69.3 % (42-78); TOTAL CELLS COUNTED % (AUTO) 100 %; WHITE BLOOD COUNT 7.2 10^3/uL (4.0-10.5)
[2019-05-17 06:54] LABS: ANION GAP 12 (5-19); BLOOD UREA NITROGEN 22 mg/dL (7-20); CARBON DIOXIDE 26 mmol/L (22-30); CHLORIDE 101 mmol/L (98-107); GLUCOSE 118 mg/dL (75-110); POTASSIUM 4.5 mmol/L (3.6-5.0)
[2019-05-17] MEDS: INSULIN LISPRO 100 UNIT/ML 3 ML VIAL SUBCUT SCH ×4 (08:58→21:27)
[2019-05-17] MEDS: AMLODIPINE BESYLATE 5 MG TABLET PO SCH (09:00)
[2019-05-17] MEDS: LOSARTAN POTASSIUM 25 MG TABLET PO SCH (09:00)
[2019-05-17] MEDS: MONTELUKAST SODIUM 10 MG TABLET PO SCH (09:00)
[2019-05-17] MEDS: PREGABALIN 50 MG CAPSULE PO SCH (09:00)
[2019-05-17] MEDS: DONEPEZIL HCL 5 MG TABLET PO SCH (09:01)
[2019-05-17] MEDS: VERAPAMIL HCL 240 MG TABLET.SA PO SCH (09:01)
[2019-05-17] MEDS: FLUTICASONE/VILANTEROL 200-25 MCG/DOSE IH SCH (09:01)
[2019-05-17] MEDS: METOPROLOL SUCCINATE 50 MG TAB.SR.24H PO SCH (09:01)
[2019-05-17] MEDS: NORMAL SALINE 10 ML SDV (SCHEDULED) IV SCH ×4 (09:03→21:28)
[2019-05-17] MEDS ORDERED: OXYCODONE-ACETAMINOPHEN 5-325 MG TABLET PO PRN (14:52)
--- NOTE | 2019-05-17 15:07 | PDOC PROGRESS REPORT ---
Subjective Progress Note for:: 05/17/19 Subjective:: 74-year-old female admitted with sepsis, necrotizing fasciitis, metabolic encephalopathy, acute on chronic kidney injury presently on IV cefazolin. 05/12/2018. No acute events overnight. 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 05/13/2018. No acute events overnight. Patient is comfortably resting in bed in no apparent distress, very pleasant and cooperative with physical examination. 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 05/14/2019. No acute events overnight. Yesterday afternoon patient slipped off the bed,did not sustain any trauma, did not sustain any bruising, mental status at baseline. This morning patient comfortably sitting in bed in no apparent distress, complaining of right lower extremity pain otherwise denies any fever, chills, nausea, vomiting, diarrhea, constipation or any urinary symptoms. 05/15/2019. No acute events overnight. Patient removed her PICC line overnight. Denies any fever, chills, nausea, vomiting, diarrhea, constipation or any other symptoms. Pending placement. 05/16/2019. No acute events overnight. Denies any fever, chills, nausea, vomiting, diarrhea, constipation or any urinary symptoms. 05/17/2019. No acute events overnight. Complaining of right leg pain otherwise denies any fever, chills, nausea, vomiting, diarrhea, constipation. P.o. tolerant, having normal bowel and bladder movements. Reason For Visit: METABOLIC ACIDOSIS Physical Exam Vital Signs: Temp Pulse Resp BP Pulse Ox 99 F 70 16 124/49 L 96 05/17/19 12:32 05/17/19 12:32 05/17/19 12:32 05/17/19 12:32 05/17/19 12:32 Intake & Output 05/16/19 05/17/19 05/18/19 06:59 06:59 06:59 Intake Total 415 1830 530 Balance 415 1830 530 Weight 64.9 kg 64.9 kg General appearance: PRESENT: no acute distress, well-developed, well-nourished Head exam: PRESENT: atraumatic, normocephalic Respiratory exam: PRESENT: clear to auscultation edenilson. ABSENT: rales, rhonchi, wheezes Pulses: PRESENT: normal dorsalis pedis pul GI/Abdominal exam: PRESENT: normal bowel sounds, soft. ABSENT: distended, guarding, mass, organolmegaly, rebound, tenderness Rectal exam: PRESENT: deferred Musculoskeletal exam: PRESENT: tenderness, other - Left lower extremity BKA. Wound looks clean. No sign of discharge. Neurological exam: PRESENT: alert, awake, oriented to person, oriented to place, CN II-XII grossly intact. ABSENT: motor sensory deficit Results Laboratory Results: 05/17/19 05:43 05/17/19 05:43 05/17/19 05/17/19 05:43 05:43 WBC 7.2 RBC 3.68 L Hgb 10.6 L Hct 31.3 L MCV 85 MCH 28.7 MCHC 33.7 RDW 17.8 H Plt Count 373 Seg Neutrophils % 69.3 Sodium 138.7 Potassium 4.5 Chloride 101 Carbon Dioxide 26 Anion Gap 12 BUN 22 H Creatinine 0.91 Est GFR ( Amer) > 60 Glucose 118 H Calcium 9.0 Magnesium 2.0 05/11/19 11:09 Blood Blood Culture - Final NO GROWTH IN 5 DAYS 05/11/19 10:52 Blood Blood Culture - Final NO GROWTH IN 5 DAYS 05/02/19 05/02/19 05:57 08:47 Creatine Kinase 201 H Troponin I < 0.012 NT-Pro-B Natriuret Pep 1640 H Impressions: Abdomen/Pelvis CT 05/01/19 23:49 IMPRESSION: 1. Normal unenhanced CT scan of the abdomen and pelvis. There is no evidence of urinary tract calcification or urinary tract obstruction. There is no evidence of gallbladder pathology or acute appendicitis. 2. Occasional colonic diverticulosis. 3. Remote cholecystectomy. 4. Retroflexed myomatous uterus. Lower Extremity CT 05/02/19 00:00 IMPRESSION: Soft tissue edema distally in the lower extremity. It has raises the possibility of cellulitis. No abscess or mass. No bone pathology. Facial Bones CT 05/05/19 00:00 IMPRESSION: 2.8 -cm lesion of the subcutaneous left paracentral nasal tissues may indicate a phlegmon or chronic hematoma. Differential etiologies include infectious, inflammatory, and neoplastic processes. Venous Doppler Study 05/05/19 00:00 IMPRESSION: NO EVIDENCE DVT OR SVT IN EITHER LEG. Chest X-Ray 05/08/19 00:00 IMPRESSION: Endotracheal tube, right jugular line in good positioning. Bilateral airspace disease seen 05/07/2019 1958 hours has near completely cleared Guidance Fluoroscopy 05/11/19 00:00 IMPRESSION: SUCCESSFUL PLACEMENT OF A 5 FR DUAL LUMEN 40 CM PICC IN THE LEFT BASILIC VEIN. Interventional Vascular Procedure 05/11/19 00:00 IMPRESSION: SUCCESSFUL PLACEMENT OF A 5 FR DUAL LUMEN 40 CM PICC IN THE LEFT BASILIC VEIN. PICC Line Insertion 05/11/19 00:00 IMPRESSION: SUCCESSFUL PLACEMENT OF A 5 FR DUAL LUMEN 40 CM PICC IN THE LEFT B ASILIC VEIN. Assessment and Plan - Diagnosis (1) Bacteremia due to methicillin susceptible Staphylococcus aureus (MSSA) Is this a current diagnosis for this admission?: Yes Plan: Likely source right lower extremity nasal abscess. Patient is status post right BKA. Day 04/08 days IV cefazolin. Last day of antibiotics 06/08/2018. Patient into remove her IV access. Had a PICC line which she removed. Reconsult infectious disease if there was any p.o. alternative. As per ID recommendation patient needs IV cefazolin last day 06/08/2018. Please refer to note. (2) Anemia Qualifiers: Other causes of anemia: chronic disease, other Is this a current diagnosis for this admission?: Yes Plan: Microcytic anemia. Stable. No apparent sign of bleeding the first recent AKA. Serum iron 80.8, TIBC 155, saturation 52, ferritin 235, B12 882, folate 8.43. Haptoglobin pending. Status post 2 PRBC transfusion on 05/13/2019. Monitor H&H. Obtain stool guaiac. (3) Necrotizing fasciitis of ankle and foot Is this a current diagnosis for this admission?: Yes Plan: Status post DKA. Wound culture growing MSSA. Continue IV antibiotics, continue wound care, monitor vitals. Surgery on board. Recommendations noted. (4) Abscess of nose Is this a current diagnosis for this admission?: Yes Plan: ENT was consulted. Nasal packaging placed however cannot remove it. Repeat nasal packaging was not required as per ENT note. Tissue from nasal abscess growing MSSA. Plan as per #1. (5) Alzheimer's dementia without behavioral disturbance Qualifiers: Alzheimer's disease onset: early-onset Qualified Code(s): G30.0 - Alzheimer's disease with early onset; F02.80 - Dementia in other diseases clas sified elsewhere without behavioral disturbance Is this a current diagnosis for this admission?: Yes Plan: Continue current meds. Supportive measures. Fall precautions. (6) HTN (hypertension) Qualifiers: Hypertension type: essential hypertension Qualified Code(s): I10 - Essential (primary) hypertension Is this a current diagnosis for this admission?: Yes Plan: Euvolemic. Normotensive. Continue current meds. Adjust meds as needed. (7) Shock, septic Is this a current diagnosis for this admission?: Yes Plan: Resolved (8) Acute kidney injury superimposed on chronic kidney disease Is this a current diagnosis for this admission?: Yes Plan: Resolved Presented with creatinine of 5.0. This was most likely due to septic shock. (9) Acute hypernatremia Is this a current diagnosis for this admission?: Yes Plan: Resolved. (10) Acute metabolic encephalopathy Is this a current diagnosis for this admission?: Yes Plan: Resolved. Back to baseline. At baseline patient is alert and oriented x1. (11) Essential thrombocytosis Is this a current diagnosis for this admission?: Yes Plan: Resolved
[2019-05-17] MEDS: OXYCODONE-ACETAMINOPHEN 5-325 MG TABLET PO PRN (15:44)
[2019-05-18] MEDS: CEFAZOLIN SODIUM 1 GM in DEXTROSE 5%-WATER 50 ML IV SCH ×3 (01:52→17:32)
[2019-05-18] MEDS: HEPARIN SOD (PORCINE) 5,000 UNIT/ML 1 ML VIAL SUBCUT SCH ×2 (05:03→14:36)
[2019-05-18] MEDS: INSULIN LISPRO 100 UNIT/ML 3 ML VIAL SUBCUT SCH ×3 (07:12→17:32)
[2019-05-18] MEDS: FLUTICASONE/VILANTEROL 200-25 MCG/DOSE IH SCH (09:19)
[2019-05-18] MEDS: METOPROLOL SUCCINATE 50 MG TAB.SR.24H PO SCH (09:20)
[2019-05-18] MEDS: PREGABALIN 50 MG CAPSULE PO SCH (09:20)
[2019-05-18] MEDS: VERAPAMIL HCL 240 MG TABLET.SA PO SCH (09:20)
[2019-05-18] MEDS: DONEPEZIL HCL 5 MG TABLET PO SCH (09:20)
[2019-05-18] MEDS: MONTELUKAST SODIUM 10 MG TABLET PO SCH (09:22)
[2019-05-18] MEDS: AMLODIPINE BESYLATE 5 MG TABLET PO SCH (09:22)
[2019-05-18] MEDS: LOSARTAN POTASSIUM 25 MG TABLET PO SCH (09:22)
--- NOTE | 2019-05-18 13:04 | PDOC PROGRESS REPORT ---
Subjective Progress Note for:: 05/18/19 Subjective:: 74-year-old female admitted with sepsis, necrotizing fasciitis, metabolic encephalopathy, acute on chronic kidney injury presently on IV cefazolin. 05/12/2018. No acute events overnight. 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 05/13/2018. No acute events overnight. Patient is comfortably resting in bed in no apparent distress, very pleasant and cooperative with physical examination. 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 05/14/2019. No acute events overnight. Yesterday afternoon patient slipped off the bed,did not sustain any trauma, did not sustain any bruising, mental status at baseline. This morning patient comfortably sitting in bed in no apparent distress, complaining of right lower extremity pain otherwise denies any fever, chills, nausea, vomiting, diarrhea, constipation or any urinary symptoms. 05/15/2019. No acute events overnight. Patient removed her PICC line overnight. Denies any fever, chills, nausea, vomiting, diarrhea, constipation or any other symptoms. Pending placement. 05/16/2019. No acute events overnight. Denies any fever, chills, nausea, vomiting, diarrhea, constipation or any urinary symptoms. 05/17/2019. No acute events overnight. Complaining of right leg pain otherwise denies any fever, chills, nausea, vomiting, diarrhea, constipation. P.o. tolerant, having normal bowel and bladder movements. 05/18/2019. No acute events overnight. P.o. tolerant, denies any fever, chills, nausea, vomiting, diarrhea, constipation or any urinary symptoms. Patient inquiring about when she can go home. Pending placement. Reason For Visit: METABOLIC ACIDOSIS Physical Exam Vital Signs: Temp Pulse Resp BP Pulse Ox 97.9 F 78 17 146/60 H 98 05/18/19 08:16 05/18/19 08:16 05/18/19 08:16 05/18/19 08:16 05/18/19 08:16 Intake & Output 05/17/19 05/18/19 05/19/19 06:59 06:59 06:59 Intake Total 1830 1110 Output Total 500 Balance 1830 610 Weight 64.9 kg 63 kg General appearance: PRESENT: no acute distress, well-developed, well-nourished Head exam: PRESENT: atraumatic, normocephalic Respiratory exam: PRESENT: clear to auscultation edenilson. ABSENT: rales, rhonchi, wheezes Cardiovascular exam: PRESENT: RRR. ABSENT: diastolic murmur, rubs, systolic murmur Pulses: PRESENT: normal dorsalis pedis pul Musculoskeletal exam: PRESENT: other - Right lower extremity status post AKA. Wound looks clean. No sign of discharge. Neurological exam: PRESENT: alert, awake, oriented to person, CN II-XII grossly intact. ABSENT: motor sensory deficit Results Laboratory Results: 05/17/19 05:43 05/17/19 05:43 05/02/19 05/02/19 05:57 08:47 Creatine Kinase 201 H Troponin I < 0.012 NT-Pro-B Natriuret Pep 1640 H Impressions: Abdomen/Pelvis CT 05/01/19 23:49 IMPRESSION: 1. Normal unenhanced CT scan of the abdomen and pelvis. There is no evidence of urinary tract calcification or urinary tract obstruction. There is no evidence of gallbladder pathology or acute appendicitis. 2. Occasional colonic diverticulosis. 3. Remote cholecystectomy. 4. Retroflexed myomatous uterus. Lower Extremity CT 05/02/19 00:00 IMPRESSION: Soft tissue edema distally in the lower extremity. It has raises the possibility of cellulitis. No abscess or mass. No bone pathology. Facial Bones CT 05/05/19 00:00 IMPRESSION: 2.8 -cm lesion of the subcutaneous left paracentral nasal tissues may indicate a phlegmon or chronic hematoma. Differential etiologies include infectious, inflammatory, and neoplastic processes. Venous Doppler Study 05/05/19 00:00 IMPRESSION: NO EVIDENCE DVT OR SVT IN EITHER LEG. Chest X-Ray 05/08/19 00:00 IMPRESSION: Endotracheal tube, right jugular line in good positioning. Bilateral airspace disease seen 05/07/2019 1958 hours has near completely cleared Guidance Fluoroscopy 05/11/19 00:00 IMPRESSION: SUCCESSFUL PLACEMENT OF A 5 FR DUAL LUMEN 40 CM PICC IN THE LEFT BASILIC VEIN. Interventional Vascular Procedure 05/11/19 00:00 IMPRESSION: SUCCESSFUL PLACEMENT OF A 5 FR DUAL LUMEN 40 CM PICC IN THE LEFT BASILIC VEIN. PICC Line Insertion 05/11/19 00:00 IMPRESSION: SUCCESSFUL PLACEMENT OF A 5 FR DUAL LUMEN 40 CM PICC IN THE LEFT BASILIC VEIN. Assessment and Plan - Diagnosis (1) Bacteremia due to methicillin susceptible Staphylococcus aureus (MSSA) Is this a current diagnosis for this admission?: Yes Plan: Likely source right lower extremity nasal abscess. Patient is status post right BKA. Day 05/08 days IV cefazolin. Last day of antibiotics 06/02/2019. Patient into remove her IV access. Had a PICC line which she removed. Reconsult infectious disease if there was any p.o. alternative. As per ID recommendation patient needs IV cefazolin last day 06/08/2018. Please refer to note. (2) Anemia Qualifiers: Other causes of anemia: chronic disease, other Is this a current diagnosis for this admission?: Yes Plan: Microcytic anemia. Stable. No apparent sign of bleeding the first recent AKA. Serum iron 80.8, TIBC 155, saturation 52, ferritin 235, B12 882, folate 8.43. Haptoglobin pending. Status post 2 PRBC transfusion on 05/13/2019. Monitor H&H. Obtain stool guaiac. (3) Necrotizing fasciitis of ankle and foot Is this a current diagnosis for this admission?: Yes Plan: Status post DKA. Wound culture growing MSSA. Continue IV antibiotics, continue wound care, monitor vitals. Surgery on board. Recommendations noted. (4) Abscess of nose Is this a current diagnosis for this admission?: Yes Plan: ENT was consulted. Nasal packaging placed however cannot remove it. Repeat nasal packaging was not required as per ENT note. Tissue from nasal abscess growing MSSA. Plan as per #1. (5) Alzheimer's dementia without behavioral disturbance Qualifiers: Alzheimer's disease onset: early-onset Qualified Code(s): G30.0 - Alzheimer's disease with early onset; F02.80 - Dementia in other diseases classified elsewhere without behavioral disturbance Is this a current diagnosis for this admission?: Yes Plan: Continue current meds. Supportive measures. Fall precautions. (6) HTN (hypertension) Qualifiers: Hypertension type: essential hypertension Qualified Code(s): I10 - Essenti al (primary) hypertension Is this a current diagnosis for this admission?: Yes Plan: Euvolemic. Normotensive. Continue current meds. Adjust meds as needed. (7) Shock, septic Is this a current diagnosis for this admission?: Yes Plan: Resolved (8) Acute kidney injury superimposed on chronic kidney disease Is this a current diagnosis for this admission?: Yes Plan: Resolved Presented with creatinine of 5.0. This was most likely due to septic shock. (9) Acute hypernatremia Is this a current diagnosis for this admission?: Yes Plan: Resolved. (10) Acute metabolic encephalopathy Is this a current diagnosis for this admission?: Yes Plan: Resolved. Back to baseline. At baseline patient is alert and oriented x1. (11) Essential thrombocytosis Is this a current diagnosis for this admission?: Yes Plan: Resolved
[2019-05-18] MEDS: NORMAL SALINE 10 ML SDV (SCHEDULED) IV SCH ×2 (14:36)
--- NOTE | 2019-05-18 16:13 | RADIOLOGY REPORT (SQ) ---
EXAM DESCRIPTION: PICC INSERTION; FLUORO/CV PLACEMENT; U/S GUIDE FOR VASCULAR ACCESS COMPLETED DATE/TIME: 05/18/2019 4:01 pm REASON FOR STUDY: Discharge; IV ABX; IV ACCESS COMPARISON: None. FLUOROSCOPY TIME: 50 seconds. 1 images saved to PACS. TECHNIQUE: Fluoroscopic and ultrasound guided PICC placement. LIMITATIONS: None. PROCEDURE: After written consent and assessment were obtained, the patient was brought into the fluo roscopy room and placed supine on the table. Ultrasound evaluation of potential access sites were per formed. After successfully identifying a patent left basilic vein, the left arm was prepped and drape d in a sterile fashion along with the ultrasound probe. The entry site was anesthetized with 1% lidoc laura. A 21 gauge 7 cm needle was advanced through the skin and into the basilic vein under live ultra sound guidance. An ultrasound image was saved to PACS confirming access site. A .018 guide wire was then inserted through the needle and into the venous system. The needle was then removed and an 11 b lade scalpel was used to make a 1cm skin incision. A 5 fr peel-away sheath was advanced over the wir e and into the venous system. A measurement was then made using the existing wire and live fluoroscop ic guidance. The wire was then removed and trimmed. The PICC was advanced through the peel-away sheat h and into the venous system. The peel-away sheath was removed and the catheter was adhered to the pa tients arm with a stat lock. The catheter was then aspirated and flushed and a sterile bandage was pl aced over the access site. A fluoroscopic spot image was saved to PACS confirming the catheter tip w ithin the superior vena cava. IMPRESSION: SUCCESSFUL PLACEMENT OF A 5 FR DUAL LUMEN 38 CM PICC IN THE LEFT BASILIC VEIN. COMMENT: Patient medication list reviewed: Yes- Quality ID# [id number]:Eligible professional attests to doc umenting in the medical record they obtained, updated, or reviewed the patient's current medications. . Quality ID 145: Final reports for procedures using fluoroscopy that document radiation exposure andrew leigh, or exposure time and number of fluorographic images (if radiation exposure indices are not avail able) Quality ID #76: The patient was prepped and draped using maximum sterile barrier technique including cap, mask, sterile gown, sterile gloves, a large sterile sheet, hand hygiene, and 2% Chlorhexidine fo r cutaneous antisepsis. When ultrasound is used, sterile ultrasound techniques are followed requiring sterile gel and sterile probes. TECHNICAL DOCUMENTATION: JOB ID: [id number] [email or web address]- All Rights Reserved rev-10/04 Reading location - IP/workstation name: [email or web address]
--- NOTE | 2019-05-18 16:47 | PDOC TRANSFER SUMMARY ---
General Admission Date/PCP: 05/02/19 03:12 TRISHA SPARKS MD Resuscitation Status: Full Code - Transfer Diagnosis (1) Bacteremia due to methicillin susceptible Staphylococcus aureus (MSSA) Is this a current diagnosis for this admission?: Yes (2) Anemia Is this a current diagnosis for this admission?: Yes (3) Necrotizing fasciitis of ankle and foot Is this a current diagnosis for this admission?: Yes (4) Abscess of nose Is this a current diagnosis for this admission?: Yes (5) Alzheimer's dementia without behavioral disturbance Is this a current diagnosis for this admission?: Yes (6) HTN (hypertension) Is this a current diagnosis for this admission?: Yes (7) Shock, septic Is this a current diagnosis for this admission?: Yes (8) Acute kidney injury superimposed on chronic kidney disease Is this a current diagnosis for this admission?: Yes (9) Acute hypernatremia Is this a current diagnosis for this admission?: Yes (10) Acute metabolic encephalopathy Is this a current diagnosis for this admission?: Yes (11) Essential thrombocytosis Is this a current diagnosis for this admission?: Yes (12) Diabetes Is this a current diagnosis for this admission?: Yes - Transfer Medications Home Medications: Budesonide/Formoterol Fumarate [Symbicort HFA 160-4.5 mcg Inhaler 6 gm] 2 puff IH Q12 05/03/19 Donepezil HCl 10 mg PO DAILY 05/03/19 Metoprolol Succinate 100 mg PO DAILY 05/03/19 Verapamil HCl [Verapamil ER] 240 mg PO DAILY 05/03/19 Zafirlukast [Accolate 20 mg Tablet] 20 mg PO BID 05/03/19 Transfer Medications: Current Medications Amlodipine Besylate (Norvasc 5 Mg Tablet) 5 mg PO DAILY [facility] Stop: 06/08/19 09:59 Last Admin: 05/18/19 09:22 Dose: 5 mg Documented by: Dextrose (Dextrose Inj 50% Syringe (25 Gm/50 Ml)) 12.5 gm IV PRN PRN; Protocol PRN Reason: FOR BG 50-69 IN ALERT PATIENT Stop: 06/14/19 07:28 Dextrose (Dextrose Inj 50% Syringe (25 Gm/50 Ml)) 25 gm IV PRN PRN; Protocol PRN Reason: PER PROTOCOL Stop: 06/14/19 07:28 Donepezil HCl (Aricept 5 Mg Tablet) 10 mg PO DAILY [facility] Stop: 06/10/19 09:59 Last Admin: 05/18/19 09:20 Dose: 10 mg Documented by: Fluticasone/Vilanterol (Breo 200-25 Mcg Ellipta 14 Dose/Dpi) 1 inh IH DAILY [facility] Stop: 06/08/19 11:59 Last Admin: 05/18/19 09:19 Dose: 1 inhaler Documented by: Glucagon (Glucagen Inj 1 Mg Vial) 1 mg IM PRN PRN; Protocol PRN Reason: Evaluate for BG < 70 Stop: 06/14/19 07:28 Glucose (Glutose 40% Gel 15 Gm Tube) 15 gm PO PRN PRN; Protocol PRN Reason: FOR BG 50-69 IN ALERT PATIENT Stop: 06/14/19 07:28 Glucose (Glutose 40% Gel 15 Gm Tube) 30 gm PO PRN PRN; Protocol PRN Reason: FOR BG < 50 IN ALERT PATIENT Stop: 06/14/19 07:28 Heparin Sodium (Porcine) (Heparin Inj 5,000 Units/Ml 1 Ml Vial) 5,000 unit SUBCUT Q8 [facility] Stop: 06/01/19 05:59 Last Admin: 05/18/19 14:36 Dose: 5,000 unit Documented by: Heparin Sodium (Porcine) (Heparin Flush 10 Unit/Ml 5 Ml Disp.Syrg) 30 unit IV Q12 [facility] Stop: 06/10/19 21:59 Last Admin: 05/18/19 14:36 Dose: Not Given Documented by: Heparin Sodium (Porcine) (Heparin Flush 10 Unit/Ml 5 Ml Disp.Syrg) 30 unit IV .AFTER EACH USE PRN Stop: 06/10/19 14:29 Last Admin: 05/12/19 05:45 Dose: 30 unit Documented by: Heparin Sodium (Porcine) (Heparin Flush 10 Unit/Ml 5 Ml Disp.Syrg) 30 unit IV Q12 [facility] Stop: 06/11/19 09:59 Last Admin: 05/18/19 14:36 Dose: Not Given Documented by: Heparin Sodium (Porcine) (Heparin Flush 10 Unit/Ml 5 Ml Disp.Syrg) 30 unit IV .AFTER EACH USE PRN Stop: 06/11/19 03:59 Last Admin: 05/13/19 05:26 Dose: 30 unit Documented by: Hydralazine HCl (Apresoline Inj/Pf 20 Mg/1 Ml Sdv) 10 mg IV Q4HP PRN PRN Reason: SBP >160 Stop: 06/09/19 11:07 Last Admin: 05/10/19 11:53 Dose: 10 mg Documented by: Cefazolin Sodium 1 gm/ (Dextrose) 50 mls @ 100 mls/hr IV Q8A [facility] Stop: 05/22/19 10:59 Last Admin: 05/18/19 09:22 Dose: 100 mls/hr, 100 mls/hr Documented by: Insulin Human Lispro (Humalog Insulin 100 Unit/1 Ml 3 Ml Vial) 0 - 12 unit SUBCUT [facility]; Protocol Stop: 06/14/19 07:59 Last Admin: 05/18/19 11:30 Dose: Not Given Documented by: Levalbuterol HCl (Xopenex Neb 0.63 Mg/3 Ml Ampul) 0.63 mg NEB RTQ4HP PRN PRN Reason: SHORTNESS OF BREATH Stop: 06/01/19 04:42 Last Admin: 05/08/19 08:09 Dose: 0.63 mg Documented by: Losartan Potassium (Cozaar 25 Mg Tablet) 25 mg PO DAILY [facility] Stop: 06/14/19 09:59 Last Admin: 05/18/19 09:22 Dose: 25 mg Documented by: Metoprolol Succinate (Toprol Xl 50 Mg Tab.Sr) 100 mg PO DAILY [facility] Stop: 06/10/19 09:59 Last Admin: 05/18/19 09:20 Dose: 100 mg Documented by: Montelukast Sodium (Singulair 10 Mg Tablet) 10 mg PO DAILY [facility] Stop: 06/04/19 09:59 Last Admin: 05/18/19 09:22 Dose: 10 mg Documented by: Ondansetron HCl (Zofran Inj/Pf 4 Mg/2 Ml Sdv) 4 mg IV Q6HP PRN PRN Reason: FOR NAUSEA Stop: 06/09/19 13:31 Last Admin: 05/15/19 12:24 Dose: 4 mg Documented by: Oxycodone/Acetaminophen (Percocet 5-325 Mg Tablet) 1 tab PO Q4HP PRN PRN Reason: FOR PAIN SCALE 2-3 Stop: 05/24/19 14:51 Oxycodone/Acetaminophen (Percocet 5-325 Mg Tablet) 2 tab PO Q6HP PRN PRN Reason: FOR PAIN SCALE 4-5 Stop: 05/24/19 14:51 Last Admin: 05/17/19 15:44 Dose: 2 tab Documented by: Pharmacy Profile Note (Medication Communication Order) 1 each MC .NOTICE NR Stop: 06/01/19 14:29 Pregabalin (Lyrica 50 Mg Capsule) 50 mg PO DAILY [facility] Stop: 06/07/19 18:44 Last Admin: 05/18/19 09:20 Dose: 50 mg Documented by: Sodium Chloride (Nacl 0.9% Inj/Pf 10 Ml Sdv) 10 ml IV Q12 [facility] Stop: 06/10/19 21:59 Last Admin: 05/18/19 14:36 Dose: Not Given Documented by: Sodium Chloride (Nacl 0.9% Inj/Pf 10 Ml Sdv) 10 ml IV .AFTER EACH USE PRN Stop: 06/10/19 14:29 Last Admin: 05/12/19 21:41 Dose: 10 ml Documented by: Sodium Chloride (Nacl 0.9% Inj/Pf 10 Ml Sdv) 10 ml IV Q12 [facility]UMA Stop: 06/11/19 09:59 Last Admin: 05/18/19 14:36 Dose: Not Given Documented by: Sodium Chloride (Nacl 0.9% Inj/Pf 10 Ml Sdv) 10 ml IV .AFTER EACH USE PRN Stop: 06/11/19 03:59 Verapamil HCl (Calan Sr 240 Mg Tablet.Sa) 240 mg PO DAILY [facility] Stop: 06/10/19 09:59 Last Admin: 05/18/19 09:20 Dose: 240 mg Documented by: - Allergies Allergies/Adverse Reactions: atorvastatin Allergy (Verified 05/01/19 23:58) codeine Allergy (Verified 05/01/19 23:58) lisinopril Allergy (Verified 05/01/19 23:58) meloxicam Allergy (Verified 05/01/19 23:58) metformin Allergy (Verified 05/01/19 23:58) Sulfa (Sulfonamide Antibiotics) Allergy (Verified 05/01/19 23:58) Hospital Course Hospital Course: 74-year-old female admitted with sepsis, necrotizing fasciitis, metabolic encephalopathy, acute on chronic kidney injury presently on IV cefazolin. (1) Bacteremia due to methicillin susceptible Staphylococcus aureus (MSSA) Likely source right lower extremity and nasal abscess. Patient is status post right BKA. 2D echo negative for any vegetations. Day 05/08 days IV cefazolin. Last day of antibiotics 06/02/2019. Patient did not remove IV access. She has had 2 PICC line is inserted on this admission. Reconsulted infectious disease if there was any p.o. alternative but as per ID recommendation patient is still needs to be on cefazolin last day 06/02/2019. After the completion of IV antibiotics patient needs to follow-up to follow-up with Dr. Radha Gayle, ID specialist at [facility]. (2) Anemia Microcytic anemia. Stable. No apparent sign of bleeding the first recent AKA. Serum iron 80.8, TIBC 155, saturation 52, ferritin 235, B12 882, folate 8.43. Status post 2 PRBC transfusion on 05/13/2019. Haptoglobin 315. Factor VIII activity 290. Von Willebrand activity 271. Von Willebrand antigen 425. Ghulam 2 mutation pending. Note. The above labs were ordered by Estelita vascular tech who was consulted. She needs to follow-up with Dr. Capone as outpatient for above abnormal labs. for the above abnormal (3) Necrotizing fasciitis of ankle and foot Status post DKA. Wound culture grew MSSA. Continue IV antibiotics as per #1. Continue wound care. Follow-up in surgical clinic Patient is to follow-up at [facility] for evaluation of her right BKA. (4) Abscess of nose ENT was consulted. Nasal packaging placed however cannot remove it. Repeat nasal packaging was not required as per ENT note. Tissue from nasal abscess growing MSSA. Plan as per #1. (5) Alzheimer's dementia without behavioral disturbance Continue current meds. Supportive measures. Fall precautions. (6) HTN (hypertension) Euvolemic. Normotensive. Continue current meds. Adjust meds as needed. (7) Shock, septic Due to MSSA bacteremia. Was a started on empiric IV antibiotics. Resolved. Vitals WNL. (8) Acute kidney injury superimposed on chronic kidney disease Resolved. Euvolemic. Electrolytes WNL. Avoid nephrotoxic meds. Presented with creatinine of 5.0. This was most likely due to septic shock. (9) Acute hypernatremia Resolved. (10) Acute metabolic encephalopathy Resolved. Back to baseline. At baseline patient is alert and oriented x1. (11) Essential thrombocytosis Likely reactive thrombocytosis due to septic shock. Resolved. (12) Diabetes Controlled. Hemoglobin A1c 6.3. Allergic to metformin. Was started on diabetic protocol and patient. Discharge on sitagliptin. Patient is to follow-up with PCP for evaluation of her diabetes and adjustment of her antidiabetic meds. Physical Exam Vital Signs: Temp Pulse Resp BP Pulse Ox 98.3 F 76 19 128/69 H 97 05/18/19 10:47 05/18/19 10:47 05/18/19 10:47 05/18/19 10:47 05/18/19 10:47 Intake & Output 05/17/19 05/18/19 05/19/19 06:59 06:59 06:59 Intake Total 1830 1110 Output Total 500 Balance 1830 610 Weight 64.9 kg 63 kg General appearance: PRESENT: no acute distress, well-developed, well-nourished Head exam: PRESENT: atraumatic, normocephalic Respiratory exam: PRESENT: clear to auscultation edenilson. ABSENT: rales, rhonchi, wheezes Cardiovascular exam: PRESENT: RRR. ABSENT: diastolic murmur, rubs, systolic murmur GI/Abdominal exam: PRESENT: normal bowel sounds, soft. ABSENT: distended, guarding, mass, organolmegaly, rebound, tenderness Musculoskeletal exam: PRESENT: other - Right BKA. Wound looks clean. No discharge. No tenderness. No erythema. Neurological exam: PRESENT: alert, awake, oriented to person, CN II-XII grossly intact. ABSENT: motor sensory deficit Results Laboratory Results: 05/17/19 05:43 05/17/19 05:43 05/02/19 05/02/19 05:57 08:47 Creatine Kinase 201 H Troponin I < 0.012 NT-Pro-B Natriuret Pep 1640 H Impressions: Abdomen/Pelvis CT 05/01/19 23:49 IMPRESSION: 1. Normal unenhanced CT scan of the abdomen and pelvis. There is no evidence of urinary tract calcification or urinary tract obstruction. There is no evidence of gallbladder pathology or acute appendicitis. 2. Occasional colonic diverticulosis. 3. Remote cholecystectomy. 4. Retroflexed myomatous uterus. Lower Extremity CT 05/02/19 00:00 IMPRESSION: Soft tissue edema distally in the lower extremity. It has raises the possibility of cellulitis. No abscess or mass. No bone pathology. Facial Bones CT 05/05/19 00:00 IMPRESSION: 2.8 -cm lesion of the subcutaneous left paracentral nasal tissues may indicate a phlegmon or chronic hematoma. Differential etiologies include infectious, inflammatory, and neoplastic processes. Venous Doppler Study 05/05/19 00:00 IMPRESSION: NO EVIDENCE DVT OR SVT IN EITHER LEG. Chest X-Ray 05/08/19 00:00 IMPRESSION: Endotracheal tube, right jugular line in good positioning. Bilateral airspace disease seen 05/07/2019 1958 hours has near completely cleared Guidance Fluoroscopy 05/18/19 00:00 IMPRESSION: SUCCESSFUL PLACEMENT OF A 5 FR DUAL LUMEN 38 CM PICC IN THE LEFT BASILIC VEIN. Interventional Vascular Procedure 05/18/19 00:00 IMPRESSION: SUCCESSFUL PLACEMENT OF A 5 FR DUAL LUMEN 38 CM PICC IN THE LEFT BASILIC VEIN. PICC Line Insertion 05/18/19 00:00
[2019-05-18] MEDS: OXYCODONE-ACETAMINOPHEN 5-325 MG TABLET PO PRN (20:38)
[2019-05-18 21:11] VITALS: BP 146/60
== END 2019-05-18 20:50 | DRG 853 ==
LOC: ER 22:08 → EH 05-02 03:12 → ICU 05-02 04:03 → 4S 05-09 17:35
PROVIDERS: ADMIT Surgery; ATTEND Internal Medicine Critical Care Medicine
PROC: 0JBQ0ZZ Excision of Right Foot Subcutaneous Tissue and Fascia, Open Approach (ICD-10-PCS; 2019-05-02)
PROC: 0BH17EZ Insertion of Endotracheal Airway into Trachea, Via Natural or Artificial Opening (ICD-10-PCS; 2019-05-02)
PROC: 02HV33Z Insertion of Infusion Device into Superior Vena Cava, Percutaneous Approach (ICD-10-PCS; 2019-05-02)
PROC: B548ZZA Ultrasonography of Superior Vena Cava, Guidance (ICD-10-PCS; 2019-05-02)
PROC: B5181ZA Fluoroscopy of Superior Vena Cava using Low Osmolar Contrast, Guidance (ICD-10-PCS; 2019-05-02)
PROC: 5A1945Z Respiratory Ventilation, 24-96 Consecutive Hours (ICD-10-PCS; 2019-05-02)
PROC: 0Y6C0Z3 Detachment at Right Upper Leg, Low, Open Approach (ICD-10-PCS; 2019-05-03)
PROC: 30233N1 Transfusion of Nonautologous Red Blood Cells into Peripheral Vein, Percutaneous Approach (ICD-10-PCS; 2019-05-07)
PROC: 0Y6H0Z3 Detachment at Right Lower Leg, Low, Open Approach (ICD-10-PCS; principal; 2019-05-07 17:00)
PROC: 02HV33Z Insertion of Infusion Device into Superior Vena Cava, Percutaneous Approach (ICD-10-PCS; 2019-05-11)
PROC: B548ZZA Ultrasonography of Superior Vena Cava, Guidance (ICD-10-PCS; 2019-05-11)
PROC: B5181ZA Fluoroscopy of Superior Vena Cava using Low Osmolar Contrast, Guidance (ICD-10-PCS; 2019-05-11)
PROC: 02HV33Z Insertion of Infusion Device into Superior Vena Cava, Percutaneous Approach (ICD-10-PCS; 2019-05-18)
PROC: B548ZZA Ultrasonography of Superior Vena Cava, Guidance (ICD-10-PCS; 2019-05-18)
PROC: B5181ZA Fluoroscopy of Superior Vena Cava using Low Osmolar Contrast, Guidance (ICD-10-PCS; 2019-05-18)
DX: A41.01 Sepsis due to Methicillin susceptible Staphylococcus aureus (principal); J96.01 Acute respiratory failure with hypoxia; R65.21 Severe sepsis with septic shock; G93.41 Metabolic encephalopathy; M72.6 Necrotizing fasciitis; N17.9 Acute kidney failure, unspecified; E87.0 Hyperosmolality and hypernatremia; J34.0 Abscess, furuncle and carbuncle of nose; G30.0 Alzheimer's disease with early onset; F02.80 Dementia in other diseases classified elsewhere, unspecified severity, without behavioral disturbance, psychotic disturbance, mood disturbance, and anxiety; I12.9 Hypertensive chronic kidney disease with stage 1 through stage 4 chronic kidney disease, or unspecified chronic kidney disease; D47.3 Essential (hemorrhagic) thrombocythemia; E11.22 Type 2 diabetes mellitus with diabetic chronic kidney disease; D63.1 Anemia in chronic kidney disease; E78.5 Hyperlipidemia, unspecified; N18.3 Chronic kidney disease, stage 3 (moderate); J45.20 Mild intermittent asthma, uncomplicated; I87.2 Venous insufficiency (chronic) (peripheral); E78.00 Pure hypercholesterolemia, unspecified; S93.601A Unspecified sprain of right foot, initial encounter; E87.6 Hypokalemia; X50.1XXA Overexertion from prolonged static or awkward postures, initial encounter; Y92.9 Unspecified place or not applicable; Z96.659 Presence of unspecified artificial knee joint; Z78.1 Physical restraint status; Z79.899 Other long term (current) drug therapy; Z88.6 Allergy status to analgesic agent; Z88.2 Allergy status to sulfonamides; Z88.8 Allergy status to other drugs, medicaments and biological substances; Z85.828 Personal history of other malignant neoplasm of skin
CPT/HCPCS: 01470; 01482; 36415; 36430; 36556; 36569; 51701; 51702; 70486; 71045; 71046; 74176; 76937; 77001; 80048; 80053; 81001; 81270; 82140; 82330; 82550; 82570; 82607; 82728; 82746; 82803; 82962; 83010; 83036; 83540; 83550; 83605; 83615; 83735; 83880; 84100; 84132; 84300; 84439; 84443; 84481; 84484; 85025; 85027; 85045; 85240; 85245; 85246; 85247; 85610; 85652; 85730; 86140; 86850; 86900; 86901; 86920; 87040; 87070; 87075; 87077; 87150; 87186; 87205; 88305; 88307; 88311; 93005; 93010; 93306; 93970; 94002; 94003; 94640; 96361; 96365; 96375; 99233; 99285; 99291; 99292; J0131; J0330; J0360; J0610; J0690; J1170; J1642; J1644; J1815; J2020; J2250; J2405; J2543; J2704; J2800; J3010; J3475; J3480; J3490; J7030; J7050; J7060; J7120; J7614; J7626; P9016; S0032

== ENCOUNTER 2019-09-12 17:47 | Emergency (ER) | payer MEDICARE, BC ==
--- NOTE | 2019-09-12 18:15 | ER Document Report ---
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 Son reports 3 days ago she was a bit a little shaky but that went away. He reports this morning she started complaining shortness of breath and chest pain on the right side. No other complaints such as nausea vomiting diarrhea. No known covert exposure. He reports up until this morning she has been eating drinking voiding as normal. I have greeted and performed a rapid initial assessment of this patient. A comprehensive ED assessment and evaluation of the patient, analysis of test results and completion of the medical decision making process will be conducted by additional ED providers. TRAVEL OUTSIDE OF THE [place] IN LAST 30 DAYS: No - Related Data Allergies/Adverse Reactions: atorvastatin Allergy (Verified 09/12/19 18:03) codeine Allergy (Verified 09/12/19 18:03) lisinopril Allergy (Verified 09/12/19 18:03) meloxicam Allergy (Verified 09/12/19 18:03) metformin Allergy (Verified 09/12/19 18:03) Sulfa (Sulfonamide Antibiotics) Allergy (Verified 09/12/19 18:03) Past Medical History - Past Medical History Cardiac Medical History: Reports: Hx Atrial Fibrillation, Hx Hypercholesterolemia, Hx Hypertension, Hx Heart Murmur - Reportedly known since patient was a child. Denies: Hx Congestive Heart Failure, Hx Coronary Artery Disease, Hx DVT, Hx Heart Attack, Hx Peripheral Vascular Disease, Hx Pulmonary Embolism Pulmonary Medical History: Reports: Hx Asthma, Hx Bronchitis, Hx Pneumonia Denies: Hx COPD, Hx Intubation, Hx Respiratory Failure Neurological Medical History: Denies: Hx Migraine Endocrine Medical History: Reports: Hx Diabetes Mellitus Type 2. Denies: Hx Hyperthyroidism, Hx Hypothyroidism Renal/ Medical History: Reports: Hx End Stage Renal Disease - stage 3 Malignancy Medical History: Reports: Hx Skin Cancer - Post resection from nasal bridge. Denies: Hx Bone Cancer, Hx Cervical Cancer, Hx Ovarian Cancer GI Medical History: Denies: Hx Cirrhosis, Hx Crohn's Disease, Hx Diverticulitis, Hx Gastroesophageal Reflux Disease Musculoskeltal Medical History: Denies Hx Arthritis Psychiatric Medical History: Denies: Hx Depression Past Surgical History: Reports: Hx Cholecystectomy, Other - Carpal tunnel surgery of right wrist Physical Exam - Vital signs Vitals: Temp Pulse Resp BP Pulse Ox 97.7 F 92 28 H 134/48 H 100 09/12/19 18:01 09/12/19 18:01 09/12/19 18:01 09/12/19 18:01 09/12/19 18:01 Course - Vital Signs Vital signs: Temp Pulse Resp BP Pulse Ox 97.7 F 92 28 H 134/48 H 100 09/12/19 18:03 09/12/19 18:01 09/12/19 18:01 09/12/19 18:01 09/12/19 18:01 - Laboratory Result Diagrams: 09/12/19 19:45 09/12/19 18:20 Laboratory results interpreted by me: 09/12/19 09/12/19 09/12/19 18:20 18:20 19:45 WBC 12.8 H 12.5 H Hgb 11.5 L Hct 35.7 L 33.4 L RDW 15.6 H 15.3 H Plt Count 1043 H* 805 H Lymph % (Auto) 12.9 L Absolute Neuts (auto) 9.8 H Seg Neutrophils % 78.3 H Abs Neuts (Manual) 9.6 H Sodium 136.9 L Carbon Dioxide 21 L BUN 26 H Est GFR (MDRD) Non-Af 54 L Calcium 10.6 H Doctor's Discharge - Discharge Referrals: ANMOL NUNES MD [ACTIVE STAFF] - Follow up as needed
[2019-09-12 18:37] LABS: HEMATOCRIT 35.7 % (36.0-47.0); HEMOGLOBIN 12.4 g/dL (12.0-15.5); MEAN CORPUSCULAR HEMOGLOBIN 30.1 pg (27.0-33.4); MEAN CORPUSCULAR HGB CONC 34.7 g/dL (32.0-36.0); MEAN CORPUSCULAR VOLUME 87 fl (80-97); RED CELL DISTRIBUTION WIDTH 15.6 % (11.5-14.0); WHITE BLOOD COUNT 12.8 10^3/uL (4.0-10.5)
[2019-09-12 18:50] LABS: ALBUMIN 4.8 g/dL (3.5-5.0); ALKALINE PHOSPHATASE 93 U/L (38-126); ANION GAP 12 (5-19); ASPARTATE AMINO TRANSFERASE 24 U/L (14-36); BILIRUBIN,TOTAL 0.4 mg/dL (0.2-1.3); BLOOD UREA NITROGEN 26 mg/dL (7-20); CALCIUM 10.6 mg/dL (8.4-10.2); CARBON DIOXIDE 21 mmol/L (22-30); CHLORIDE 104 mmol/L (98-107); GLUCOSE 98 mg/dL (75-110); POTASSIUM 4.3 mmol/L (3.6-5.0); TOTAL PROTEIN 7.6 g/dL (6.3-8.2)
[2019-09-12 18:53] LABS: PLATELET COUNT 1043 10^3/uL (150-450)
--- NOTE | 2019-09-12 19:02 | RADIOLOGY REPORT (SQ) ---
EXAM DESCRIPTION: CHEST SINGLE VIEW IMAGES COMPLETED DATE/TIME: 09/12/2019 6:39 pm REASON FOR STUDY: cp COMPARISON: 05/08/2019. EXAM PARAMETERS: NUMBER OF VIEWS: One view. TECHNIQUE: Single frontal radiographic view of the chest acquired. RADIATION DOSE: NA LIMITATIONS: None. FINDINGS: LUNGS AND PLEURA: No opacities, masses or pneumothorax. No pleural effusion. MEDIASTINUM AND HILAR STRUCTURES: No masses. Contour normal. HEART AND VASCULAR STRUCTURES: Heart normal in size. Normal vasculature. BONES: No acute findings. HARDWARE: None in the chest. OTHER: No other significant finding. IMPRESSION: NO ACUTE RADIOGRAPHIC FINDING IN THE CHEST. TECHNICAL DOCUMENTATION: JOB ID: [id number] 2010 [employer]- All Rights Reserved Reading location - IP/workstation name: [email or web address]
[2019-09-12 19:09] LABS: ABSOLUTE LYMPHOCYTES# (MANUAL) 2.6 10^3/uL (0.5-4.7); ABSOLUTE MONOCYTES # (MANUAL) 0.5 10^3/uL (0.1-1.4); BASOPHILS % (MANUAL) 0 % (0-2); EOSINOPHILS % (MANUAL) 1 % (0-6); LYMPHOCYTES % (MANUAL) 20 % (13-45); MONOCYTES % (MANUAL) 4 % (3-13); SEGMENTED NEUTROPHILS % (MAN) 75 % (42-78); TOTAL CELLS COUNTED 100
[2019-09-12 19:10] LABS: ANISOCYTOSIS SLIGHT; OVALOCYTES 1+; PLATELET COMMENT INCREASED; PLATELET LARGE PRESENT; POIKILOCYTOSIS 1+
[2019-09-12 20:08] LABS: ABSOLUTE BASOPHILS # (AUTO) 0.1 10^3/uL (0.0-0.2); ABSOLUTE EOSINOPHILS # (AUTO) 0.2 10^3/uL (0.0-0.6); ABSOLUTE LYMPHOCYTES (AUTO) 1.6 10^3/uL (0.5-4.7); ABSOLUTE MONOCYTES (AUTO) 0.9 10^3/uL (0.1-1.4); ABSOLUTE NEUT (AUTO) 9.8 10^3/uL (1.7-8.2); APPEARANCE,URINE CLEAR; BASOPHILS % (AUTO) 0.6 % (0-2); BILIRUBIN,URINE NEGATIVE (NEGATIVE); COLOR,URINE YELLOW; EOSINOPHILS % (AUTO) 1.3 % (0-6); GLUCOSE, URINE NEGATIVE (NEGATIVE); HEMATOCRIT 33.4 % (36.0-47.0); HEMOGLOBIN 11.5 g/dL (12.0-15.5); KETONES,URINE NEGATIVE (NEGATIVE); LEUKOCYTE ESTERASE,URINE NEGATIVE (NEGATIVE); LYMPHOCYTES % (AUTO) 12.9 % (13-45); MEAN CORPUSCULAR HEMOGLOBIN 29.8 pg (27.0-33.4); MEAN CORPUSCULAR HGB CONC 34.3 g/dL (32.0-36.0); MEAN CORPUSCULAR VOLUME 87 fl (80-97); MONOCYTES % (AUTO) 6.9 % (3-13); NITRITE,URINE NEGATIVE (NEGATIVE); PLATELET COUNT 805 10^3/uL (150-450); PROTEIN,URINE NEGATIVE (NEGATIVE); RED BLOOD COUNT 3.84 10^6/uL (3.72-5.28); RED CELL DISTRIBUTION WIDTH 15.3 % (11.5-14.0); SEGMENTED NEUTROPHILS % (AUTO) 78.3 % (42-78); TOTAL CELLS COUNTED % (AUTO) 100 %; URINE SPECIFIC GRAVITY 1.009; UROBILINOGEN,URINE NEGATIVE mg/dL (<2.0); WHITE BLOOD COUNT 12.5 10^3/uL (4.0-10.5)
--- NOTE | 2019-09-12 21:15 | ER Document Report ---
Entered by RANI HOLBROOK SCRIBE 09/12/191939 Acting as scribe for:APARNA GUZMÁN MD ED General - General Chief Complaint: Chest Pain Stated Complaint: CHEST PAIN Time Seen by Provider: 09/12/19 18:08 Primary Care Provider: ANMOL NUNES MD [ACTIVE STAFF] - Follow up as needed Mode of Arrival: Wheelchair Information source: Patient, Relative - Son Notes: This 74-year-old female presents with son to the emergency department c omplaining of chest pain that began this morning. Son reports that patient was acting normal with no complaints yesterday but today woke up with left-sided chest wall pain. Son describes that the pain came and went throughout the day and the patient states that it was sometimes sharp in nature. Son said that patient was shaky today, weak and short of breath. Patient took a Tylenol this morning for the chest pain with no relief. Patient said that her chest pain is worsened with twisting and deep breaths. Patient said that she does not feel the chest pain now. Son mentions that patient started using her walker this week. Patient reports a dull headache. Patient denies rash, sputum, cough, blurred vision, seizures or injuries to her chest wall. TRAVEL OUTSIDE OF THE [place] IN LAST 30 DAYS: No - Related Data Allergies/Adverse Reactions: atorvastatin Allergy (Verified 09/12/19 18:03) codeine Allergy (Verified 09/12/19 18:03) lisinopril Allergy (Verified 09/12/19 18:03) meloxicam Allergy (Verified 09/12/19 18:03) metformin Allergy (Verified 09/12/19 18:03) Sulfa (Sulfonamide Antibiotics) Allergy (Verified 09/12/19 18:03) Past Medical History - General Information source: Patient, Relative - son - Social History Smoking Status: Never Smoker Cigarette use (# per day): No Chew tobacco use (# tins/day): No Lives with: Family Family History: Reviewed & Not Pertinent Patient has suicidal ideation: No Patient has homicidal ideation: No - Past Medical History Cardiac Medical History: Reports: Hx Atrial Fibrillation, Hx Hypercholesterolemia, Hx Hypertension, Hx Heart Murmur - Reportedly known since patient was a child. Pulmonary Medical History: Reports: Hx Asthma, Hx Bronchitis, Hx Pneumonia Endocrine Medical History: Reports: Hx Diabetes Mellitus Type 2 Renal/ Medical History: Reports: Hx End Stage Renal Disease - stage 3 Malignancy Medical History: Reports: Hx Skin Cancer - Post resection from nasal bridge Past Surgical History: Reports: Hx Cholecystectomy, Other - Carpal tunnel surgery of right wrist, Right below the knee amputation. Review of Systems - Review of Systems Constitutional: No symptoms reported EENT: See HPI. denies: Blurred vision, Double vision Cardiovascular: See HPI, Chest pain Respiratory: See HPI, Short of breath. denies: Cough, Sputum Gastrointestinal: No symptoms reported Genitourinary: No symptoms reported Female Genitourinary: No symptoms reported Musculoskeletal: No symptoms reported Skin: See HPI. denies: Rash Hematologic/Lymphatic: No symptoms reported Neurological/Psychological: See HPI, Headaches. denies: Seizure -: Yes All other systems reviewed and negative Physical Exam - Vital signs Vitals: Temp Pulse Resp BP Pulse Ox 97.7 F 92 28 H 134/48 H 100 09/12/19 18:01 09/12/19 18:01 09/12/19 18:01 09/12/19 18:01 09/12/19 18:01 - Notes Notes: Physical Exam: General: Alert, appears well. HEENT: Normocephalic. Atraumatic. PERRL. Extraocular movements intact. Oropharynx clear. Neck: Supple. Non-tender. Respiratory: No respiratory distress. Clear and equal breath sounds bilaterally. Left anterior chest wall reproducible tenderness to palpation. Cardiovascular: Regular rate and rhythm. Grade 3/6 heart murmur. Abdominal: Normal Inspection. Non-tender. No distension. Normal Bowel Sounds. Back: No gross abnormalities. Extremities: Moves all four extremities. Upper extremities: Normal inspection. Normal ROM. Lower extremities: Right leg below the knee amputation that is healed. No edema. Normal ROM. Neurological: Demented. AAOx4. Normal speech. Psychological: Normal affect. Normal Mood. Skin: Warm. Dry. Normal color. Course - Re-evaluation Re-evalutation: 09/12/19 21:05 Patient resting comfortably not showing any signs of distress at this time denie s chest pain. 09/12/19 21:05 Discussed with patient and her son regarding an elevated platelet count. We repeated her blood test a complete blood count and the initial platelet count has been reduced to 850 from 1040.. Her son reports that she is already seen a brick setter for an elevated platelet count that is on occasion. His understanding is that there is no medication required at this time for her elevated platelet count. 09/12/19 21:12 Discussed with patient the most common cause for her left-sided chest wall pain is the fact of her increased activity of trying to walk with her AKA on the right with a walker. Currently a prosthesis lower extremity on the right has not been completely created yet and so she is still trying to learn how to walk without a prosthesis at this time using a walker and I think she is has caused left-sided chest wall pain. There is been no particular fall or injury to her chest wall just that she is using her muscles differently now. And regarding her panic disorder today she was more agitated than usual and has begun Zoloft 100 mg in the past 2 weeks.. Discussed with son that most likely that Zoloft has not had a chance to fully be effective in the short-term. And that the give it longer chance and perhaps other medications may be required. Advised patient and her son that she should take Tylenol 1000 mg twice a day as needed for chest wall pain and to consider taking the Zoloft in the daytime. - Vital Signs Vital signs: Temp Pulse Resp BP Pulse Ox 97.7 F 92 28 H 134/48 H 100 09/12/19 18:03 09/12/19 18:01 09/12/19 18:01 09/12/19 18:01 09/12/19 18:01 - Laboratory Result Diagrams: 09/12/19 19:45 09/12/19 18:20 Laboratory results interpreted by me: 09/12/19 09/12/19 09/12/19 18:20 18:20 19:45 WBC 12.8 H 12.5 H Hgb 11.5 L Hct 35.7 L 33.4 L RDW 15.6 H 15.3 H Plt Count 1043 H* 805 H Lymph % (Auto) 12.9 L Absolute Neuts (auto) 9.8 H Seg Neutrophils % 78.3 H Abs Neuts (Manual) 9.6 H Sodium 136.9 L Carbon Dioxide 21 L BUN 26 H Est GFR (MDRD) Non-Af 54 L Calcium 10.6 H 09/12/19 21:10 Overall decrease in platelet count from 1043-805. This is still an elevated platelet count. Patient and his her son is aware that she has had on occasion elevated platelet count and has been evaluated in and no medication has been prescribed for her from the airborne sensor specialist. Also a d-dimer was done to be sure the patient's chest pain was not due to blood clot. Or an embolus. And with a normal d-dimer is less likely that that is the case. - Diagnostic Test Radiology reviewed: Image reviewed, Reports reviewed Radiology results interpreted by me: 09/12/19 21:06 Chest x-ray no acute process - EKG Interpretation by Me Additional EKG results interpreted by me: 09/12/19 21:09 Twelve-lead EKG done at 17 1253 shows normal sinus rhythm borderline QT interval prolonged. Discharge - Discharge Clinical Impression: Anterior chest wall pain, Anxiety Condition: Stable Disposition: HOME, SELF-CARE Instructions: Chest Wall Pain ([facility]) Additional Instructions: Anxiety The physician feels that some of your health problems are being caused by anxiety. Anxiety affects your health in many ways. Anxiety alone can cause palpitations, sweats, chest pains, abdominal pains, shortness of breath, and headaches. It contributes to ulcer disease, high blood pressure, irritable bowel syndrome, and has been shown to cause flare-ups of many other diseases. Anxiety is not a simple disorder to treat. If the anxiety is due to recent life stresses, you may simply need time to "work through" the changes. If the anxiety is due to an underlying unhappiness with yourself or due to psychiatric disturbance, professional help will be needed. Your physician can refer you for further help if needed. Anti-anxiety medication is occasionally given if the stress is acute or if you are having trouble sleeping. Chronic or frequent use of these medications is not a good idea because the body becomes reliant on it, preventing you from dealing with life's normal stresses. Referrals: ANMOL NUNES MD [ACTIVE STAFF] - Follow up as needed I personally performed the services described in the documentation, reviewed and edited the documentation which was dictated to the scribe in my presence, and it accurately records my words and actions.
[2019-09-12 21:32] VITALS: BP 144/75
--- NOTE | 2019-09-13 10:26 | EKG REPORT ---
SEVERITY:- BORDERLINE ECG - SINUS RHYTHM BORDERLINE PROLONGED QT INTERVAL : Confirmed by: Kathy Marks 13-Sep-2019 10:25:38
[2019-09-14 11:40] LABS: PATH REVIEW PATHOLOGIST REVIEWED
== END 2019-09-12 21:35 | disposition home or self-care (01) ==
LOC: ER 17:47
DX: R07.89 Other chest pain (principal); F41.9 Anxiety disorder, unspecified; F41.0 Panic disorder [episodic paroxysmal anxiety]; R51 Headache; J45.909 Unspecified asthma, uncomplicated; R06.02 Shortness of breath; I10 Essential (primary) hypertension; Z87.01 Personal history of pneumonia (recurrent); Z89.511 Acquired absence of right leg below knee; Z88.8 Allergy status to other drugs, medicaments and biological substances; Z88.6 Allergy status to analgesic agent; Z88.5 Allergy status to narcotic agent; Z88.2 Allergy status to sulfonamides
CPT/HCPCS: 36415; 71045; 80053; 81001; 84484; 85025; 85379; 93005; 93010; 99284

== ENCOUNTER 2019-10-31 12:46 | Emergency (ER) | payer MEDICARE, BC ==
--- NOTE | 2019-10-31 12:58 | ER Document Report ---
ED General - General Chief Complaint: Abnormal Lab Results Stated Complaint: ABNORMAL LAB Time Seen by Provider: 10/31/19 12:47 Primary Care Provider: TRISHA SPARKS MD [Primary Care Provider] - Follow up as needed Notes: HPI: Patient is a 74-year-old female with past medical history as recorded including dementia at the [facility] with a history including a central thrombocytosis who presents today with EMS secondary to a nurse practitioner stating that the patient's platelets levels have been "too high". In August here the patient's platelet levels were 100,000,000. Patient has dementia but denies any and all pain. She states she is not sure why she is here. ROS: See HPI All other review of systems reviewed and otherwise negative Reviewed vital signs and nursing note as charted by RN. PHYSICAL EXAM: CONSTITUTIONAL: Alert and answers all questions smiling in no acute distress. S he is slightly disoriented which is baseline according to EMS. Well-appearing; well-nourished HEAD: Normocephalic; atraumatic EYES: PERRL; Conjunctivae clear, sclerae non-icteric ENT: Normal nose; no rhinorrhea; moist mucous membranes; pharynx without lesions noted NECK: Supple without meningismus; non-tender; no cervical lymphadenopathy, no masses CARD: Regular rate and rhythm; no murmurs; symmetric distal pulses RESP: Normal chest excursion without splinting or tachypnea; breath sounds clear and equal bilaterally ABD/GI: Normal bowel sounds; non-distended; soft, non-tender; no palpable organomegaly or masses BACK: The back appears normal and is non-tender to palpation EXT: Normal ROM in all joints; non-tender to palpation; no edema SKIN: No acute lesions noted NEURO: CN 2-12 intact; 5/5 bilateral upper and lower extremity strength with sensation intact to light touch PSYCH: The patient's mood and manner are appropriate. Grooming and personal hygiene are appropriate. TRAVEL OUTSIDE OF THE [place] IN LAST 30 DAYS: No - Related Data Allergies/Adverse Reactions: atorvastatin Allergy (Verified 10/31/19 13:08) codeine Allergy (Verified 10/31/19 13:08) lisinopril Allergy (Verified 10/31/19 13:08) meloxicam Allergy (Verified 10/31/19 13:08) metformin Allergy (Verified 10/31/19 13:08) Sulfa (Sulfonamide Antibiotics) Allergy (Verified 10/31/19 13:08) Past Medical History - Social History Smoking Status: Unknown if Ever Smoked Family History: Reviewed & Not Pertinent - Past Medical History Cardiac Medical History: Reports: Hx Atrial Fibrillation, Hx Hypercholes terolemia, Hx Hypertension, Hx Heart Murmur - Reportedly known since patient was a child. Denies: Hx Congestive Heart Failure, Hx Coronary Artery Disease, Hx DVT, Hx Heart Attack, Hx Peripheral Vascular Disease, Hx Pulmonary Embolism Pulmonary Medical History: Reports: Hx Asthma, Hx Bronchitis, Hx Pneumonia Denies: Hx COPD, Hx Intubation, Hx Respiratory Failure Neurological Medical History: Denies: Hx Migraine Endocrine Medical History: Reports: Hx Diabetes Mellitus Type 2. Denies: Hx Hyperthyroidism, Hx Hypothyroidism Renal/ Medical History: Reports: Hx End Stage Renal Disease - stage 3 Malignancy Medical History: Reports: Hx Skin Cancer - Post resection from nasal bridge. Denies: Hx Bone Cancer, Hx Cervical Cancer, Hx Ovarian Cancer GI Medical History: Denies: Hx Cirrhosis, Hx Crohn's Disease, Hx Diverticulitis, Hx Gastroesophageal Reflux Disease Musculoskeletal Medical History: Denies Hx Arthritis Psychiatric Medical History: Denies: Hx Depression Past Surgical History: Reports: Hx Cholecystectomy, Other - Carpal tunnel surgery of right wrist, Right below the knee amputation. Physical Exam - Vital signs Vitals: Temp Pulse Resp BP Pulse Ox 98.3 F 65 20 141/64 H 100 10/31/19 12:46 10/31/19 12:46 10/31/19 12:46 10/31/19 12:46 10/31/19 12:46 Course - Re-evaluation Re-evalutation: 10/31/19 13:04 We have called the facility. It appears that the patient has a new provider at this new location. She was unaware of the patient's essential thrombo-cytosis. 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 The facility states that her levels were 750,000. Past levels as recorded above. I will obtain basic labs to recheck these levels but I do not anticipate any actions. 10/31/19 14:24 Labs as recorded. Elevated platelets. Other cell lines as recorded. Chemistry as recorded. Potassium and chloride as recorded. I have spoken directly to the patient's son. He states that this is a known condition. He states that they did see an oncologist and they are just watching the values. He states he was an oncologist in [facility]. Patient still denies any symptoms. Vital signs are stable. - Vital Signs Vital signs: Temp Pulse Resp BP Pulse Ox 98.3 F 65 20 141/64 H 100 10/31/19 13:08 10/31/19 12:46 10/31/19 12:46 10/31/19 12:46 10/31/19 12:46 - Laboratory Result Diagrams: 10/31/19 13:07 10/31/19 13:07 Laboratory results interpreted by me: 10/31/19 10/31/19 13:07 13:07 WBC 11.4 H Hgb 11.3 L Hct 33.5 L RDW 16.1 H Plt Count 822 H Lymph % (Auto) 10.5 L Absolute Neuts (auto) 9.1 H Seg Neutrophils % 80.1 H BUN 23 H Est GFR (MDRD) Non-Af 59 L Glucose 121 H Discharge - Discharge Clinical Impression: Thrombocytosis Condition: Good Disposition: HOME, SELF-CARE Additional Instructions: Come back immediately for any fever, pain, vomiting, change in mental status, or any other acute problems. Please have the patient follow-up with her oncologist regarding her elevated platelet level. Referrals: TRISHA SPARKS MD [Primary Care Provider] - Follow up as needed
[2019-10-31 13:19] LABS: ABSOLUTE BASOPHILS # (AUTO) 0.1 10^3/uL (0.0-0.2); ABSOLUTE EOSINOPHILS # (AUTO) 0.2 10^3/uL (0.0-0.6); ABSOLUTE LYMPHOCYTES (AUTO) 1.2 10^3/uL (0.5-4.7); ABSOLUTE MONOCYTES (AUTO) 0.8 10^3/uL (0.1-1.4); ABSOLUTE NEUT (AUTO) 9.1 10^3/uL (1.7-8.2); BASOPHILS % (AUTO) 0.5 % (0-2); EOSINOPHILS % (AUTO) 2.2 % (0-6); HEMATOCRIT 33.5 % (36.0-47.0); HEMOGLOBIN 11.3 g/dL (12.0-15.5); LYMPHOCYTES % (AUTO) 10.5 % (13-45); MEAN CORPUSCULAR HEMOGLOBIN 29.5 pg (27.0-33.4); MEAN CORPUSCULAR HGB CONC 33.7 g/dL (32.0-36.0); MEAN CORPUSCULAR VOLUME 88 fl (80-97); MONOCYTES % (AUTO) 6.7 % (3-13); PLATELET COUNT 822 10^3/uL (150-450); RED BLOOD COUNT 3.83 10^6/uL (3.72-5.28); RED CELL DISTRIBUTION WIDTH 16.1 % (11.5-14.0); SEGMENTED NEUTROPHILS % (AUTO) 80.1 % (42-78); TOTAL CELLS COUNTED % (AUTO) 100 %; WHITE BLOOD COUNT 11.4 10^3/uL (4.0-10.5)
[2019-10-31 13:36] LABS: ALBUMIN 4.5 g/dL (3.5-5.0); ALKALINE PHOSPHATASE 61 U/L (38-126); ANION GAP 9 (5-19); ASPARTATE AMINO TRANSFERASE 24 U/L (14-36); BILIRUBIN,TOTAL 0.2 mg/dL (0.2-1.3); BLOOD UREA NITROGEN 23 mg/dL (7-20); CARBON DIOXIDE 24 mmol/L (22-30); CHLORIDE 105 mmol/L (98-107); GLUCOSE 121 mg/dL (75-110); POTASSIUM 4.8 mmol/L (3.6-5.0); TOTAL PROTEIN 7.1 g/dL (6.3-8.2)
[2019-10-31 15:04] VITALS: BP 138/70
== END 2019-10-31 15:04 | disposition home or self-care (01) ==
LOC: ER 12:46
DX: D47.3 Essential (hemorrhagic) thrombocythemia (principal); F03.90 Unspecified dementia, unspecified severity, without behavioral disturbance, psychotic disturbance, mood disturbance, and anxiety; Z88.8 Allergy status to other drugs, medicaments and biological substances; I10 Essential (primary) hypertension; E11.9 Type 2 diabetes mellitus without complications
CPT/HCPCS: 36415; 80053; 85025; 99284